=== PATIENT | female | born 1975 | race Caucasian/White ===

== ENCOUNTER 2021-06-30 19:40 | Emergency (ER) | payer SELFPAY ==
--- NOTE | 2021-06-30 20:20 | XRR_ITS ---
PROCEDURE INFORMATION: Exam: XR Chest Exam date and time: 06/30/2021 8:20 PM Age: 45 years old Clinical indication: Pain; Other: Lung TECHNIQUE: Imaging protocol: XR of the chest. Views: 2 views. COMPARISON: No relevant prior studies available. FINDINGS: Lungs: Emphysematous changes in the lungs. No focal airspace consolidation. No focal pulmonary mass. Pleural spaces: Unremarkable. No pleural effusion. No pneumothorax. Heart/Mediastinum: Unremarkable. No cardiomegaly. Bones/joints: Unremarkable. XR/XR chest 2V* [id number] IMPRESSION: No acute chest abnormality identified.
[2021-06-30 20:35] VITALS: BP 147/92; PULSE 95; RESP 20; TEMP 36.8; O2SAT 97; BMI 26.5
--- NOTE | 2021-06-30 20:53 | ECG_ITS ---
[facility] Test Date: 2021-06-30 Pat Name: Krupa Sparks Department: Room: Gender: Female [employer] Head: : 1975 Requested By: Meggan Palm Order Number: [id number] Katty MD: Lexis Denton M.D. Measurements Intervals [place] Rate: 72 P: 55 MN: 137 QRS: 54 QRSD: 90 T: 37 QT: 401 QTc: 440 Interpretive Statements SINUS RHYTHM No previous ECG available for comparison Electronically Signed On 07-01-2021 18:32:21 CDT by Lexis Denton M.D. [id number]
--- NOTE | 2021-06-30 21:11 | W.ED.NAVMDI ---
HPI - Nausea/Vomiting/Diarrhea General: Chief complaint: Nausea/Vomiting/Diarrhea Stated complaint: Diarrhea\Lungs hurt Time Seen by Provider: 06/30/21 20:50 Source: patient Mode of arrival: ambulatory Limitations: no limitations History of Present Illness: HPI Narrative: 45-year-old female states over the last week she has had cough congestion along with diarrhea. She states she had some body aches as well. She states she has hemorrhoids.her diarrhea is causing her increased pain. She denies any vomiting. Denies any recent fevers. She denies any worsening improving factors. Associated symtoms: Denies chest pain, dysuria or headache(s) Review of Systems Const: Reports: body aches Eyes: Denies: blurry vision or eye discomfort ENMT: Denies: throat pain or dental pain Card: Denies: chest pain Resp: Reports: non-productive cough GI: Reports: diarrhea and rectal pain : Denies: dysuria Musc: Denies: neck pain or back pain Skin/Breast: Denies: rash Neuro: Denies: headache(s) Psych: Denies: depression Kend[place]/Lymph: Denies: easy bruising All/Imm: Denies: urticaria [facility] ED Female Reproductive History: Date of last menstrual period: 06/25/21 Physical Exam Const: COMMON NORMALS: no acute distress, patient oriented x3 and healthy appearing HENMT: COMMON NORMALS: normocephalic and atraumatic HEAD & SCALP: normocephalic and atraumatic Eye: COMMON NORMALS: Equal, round and reactive pupils present and EOMs intact bilaterally PUPIL: Yes Equal, round and reactive pupils present Neck/C-Spine: COMMON NORMALS: full ROM and supple Chest: COMMONS NORMALS: normal inspection of the chest and normal palpation of entire chest wall Resp: COMMON NORMALS: normal respiratory effort, No retractions, No use of accessory muscles and clear to auscultation bilaterally AUSCULTATION: clear to auscultation bilaterally Cardio: COMMON NORMALS: regular rate, regular rhythm and No murmurs present (Cardio) RATE: regular rate RHYTHM: regular rhythm GI: COMMON NORMALS: Normal to inspection, nondistended, normoactive bowel sounds present, Soft to palpation, non-tender and no masses PALPATION: Yes Soft to palpation Extremity: COMMON NORMALS: normal to inspection and full ROM Neuro: COMMON NORMALS: patient oriented x3, moves all extremities and no focal motor deficits Psych: COMMON NORMALS: mental status grossly normal, Normal thought process present and cooperative THOUGHT PROCESS: Normal thought process present Skin: COMMON NORMALS: no rashes or lesions noted and no wounds GENERAL SKIN EXAM: no rashes or lesions noted Course Vital Signs: Vital signs: Vital Signs Temperature 98.2 F 06/30/21 20:35 Pulse Rate 78 06/30/21 22:07 Respiratory Rate 16 06/30/21 22:07 Blood Pressure 138/91 06/30/21 22:07 Pulse Oximetry 97 06/30/21 22:07 MDM - Nausea/Vomiting/Diarrhea MDM Narrative: Medical decision making narrative: Patient presents with diarrhea along with hemorrhoid pain. She is well-appearing here lab work and Covid are normal. X-ray here is normal as well. She stable for discharge she is to take Imodium will prescribe her Proctofoam as well. She is to follow-up with PCP and return if worsening. Lab Data: Labs: Lab Results 06/30/21 06/30/21 06/30/21 Range/Units 21:00 21:00 21:00 WBC 7.4 (4.0-10.0) 10^3/ uL RBC 3.85 L (4.1-5.3) 10^6/u L Hgb 11.1 L (11.5-15.3) g/dL Hct 34.7 L (37.0-47.0) % MCV 90.1 (81-99) fl MCH 28.8 (28.0-34.0) pg MCHC 32.0 (30.0-36.0) g/dL RDW 17.5 H (12.1-15.1) % Plt Count 341 (130-400) 10^3/c mm MPV 11.2 H (7.4-10.4) fL Neut % (Auto) 49.7 % Lymph % (Auto) 36.3 % [place] % (Auto) 8.4 % Eos % (Auto) 4.0 % Baso % (Auto) 1.5 % Neut # (Auto) 3.68 (1.8-7.7) 10^3/u L Lymph # (Auto) 2.7 (0.8-4.8) 10^3/u L [place] # (Auto) 0.6 (0.2-0.9) 10^3/u L Eos # (Auto) 0.3 (0.0-0.8) 10^3/u L Baso # (Auto) 0.1 (0.0-0.1) 10^3/u L Nucleated RBC % (a uto) 0 % Nucleated RBCs # 0.0 /100WBC Sodium 138 (136-145) mmol/L Potassium 3.6 (3.5-5.1) mmol/L Chloride 106 (98-107) mmol/L Carbon Dioxide 21 L (22-29) mmol/L Anion Gap 14.6 (5-19) BUN 10 (6-20) mg/dL Creatinine 0.6 (0.5-0.9) mg/dL GFR Calculation 108.6 (90-130) mL/min Glucose 89 (65-115) mg/dL Calculated Osmolal ity 285 (285-295) mOsm/k g Calcium 8.2 L (8.5-10.5) mg/dL Total Bilirubin 0.2 (0.15-1.2) mg/dL AST 22 (0-32) U/L ALT 12 (0-33) U/L Alkaline Phosphata se 113 H (35-105) IU/L Troponin T Baselin e 6 (0-10) ng/L Total Protein 6.9 (6.6-8.7) g/dL Albumin 4.1 (3.5-5.2) g/dL Globulin 2.8 (1.3-4.6) g/dL SARS-CoV-2 Ag (Rap id) (Negative) 06/30/21 Range/Units 21:06 WBC (4.0-10.0) 10^3/ uL RBC (4.1-5.3) 10^6/u L Hgb (11.5-15.3) g/dL Hct (37.0-47.0) % MCV (81-99) fl MCH (28.0-34.0) pg MCHC (30.0-36.0) g/dL RDW (12.1-15.1) % Plt Count (130-400) 10^3/c mm MPV (7.4-10.4) fL Neut % (Auto) % Lymph % (Auto) % [place] % (Auto) % Eos % (Auto) % Baso % (Auto) % Neut # (Auto) (1.8-7.7) 10^3/u L Lymph # (Auto) (0.8-4.8) 10^3/u L [place] # (Auto) (0.2-0.9) 10^3/u L Eos # (Auto) (0.0-0.8) 10^3/u L Baso # (Auto) (0.0-0.1) 10^3/u L Nucleated RBC % (a uto) % Nucleated RBCs # /100WBC Sodium (136-145) mmol/L Potassium (3.5-5.1) mmol/L Chloride (98-107) mmol/L Carbon Dioxide (22-29) mmol/L Anion Gap (5-19) BUN (6-20) mg/dL Creatinine (0.5-0.9) mg/dL GFR Calculation (90-130) mL/min Glucose (65-115) mg/dL Calculated Osmolal ity (285-295) mOsm/k g Calcium (8.5-10.5) mg/dL Total Bilirubin (0.15-1.2) mg/dL AST (0-32) U/L ALT (0-33) U/L Alkaline Phosphata se (35-105) IU/L Troponin T Baselin e (0-10) ng/L Total Protein (6.6-8.7) g/dL Albumin (3.5-5.2) g/dL Globulin (1.3-4.6) g/dL SARS-CoV-2 Ag (Rap id) Negative (Negative) Imaging Data^: CXR: Attestation: I personally reviewed and interpreted this imaging study as follows: Radiologist's impression: [address] [address] XRay Report Signed Patient: Krupa Sparks Unit #: [id number] : 1975 Age/Sex: 45 / F ADM Date: 06/30/21 Loc: ER Room/Bed: Attending Dr: Ordering Provider/Ordering MD: Meggan Palm MD Date of Service: 06/30/21 Procedure(s): XR chest 2V* [id number] Accession Number(s): [id number] Report Number: [id number] PROCEDURE INFORMATION: Exam: XR Chest Exam date and time: 06/30/2021 8:20 PM Age: 45 years old Clinical indication: Pain; Other: Lung TECHNIQUE: Imaging protocol: XR of the chest. Views: 2 views. COMPARISON: No relevant prior studies available. FINDINGS: Lungs: Emphysematous changes in the lungs. No focal airspace consolidation. No focal pulmonary mass. Pleural spaces: Unremarkable. No pleural effusion. No pneumothorax. Heart/Mediastinum: Unremarkable. No cardiomegaly. Bones/joints: Unremarkable. XR/XR chest 2V* [id number] IMPRESSION: No acute chest abnormality identified. Dictated By: Vitor Stiles Signed By: Vitor Stiles Signed Date/Time: 06/30/212147 DD/ 46 EKG Data^: EKG 1: Attestation: I personally reviewed and interpreted this EKG as follows: EKG interpretation date: 06/30/21 EKG interpretation time: 22:00 Interpretation: nsr hr [address] or t wave abnormalities qrs 90 qtc 425 Discharge Plan Discharge Patient Disposition: Home Clinical Impression: Diarrhea, Hemorrhoid Condition: Stable Prescriptions: New Proctofoam HC 1-1 % foam 1 applic NE TID PRN (Reason: hemorrhoids) Qty: 10 RF: 0 Discharge Orders: Discharge ED (Routine); Ordered 06/30/21 Ordered By: Meggan Palm Discharge Diet: Advance as tolerated Discharge Activity: Resume usual activity Patient Instructions: Diarrhea - Adult, Hemorrhoids (ED) Coding Level of Care Code ED Clinical Program Consultant for Chg Fwd Exam Comprehensive
[2021-06-30 21:14] LABS: Basophils # 0.1 10^3/uL (0.0-0.1); Basophils % 1.5 %; Eosinophils # 0.3 10^3/uL (0.0-0.8); Hematocrit 34.7 % (37.0-47.0); Hemoglobin 11.1 g/dL (11.5-15.3); Lymphocytes # 2.7 10^3/uL (0.8-4.8); Lymphocytes % 36.3 %; Mean Corpuscular Hemoglobin 28.8 pg (28.0-34.0); Mean Corpuscular Volume 90.1 fl (81-99); Mean Platelet Volume 11.2 fL (7.4-10.4); Monocytes # 0.6 10^3/uL (0.2-0.9); Monocytes % 8.4 %; Neutrophils # 3.68 10^3/uL (1.8-7.7); Neutrophils % 49.7 %; Nucleated Red Blood Cells % 0 %; Platelet Count 341 10^3/cmm (130-400); Red Blood Count 3.85 10^6/uL (4.1-5.3); Red Cell Distribution Width 17.5 % (12.1-15.1); White Blood Count 7.4 10^3/uL (4.0-10.0)
[2021-06-30] MEDS: hydrocortisone 1% cream 28 gm 1 APPLIC TOPICAL (21:23)
[2021-06-30 21:41] LABS: Troponin(5th) Baseline 6 ng/L (0-10)
[2021-06-30 21:42] LABS: Alanine Aminotransferase 12 U/L (0-33); Albumin Level 4.1 g/dL (3.5-5.2); Alkaline Phosphatase 113 IU/L (35-105); Anion Gap 14.6 (5-19); Aspartate Amino Transferase 22 U/L (0-32); Blood Urea Nitrogen 10 mg/dL (6-20); Calcium 8.2 mg/dL (8.5-10.5); Carbon Dioxide 21 mmol/L (22-29); Chloride 106 mmol/L (98-107); Globulin 2.8 g/dL (1.3-4.6); Glomerular Filtration Rate 108.6 mL/min (90-130); Glucose 89 mg/dL (65-115); Osmolality Calculated 285 mOsm/kg (285-295); Potassium 3.6 mmol/L (3.5-5.1); Sodium 138 mmol/L (136-145); Total Bilirubin 0.2 mg/dL (0.15-1.2); Total Protein 6.9 g/dL (6.6-8.7)
[2021-06-30 21:49] LABS: SARS Covid-2 Antigen Negative (Negative)
[2021-06-30 22:07] VITALS: BP 138/91; PULSE 78; RESP 16; O2SAT 97
== END 2021-06-30 22:09 | disposition home or self-care (01) ==
PROVIDERS: Emergency Provider Emergency Medicine
DX: R19.7 Diarrhea, unspecified (principal); K64.9 Unspecified hemorrhoids; Z20.822 Contact with and (suspected) exposure to COVID-19
CPT/HCPCS: 71046; 80053; 84484; 85025; 87426; 93005; 99283

== ENCOUNTER 2023-12-13 04:06 | Inpatient (IN) | payer SELFPAY ==
[2023-12-13] VITALS (18 sets, daily range): BP systolic 91–147; BP diastolic 60–89; PULSE 73–127; RESP 15–20; TEMP 36.6–36.9; O2SAT 94–100; BMI 28.3; BMI 30.9
--- NOTE | 2023-12-13 04:24 | ED_ITS ---
Documented by User: Rhett Mc DO 12/13/23 05:39 HPI - Abdominal Pain 2 General: Chief Complaint: Abdominal Pain Stated Complaint: N/V, Abd pain Time Seen by Provider: 12/13/23 04:07 History of Present Illness: Patient presents to the ER with complaints of epigastric abdominal pain nausea vomiting. Patient says she has been having vomiting for 2 weeks anytime she puts anything in her mouth. She says she cannot keep water down. And has not had a bite eat in 2 weeks. She says she feels like something is twisting and burning in the upper part of her stomach. Patient has never had these feelings before nor has she had peptic ulcer disease, acid reflux or GERD. The only abdominal surgery she has had was a . Related Data: Date of Last Menstrual Period: 12/13/23 Review of Systems 2 General: Reports: 10 or more systems reviewed and unremarkable except in HPI and below [facility] ED 2 Female Reproductive History: Date of last menstrual period: 12/13/23 Physical Exam 2 Const: COMMON NORMALS: no acute distress, average body habitus, patient oriented x3, no limitations, healthy appearing, alert and well nourished HENMT: COMMON NORMALS: normocephalic, atraumatic, hearing grossly normal bilaterally, external ears normal, EAC's normal, Normal external nose present, moist oral mucous membranes and oropharynx normal HEAD & SCALP: normocephalic and atraumatic NOSE: Normal external nose present EXTERNAL EAR: Yes external ears normal EXTERNAL AUDITORY CANAL: EAC's normal Neck/C-Spine: COMMON NORMALS: no JVD Chest: COMMONS NORMALS: normal inspection of the chest and normal palpation of entire chest wall Resp: COMMON NORMALS: normal respiratory effort, No retractions, No use of accessory muscles and clear to auscultation bilaterally AUSCULTATION: clear to auscultation bilaterally Cardio: COMMON NORMALS: no JVD, regular rate, regular rhythm, S1 normal heart sound present, S2 normal heart sound present, No gallops present (Cardio), No clicks present (Cardio) and No murmurs present (Cardio) RATE: regular rate RHYTHM: regular rhythm HEART SOUNDS: S1 normal heart sound present and S2 normal heart sound present GI: COMMON NORMALS: Normal to inspection, nondistended, normoactive bowel sounds present, Soft to palpation, No hepatosplenomegaly present and no masses; negative for non-tender (Tender to palpate over epigastric area) PALPATION: Y es Soft to palpation and Yes No hepatosplenomegaly present Neuro: COMMON NORMALS: patient oriented x3 SENSORIUM/ORIENTATION: Yes alert Course 2 Vital Signs: Vital signs: Vital Signs Temperature 98.3 F 12/13/23 04:09 Pulse Rate 75 12/13/23 06:30 Respiratory Rate 20 H 12/13/23 06:30 Blood Pressure 115/75 12/13/23 06:30 Pulse Oximetry 100 12/13/23 06:30 Oxygen Delivery Me thod Room Air 12/13/23 04:44 MDM - Abdominal Pain Differential Diagnosis Likely abdominal pain and gastroenteritis; Unlikely acute appendicitis, calculus of kidney, constipation, diverticulitis, endometriosis, pancreatitis or small bowel obstruction Medical Records I reviewed the patient's medical records. Lab Data I reviewed the patient's lab results. 12/13/23 04:21 12/13/23 04:21 Labs/Radiology: Radiology Impressions Abdomen/Pelvis CT 12/13/23 04:46 IMPRESSION: 1. Probably sludge filled, mildly distended gallbladder with hyperenhancing patricia as described above; this appearance may represent chronic gallbladder dysfunction . Consider RUQ ultrasound for further evaluation. 2. Small fluid density endometrial defect at the anterior lower uterine segment most likely represents a scar diverticulum/isthmocele , with associated post cyst 3. Mild to moderate-sized hiatal hernia partially intrathoracic stomach. 4. Patricia of the right colon demonstrate prominent submucosal fat, which can be a normal finding in the setting of obesity, and also can be seen in the setting of inflammatory bowel disease or celiac disease. 5. Chronic/incidental findings as above Laboratory Results WBC 8.86 10^3/uL (3.29-11.43) 12/13/23 04:21 RBC 3.77 10^6/uL (3.85-5.65) L 12/13/23 04:21 Hgb 14.10 g/dL (11.27-16.99) 12/13/23 04:21 Hct 38.8 % (36-47) 12/13/23 04:21 MCV 102.9 fl (85-98) H 12/13/23 04:21 MCH 37.4 pg (27-33) H 12/13/23 04:21 MCHC 36.3 g/dL (30-55) 12/13/23 04:21 RDW 16.5 % (12.1-15.1) H 12/13/23 04:21 Plt Count 363 10^3/cmm (157-399) 12/13/23 04:21 MPV 11.5 fL (7.4-10.4) H 12/13/23 04:21 Neut % (Auto) 73.0 % 12/13/23 04:21 Lymph % (Auto) 15.5 % 12/13/23 04:21 [place] % (Auto) 9.9 % 12/13/23 04:21 Eos % (Auto) 0.8 % 12/13/23 04:21 Baso % (Auto) 0.6 % 12/13/23 04:21 Neut # (Auto) 6.47 10^3/uL (1.8-7.7) 12/13/23 04:21 Lymph # (Auto) 1.4 10^3/uL (0.8-4.8) 12/13/23 04:21 [place] # (Auto) 0.9 10^3/uL (0.2-0.9) 12/13/23 04:21 Eos # (Auto) 0.1 10^3/uL (0.0-0.8) 12/13/23 04:21 Baso # (Auto) 0.1 10^3/uL (0.0-0.1) 12/13/23 04:21 Nucleated RBC % (auto) 0 % 12/13/23 04:21 Nucleated RBCs # 0.0 /100WBC 12/13/23 04:21 Sodium 132 mmol/L (136-145) L 12/13/23 04:21 Potassium 2.2 mmol/L (3.5-5.1) L* 12/13/23 04:21 Chloride 83 mmol/L (98-107) L 12/13/23 04:21 Carbon Dioxide 30 mmol/L (22-29) H 12/13/23 04:21 Anion Gap 21.2 (5-19) H 12/13/23 04:21 BUN 4 mg/dL (6-20) L 12/13/23 04:21 Creatinine 0.7 mg/dL (0.5-0.9) 12/13/23 04:21 GFR Calculation 89.7 mL/min (90-130) L 12/13/23 04:21 Glucose 159 mg/dL (65-115) H 12/13/23 04:21 Calculated Osmolality 274 mOsm/kg (285-295) L 12/13/23 04:21 Lactic Acid 2.6 mmol/L (0.5-2.2) H 12/13/23 04:21 Calcium 8.9 mg/dL (8.5-10.5) 12/13/23 04:21 Magnesium 1.9 mg/dL (1.7-2.3) 12/13/23 04:21 Total Bilirubin 1.3 mg/dL (0.15-1.2) H 12/13/23 04:21 AST 91 U/L (0-32) H 12/13/23 04:21 ALT 26 U/L (0-33) 12/13/23 04:21 Alkaline Phosphatase 151 U/L (35-105) H 12/13/23 04:21 Total Protein 7.3 g/dL (6.6-8.7) 12/13/23 04:21 Albumin 3.7 g/dL (3.5-5.2) 12/13/23 04:21 Globulin 3.6 g/dL (1.3-4.6) 12/13/23 04:21 Lipase 156 U/L (13-60) H 12/13/23 04:21 HCG, Qual Negative (Negative) 12/13/23 04:21 Urine Color Yellow (Yellow) 12/13/23 05:21 Urine Appearance Hazy (CLEAR) A 12/13/23 05:21 Urine pH 7 (5-7) 12/13/23 05:21 Ur Specific [place] 1.010 (1.005-1.030) 12/13/23 05:21 Urine Protein 2+ (Negative) H 12/13/23 05:21 Urine Glucose (UA) Trace (Normal) H 12/13/23 05:21 Urine Ketones 1+ (Negative) H 12/13/23 05:21 Urine Blood 3+ (Negative) H 12/13/23 05:21 Urine Nitrate Negative (Negative) 12/13/23 05:21 Urine Bilirubin 1+ (Negative) H 12/13/23 05:21 Urine Urobilinogen Neg mg/dL (Negative) 12/13/23 05:21 Ur Leukocyte Esterase 2+ (Negative) H 12/13/23 05:21 Urine RBC 15-25 /hpf (0-2) H 12/13/23 05:21 Urine WBC 55-80 /hpf (0-5) H 12/13/23 05:21 Ur Squamous Epith Cells 5-10 /hpf (0-5) H 12/13/23 05:21 Amorphous Sediment Not Reportable 12/13/23 05:21 Urine Bacteria 3+ /hpf (NONE) H 12/13/23 05:21 Urine Mucus 2+ /hpf 12/13/23 05:21 Urine Opiates Screen Negative ng/mL (Negative) 12/13/23 05:21 Ur Barbiturates Screen Negative ng/mL (Negative) 12/13/23 05:21 Ur Phencyclidine Scrn Negative ng/mL (Negative) 12/13/23 05:21 Ur Amphetamines Screen Negative ng/mL (Negative) 12/13/23 05:21 U Benzodiazepines Scrn Negative ng/mL (Negative) 12/13/23 05:21 Urine Cocaine Screen Negative ng/mL (Negative) 12/13/23 05:21 U Marijuana (THC) Screen Negative ng/mL (Negative) 12/13/23 05:21 Serum Ketones Positive (Negative) H 12/13/23 04:21 All radiology interpretation(s) finalized by discharge Discharge Plan Discharge Patient Disposition: Placed in Observation Clinical Impression: Pancreatitis, Abdominal pain, Hiatal hernia, Cystitis Condition: Stable Prescriptions: No Action Proctofoam HC 1-1 % foam 1 applic [place] TID PRN (Reason: hemorrhoids) Qty: 10 0RF Patient Instructions: Opioid Safety, Pain Management Sign Out Sign Out Data: Patient Sign Out occurred on 12/13/23 at 05:56. Patient's care was discussed, and care was transferred from Rhett Mc DO to Rohan Davidson DO. Coding Level of Care Code ED Examining Officer for Chg Fwd Documented by User: Rohan Man SandramitchDO 12/13/23 07:34 HPI - Abdominal Pain 2 General: Chief Complaint: Abdominal Pain Stated Complaint: N/V, Abd pain Time Seen by Provider: 12/13/23 04:07 Course 2 Vital Signs: Vital signs: Vital Signs Temperature 98.3 F 12/13/23 04:09 Pulse Rate 75 12/13/23 06:30 Respiratory Rate 20 H 12/13/23 06:30 Blood Pressure 115/75 12/13/23 06:30 Pulse Oximetry 100 12/13/23 06:30 Oxygen Delivery Me thod Room Air 12/13/23 04:44 MDM - Abdominal Pain Medical Decision Making Care assumed at change of shift. Patient has hypokalemia persistent nausea and vomiting. Her pain has been going on she states for about 2-2 and half weeks got worse overnight he does not drink alcohol regularly. Lipase elevated is a question on the CT of possible sludge in the gallbladder not confirmed on ultrasound and on ultrasound her common bile duct is normal. No significant inflammation of the pancreas noted on the CT patient has severe epigastric discomfort that is causing her to double over with persistent nausea and vomiting. She denies any recent alcohol use no hematemesis coffee-ground emesis no hematochezia or melena. She was given Zosyn presumptively for possible gallbladder disease while we are awaiting the gallbladder ultrasound. She does have a cystitis she is already been given potassium supplement as well. Will place her on observation pain control she has been given Protonix as well continue fluids and potassium supplement discussed with hospitalist orders written Lab Data 12/13/23 04:21 12/13/23 04:21 Labs/Radiology: Radiology Impressions Abdomen/Pelvis CT 12/13/23 04:46 IMPRESSION: 1. Probably sludge filled, mildly distended gallbladder with hyperenhancing patricia as described above; this appearance may represent chronic gallbladder dysfunction . Consider RUQ ultrasound for further evaluation. 2. Small fluid density endometrial defect at the anterior lower uterine segment most likely represents a scar diverticulum/isthmocele , with associated post cyst 3. Mild to moderate-sized hiatal hernia partially intrathoracic stomach. 4. Patricia of the right colon demonstrate prominent submucosal fat, which can be a normal finding in the setting of obesity, and also can be seen in the setting of inflammatory bowel disease or celiac disease. 5. Chronic/incidental findings as above Laboratory Results WBC 8.86 10^3/uL (3.29-11.43) 12/13/23 04:21 RBC 3.77 10^6/uL (3.85-5.65) L 12/13/23 04:21 Hgb 14.10 g/dL (11.27-16.99) 12/13/23 04:21 Hct 38.8 % (36-47) 12/13/23 04:21 MCV 102.9 fl (85-98) H 12/13/23 04:21 MCH 37.4 pg (27-33) H 12/13/23 04:21 MCHC 36.3 g/dL (30-55) 12/13/23 04:21 RDW 16.5 % (12.1-15.1) H 12/13/23 04:21 Plt Count 363 10^3/cmm (157-399) 12/13/23 04:21 MPV 11.5 fL (7.4-10.4) H 12/13/23 04:21 Neut % (Auto) 73.0 % 12/13/23 04:21 Lymph % (Auto) 15.5 % 12/13/23 04:21 [place] % (Auto) 9.9 % 12/13/23 04:21 Eos % (Auto) 0.8 % 12/13/23 04:21 Baso % (Auto) 0.6 % 12/13/23 04:21 Neut # (Auto) 6.47 10^3/uL (1.8-7.7) 12/13/23 04:21 Lymph # (Auto) 1.4 10^3/uL (0.8-4.8) 12/13/23 04:21 [place] # (Auto) 0.9 10^3/uL (0.2-0.9) 12/13/23 04:21 Eos # (Auto) 0.1 10^3/uL (0.0-0.8) 12/13/23 04:21 Baso # (Auto) 0.1 10^3/uL (0.0-0.1) 12/13/23 04:21 Nucleated RBC % (auto) 0 % 12/13/23 04:21 Nucleated RBCs # 0.0 /100WBC 12/13/23 04:21 Sodium 132 mmol/L (136-145) L 12/13/23 04:21 Potassium 2.2 mmol/L (3.5-5.1) L* 12/13/23 04:21 Chloride 83 mmol/L (98-107) L 12/13/23 04:21 Carbon Dioxide 30 mmol/L (22-29) H 12/13/23 04:21 Anion Gap 21.2 (5-19) H 12/13/23 04:21 BUN 4 mg/dL (6-20) L 12/13/23 04:21 Creatinine 0.7 mg/dL (0.5-0.9) 12/13/23 04:21 GFR Calculation 89.7 mL/min (90-130) L 12/13/23 04:21 Glucose 159 mg/dL (65-115) H 12/13/23 04:21 Calculated Osmolality 274 mOsm/kg (285-295) L 12/13/23 04:21 Lactic Acid 2.6 mmol/L (0.5-2.2) H 12/13/23 04:21 Calcium 8.9 mg/dL (8.5-10.5) 12/13/23 04:21 Magnesium 1.9 mg/dL (1.7-2.3) 12/13/23 04:21 Total Bilirubin 1.3 mg/dL (0.15-1.2) H 12/13/23 04:21 AST 91 U/L (0-32) H 12/13/23 04:21 ALT 26 U/L (0-33) 12/13/23 04:21 Alkaline Phosphatase 151 U/L (35-105) H 12/13/23 04:21 Total Protein 7.3 g/dL (6.6-8.7) 12/13/23 04:21 Albumin 3.7 g/dL (3.5-5.2) 12/13/23 04:21 Globulin 3.6 g/dL (1.3-4.6) 12/13/23 04:21 Lipase 156 U/L (13-60) H 12/13/23 04:21 HCG, Qual Negative (Negative) 12/13/23 04:21 Urine Color Yellow (Yellow) 12/13/23 05:21 Urine Appearance Hazy (CLEAR) A 12/13/23 05:21 Urine pH 7 (5-7) 12/13/23 05:21 Ur Specific [place] 1.010 (1.005-1.030) 12/13/23 05:21 Urine Protein 2+ (Negative) H 12/13/23 05:21 Urine Glucose (UA) Trace (Normal) H 12/13/23 05:21 Urine Ketones 1+ (Negative) H 12/13/23 05:21 Urine Blood 3+ (Negative) H 12/13/23 05:21 Urine Nitrate Negative (Negative) 12/13/23 05:21 Urine Bilirubin 1+ (Negative) H 12/13/23 05:21 Urine Urobilinogen Neg mg/dL (Negative) 12/13/23 05:21 Ur Leukocyte Esterase 2+ (Negative) H 12/13/23 05:21 Urine RBC 15-25 /hpf (0-2) H 12/13/23 05:21 Urine WBC 55-80 /hpf (0-5) H 12/13/23 05:21 Ur Squamous Epith Cells 5-10 /hpf (0-5) H 12/13/23 05:21 Amorphous Sediment Not Reportable 12/13/23 05:21 Urine Bacteria 3+ /hpf (NONE) H 12/13/23 05:21 Urine Mucus 2+ /hpf 12/13/23 05:21 Urine Opiates Screen Negative ng/mL (Negative) 12/13/23 05:21 Ur Barbiturates Screen Negative ng/mL (Negative) 12/13/23 05:21 Ur Phencyclidine Scrn Negative ng/mL (Negative) 12/13/23 05:21 Ur Amphetamines Screen Negative ng/mL (Negative) 12/13/23 05:21 U Benzodiazepines Scrn Negative ng/mL (Negative) 12/13/23 05:21 Urine Cocaine Screen Negative ng/mL (Negative) 12/13/23 05:21 U Marijuana (THC) Screen Negative ng/mL (Negative) 12/13/23 05:21 Serum Ketones Positive (Negative) H 12/13/23 04:21 Discharge Plan Discharge Patient Disposition: Placed in Observation Clinical Impression: Pancreatitis, Abdominal pain, Hiatal hernia, Cystitis Condition: Stable Prescriptions: No Action Proctofoam HC 1-1 % foam 1 applic MN TID PRN (Reason: hemorrhoids) Qty: 10 0RF Patient Instructions: Opioid Safety, Pain Management Sign Out Sign Out Data: Patient Sign Out occurred on 12/13/23 at 05:56. Patient's care was discussed, and care was transferred from Rhett Mc DO to Rohan Davidson DO. Coding Level of Care Code ED Examining Officer for Andrey Haas
[2023-12-13 04:27] LABS: Basophils # 0.1 10^3/uL (0.0-0.1); Basophils % 0.6 %; Eosinophils # 0.1 10^3/uL (0.0-0.8); Eosinophils % 0.8 %; Hematocrit 38.8 % (36-47); Lymphocytes # 1.4 10^3/uL (0.8-4.8); Lymphocytes % 15.5 %; Mean Corpuscular HGB Conc 36.3 g/dL (30-55); Mean Corpuscular Hemoglobin 37.4 pg (27-33); Mean Corpuscular Volume 102.9 fl (85-98); Mean Platelet Volume 11.5 fL (7.4-10.4); Monocytes # 0.9 10^3/uL (0.2-0.9); Monocytes % 9.9 %; Neutrophils # 6.47 10^3/uL (1.8-7.7); Nucleated Red Blood Cells % 0 %; Platelet Count 363 10^3/cmm (157-399); Red Blood Count 3.77 10^6/uL (3.85-5.65); Red Cell Distribution Width 16.5 % (12.1-15.1); White Blood Count 8.86 10^3/uL (3.29-11.43)
[2023-12-13] MEDS: ketorolac 30 mg/mL INJ IVP ×2 (04:29→07:32)
[2023-12-13] MEDS: ondansetron 2 mg/ML SDV 2 mL 4 MG IVP ×3 (04:29→23:43)
[2023-12-13] MEDS: sodium chloride 0.9% 1,000 ML 999 ML IV (04:29)
[2023-12-13 04:43] LABS: Alanine Aminotransferase 26 U/L (0-33); Albumin Level 3.7 g/dL (3.5-5.2); Alkaline Phosphatase 151 U/L (35-105); Anion Gap 21.2 (5-19); Aspartate Amino Transferase 91 U/L (0-32); Blood Urea Nitrogen 4 mg/dL (6-20); Calcium 8.9 mg/dL (8.5-10.5); Carbon Dioxide 30 mmol/L (22-29); Chloride 83 mmol/L (98-107); Creatinine Clr Calc Pharmacy 94.8443; Globulin 3.6 g/dL (1.3-4.6); Glomerular Filtration Rate 89.7 mL/min (90-130); Glucose 159 mg/dL (65-115); Lipase 156 U/L (13-60); Magnesium 1.9 mg/dL (1.7-2.3); Osmolality Calculated 274 mOsm/kg (285-295); Sodium 132 mmol/L (136-145); Total Bilirubin 1.3 mg/dL (0.15-1.2); Total Protein 7.3 g/dL (6.6-8.7)
[2023-12-13 04:46] LABS: Potassium 2.2 mmol/L (3.5-5.1)
--- NOTE | 2023-12-13 04:46 | CTR_ITS ---
PROCEDURE INFORMATION: Exam: CT Abdomen And Pelvis With Contrast Exam date and time: 12/13/2023 5:05 AM Age: 48 years old Clinical indication: Abdominal pain; Localized; Prior surgery; Surgery date: 6+ months; Surgery type: Csection; Patient HX: Upper middle abd pain for two weeks; Additional info: Abd pain, n/v, elevated lfts TECHNIQUE: Imaging protocol: Computed tomography of the abdomen and pelvis with contrast. Radiation optimization: All CT scans at this facility use at least one of these dose optimization techniques: automated exposure control; mA and/or kV adjustment per patient size (includes targeted exams where dose is matched to clinical indication); or iterative reconstruction. Contrast material: OMNI 350; Contrast volume: 100 ml; Contrast route: INTRAVENOUS (IV); COMPARISON: CR XR chest 2V* [id number] 06/30/2021 8:43 PM RADIATION DOSE METRICS: Total DLP (mGy-cm): 703 FINDINGS: Lungs: Visualized lung bases are clear. Heart: Heart size normal Liver: Prominent diffuse hepatic steatosis. No lesion. Gallbladder and bile ducts: Gallbladder is mildly distended by the presence of mildly dense fluid suggestive of sludge. No macroscopic gallstones identified. Gallbladder wall appears hyperenhancing, but does show wall thickening. No surrounding inflammatory changes or fluid. No biliary ductal dilation Pancreas: Normal. No ductal dilation. Spleen: Normal. No splenomegaly. Adrenal glands: Normal. No mass. Kidneys and ureters: Normal. No hydronephrosis. Stomach and bowel: Mild to moderate-sized hiatal hernia partially intrathoracic stomach. Patricia of the right colon demonstrate prominent submucosal fat, which can be a normal finding in the setting of obesity, and also can be seen in the setting of inflammatory bowel disease or celiac disease. Appendix: Appendix is not definitely visualized. No secondary findings to suggest appendicitis. Intraperitoneal space: Unremarkable. No free air. No significant fluid collection. Vasculature: Unremarkable. No abdominal aortic aneurysm. Lymph nodes: Unremarkable. No enlarged lymph nodes. Urinary bladder: Unremarkable as visualized. Reproductive: Small fluid density endometrial defect at the anterior lower uterine segment most likely represents a scar diverticulum/isthmocele , with associated post cyst as evidenced by an adjacent 18 mm water density cystic structure. Bones/joints: Punctate right acetabular sclerotic density may represent a bone island. Soft tissues: Unremarkable. CT/CT abdomen pelvis w con* [id number] IMPRESSION: 1. Probably sludge filled, mildly distended gallbladder with hyperenhancing patricia as described above; this appearance may represent chronic gallbladder dysfunction . Consider RUQ ultrasound for further evaluation. 2. Small fluid density endometrial defect at the anterior lower uterine segment most likely represents a scar diverticulum/isthmocele , with associated post cyst 3. Mild to moderate-sized hiatal hernia partially intrathoracic stomach. 4. Patricia of the right colon demonstrate prominent submucosal fat, which can be a normal finding in the setting of obesity, and also can be seen in the setting of inflammatory bowel disease or celiac disease. 5. Chronic/incidental findings as above
[2023-12-13] MEDS: potassium chloride ER 20 mEq Tablet 40 MEQ PO ×2 (04:51→17:24)
[2023-12-13 04:59] LABS: HCG, Serum Qual Negative (Negative)
[2023-12-13 05:04] LABS: Lactic Sepsis W/Reflex 2.6 mmol/L (0.5-2.2)
[2023-12-13] MEDS: iohexol 350 mg/mL 500 mL Btl (per mL) IV (05:09)
[2023-12-13 05:35] LABS: Amphetamines Screen Urine Negative (Negative); Barbiturates Screen Urine Negative (Negative); Benzodiazepines Screen Urine Negative (Negative); Cocaine Screen Urine Negative (Negative); Opiate Screen Urine Negative (Negative); PCP Screen Urine Negative (Negative); THC Screen Urine Negative (Negative)
[2023-12-13 05:37] LABS: Add Urine Microscopic? YES; Bilirubin Urine 1+ (Negative); Blood Urine 3+ (Negative); Glucose Urine UA Trace (Normal); Ketones Urine 1+ (Negative); Leukocyte Esterase Urine 2+ (Negative); Nitrate Urine Negative (Negative); Protein Urine 2+ (Negative); Urine Appearance Hazy (CLEAR); Urine Color Yellow (Yellow); Urobilinogen Urine Neg (Negative); pH Urine 7 (5-7)
[2023-12-13 05:38] LABS: Add Urine Culture? Yes; Bacteria Urine 3+ /hpf; Mucus Urine 2+ /hpf; RBC Urine 15-25 /hpf (0-2); WBC Urine 55-80 /hpf (0-5)
[2023-12-13 05:55] LABS: Ketone (Acetest) Serum Positive (Negative)
[2023-12-13] MEDS: piperacillin-tazobactam 3.375 GM in sodium chloride 0.9% (plus) 50 ML IV ×3 (06:02→19:39)
[2023-12-13] MEDS: sodium chloride 0.9% 2,177.25 ML 2177.25 ML IV (06:03)
--- NOTE | 2023-12-13 06:30 | US_ITS ---
WS: [id number] RIGHT UPPER QUADRANT ULTRASOUND HISTORY: abd pain, elevated lipase, LFTs and t bili COMPARISON: CT abdomen 10/12/2024 Liver: 20.1 cm in length. Moderately enlarged liver with increased attenuation in hepatic steatosis. No mass identified. The entire liver is not well visualized. Portal Vein: Normal hepatopetal flow with monophasic waveform. Gallbladder: Normally distended gallbladder with no stones or wall thickening. CBD: 0.4 cm Pancreas: Normal size and echogenicity. Right kidney: 10.9 cm in length. Normal size and echogenicity. No hydronephrosis or mass. Aorta and IVC: Unremarkable abdominal aorta and IVC. No ascites. IMPRESSION: 1. Negative gallbladder. No stones or sludge or wall thickening identified. 2. Normal common bile duct. 3. Moderate hepatic enlargement and hepatic steatosis.
[2023-12-13 06:39] LABS: Reflex Lactate Order REFLEX LACTIC ORDERD
[2023-12-13] MEDS: pantoprazole 40 mg SDV IVP ×2 (07:32→19:23)
[2023-12-13] MEDS: morphine 4 mg/mL SDV 1 mL IVP ×4 (07:35→23:48)
[2023-12-13 08:03] LABS: Lactic Acid level (Lactate) 1.5 mmol/L (0.5-2.2)
--- NOTE | 2023-12-13 09:42 | P.HP_ITS ---
Providers/Chief Complaint 2 Admitting Physician: Man Michael MD Chief Complaint: N/V, Abd pain History of Present Illness Krupa Sparks is a 48 year old female presenting to the emergency department with complaints of approximately 2 weeks of abdominal pain. She reports it is mainly centered in her right upper quadrant area. She has been having some loose stool, multiple stools a day as well as nausea and vomiting. She states she gets a brief relief of her abdominal discomfort after vomiting. She denies any blood in her emesis, or her stool. No black or tarry stool. No fever. She has had some dysuria lately. She reports no prior history. She states she uses ibuprofen but very rarely. In the emergency department she received subcu TauroLock, morphine, Zosyn, and IV fluids. Review of Systems 2 General: Reports: 10 or more systems reviewed and unremarkable except in HPI and below Card: Denies: chest pain Resp: Denies: dyspnea GI: Reports: abdominal pain, nausea and vomiting; Denies: hematemesis, coffee ground emesis, hematochezia or melena Medications/Allergies Home Medications Medication Instructions Recorded Confirmed Last Taken Type No Known Home Medications 12/13/23 12/13/23 Unknown History Allergies Allergy/AdvReac Type Severity Reaction Status Date / Time cephalexin [From Keflex] Allergy ADR-Itching Verified 12/13/23 04:15 PFSH Acute 2 PFSH: Family History (Updated 12/13/23 @ 09:44 by Man Michael MD) Other CAD (coronary artery disease) Diabetes Social History (Updated 12/13/23 @ 09:45 by Man Michael MD) Smoking and tobacco/nicotine status: never used tobacco/nicotine Alcohol intake: current Alcohol intake frequency: holidays/special occasions only Female Reproductive History: Date of last menstrual period: 12/13/23 Vitals/I&O/Wt Last Vital Signs Temp 98.3 F 12/13/23 04:09 Pulse 87 12/13/23 07:36 Resp 16 12/13/23 07:36 BP 110/70 12/13/23 07:36 Pulse Ox 98 12/13/23 07:36 O2 Del Method Room Air 12/13/23 07:36 12/12/23 12/13/23 12/13/23 22:59 06:59 14:59 Intake Total 1050 / 1050 Balance 1050 / 1050 Weight last 48 hrs Weight 72.575 kg Physical Exam 2 Narrative: General exam reporting abdominal pain. Conversive. HEENT: Atraumatic normocephalic. Oropharynx clear Neck is supple no lymphadenopathy thyromegaly Cardiovascular regular rate and rhythm without murmur Lungs clear no wheezing or crackles Abdomen is soft. Tenderness is present in the epigastric and right upper quadrant area. exams deferred Extremities no cyanosis, edema, cap refill brisk Skin no rash Neuro no focal deficits Data 12/13/23 04:21 12/13/23 04:21 Other Labs: Lactic elevated at 2.6, repeat normal Calcium and albumin are normal Bilirubin 1.3, AST 91, alk phos 151 Lipase 156 hCG negative Urinalysis 55-80 white blood cells, 15-25 reds and 5-10 squamous Serum ketones positive Gallbladder ultrasound negative with the exception of moderate hepatic enlargement and hepatic steatosis CT abdomen pelvis demonstrating some sludge in the gallbladder, mildly distended with hyperenhancing clarke. Question chronic gallbladder dysfunction. Small fluid density endometrial defect most likely representing diverticulum Mild to moderate hiatal hernia with partially intrathoracic stomach Clarke right colon with prominent submucosal fat, cannot rule out inflammatory bowel disease. I reviewed this as well. Blood and urine cultures were obtained. Micro: Microbiology 12/13/23 07:33 Blood Culture - Preliminary Blood SPECIMEN COLLECTED 12/13/23 07:29 Blood Culture - Preliminary Blood SPECIMEN COLLECTED A&P Assessment and plan (1) Abdominal pain: Patient presents with abdominal pain. This is mainly in the epigastric and right upper quadrant area. There could be multiple reasons for her discomfort. She could have significant gastritis with hiatal hernia, acalculus gallbladder disease/nonfunctioning gallbladder, or even potentially inflammatory bowel disease on CT. I think pancreatitis is less likely as lipase is only minimally elevated with significant vomiting all week and no significant pancreas inflammation on CT. UTI could also play a role in nausea and vomiting, but would be less likely to cause her epigastric/right upper quadrant discomfort Protonix 40 mg IV every 12 hours Clear liquids Nausea control Monitor for significant diarrhea in house. Consider testing if this occurs Observation currently (2) Hiatal hernia: Protonix as above (3) Cystitis: Zosyn IV Blood and urine cultures (4) Hypokalemia: Patient with significant hypokalemia, supplement Plan Multiple other medical problems as outlined in past medical history Full code Lovenox for DVT prophylaxis Attestations 2 Medical Necessity Statement*: Will require less than 2 midnight stay for evaluation and treatment of abdominal discomfort Diagnoses Abdominal pain R10.9 Hiatal hernia K44.9 Cystitis N30.90 Hypokalemia E87.6 Time Spent (min) 54
--- NOTE | 2023-12-13 09:47 | PC.NURSE ---
Medication Delay: D5-NS + KCL 20 mEq delayed d/t normal saline bolus currently infusing
[2023-12-13 10:41] LABS: Estmated Average Glucose 97
[2023-12-13 10:46] LABS: Thyroid Stimulating Hormone 2.96 uIU/mL (0.27-4.20); Triglycerides 140 mg/dL (0-150)
[2023-12-13] MEDS: enoxaparin 40 mg/0.4 mL Syringe SUBCUT (11:08)
[2023-12-13] MEDS: sodium chlor 0.9% + KCl 20 mEq 20 MEQ/1,000 ML BAG 100 MEQ IV ×2 (11:09→21:24)
[2023-12-14] VITALS (7 sets, daily range): BP systolic 105–136; BP diastolic 70–87; PULSE 77–94; RESP 14–20; TEMP 36.7–37; O2SAT 92–100
[2023-12-14] MEDS: morphine 4 mg/mL SDV 1 mL IVP (04:12)
[2023-12-14] MEDS: ondansetron 2 mg/ML SDV 2 mL 4 MG IVP ×3 (04:12→17:05)
[2023-12-14] MEDS: piperacillin-tazobactam 3.375 GM in sodium chloride 0.9% (plus) 50 ML IV ×3 (04:17→21:05)
[2023-12-14 04:21] LABS: Basophils # 0.1 10^3/uL (0.0-0.1); Basophils % 1.3 %; Eosinophils # 0.1 10^3/uL (0.0-0.8); Eosinophils % 2.4 %; Hematocrit 31.1 % (36-47); Lymphocytes # 1.4 10^3/uL (0.8-4.8); Lymphocytes % 30.2 %; Mean Corpuscular HGB Conc 33.4 g/dL (30-55); Mean Corpuscular Hemoglobin 36.9 pg (27-33); Mean Corpuscular Volume 110.3 fl (85-98); Mean Platelet Volume 11.6 fL (7.4-10.4); Monocytes # 0.5 10^3/uL (0.2-0.9); Monocytes % 10.8 %; Neutrophils # 2.56 10^3/uL (1.8-7.7); Neutrophils % 55.1 %; Nucleated Red Blood Cells % 0 %; Platelet Count 239 10^3/cmm (157-399); Red Blood Count 2.82 10^6/uL (3.85-5.65); Red Cell Distribution Width 17.6 % (12.1-15.1); White Blood Count 4.64 10^3/uL (3.29-11.43)
[2023-12-14 04:44] LABS: Alanine Aminotransferase 14 U/L (0-33); Albumin Level 2.7 g/dL (3.5-5.2); Alkaline Phosphatase 97 U/L (35-105); Anion Gap 13.4 (5-19); Aspartate Amino Transferase 56 U/L (0-32); Blood Urea Nitrogen 4 mg/dL (6-20); Calcium 7.2 mg/dL (8.5-10.5); Carbon Dioxide 28 mmol/L (22-29); Chloride 104 mmol/L (98-107); Creatinine Clr Calc Pharmacy 115.5652; Globulin 2.4 g/dL (1.3-4.6); Glomerular Filtration Rate 107.2 mL/min (90-130); Glucose 96 mg/dL (65-115); Lipase 74 U/L (13-60); Magnesium 1.8 mg/dL (1.7-2.3); Osmolality Calculated 291 mOsm/kg (285-295); Potassium 3.4 mmol/L (3.5-5.1); Sodium 142 mmol/L (136-145); Total Bilirubin 0.7 mg/dL (0.15-1.2); Total Protein 5.1 g/dL (6.6-8.7)
[2023-12-14] MEDS: pantoprazole 40 mg SDV IVP ×2 (06:02→18:50)
[2023-12-14] MEDS: sodium chlor 0.9% + KCl 20 mEq 20 MEQ/1,000 ML BAG 100 MEQ IV ×2 (08:03→17:07)
[2023-12-14] MEDS: potassium chloride ER 20 mEq Tablet 40 MEQ PO (09:00)
--- NOTE | 2023-12-14 09:33 | P.CONIM_ITS ---
Providers/Reason For Consult 2 Consulting Physician/Specialty*: General surgery Reason for Consult*: Epigastric pain, nausea and vomiting. Attending Physician: Man Michael MD History of Present Illness History of Present Illness Krupa Sparks is a 48 year old female is a 48-year-old female who presented to the hospital complaining of 1 to 2 weeks of epigastric abdominal pain nausea and vomiting. Workup in the emergency department revealed a elevated lipase, which was slightly above the upper limit of normal. In addition CT scan of the abdomen and pelvis was done with no significant intra-abdominal pathology and the gallbladder showing possibility of his sludge, right upper quadrant ultrasound was also done and show evidence of no gallbladder pathology, no stones, no wall thickening. Per patient report she has pain in the epigastrium sometimes it radiates livid to the right side, denies significant alcohol intake, does not complain of significant pain this morning and has minimal nausea. Review of Systems 2 General: Reports: 10 or more systems reviewed and unremarkable except in HPI and below Medications/Allergies Home Medications Medication Instructions Recorded Confirmed Last Taken Type No Known Home Medications 12/13/23 12/13/23 Unknown History Allergies Allergy/AdvReac Type Severity Reaction Status Date / Time cephalexin [From Keflex] Allergy ADR-Itching Verified 12/13/23 04:15 Current Medications Generic Name Dose Route Start Last Admin Trade Name Freq PRN Reason Stop Dose Admin Enoxaparin Sodium 40 mg 12/13/23 10:15 12/13/23 11:08 Enoxaparin 40 Mg/0.4 Ml Syringe SUBCUT 40 mg Q24H MACARIO Administration Potassium Chloride/Sodium Chloride 20 meq in 1,000 mls @ 100 mls/hr 12/13/23 10:15 12/14/23 08:03 Sodium Chlor 0.9% + Kcl 20 Meq IV 100 mls/hr .Q10H MACARIO Administration Piperacillin Sod/Tazobactam 50 mls @ 12.5 mls/hr 12/13/23 12:00 12/14/23 08:17 Sod 3.375 gm/ Sodium Chloride IV Infused Q8H MACARIO Infusion Protocol Morphine Sulfate 4 mg 12/13/23 09:13 12/14/23 04:12 Morphine 4 Mg/Ml Sdv 1 Ml IVP 4 mg Q4H PRN Administration SEVERE PAIN Ondansetron HCl 4 mg 12/13/23 09:13 12/14/23 04:12 Ondansetron 2 Mg/Ml Sdv 2 Ml IVP 4 mg Q6H PRN Administration NAUSEA AND VOMITING Pantoprazole Sodium 40 mg 12/13/23 19:00 12/14/23 06:02 Pantoprazole 40 Mg Sdv IVP 40 mg Q12H MACARIO Administration PFSH Acute 2 PFSH: Family History (Updated 12/13/23 @ 09:44 by Man Michael MD) Other CAD (coronary artery disease) Diabetes Social History (Updated 12/13/23 @ 09:45 by Man Michael MD) Smoking and tobacco/nicotine status: never used tobacco/nicotine Alcohol intake: current Alcohol intake frequency: holidays/special occasions only Female Reproductive History: Date of last menstrual period: 12/13/23 Vitals/I&O/Wt Last Vital Signs Temp 98.0 F 12/14/23 08:00 Pulse 94 12/14/23 08:00 Resp 16 12/14/23 08:00 BP 125/76 12/14/23 08:00 Pulse Ox 100 12/14/23 08:00 O2 Del Method Room Air 12/14/23 08:00 12/13/23 12/14/23 12/14/23 22:59 06:59 14:59 Intake Total 1290 / 1290 50 / 1340 1050 / 1050 Balance 1290 / 1290 50 / 1340 1050 / 1050 Weight last 48 hrs Weight 174 lb 12.8 oz Weight 160 lb Physical Exam 2 Narrative: General : Patient is well developed , no acute distress, oriented x3 Head : Normal cephalic, a-traumatic. Nose : Mucous membranes are without erythema. Lungs : Equal chest rise bilaterally, no use of accessory muscles, trachea is midline. CV : Rate and rhythm are normal. Abdomen : Soft, ND, NT, no g/r/m, no right upper quadrant tenderness Extremities : No edema. Upper extremities are normal bilaterally. Back : non-tender to palpation, no CVA tenderness. Data 12/14/23 03:52 12/14/23 03:52 Micro: Microbiology 12/13/23 07:33 Blood Culture - Preliminary Blood NEGATIVE TO DATE 12/13/23 07:29 Blood Culture - Preliminary Blood NEGATIVE TO DATE A&P Assessment and plan (1) Pancreatitis: (2) Abdominal pain: Plan After complete history, physical examination and review of all available clinical data the following is my assessment. Patient's symptoms can be seen with a wider range of intra-abdominal pathology. My principal differential diagnosis is between gastritis and biliary dyskinesia, this due to the symptoms that the patient is currently experiencing. In addition I think patient has a complaining of gastroesophageal reflux disease that can be supported by the fact that she does have a hiatal hernia on the CAT scan. After extensive interview and discussion regarding the possible workup with the patient, patient has decided that she will prefer to go home with symptomatic management and continue with the workup as outpatient. I plan to offer the patient a diagnostic upper endoscopy, screening colonoscopy and HIDA scan once we meet in clinic. Once we have the results of this test we can decide on the next steps that may include a laparoscopic cholecystectomy versus proton pump inhibitor therapy. In the interim I think it would be appropriate to discharge the patient on PPI twice a day, sucralfate twice a day and Zofran as needed. Patient has been given instructions of following a low-fat diet high in fruits vegetables and low in processed food and fried food. Patient shows understanding and is going to try to make these diet changes. Coding Level of Care Code 96482 Diagnoses Pancreatitis K85.90 Abdominal pain R10.9
[2023-12-14 09:36] LABS: Vitamin B12 1581 pg/mL (232-1245)
--- NOTE | 2023-12-14 09:40 | PC.CHAP ---
Pastoral Care Encounter/Spiritual Assessment Type of Contact [] Declined gunstock repairer visit [] Patient/Family/Request visit [] Outpatient visit [] Follow-up visit [] Physician referral [] Code/Alert [] Routine visit [] Staff referral [] Actively dying [x] Patient sleeping [] Family support [] [] Out of room [] Palliative care [] [] Receiving care in room [] Pre-surgical visit [] Trauma [] Long length of stay [] ICU visit [] Other: Relational/Emotional Strength [] Patient feels connected with others/family/visitors/staff [] Distress [] Loneliness/isolation [] Abandonment Spirituality of Patient [] Person of Deisi [] Attends Quaker of their Deisi [] Believes in Prayer [] Reads Bible or Mosque materials [] There are Spiritual issues to be addressed Calender Wind Up Tender Interventions [] Prayer [] Active listening [] Non-anxious presence [] Spiritual/emotional support [] Crisis/trauma care [] Spiritual counseling [] Bereavement support [] Provided bereavement packet [] Provided Bible/devotional materials [] Provided toy/stuffed animal, coloring book to patient or family member [] Provided Communion [] Anointing/Union [] Salvation [] Completed spiritual assessment [] Other: Impact on Illness or Injury [] Angry [] Fearful [] Anxious [] Often cries [] Exhaustion [] Unable to work [] Unable to attend evangelical [] Unable to walk/stand [] Unable to read [] Unable to drive [] Unable to eat/drink [] Unable to sleep [] Unable to be with family [] Patient intubated [] Other: Summary Time spent with patient
[2023-12-14] MEDS: enoxaparin 40 mg/0.4 mL Syringe SUBCUT (10:43)
[2023-12-14] MEDS: folic acid 1 mg Tablet PO (10:43)
--- NOTE | 2023-12-14 11:35 | P.PN_ITS ---
Subjective 2 Subjective: Krupa Reports she still has significant nausea. She has vomited this morning. She is still having upper quadrant pain. She wanted to go home, but on further review this afternoon she is still vomiting and is at a significant risk for recurrent dehydration. She denies significant alcohol intake. Medications: Reviewed: Yes Vitals/I&O/Wt Last Vital Signs Temp 98.0 F 12/14/23 08:00 Pulse 94 12/14/23 08:00 Resp 16 12/14/23 08:00 BP 125/76 12/14/23 08:00 Pulse Ox 100 12/14/23 08:00 O2 Del Method Room Air 12/14/23 08:00 12/13/23 12/14/23 12/14/23 22:59 06:59 14:59 Intake Total 1290 / 1290 50 / 1340 1290 / 1290 Balance 1290 / 1290 50 / 1340 1290 / 1290 Weight last 48 hrs Weight 79.288 kg Weight 72.575 kg Physical Exam 2 Narrative: General exam reporting abdominal pain. Appears uncomfortable HEENT: Atraumatic normocephalic. Oropharynx clear Neck is supple no lymphadenopathy thyromegaly Cardiovascular regular rate and rhythm without murmur Lungs clear no wheezing or crackles Abdomen is soft. Tenderness is present in the epigastric and right upper quadrant area. Extremities no cyanosis, edema, cap refill brisk Data 12/14/23 03:52 12/14/23 03:52 Micro: Microbiology 12/13/23 05:21 Urine Culture - Preliminary Urine,Clean Catch Gram Negative Rods Gram Negative Rods#2 12/13/23 07:33 Blood Culture - Preliminary Blood NEGATIVE TO DATE 12/13/23 07:29 Blood Culture - Preliminary Blood NEGATIVE TO DATE A&P Assessment and plan (1) Abdominal pain: Patient presents with abdominal pain. This is mainly in the epigastric and right upper quadrant area. There could be multiple reasons for her discomfort. She could have significant gastritis with hiatal hernia, acalculus gallbladder disease/nonfunctioning gallbladder, or even potentially inflammatory bowel disease on CT. I think pancreatitis is less likely as lipase is only minimally elevated with significant vomiting all week and no significant pancreas inflammation on CT. UTI could also play a role in nausea and vomiting, but would be less likely to cause her epigastric/right upper quadrant discomfort Continue Protonix 40 mg IV every 12 hours Clear liquids When stops vomiting consider carafate in house. Surgery consult Nausea control Pain control Trg not significantly elevated. Monitor for significant diarrhea in house. Consider testing if this occurs Change to regular admission. Ativan times one for nausea. (2) Hiatal hernia: Protonix as above (3) Cystitis: Zosyn IV Blood and urine cultures Urine growing gram neg rods. (4) Hypokalemia: Supplement. Recheck tomorrow. Plan Elevated MCV. Folate low. Initiate folate. LFTs better with bilirubin normal, AST 56. Lipase is dropped. Question if patient has more significant alcohol intake than described. Multiple other medical problems as outlined in past medical history Full code Lovenox for DVT prophylaxis Attestations 2 Medical Necessity Statement*: Needs continued hospital stay secondary to persistent nausea and vomiting Diagnoses Abdominal pain R10.9 Hiatal hernia K44.9 Cystitis N30.90 Hypokalemia E87.6
[2023-12-14] MEDS: LORazepam 2 mg/mL INJ 10 mL MDV 0.5 MG IVP (11:39)
[2023-12-14] MEDS: oxyCODONE 5 mg IR Tab/Cap PO ×2 (11:50→17:05)
[2023-12-15] VITALS (12 sets, daily range): BP systolic 127–136; BP diastolic 62–88; PULSE 75–86; RESP 16–18; TEMP 36.4–36.8; O2SAT 96–100
[2023-12-15] MEDS: ondansetron 2 mg/ML SDV 2 mL 4 MG IVP ×4 (00:48→22:15)
[2023-12-15] MEDS: morphine 4 mg/mL SDV 1 mL IVP ×2 (00:50→08:20)
[2023-12-15] MEDS: sodium chlor 0.9% + KCl 20 mEq 20 MEQ/1,000 ML BAG 100 MEQ IV ×3 (02:45→22:14)
[2023-12-15] MEDS: oxyCODONE 5 mg IR Tab/Cap PO ×4 (03:54→23:55)
[2023-12-15] MEDS: piperacillin-tazobactam 3.375 GM in sodium chloride 0.9% (plus) 50 ML IV ×3 (04:12→20:39)
[2023-12-15 05:05] LABS: Basophils # 0.1 10^3/uL (0.0-0.1); Basophils % 1.6 %; Eosinophils # 0.2 10^3/uL (0.0-0.8); Eosinophils % 4.6 %; Hematocrit 31.5 % (36-47); Lymphocytes # 1.3 10^3/uL (0.8-4.8); Lymphocytes % 29.7 %; Mean Corpuscular HGB Conc 33.7 g/dL (30-55); Mean Corpuscular Hemoglobin 37.5 pg (27-33); Mean Corpuscular Volume 111.3 fl (85-98); Mean Platelet Volume 11.7 fL (7.4-10.4); Monocytes # 0.5 10^3/uL (0.2-0.9); Monocytes % 11.8 %; Neutrophils # 2.23 10^3/uL (1.8-7.7); Neutrophils % 51.8 %; Nucleated Red Blood Cells % 0 %; Platelet Count 224 10^3/cmm (157-399); Red Blood Count 2.83 10^6/uL (3.85-5.65); Red Cell Distribution Width 18.1 % (12.1-15.1); White Blood Count 4.31 10^3/uL (3.29-11.43)
[2023-12-15 05:36] LABS: Alanine Aminotransferase 19 U/L (0-33); Albumin Level 2.6 g/dL (3.5-5.2); Alkaline Phosphatase 92 U/L (35-105); Anion Gap 11.8 (5-19); Aspartate Amino Transferase 59 U/L (0-32); Blood Urea Nitrogen 2 mg/dL (6-20); Calcium 7.1 mg/dL (8.5-10.5); Carbon Dioxide 28 mmol/L (22-29); Chloride 106 mmol/L (98-107); Creatinine Clr Calc Pharmacy 138.6783; Globulin 2.4 g/dL (1.3-4.6); Glomerular Filtration Rate 132.2 mL/min (90-130); Glucose 90 mg/dL (65-115); Magnesium 1.4 mg/dL (1.7-2.3); Osmolality Calculated 290 mOsm/kg (285-295); Potassium 3.8 mmol/L (3.5-5.1); Sodium 142 mmol/L (136-145); Total Bilirubin 0.7 mg/dL (0.15-1.2)
[2023-12-15] MEDS: pantoprazole 40 mg SDV IVP ×2 (06:40→18:19)
[2023-12-15] MEDS: magnesium sulfate premix 1 GM/100 ML PIGGYBACK IV (10:12)
[2023-12-15] MEDS: folic acid 1 mg Tablet PO (10:13)
[2023-12-15] MEDS: enoxaparin 40 mg/0.4 mL Syringe SUBCUT (10:13)
--- NOTE | 2023-12-15 15:11 | P.PN_ITS ---
Subjective 2 Subjective: Patient was seen this morning, she sitting up to the side of the bed, feeling fairly nauseous, she had 1 episode of vomiting early this morning, she tells me that she has had good pain control but she continues to have right upper quadrant pain, epigastric discomfort, did have episode of diarrhea, denies a family history of personal history of ulcerative colitis or Crohn's disease, she tells me that she had a colonoscopy maybe 20 years ago due to constipation, but it was within normal limits, denies any fevers, chills, no lightheadedness, dizziness, patient's hCG was negative, she denies being , she is spotting she does not that she is now on her period. Periods are very irregular, she thinks she is possibly premenopausal Vitals/I&O/Wt Last Vital Signs Temp 98.2 F 12/15/23 12:00 Pulse 82 12/15/23 12:00 Resp 17 12/15/23 13:06 BP 128/66 12/15/23 12:00 Pulse Ox 99 12/15/23 13:06 O2 Del Method Room Air 12/15/23 04:00 12/15/23 12/15/23 12/15/23 06:59 14:59 22:59 Intake Total 1013.333 / 3260.000 1390 / 1390 Output Total 200 / 200 Balance 1013.333 / 3260.000 1190 / 1190 Weight last 48 hrs Weight 83.659 kg Physical Exam 2 Const: COMMON NORMALS: no acute distress and patient oriented x3 Resp: COMMON NORMALS: normal respiratory effort, No retractions, No use of accessory muscles and clear to auscultation bilaterally AUSCULTATION: clear to auscultation bilaterally Cardio: COMMON NORMALS: regular rate, regular rhythm, S1 normal heart sound present and S2 normal heart sound present RATE: regular rate RHYTHM: r egular rhythm HEART SOUNDS: S1 normal heart sound present and S2 normal heart sound present GI: OTHER: Abdomen soft, slightly distended, does have right upper quadrant epigastric discomfort Extremity: COMMON NORMALS: no pedal edema Neuro: COMMON NORMALS: patient oriented x3 Psych: COMMON NORMALS: mental status grossly normal Data 12/15/23 04:02 12/15/23 04:02 Micro: Microbiology 12/13/23 05:21 Urine Culture - Final Urine,Clean Catch Klebsiella pneumoniae Escherichia coli A&P Assessment and plan (1) Abdominal pain: ct abdomen and pelvis 1. Probably sludge filled, mildly distended gallbladder with hyperenhancing patricia as described above; this appearance may represent chronic gallbladder dysfunction . Consider RUQ ultrasound for further evaluation. 2. Small fluid density endometrial defect at the anterior lower uterine segment most likely represents a scar diverticulum/isthmocele , with associated post cyst 3. Mild to moderate-sized hiatal hernia partially intrathoracic stomach. 4. Patricia of the right colon demonstrate prominent submucosal fat, which can be a normal finding in the setting of obesity, and also can be seen in the setting of inflammatory bowel disease or celiac disease. 5. Chronic/incidental findings as above GB us 1. Negative gallbladder. No stones or sludge or wall thickening identified. 2. Normal common bile duct. 3. Moderate hepatic enlargement and hepatic steatosis. Continue Protonix 40 mg IV every 12 hours Clear liquids countinue zosyn Surgery consult Nausea control Pain control Trg not significantly elevated. Monitor for significant diarrhea in house. Consider testing if this occurs Change to regular admission. Ativan times one for nausea. (2) Hiatal hernia: Protonix as above (3) Cystitis: Zosyn IV Blood and urine cultures Urine growing gram neg rods. (4) Hypokalemia: Supplement. Recheck tomorrow. Plan Elevated MCV. Folate low. Initiate folate. LFTs better with bilirubin normal, AST 56. Lipase is dropped. Question if patient has more significant alcohol intake than described. Multiple other medical problems as outlined in past medical history Full code Lovenox for DVT prophylaxis plan for today, iv fluids, zosyn inflammatory work up, HIDA scan. n.v control, ferritin, iron, sed, celiac panel Attestations 2 Medical Necessity Statement*: patient requires hospitalization for ruq pain, epigastric pain Diagnoses Abdominal pain R10.9 Hiatal hernia K44.9 Cystitis N30.90 Hypokalemia E87.6
[2023-12-15 15:51] LABS: Erythrocyte Sedimentation Rate 11 mm/hr (0-15)
[2023-12-15 16:06] LABS: Procalcitonin 0.09 ng/mL (0-0.5)
[2023-12-15 16:17] LABS: C Reactive Protein 9.5 mg/L (0.0-4.9)
[2023-12-15 16:24] LABS: Lactic Sepsis W/Reflex 1.1 mmol/L (0.5-2.2)
[2023-12-15] MEDS: metoclopramide 5 mg/mL SDV 2 mL IVP (18:18)
[2023-12-16] VITALS (10 sets, daily range): BP systolic 110–147; BP diastolic 74–90; PULSE 64–88; RESP 16–20; TEMP 36.6–36.9; O2SAT 96–99
[2023-12-16] MEDS: piperacillin-tazobactam 3.375 GM in sodium chloride 0.9% (plus) 50 ML IV ×3 (03:38→19:52)
[2023-12-16] MEDS: metoclopramide 5 mg/mL SDV 2 mL IVP ×2 (03:50→12:28)
[2023-12-16 05:03] LABS: Basophils # 0.1 10^3/uL (0.0-0.1); Basophils % 1.8 %; Eosinophils # 0.3 10^3/uL (0.0-0.8); Eosinophils % 6.8 %; Hematocrit 31.6 % (36-47); Lymphocytes # 1.2 10^3/uL (0.8-4.8); Mean Corpuscular HGB Conc 34.5 g/dL (30-55); Mean Corpuscular Hemoglobin 37.8 pg (27-33); Mean Corpuscular Volume 109.7 fl (85-98); Mean Platelet Volume 11.7 fL (7.4-10.4); Monocytes # 0.4 10^3/uL (0.2-0.9); Monocytes % 9.3 %; Neutrophils # 2.41 10^3/uL (1.8-7.7); Neutrophils % 54.9 %; Nucleated Red Blood Cells % 0 %; Platelet Count 247 10^3/cmm (157-399); Red Blood Count 2.88 10^6/uL (3.85-5.65); Red Cell Distribution Width 17.7 % (12.1-15.1)
[2023-12-16 05:28] LABS: Alanine Aminotransferase 19 U/L (0-33); Albumin Level 2.7 g/dL (3.5-5.2); Alkaline Phosphatase 92 U/L (35-105); Anion Gap 12.6 (5-19); Aspartate Amino Transferase 55 U/L (0-32); Blood Urea Nitrogen 2 mg/dL (6-20); C Reactive Protein 7.9 mg/L (0.0-4.9); Carbon Dioxide 24 mmol/L (22-29); Chloride 101 mmol/L (98-107); Creatinine Clr Calc Pharmacy 178.1161; Globulin 2.7 g/dL (1.3-4.6); Glomerular Filtration Rate 171.1 mL/min (90-130); Glucose 83 mg/dL (65-115); Magnesium 1.4 mg/dL (1.7-2.3); Osmolality Calculated 273 mOsm/kg (285-295); Phosphorus 1.7 mg/dL (2.5-4.5); Potassium 3.6 mmol/L (3.5-5.1); Sodium 134 mmol/L (136-145); Total Bilirubin 0.8 mg/dL (0.15-1.2); Total Protein 5.4 g/dL (6.6-8.7)
[2023-12-16 05:31] LABS: Procalcitonin 0.09 ng/mL (0-0.5)
[2023-12-16 05:43] LABS: Creatine Phosphokinase 50 U/L (26-192)
[2023-12-16] MEDS: pantoprazole 40 mg SDV IVP ×2 (06:38→19:20)
[2023-12-16] MEDS: oxyCODONE 5 mg IR Tab/Cap PO ×3 (06:41→19:54)
[2023-12-16] MEDS: folic acid 1 mg Tablet PO (08:09)
[2023-12-16] MEDS: ondansetron 2 mg/ML SDV 2 mL 4 MG IVP ×2 (08:09→19:20)
[2023-12-16] MEDS: magnesium lactate 84 mg Tablet PO ×2 (09:32→17:43)
[2023-12-16] MEDS: enoxaparin 40 mg/0.4 mL Syringe SUBCUT (09:32)
[2023-12-16] MEDS: sucralfate 1 gm/10 mL Oral Liq UDC PO ×3 (09:32→19:55)
[2023-12-16] MEDS: phosphorus 250 mg Tablet PO ×2 (09:32→17:43)
[2023-12-16] MEDS: sodium chlor 0.9% + KCl 20 mEq 20 MEQ/1,000 ML BAG 100 MEQ IV ×2 (09:33→17:41)
--- NOTE | 2023-12-16 12:52 | P.PN_ITS ---
Subjective 2 Subjective: She was seen this morning, continues to complain of nauseous right upper quadrant pain, her diarrhea seems to have improved, denies any fevers, no chills, she tells me that she can barely keep down clear liquids, she does not have an appetite, continues to have epigastric and abdominal discomfort, Vitals/I&O/Wt Last Vital Signs Temp 97.8 F 12/16/23 09:15 Pulse 76 12/16/23 09:15 Resp 20 H 12/16/23 12:27 BP 142/90 12/16/23 09:15 Pulse Ox 97 12/16/23 12:27 O2 Del Method Room Air 12/16/23 09:15 12/15/23 12/16/23 12/16/23 22:59 06:59 14:59 Intake Total 1101.667 / 2731.667 50 / 2781.667 1530 / 1530 Balance 1101.667 / 2531.667 50 / 2581.667 1530 / 1530 Weight last 48 hrs Weight 83.631 kg Weight 83.659 kg Physical Exam 2 Const: COMMON NORMALS: no acute distress and patient oriented x3 Resp: COMMON NORMALS: normal respiratory effort, No retractions, No use of accessory muscles and clear to auscultation bilaterally AUSCULTATION: clear to auscultation bilaterally Cardio: COMMON NORMALS: regular rate, regular rhythm, S1 normal heart sound present and S2 normal heart sound present RATE: regular rate RHYTHM: r egular rhythm HEART SOUNDS: S1 normal heart sound present and S2 normal heart sound present GI: OTHER: Abdomen soft, distended, good bowel sounds in all 4 quadrants has right upper quadrant and epigastric discomfort to palpation, Extremity: COMMON NORMALS: no pedal edema Neuro: COMMON NORMALS: patient oriented x3 Psych: COMMON NORMALS: mental status grossly normal Data 12/16/23 04:20 12/16/23 04:20 Micro: Microbiology 12/13/23 05:21 Urine Culture - Final Urine,Clean Catch Klebsiella pneumoniae Escherichia coli A&P Assessment and plan (1) Abdominal pain: ct abdomen and pelvis 1. Probably sludge filled, mildly distended gallbladder with hyperenhancing patricia as described above; this appearance may represent chronic gallbladder dysfunction . Consider RUQ ultrasound for further evaluation. 2. Small fluid density endometrial defect at the anterior lower uterine segment most likely represents a scar diverticulum/isthmocele , with associated post cyst 3. Mild to moderate-sized hiatal hernia partially intrathoracic stomach. 4. Patricia of the right colon demonstrate prominent submucosal fat, which can be a normal finding in the setting of obesity, and also can be seen in the setting of inflammatory bowel disease or celiac disease. 5. Chronic/incidental findings as above GB us 1. Negative gallbladder. No stones or sludge or wall thickening identified. 2. Normal common bile duct. 3. Moderate hepatic enlargement and hepatic steatosis. Continue Protonix 40 mg IV every 12 hours Clear liquids countinue zosyn Surgery consult Nausea control Pain control Trg not significantly elevated. Monitor for significant diarrhea in house. Consider testing if this occurs Change to regular admission. Ativan times one for nausea. (2) Hiatal hernia: Protonix as above (3) Cystitis: Zosyn IV Blood and urine cultures Urine growing gram neg rods. (4) Hypokalemia: Supplement. Recheck tomorrow. Plan Elevated MCV. Folate low. Initiate folate. LFTs better with bilirubin normal, AST 56. Lipase is dropped. Question if patient has more significant alcohol intake than described. Celiac panel ordered, urine drug screen ordered, C. difficile ordered, stool studies ordered Multiple other medical problems as outlined in past medical history Full code Lovenox for DVT prophylaxis plan for today, HIDA scan has been ordered, continue IV antibiotics continue fluids, nausea control, pain control Attestations 2 Medical Necessity Statement*: Patient requires hospitalization for UTI, persistent abdominal pain, with poor oral intake, intractable nausea vomiting requiring IV antibiotics, requiring IV fluids, IV nausea control Diagnoses Abdominal pain R10.9 Hiatal hernia K44.9 Cystitis N30.90 Hypokalemia E87.6
[2023-12-16] MEDS: ALPRAZolam 0.5 mg Tablet 0.25 MG PO (15:22)
[2023-12-16 17:33] LABS: Amphetamines Screen Urine Negative (Negative); Barbiturates Screen Urine Negative (Negative); Benzodiazepines Screen Urine Negative (Negative); Cocaine Screen Urine Negative (Negative); Opiate Screen Urine Negative (Negative); PCP Screen Urine Negative (Negative); THC Screen Urine Negative (Negative)
[2023-12-17] VITALS (10 sets, daily range): BP systolic 113–129; BP diastolic 74–81; PULSE 73–93; RESP 14–20; TEMP 36.4–36.7; O2SAT 95–100
--- NOTE | 2023-12-17 00:31 | PC.NURSE ---
Gave patient Ensure in preparation for HIDA scan tomorrow; pt could not tolerate drink and vomited. Pt educated on remaining NPO after midnight with no narcotics; pt verbalized understanding.
[2023-12-17] MEDS: sucralfate 1 gm/10 mL Oral Liq UDC PO ×2 (02:11→08:58)
[2023-12-17] MEDS: sodium chlor 0.9% + KCl 20 mEq 20 MEQ/1,000 ML BAG 100 MEQ IV ×2 (02:50→17:47)
[2023-12-17] MEDS: piperacillin-tazobactam 3.375 GM in sodium chloride 0.9% (plus) 50 ML IV ×2 (04:06→17:47)
[2023-12-17 05:44] LABS: Basophils # 0.1 10^3/uL (0.0-0.1); Basophils % 1.5 %; Eosinophils # 0.2 10^3/uL (0.0-0.8); Hematocrit 32.1 % (36-47); Lymphocytes # 0.9 10^3/uL (0.8-4.8); Lymphocytes % 20.3 %; Mean Corpuscular Hemoglobin 36.8 pg (27-33); Mean Corpuscular Volume 108.4 fl (85-98); Mean Platelet Volume 11.9 fL (7.4-10.4); Monocytes # 0.4 10^3/uL (0.2-0.9); Monocytes % 9.5 %; Neutrophils # 2.94 10^3/uL (1.8-7.7); Neutrophils % 63.3 %; Nucleated Red Blood Cells % 0 %; Platelet Count 242 10^3/cmm (157-399); Red Blood Count 2.96 10^6/uL (3.85-5.65); Red Cell Distribution Width 17.4 % (12.1-15.1); White Blood Count 4.64 10^3/uL (3.29-11.43)
[2023-12-17 06:02] LABS: Creatine Phosphokinase 50 U/L (26-192)
[2023-12-17 06:04] LABS: Alanine Aminotransferase 17 U/L (0-33); Albumin Level 2.8 g/dL (3.5-5.2); Alkaline Phosphatase 86 U/L (35-105); Anion Gap 14.6 (5-19); Aspartate Amino Transferase 49 U/L (0-32); C Reactive Protein 6.9 mg/L (0.0-4.9); Calcium 6.9 mg/dL (8.5-10.5); Carbon Dioxide 21 mmol/L (22-29); Chloride 102 mmol/L (98-107); Creatinine Clr Calc Pharmacy 176.0619; Globulin 2.5 g/dL (1.3-4.6); Glomerular Filtration Rate 171.1 mL/min (90-130); Glucose 83 mg/dL (65-115); Magnesium 1.3 mg/dL (1.7-2.3); Phosphorus 1.7 mg/dL (2.5-4.5); Potassium 3.6 mmol/L (3.5-5.1); Sodium 134 mmol/L (136-145); Total Bilirubin 0.7 mg/dL (0.15-1.2); Total Protein 5.3 g/dL (6.6-8.7)
[2023-12-17 06:05] LABS: Blood Urea Nitrogen 1 mg/dL (6-20); Osmolality Calculated 273 mOsm/kg (285-295)
[2023-12-17 06:08] LABS: Procalcitonin 0.09 ng/mL (0-0.5)
[2023-12-17] MEDS: pantoprazole 40 mg SDV IVP ×2 (06:17→19:54)
[2023-12-17] MEDS: ondansetron 2 mg/ML SDV 2 mL 4 MG IVP ×3 (08:49→23:37)
[2023-12-17] MEDS: phosphorus 250 mg Tablet PO (08:58)
[2023-12-17] MEDS: magnesium lactate 84 mg Tablet PO (08:58)
[2023-12-17] MEDS: folic acid 1 mg Tablet PO (08:58)
[2023-12-17] MEDS: oxyCODONE 5 mg IR Tab/Cap PO (08:58)
[2023-12-17] MEDS: magnesium sulfate premix 2 GM/50 ML PIGGYBACK IV (09:00)
[2023-12-17] MEDS: potassium phosphate (mEq K) 40 MEQ in sodium chloride 0.9% (100 ml) 100 ML 27.2699999999999996 MEQ IV (09:00)
[2023-12-17] MEDS: scopolamine 1.5 Patch 1 PATCH TRANSDERMA (09:09)
[2023-12-17] MEDS: ALPRAZolam 0.5 mg Tablet 0.25 MG PO (09:22)
--- NOTE | 2023-12-17 09:55 | XRR_ITS ---
PROCEDURE INFORMATION: Exam: XR Abdomen Exam date and time: 12/17/2023 10:28 AM Age: 48 years old Clinical indication: Abdominal pain; Generalized; Additional info: Abdominal distention TECHNIQUE: Imaging protocol: Radiologic exam of the abdomen. Views: Frontal supine view of the abdomen. 1 View. COMPARISON: CT abdomen pelvis w con* [id number] 12/13/2023 5:05 AM FINDINGS: Gastrointestinal tract: Normal. No bowel dilation. Nonspecific bowel gas pattern. Gas is visible in nondilated loops of both colon and small bowel. No abnormal intra-abdominal masses or calcifications. Bones/joints: Unremarkable. XR/XR KUB portable [id number] IMPRESSION: No acute findings.
--- NOTE | 2023-12-17 11:19 | PC.CHAP ---
Pastoral Care Encounter/Spiritual Assessment Type of Contact [] Declined cardiology teacher visit [] Patient/Family/Request visit [] Outpatient visit [] Follow-up visit [] Physician referral [] Code/Alert [x] Routine visit [] Staff referral [] Actively dying [] Patient sleeping [x] Family support [] [] Out of room [] Palliative care [] [] Receiving care in room [] Pre-surgical visit [] Trauma [] Long length of stay [] ICU visit [] Other: Relational/Emotional Strength [] Patient feels connected with others/family/visitors/staff [] Distress [] Loneliness/isolation [] Abandonment Spirituality of Patient [x] Person of Deisi [] Attends Islam of their Deisi [x] Believes in Prayer [] Reads Bible or Zoroastrianism materials [] There are Spiritual issues to be addressed Convex Grinder Interventions [x] Prayer [x] Active listening [] Non-anxious presence [] Spiritual/emotional support [] Crisis/trauma care [] Spiritual counseling [] Bereavement support [] Provided bereavement packet [x] Provided Bible/devotional materials [] Provided toy/stuffed animal, coloring book to patient or family member [] Provided Communion [] Anointing/[place] [] Salvation [] Completed spiritual assessment [] Other: Impact on Illness or Injury [] Angry [] Fearful [] Anxious [] Often cries [] Exhaustion [] Unable to work [] Unable to attend latter day [] Unable to walk/stand [] Unable to read [] Unable to drive [] Unable to eat/drink [] Unable to sleep [] Unable to be with family [] Patient intubated [] Other: Summary 5 min Time spent with patient
--- NOTE | 2023-12-17 11:26 | P.PN_ITS ---
Subjective 2 Subjective: Overnight patient continued to have intractable nausea and vomiting, she cannot tolerate liquids, she needed multiple doses of nausea medication but is persistently nauseous is passing gas from below no diarrhea she tells me that her pain is primarily in the right upper quadrant in the epigastrium, denies any alcoholism, denies any drug use, no fevers, no chills, there was attempts at doing a HIDA scan this morning however patient was very nauseous and vomited her insurer, and could not perform HIDA scan, she does not feel well, feels lightheaded Vitals/I&O/Wt Last Vital Signs Temp 97.7 F 12/17/23 08:00 Pulse 83 12/17/23 09:09 Resp 14 12/17/23 08:58 BP 122/74 12/17/23 09:09 Pulse Ox 98 12/17/23 08:58 O2 Del Method Room Air 12/17/23 08:00 12/16/23 12/17/23 12/17/23 22:59 06:59 14:59 Intake Total 1443.333 / 2973.333 1445 / 4418.333 50 / 50 Balance 1443.333 / 2973.333 1445 / 4418.333 50 / 50 Weight last 48 hrs Weight 81.76 kg Weight 83.631 kg Physical Exam 2 Const: COMMON NORMALS: no acute distress and patient oriented x3 Resp: COMMON NORMALS: normal respiratory effort, No retractions, No use of accessory muscles and clear to auscultation bilaterally AUSCULTATION: clear to auscultation bilaterally Cardio: COMMON NORMALS: regular rate, regular rhythm, S1 normal heart sound present and S2 normal heart sound present RATE: regular rate RHYTHM: r egular rhythm HEART SOUNDS: S1 normal heart sound present and S2 normal heart sound present GI: COMMON NORMALS: Normal to inspection, nondistended, normoactive bowel sounds present OTHER: RUQ tenderness and epigastric tenderness to palpation, no guarding, no rebound, rigidity Extremity: COMMON NORMALS: no pedal edema Neuro: COMMON NORMALS: patient oriented x3 Psych: COMMON NORMALS: mental status grossly normal Data 12/17/23 05:15 12/17/23 05:15 A&P Assessment and plan (1) Abdominal pain: ct abdomen and pelvis 1. Probably sludge filled, mildly distended gallbladder with hyperenhancing patricia as described above; this appearance may represent chronic gallbladder dysfunction . Consider RUQ ultrasound for further evaluation. 2. Small fluid density endometrial defect at the anterior lower uterine segment most likely represents a scar diverticulum/isthmocele , with associated post cyst 3. Mild to moderate-sized hiatal hernia partially intrathoracic stomach. 4. Patricia of the right colon demonstrate prominent submucosal fat, which can be a normal finding in the setting of obesity, and also can be seen in the setting of inflammatory bowel disease or celiac disease. 5. Chronic/incidental findings as above GB us 1. Negative gallbladder. No stones or sludge or wall thickening identified. 2. Normal common bile duct. 3. Moderate hepatic enlargement and hepatic steatosis. -With intractable nausea vomiting -With hypokalemia, hypomagnesemia hypophosphatemia, hypocalcemia corrected calcium 7.9, with hypoalbuminemia -With folic acid deficiency -Continues to have pain in the epigastrium, right upper quadrant -Lipase was elevated, has improved to 74, will repeat lipase, amylase, GGT today, with concerns for possible pancreatitis as an etiology -Reordered HIDA scan hopefully can be done tomorrow Plan Replace magnesium, potassium, phosphorus, calcium Continue Protonix 40 mg IV every 12 hours Clear liquids countinue zosyn Surgery consult Nausea control, multiple nausea medications add on scopolamine patch Pain control brought into Dilaudid Trg not significantly elevated. Stool studies pending (2) Hiatal hernia: Protonix as above (3) Cystitis: Zosyn IV (4) Hypokalemia: Supplement. Recheck tomorrow. (5) Hypocalcemia: (6) Pancreatitis: (7) Hypomagnesemia: (8) Hypophosphatemia: (9) Folic acid deficiency: (10) Intractable nausea and vomiting: (11) Hypoalbuminemia: Plan Elevated MCV. Folate low. Initiate folate. LFTs better with bilirubin normal, AST 56. Lipase is dropped. Question if patient has more significant alcohol intake than described. Celiac panel ordered, urine drug screen ordered, C. difficile ordered, stool studies ordered Multiple other medical problems as outlined in past medical history Full code Lovenox for DVT prophylaxis plan for today, replace electrolytes potassium, magnesium, phosphorus, IV fluids, pain control, nausea control requiring IV medications consider HIDA scan repeat KUB, GGT, liver function, lipase Attestations 2 Medical Necessity Statement*: Patient requires hospitalization, for intractable nausea vomiting requiring IV hydration, required IV nausea control, IV pain control, concerns for pancreatitis as an etiology, bowel rest, clear liquids, replace electrolytes potassium magnesium phosphorus calcium, ordered HIDA scan KUB Diagnoses Abdominal pain R10.9 Hiatal hernia K44.9 Cystitis N30.90 Hypokalemia E87.6 Hypocalcemia E83.51 Pancreatitis K85.90 Hypomagnesemia E83.42 Hypophosphatemia E83.39 Folic acid deficiency E53.8 Intractable nausea and vomiting R11.2 Hypoalbuminemia E88.09
[2023-12-17 12:30] LABS: Amylase 49 U/L (28-100); Lipase 95 U/L (13-60)
[2023-12-17 12:31] LABS: Calcium 7.1 mg/dL (8.5-10.5); Parathyroid Hormone 218.5 pg/mL (15-65)
[2023-12-17 12:33] LABS: HIV 1 & 2 Antibody Non-Reactive (Non-Reactiv); HIV 1 & 2 Antigen Non-Reactive (Non-Reactiv)
[2023-12-17 12:35] LABS: Hepatitis A Antibody IgM Non-Reactive (Nonreactive); Hepatitis B Core IgM Non-Reactive (Nonreactive); Hepatitis B Surface Antigen Non-Reactive (Nonreactive); Hepatitis C Virus Antibody Non-Reactive (Nonreactive)
[2023-12-17 12:41] LABS: Gamma Glutamyl Transferase 119 U/L (5-36)
--- NOTE | 2023-12-17 13:11 | P.PN_ITS ---
Subjective 2 Subjective: Is a 48-year-old female who is admitted to the hospital with intractable nausea vomiting and epigastric abdominal pain. I met her at the beginning of her hospital stay, at the time we decided to complete the full workup as outpatient but since then patient has continued to have abdominal pain and vomit and therefore I am providing follow-up. Per patient report she still does not tolerate the p.o. intake very well. She was scheduled for HIDA scan today but was not able to be completed as she was not able to tolerate Ensure. Pain is localized in the epigastrium and radiates to the left upper quadrant. Vitals/I&O/Wt Last Vital Signs Temp 97.7 F 12/17/23 08:00 Pulse 86 12/17/23 12:00 Resp 18 12/17/23 12:00 BP 123/81 12/17/23 12:00 Pulse Ox 96 12/17/23 12:00 O2 Del Method Room Air 12/17/23 12:00 12/16/23 12/17/23 12/17/23 22:59 06:59 14:59 Intake Total 1443.333 / 2973.333 1445 / 4418.333 100.455 / 100.455 Balance 1443.333 / 2973.333 1445 / 4418.333 100.455 / 100.455 Weight last 48 hrs Weight 180 lb 4 oz Weight 184 lb 6 oz Physical Exam 2 Narrative: General : Patient is well developed , no acute distress, oriented x3 Head : Normal cephalic, a-traumatic. Nose : Mucous membranes are without erythema. Lungs : Equal chest rise bilaterally, no use of accessory muscles, trachea is midline. CV : Rate and rhythm are normal. Abdomen : Sof benign, there is minimal tenderness in the epigastrium and left upper quadrant, there is no right upper quadrant tenderness on my examination there is no Mcgowan sign or rebound tenderness. Extremities : No edema. Upper extremities are normal bilaterally. Back : non-tender to palpation, no CVA tenderness. Data 12/17/23 05:15 12/17/23 05:15 A&P Assessment and plan (1) Pancreatitis: (2) Abdominal pain: (3) Intractable nausea and vomiting: Plan After complete history physical examination and review of all available clinical data the following is my assessment. Patient has showed little to no progression during this hospital stay. HIDA scan could not be completed due to patient poor tolerance to ensure. Clinical examination the is not consistent with biliary pathology and a negative gallbladder ultrasound also supports this. Patient location of pain and symptoms are suggestive of possible gastric pathology. I will proceed with a upper endoscopy for further evaluation. I have discussed all the risk and benefits of the upper endoscopy with the patient including the risk of perforation of the esophagus, stomach or duodenum requiring surgical intervention and transfer to higher level of care. I have asked close with the patient that there is a chance of bleeding, need for additional interventions, there is a possibility that we are unable to find any pathology during endoscopy. In the case of a negative endoscopy probably next step will be to repeat the CT scan of the abdomen with p.o. and IV contrast to evaluate for any other source of intra-abdominal pathology. If all the workup is negative patient may be initiated on prokinetics and once tolerating diet that she can have a HIDA scan as outpatient. ? N.p.o. at midnight for upper endoscopy ? All other management per primary team. Attestations 2 Medical Necessity Statement*: per medical team Coding Level of Care Code 35686 Diagnoses Pancreatitis K85.90 Abdominal pain R10.9 Intractable nausea and vomiting R11.2
[2023-12-17] MEDS: calcium carbonate 500 mg Chew Tablet 1000 MG PO (13:44)
[2023-12-17] MEDS: HYDROmorphone 1 mg/mL INJ 1 mL 0.5 MG IVP ×2 (13:44→19:59)
[2023-12-17] MEDS: enoxaparin 40 mg/0.4 mL Syringe SUBCUT (13:44)
[2023-12-17] MEDS: metoclopramide 5 mg/mL SDV 2 mL IVP ×2 (13:44→19:49)
[2023-12-17 15:00] LABS: CENTROMERE B ANTIBODY <1.0 NEG AI (<1.0 NEG); JO-1 ANTIBODY <1.0 NEG AI (<1.0 NEG); RNP ANTIBODY <1.0 NEG AI (<1.0 NEG); SCL-70 ANTIBODY <1.0 NEG AI (<1.0 NEG); SJOGREN'S ANTIBODY (SS-A) <1.0 NEG AI (<1.0 NEG); SM ANTIBODY <1.0 NEG AI (<1.0 NEG); SS-B <1.0 NEG AI (<1.0 NEG)
[2023-12-18] VITALS (20 sets, daily range): BP systolic 109–132; BP diastolic 60–92; PULSE 67–112; RESP 15–18; TEMP 36.1–36.8; O2SAT 94–100; BMI 32.4
[2023-12-18] MEDS: piperacillin-tazobactam 3.375 GM in sodium chloride 0.9% (plus) 50 ML IV ×3 (01:56→17:01)
[2023-12-18] MEDS: HYDROmorphone 1 mg/mL INJ 1 mL 0.5 MG IVP ×4 (03:32→22:35)
[2023-12-18] MEDS: metoclopramide 5 mg/mL SDV 2 mL IVP ×4 (03:34→23:49)
[2023-12-18] MEDS: sodium chlor 0.9% + KCl 20 mEq 20 MEQ/1,000 ML BAG 100 MEQ IV ×2 (03:37→15:19)
[2023-12-18 06:03] LABS: Basophils # 0.1 10^3/uL (0.0-0.1); Basophils % 1.2 %; Eosinophils # 0.4 10^3/uL (0.0-0.8); Eosinophils % 7.8 %; Hematocrit 31.8 % (36-47); Lymphocytes # 0.9 10^3/uL (0.8-4.8); Lymphocytes % 18.8 %; Mean Corpuscular HGB Conc 33.6 g/dL (30-55); Mean Corpuscular Hemoglobin 36.6 pg (27-33); Mean Corpuscular Volume 108.9 fl (85-98); Mean Platelet Volume 11.6 fL (7.4-10.4); Monocytes # 0.6 10^3/uL (0.2-0.9); Monocytes % 12.1 %; Neutrophils # 2.92 10^3/uL (1.8-7.7); Neutrophils % 59.7 %; Nucleated Red Blood Cells % 0 %; Platelet Count 248 10^3/cmm (157-399); Red Blood Count 2.92 10^6/uL (3.85-5.65); Red Cell Distribution Width 17.9 % (12.1-15.1); White Blood Count 4.89 10^3/uL (3.29-11.43)
[2023-12-18 06:30] LABS: Alanine Aminotransferase 17 U/L (0-33); Albumin Level 2.6 g/dL (3.5-5.2); Alkaline Phosphatase 87 U/L (35-105); Anion Gap 15.7 (5-19); Aspartate Amino Transferase 45 U/L (0-32); C Reactive Protein 7.4 mg/L (0.0-4.9); Calcium 7.4 mg/dL (8.5-10.5); Carbon Dioxide 22 mmol/L (22-29); Chloride 105 mmol/L (98-107); Creatinine Clr Calc Pharmacy 141.9852; Globulin 2.5 g/dL (1.3-4.6); Glomerular Filtration Rate 132.2 mL/min (90-130); Glucose 104 mg/dL (65-115); Magnesium 1.8 mg/dL (1.7-2.3); Phosphorus 2.5 mg/dL (2.5-4.5); Potassium 4.7 mmol/L (3.5-5.1); Sodium 138 mmol/L (136-145); Total Bilirubin 0.6 mg/dL (0.15-1.2); Total Protein 5.1 g/dL (6.6-8.7)
[2023-12-18 06:31] LABS: Procalcitonin 0.11 ng/mL (0-0.5)
[2023-12-18 06:32] LABS: Creatine Phosphokinase 35 U/L (26-192)
[2023-12-18 06:36] LABS: Blood Urea Nitrogen 1 mg/dL (6-20); Osmolality Calculated 282 mOsm/kg (285-295)
--- NOTE | 2023-12-18 06:38 | P.HPUD_ITS ---
Surgery/Procedure H&P Update DATE OF PROCEDURE: December 18, 2023 DATE H&P PERFORMED: 12/17/23 H&P UPDATE INFORMATION: I have reviewed H&P completed within last 30 days, I have examined patient prior to procedure, No changes to prior documentation and H&P is in [facility] EMR on date indicated PLANNED PROCEDURE: Operation Date: 12/18/23 07:00 Proposed Procedures p EGD(Not Applicable) - Reggie Vang MD
[2023-12-18] MEDS: sodium chloride 0.9% 1,000 ML 30 ML IV (06:39)
--- NOTE | 2023-12-18 06:43 | P.ANESASSM_ITS ---
Pre-Anesthetic Assessment Height/Weight: Height 1.6 m Weight 83.053 kg Temp Pulse Resp BP Pulse Ox O2 Del Method 97.8 F 72 18 109/75 97 Room Air 12/18/23 03:55 12/18/23 03:55 12/18/23 03:55 12/18/23 03:55 12/18/23 03:55 12/17/23 17:35 Preop Diagnosis: N/V Operation Date: 12/18/23 07:00 Proposed Procedures p EGD(Not Applicable) - Reggie Vang MD Familial anesthetic complications: None Was Beta Bryant taken within 24 hours: N/A Was Clonidine taken within 24 hours: N/A Last intake: Intake Last Liquid Date 12/17/23 Last Liquid Time 22:00 Last Solid Date 12/06/23 Social Alcohol (Social) and No tobacco Exam alert, oriented x 3, clear to auscultation bilaterally and regular rate & rhythm Airway Submandibular: within normal limits Cervical ROM: within normal limits Mallampati: Class II Dentition: chipped (Fell and broke front teeth) and full History/ROS No significant history except as noted and No significant complaints Pulmonary None reported CV/HEM Anemia and Palpitations Hx of kidney stones Hepatic None reported GI Gastroesophageal Reflux Disease and Hiatal Hernia N/V Metabolic Morbid Obesity Musc/skel None reported Neuropsych None reported Anesthetic Plan ASA status: 2 Anesthesia: Anesthesia Evaluation and General Risk of > 500 ml blood loss (7ml/kg in children): No Medications/Allergies Home Medications Medication Instructions Recorded Confirmed Last Taken Type No Known Home Medications 12/13/23 12/13/23 Unknown History Allergies Allergy/AdvReac Type Severity Reaction Status Date / Time cephalexin [From Keflex] Allergy ADR-Itching Verified 12/13/23 04:15 Current Medications Generic Name Dose Route Start Last Admin Trade Name Freq PRN Reason Stop Dose Admin Alprazolam 0.25 mg 12/16/23 14:36 12/17/23 09:22 Alprazolam 0.5 Mg Tablet PO 0.25 mg DAILY PRN Administration AGITATION Calcium Carbonate 1,000 mg 12/17/23 11:30 12/17/23 22:53 Calcium Carbonate 500 Mg Chew Tablet PO Not Given Q12H MACARIO Enoxaparin Sodium 40 mg 12/13/23 10:15 12/17/23 13:44 Enoxaparin 40 Mg/0.4 Ml Syringe SUBCUT 40 mg Q24H MACARIO Administration Folic Acid 1 mg 12/14/23 09:45 12/17/23 08:58 Folic Acid 1 Mg Tablet PO 1 mg DAILY MACARIO Administration Hydromorphone HCl 0.5 mg 12/17/23 09:55 12/18/23 03:32 Hydromorphone 1 Mg/Ml Inj 1 Ml IVP 0.5 mg Q6H PRN Administration SEVERE PAIN Potassium Chloride/Sodium Chloride 20 meq in 1,000 mls @ 100 mls/hr 12/13/23 10:15 12/18/23 03:37 Sodium Chlor 0.9% + Kcl 20 Meq IV 100 mls/hr .Q10H MACARIO Administration Piperacillin Sod/Tazobactam 50 mls @ 12.5 mls/hr 12/13/23 12:00 12/18/23 05:31 Sod 3.375 gm/ Sodium Chloride IV Infused Q8H MACARIO Infusion Protocol Sodium Chloride 1,000 mls @ 30 mls/hr 12/17/23 13:08 12/17/23 22:12 Sodium Chloride 0.9% IV 12/18/23 13:07 Not Given .Q24H ONE Sodium Chloride 1,000 mls @ 30 mls/hr 12/18/23 06:15 12/18/23 06:39 Sodium Chloride 0.9% IV 12/19/23 06:14 30 mls/hr .Q24H MACARIO Administration Magnesium Lactate 84 mg 12/16/23 09:00 12/17/23 17:44 Magnesium Lactate 84 Mg Tablet PO Not Given BID MACARIO Metoclopramide HCl 5 mg 12/17/23 09:55 12/18/23 03:34 Metoclopramide 5 Mg/Ml Sdv 2 Ml IVP 5 mg Q6H PRN Administration NAUSEA AND VOMITING Ondansetron HCl 4 mg 12/14/23 11:24 12/17/23 23:37 Ondansetron 2 Mg/Ml Sdv 2 Ml IVP 4 mg Q4H PRN Administration NAUSEA AND VOMITING Pantoprazole Sodium 40 mg 12/13/23 19:00 12/17/23 19:54 Pantoprazole 40 Mg Sdv IVP 40 mg Q12H MACARIO Administration Potassium Phosphate 250 mg 12/16/23 09:00 12/17/23 17:44 Phosphorus 250 Mg Tablet PO Not Given BID AMCARIO Scopolamine 1 patch 12/17/23 08:30 12/17/23 09:09 Scopolamine 1.5 Patch TRANSDERMA 1 patch Q3D MACARIO Administration Sucralfate 1 gm 12/16/23 08:30 12/18/23 01:35 Sucralfate 1 Gm/10 Ml Oral Liq Udc PO Not Given Q6H MACARIO PFSH Anesthesia Family History (Updated 12/13/23 @ 09:44 by Man Michael MD) Other CAD (coronary artery disease) Diabetes Social History (Updated 12/13/23 @ 09:45 by Man Michael MD) Smoking and tobacco/nicotine status: never used tobacco/nicotine Alcohol intake: current Alcohol intake frequency: holidays/special occasions only Female Reproductive History Date of last menstrual period: 12/13/23 Data Anesthesia 12/18/23 05:28 12/18/23 05:28 Short CBC 12/17/23 12/18/23 Range/Units 05:15 05:28 WBC 4.64 4.89 (3.29-11.43) 10^3/uL Hgb 10.90 L 10.70 L (11.27-16.99) g/dL Hct 32.1 L 31.8 L (36-47) % MCV 108.4 H 108.9 H (85-98) fl Plt Count 242 248 (157-399) 10^3/cmm Neut % (Auto) 63.3 59.7 % Neut # (Auto) 2.94 2.92 (1.8-7.7) 10^3/uL BMP 12/17/23 12/18/23 05:15 05:28 Sodium 134 L 138 Potassium 3.6 4.7 Chloride 102 105 Carbon Dioxide 21 L 22 BUN 1 L 1 L Creatinine 0.4 L 0.5 Glucose 83 104 Calcium 6.9 L 7.4 L Cardiac Enzymes 12/17/23 12/18/23 Range/Units 05:15 05:28 Creatine Kinase 50 35 (26-192) U/L Liver Function 12/17/23 12/18/23 Range/Units 05:15 05:28 Total Bilirubin 0.7 0.6 (0.15-1.2) mg/dL GGT 119 H (5-36) U/L AST 49 H 45 H (0-32) U/L ALT 17 17 (0-33) U/L Alkaline Phosphatase 86 87 (35-105) U/L Albumin 2.8 L 2.6 L (3.5-5.2) g/dL Coags 12/17/23 12/18/23 05:15 05:28 C-Reactive Protein 6.9 H 7.4 H Cardiac Studies: 2 No Data to Display
[2023-12-18 06:47] LABS: OR HCG Qualitative Urine Negative (Negative)
[2023-12-18] MEDS: ondansetron 2 mg/ML SDV 2 mL 4 MG IVP ×3 (08:46→22:31)
[2023-12-18] MEDS: enoxaparin 40 mg/0.4 mL Syringe SUBCUT (08:46)
--- NOTE | 2023-12-18 08:58 | PM.MISC ---
Miscellaneous Note Purpose of Documentation: Update on patient care Note: Upper endoscopy was done today. There was evidence of gastritis and duodenitis, no anatomical obstruction justifying severe nausea and vomiting, no significant changes at the level of the duodenum, intestinal mucosa appeared otherwise normal. I have reviewed all the available clinical data perform a new history and physical examination on the patient, at this point is unclear what the cause of her symptoms is. Workup has been negative so far from the GI standpoint. While initial CT scan of the abdomen showed possible sludge in the gallbladder this was ruled out with an ultrasound of the gallbladder which showed normal biliary anatomy. A HIDA scan was scheduled but unable to be completed due to patient poor tolerance. Patient location and radiation of pain was most consistent with gastric pathology and EGD shows evidence of gastritis Path no other significant findings. Laboratory work Shows anemia with elevated MCV and there is an elevation in the GGT which raises a concern for the possibility of alcohol induced changes, is important to note that patient denies excessive alcohol consumption. Otherwise there is only mild elevation of AST and ALT lower there are liver function test are normal including bilirubin. Patient has also been noted to have possible secondary hyperparathyroidism which will require additional workup by the medical team. CRP is minimally elevated. At this point there is no additional workup I can offer from the general surgery/GI standpoint, I will not recommend to proceed with laparoscopic cholecystectomy as patient's symptoms do not appear to match biliary pathology and there is no objective findings suggesting of this. My recommendation will be to continue workup for metabolic causes of hyperemesis and consideration for possible referral for gastroenterology evaluation and additional workup. General surgery will remain available to assist in the care of this patient
[2023-12-18 11:47] LABS: Lipase 95 U/L (13-60)
[2023-12-18 13:10] LABS: COMPLEMENT COMPONENT C3C 128 mg/dL (83-193); COMPLEMENT COMPONENT C4C 33 mg/dL (15-57)
--- NOTE | 2023-12-18 15:38 | ANE.PACU2 ---
Inpatient post-anesthesia follow up: Vital signs: Temperature 98.3 F Pulse Rate 96 Respiratory Rate 15 Blood Pressure 126/84 Pulse Oximetry 95 Oxygen Delivery Me thod [ Room Air Current Rate & Del teressa] Oxygen Delivery Me thod Room Air Oxygen Flow Rate Fraction of Inspir ed Oxygen Additional Comments: no apparent anesthetic complications noted
--- NOTE | 2023-12-18 17:47 | P.PN_ITS ---
Subjective 2 Subjective: Patient was seen this morning, after her EGD, finding of gastritis and duodenitis, she denies any bloody or black stools, her nausea is a bit more under control, however she is hesitant about trying foods, will try her on a clear liquid diet, she continues to have right upper quadrant tenderness epigastric tenderness, we discussed her elevated lipase as a pancreatitis as a possible etiology, however the cause is unknown, denies alcoholism, no recent steroid use, no recent trauma, I have ordered a serologic workup, will have to have her follow-up with rheumatology or primary care as outpatient, she is agreeable we discussed the need for HIDA scan as she continues to have nausea and abdominal discomfort, certainly duodenitis and gastritis could be a however she has been on antibiotics since she came in, she has required fluids she has been quite dehydrated multiple electrolyte abnormalities Vitals/I&O/Wt Last Vital Signs Temp 98.3 F 12/18/23 15:34 Pulse 96 12/18/23 15:34 Resp 15 12/18/23 15:34 BP 126/84 12/18/23 15:34 Pulse Ox 95 12/18/23 15:34 O2 Del Method Room Air 12/18/23 15:34 12/18/23 12/18/23 12/18/23 06:59 14:59 22:59 Intake Total 1050 / 2553.0276 2049 120 / 2170 Output Total 0 / 0 Balance 1050 / 2353.0276 2049 120 / 2170 Weight last 48 hrs Weight 83.007 kg Weight 83.053 kg Weight 81.76 kg Physical Exam 2 Const: COMMON NORMALS: no acute distress and patient oriented x3 Resp: COMMON NORMALS: normal respiratory effort, No retractions, No use of accessory muscles and clear to auscultation bilaterally AUSCULTATION: clear to auscultation bilaterally Cardio: COMMON NORMALS: regular rate, regular rhythm, S1 normal heart sound present and S2 normal heart sound present RATE: regular rate RHYTHM: r egular rhythm HEART SOUNDS: S1 normal heart sound present and S2 normal heart sound present GI: COMMON NORMALS: Soft to palpation INSPECTION: Yes normal to inspection AUSCULTATION: Yes normoactive bowel sounds PALPATION: Yes Soft to palpation, Yes Tenderness to palpation present (GI) Details: RUQ, No Guarding due to palpation present (GI) and No Rigid due to palpation Extremity: COMMON NORMALS: no pedal edema Neuro: COMMON NORMALS: patient oriented x3 Psych: COMMON NORMALS: mental status grossly normal Data 12/18/23 05:28 12/18/23 05:28 Micro: Microbiology 12/13/23 07:33 Blood Culture - Final Blood NO GROWTH AFTER 5 DAYS 12/13/23 07:29 Blood Culture - Final Blood NO GROWTH AFTER 5 DAYS A&P Assessment and plan (1) Abdominal pain: ct abdomen and pelvis 1. Probably sludge filled, mildly distended gallbladder with hyperenhancing patricia as described above; this appearance may represent chronic gallbladder dysfunction . Consider RUQ ultrasound for further evaluation. 2. Small fluid density endometrial defect at the anterior lower uterine segment most likely represents a scar diverticulum/isthmocele , with associated post cyst 3. Mild to moderate-sized hiatal hernia partially intrathoracic stomach. 4. Patricia of the right colon demonstrate prominent submucosal fat, which can be a normal finding in the setting of obesity, and also can be seen in the setting of inflammatory bowel disease or celiac disease. 5. Chronic/incidental findings as above GB us 1. Negative gallbladder. No stones or sludge or wall thickening identified. 2. Normal common bile duct. 3. Moderate hepatic enlargement and hepatic steatosis. -With intractable nausea vomiting -With hypokalemia, hypomagnesemia hypophosphatemia, hypocalcemia corrected calcium 7.9, with hypoalbuminemia -With folic acid deficiency -Continues to have pain in the epigastrium, right upper quadrant -Lipase was elevated, has improved to 74, will repeat lipase, amylase, GGT today, with concerns for possible pancreatitis as an etiology -Reordered HIDA scan hopefully can be done tomorrow Plan Replace magnesium, potassium, phosphorus, calcium Continue Protonix 40 mg IV every 12 hours Clear liquids countinue zosyn Surgery consult, egd gastritis and doudenitis Nausea control, multiple nausea medications add on scopolamine patch Pain control brought into Dilaudid Trg not significantly elevated. Stool studies pending (2) Hiatal hernia: Protonix as above (3) Cystitis: Zosyn IV (4) Hypokalemia: Supplement. Recheck tomorrow. (5) Hypocalcemia: (6) Pancreatitis: (7) Hypomagnesemia: (8) Hypophosphatemia: (9) Folic acid deficiency: (10) Intractable nausea and vomiting: (11) Hypoalbuminemia: Plan Elevated MCV. Folate low. Initiate folate. LFTs better with bilirubin normal, AST 56. Lipase is dropped. Question if patient has more significant alcohol intake than described. Celiac panel ordered, urine drug screen ordered, C. difficile ordered, stool studies ordered Multiple other medical problems as outlined in past medical history Full code Lovenox for DVT prophylaxis plan for today, replace electrolytes potassium, magnesium, phosphorus, IV fluids, pain control, nausea control requiring IV medications consider HIDA scan repeat KUB, GGT, liver function, lipase Attestations 2 Medical Necessity Statement*: Patient requires hospitalization for persistent nausea vomiting concerns for pancreatitis as an etiology possible gall stones biliary dysfunction as an etiology, intractable nausea vomiting and pain Diagnoses Abdominal pain R10.9 Hiatal hernia K44.9 Cystitis N30.90 Hypokalemia E87.6 Hypocalcemia E83.51 Pancreatitis K85.90 Hypomagnesemia E83.42 Hypophosphatemia E83.39 Folic acid deficiency E53.8 Intractable nausea and vomiting R11.2 Hypoalbuminemia E88.09
[2023-12-18] MEDS: sucralfate 1 gm/10 mL Oral Liq UDC PO (20:12)
[2023-12-18] MEDS: pantoprazole 40 mg SDV IVP (20:12)
[2023-12-18] MEDS: ALPRAZolam 0.5 mg Tablet 0.25 MG PO (20:16)
--- NOTE | 2023-12-18 22:13 | PC.NURSE ---
Preparation for Hepatobiliary (HIDA) scan 12/19/23: Patient needs to eat fatty meal or drink ensure before midnight to empty gallbladder. NPO after midnight. No pain medication after midnight.
[2023-12-18] MEDS: calcium carbonate 500 mg Chew Tablet 1000 MG PO (23:49)
[2023-12-19] VITALS (9 sets, daily range): BP systolic 119–152; BP diastolic 77–87; PULSE 63–82; RESP 14–18; TEMP 36.4–36.8; O2SAT 97–100
[2023-12-19] MEDS: piperacillin-tazobactam 3.375 GM in sodium chloride 0.9% (plus) 50 ML IV ×3 (01:09→20:12)
[2023-12-19] MEDS: sodium chlor 0.9% + KCl 20 mEq 20 MEQ/1,000 ML BAG 100 MEQ IV (01:09)
[2023-12-19 05:30] LABS: Basophils % 0.6 %; Eosinophils % 0.2 %; Hematocrit 33.2 % (36-47); Lymphocytes # 1.2 10^3/uL (0.8-4.8); Lymphocytes % 21.8 %; Mean Corpuscular HGB Conc 34.3 g/dL (30-55); Mean Corpuscular Hemoglobin 37.6 pg (27-33); Mean Corpuscular Volume 109.6 fl (85-98); Mean Platelet Volume 11.6 fL (7.4-10.4); Monocytes # 0.5 10^3/uL (0.2-0.9); Monocytes % 9.4 %; Neutrophils # 3.65 10^3/uL (1.8-7.7); Neutrophils % 67.4 %; Nucleated Red Blood Cells % 0 %; Platelet Count 253 10^3/cmm (157-399); Red Blood Count 3.03 10^6/uL (3.85-5.65); Red Cell Distribution Width 17.7 % (12.1-15.1); White Blood Count 5.41 10^3/uL (3.29-11.43)
[2023-12-19 06:02] LABS: Lipase 79 U/L (13-60)
[2023-12-19 06:03] LABS: Alanine Aminotransferase 19 U/L (0-33); Albumin Level 2.8 g/dL (3.5-5.2); Alkaline Phosphatase 90 U/L (35-105); Anion Gap 13.6 (5-19); Aspartate Amino Transferase 44 U/L (0-32); Blood Urea Nitrogen 2 mg/dL (6-20); C Reactive Protein 6.2 mg/L (0.0-4.9); Calcium 8.1 mg/dL (8.5-10.5); Carbon Dioxide 21 mmol/L (22-29); Chloride 107 mmol/L (98-107); Creatinine Clr Calc Pharmacy 170.0607; Globulin 2.8 g/dL (1.3-4.6); Glomerular Filtration Rate 171.1 mL/min (90-130); Glucose 111 mg/dL (65-115); Magnesium 1.5 mg/dL (1.7-2.3); Osmolality Calculated 281 mOsm/kg (285-295); Phosphorus 2.3 mg/dL (2.5-4.5); Potassium 4.6 mmol/L (3.5-5.1); Sodium 137 mmol/L (136-145); Total Bilirubin 0.9 mg/dL (0.15-1.2); Total Protein 5.6 g/dL (6.6-8.7)
--- NOTE | 2023-12-19 08:00 | NM_ITS ---
WS: [id number] NUCLEAR MEDICINE HIDA SCAN CLINICAL INFORMATION: abdominal pain, N/V TECHNIQUE: Following intravenous administration of 8.1 mCi of technetium 99m mebrofenin, images of th e abdomen were obtained over the course of 60 minutes. Next, gallbladder ejection fraction was determ ined by obtaining preprandial and one-hour postprandial images of the gallbladder following oral laury stion of Ensure. COMPARISON: Ultrasound 12/13/2023 FINDINGS: Normal hepatic uptake at 5 minutes. Hepatomegaly. Somewhat delayed hepatic excretion is visualized. N ormal common bile duct and small bowel activity. Gallbladder is not visualized by 60 minutes. Additio nal imaging obtained 120 minutes. Gallbladder is not visualized. Findings compatible with cystic duct obstruction and suspicious for acalculus cholecystitis considering no calculi visualized on the prio r recent ultrasound. IMPRESSION: 1. Nonvisualization of the gallbladder by 2 hours. No gallbladder calculi visualized on the ultrasou nd. Findings suspicious for acalculus cholecystitis. 2. Hepatomegaly with diffuse fatty filtration of the liver. Somewhat delayed hepatic excretion is vi sualized. Hepatic dysfunction can result in false-positive findings of cholecystitis. Recommend corre lation with biliary function studies. Notified Lai Wang MD at 12/19/2023 9:32 AM.
[2023-12-19 08:04] LABS: THYROID PEROXIDASE ANTIBODIES 81 IU/mL (<9)
[2023-12-19] MEDS: HYDROmorphone 1 mg/mL INJ 1 mL 0.5 MG IVP ×3 (08:45→23:41)
[2023-12-19] MEDS: ondansetron 2 mg/ML SDV 2 mL 4 MG IVP ×2 (08:46→15:53)
[2023-12-19] MEDS: sucralfate 1 gm/10 mL Oral Liq UDC PO ×3 (08:46→19:40)
[2023-12-19] MEDS: pantoprazole 40 mg SDV IVP ×2 (08:46→19:40)
[2023-12-19] MEDS: phosphorus 250 mg Tablet PO ×2 (08:46→17:17)
[2023-12-19] MEDS: folic acid 1 mg Tablet PO (08:46)
[2023-12-19] MEDS: magnesium lactate 84 mg Tablet PO ×2 (08:46→17:17)
[2023-12-19 08:49] LABS: ANA PATTERN Nuclear, Speckled; ANA SCREEN, IFA POSITIVE (NEGATIVE)
[2023-12-19] MEDS: magnesium sulfate premix 1 GM/100 ML PIGGYBACK IV (09:11)
[2023-12-19] MEDS: enoxaparin 40 mg/0.4 mL Syringe SUBCUT (11:21)
[2023-12-19] MEDS: calcium carbonate 500 mg Chew Tablet 1000 MG PO ×2 (11:21→22:49)
--- NOTE | 2023-12-19 12:11 | P.PN_ITS ---
Subjective 2 Subjective: 48-year-old female admitted to the [facility] with p.o. intolerance. Now hospital day 5. Patient has improved in the last 24 hours, is able to tolerate diet now no significant nausea or vomit. Abdominal pain has also improved. Vitals/I&O/Wt Last Vital Signs Temp 97.5 F L 12/19/23 11:11 Pulse 78 12/19/23 11:11 Resp 14 12/19/23 11:11 BP 119/79 12/19/23 11:11 Pulse Ox 97 12/19/23 11:11 O2 Del Method Room Air 12/19/23 11:11 12/18/23 12/19/23 12/19/23 22:59 06:59 14:59 Intake Total 600 / 2650 1290 / 3940 100 / 100 Balance 600 / 2650 1290 / 3940 100 / 100 Weight last 48 hrs Weight 168 lb 3.2 oz Weight 183 lb Weight 183 lb 1.6 oz Physical Exam 2 GI: OTHER: Abdomen is soft, minimally tender to palpation in the epigastrium, no significant tenderness in the right upper quadrant. Data 12/19/23 05:18 12/19/23 05:18 Micro: Microbiology 12/13/23 07:33 Blood Culture - Final Blood NO GROWTH AFTER 5 DAYS 12/13/23 07:29 Blood Culture - Final Blood NO GROWTH AFTER 5 DAYS A&P Assessment and plan (1) Abdominal pain: Plan 48-year-old female admitted with intractable vomiting and epigastric abdominal pain. Workup done in the hospital including EGD show evidence of gastritis and duodenitis but no other significant findings ultrasound of the gallbladder showed no evidence of gallbladder pathology. HIDA was attempted but was unable to be completed due to patient poor p.o. tolerance. Since patient is tolerated diet today we will proceed with a HIDA scan, the HIDA scan is suspicious for the possibility of a calculus cholecystitis or chronic cholecystitis. There is no evidence of filling of the gallbladder in over 2 hours, in addition there appears to be delayed uptake of the liver which may be explained by primary liver pathology. Since patient's symptoms appear to be improving and she is currently on hospital day 5 I think the best approach at this moment we will continue to do management with IV antibiotics and to transition to p.o. antibiotics as outpatient to complete the course of 10 days. I will evaluate the patient as outpatient in 1 to 2 weeks and at that time we will determine the need and timing for cholecystectomy. In the interim I have discussed with the patient the need for a lean diet low in fat to help improve her liver steatosis and I have given her warning signs to return to the emergency room in case of abdominal pain. I have explained to the patient that in that case we will have to proceed with laparoscopic cholecystectomy as inpatient which may increase the risk for biliary ductal injury. Patient shows understanding agrees with this plan. Plan has been communicated with medical team. Attestations 2 Medical Necessity Statement*: Per medical team Coding Level of Care Code Acute Code for Chg Fwd Diagnoses Abdominal pain R10.9
--- NOTE | 2023-12-19 12:23 | P.PN_ITS ---
Subjective 2 Subjective: Patient was seen this morning, she continues to have nausea but improving, continues to have right upper quadrant epigastric discomfort, but improving she wants to try clear liquids, she really wants to go home but she is unsure if she can tolerate low diet, she is unsure if her nausea will be under control if she goes home, we discussed waiting her HIDA scan results, she underwent her hepatobiliary scan, i discussed results with general surgery shows evidence of acute cholecystitis, a calculus, general surgery recommended continue IV antibiotics, pain control, nausea control IV fluids and inpatient monitoring,, I went back and spoke to patient about her HIDA scan results, she is very relieved to hear that we have a answer for her persistent abdominal pain, we discussed plans for pain control, nausea control, continue IV antibiotics discussed that general surgery will come by and see patient, but there is no plans on surgical intervention for now, as she is in the subacute phase of her cholecystitis, likely will have outpatient surgery plans within the next 2 to 3 weeks, she is agreeable Vitals/I&O/Wt Last Vital Signs Temp 97.5 F L 12/19/23 11:11 Pulse 78 12/19/23 11:11 Resp 14 12/19/23 11:11 BP 119/79 12/19/23 11:11 Pulse Ox 97 12/19/23 11:11 O2 Del Method Room Air 12/19/23 11:11 12/18/23 12/19/23 12/19/23 22:59 06:59 14:59 Intake Total 600 / 2650 1290 / 3940 100 / 100 Balance 600 / 2650 1290 / 3940 100 / 100 Weight last 48 hrs Weight 76.294 kg Weight 83.007 kg Weight 83.053 kg Physical Exam 2 Const: COMMON NORMALS: no acute distress and patient oriented x3 Resp: COMMON NORMALS: normal respiratory effort, No retractions, No use of accessory muscles and clear to auscultation bilaterally AUSCULTATION: clear to auscultation bilaterally Cardio: COMMON NORMALS: regular rate, regular rhythm, S1 normal heart sound present and S2 normal heart sound present RATE: regular rate RHYTHM: r egular rhythm HEART SOUNDS: S1 normal heart sound present and S2 normal heart sound present GI: OTHER: Abdomen soft, slightly distended, has right upper quadrant and epigastric discomfort, no guarding, no rebound, rigidity Extremity: COMMON NORMALS: no pedal edema Neuro: COMMON NORMALS: patient oriented x3 Psych: COMMON NORMALS: mental status grossly normal Data 12/19/23 05:18 12/19/23 05:18 Micro: Microbiology 12/13/23 07:33 Blood Culture - Final Blood NO GROWTH AFTER 5 DAYS 12/13/23 07:29 Blood Culture - Final Blood NO GROWTH AFTER 5 DAYS A&P Assessment and plan (1) Abdominal pain: ct abdomen and pelvis 1. Probably sludge filled, mildly distended gallbladder with hyperenhancing patricia as described above; this appearance may represent chronic gallbladder dysfunction . Consider RUQ ultrasound for further evaluation. 2. Small fluid density endometrial defect at the anterior lower uterine segment most likely represents a scar diverticulum/isthmocele , with associated post cyst 3. Mild to moderate-sized hiatal hernia partially intrathoracic stomach. 4. Patricia of the right colon demonstrate prominent submucosal fat, which can be a normal finding in the setting of obesity, and also can be seen in the setting of inflammatory bowel disease or celiac disease. 5. Chronic/incidental findings as above GB us 1. Negative gallbladder. No stones or sludge or wall thickening identified. 2. Normal common bile duct. 3. Moderate hepatic enlargement and hepatic steatosis. -With intractable nausea vomiting -With hypokalemia, hypomagnesemia hypophosphatemia, hypocalcemia corrected calcium 7.9, with hypoalbuminemia -With folic acid deficiency -Continues to have pain in the epigastrium, right upper quadrant -Lipase was elevated, has improved to 74, will repeat lipase, amylase, GGT today, with concerns for possible pancreatitis as an etiology -Reordered HIDA scan hopefully can be done tomorrow -MPRESSION: 1. Nonvisualization of the gallbladder by 2 hours. No gallbladder calculi visualized on the ultrasound. Findings suspicious for acalculus cholecystitis. 2. Hepatomegaly with diffuse fatty filtration of the liver. Somewhat delayed hepatic excretion is visualized. Hepatic dysfunction can result in false- positive findings of cholecystitis. Recommend correlation with biliary function studies. Plan Replace magnesium, potassium, phosphorus, calcium Continue Protonix 40 mg IV every 12 hours Clear liquids countinue zosyn Surgery consult, egd gastritis and doudenitis Nausea control, multiple nausea medications add on scopolamine patch Pain control brought into Dilaudid Trg not significantly elevated. (2) Hiatal hernia: Protonix as above (3) Cystitis: Zosyn IV (4) Hypokalemia: Supplement. Recheck tomorrow. (5) Hypocalcemia: (6) Pancreatitis: (7) Hypomagnesemia: (8) Hypophosphatemia: (9) Folic acid deficiency: (10) Intractable nausea and vomiting: (11) Hypoalbuminemia: (12) Acalculous cholecystitis: Plan Elevated MCV. Folate low. Initiate folate. LFTs better with bilirubin normal, AST 56. Lipase is dropped. Question if patient has more significant alcohol intake than described. Celiac panel ordered, urine drug screen ordered, C. difficile ordered, stool studies ordered Multiple other medical problems as outlined in past medical history Full code Lovenox for DVT prophylaxis plan for today, for a calculus cholecystitis continue IV antibiotics, continue pain control nausea control will await general surgery's discussion with patient Attestations 2 Medical Necessity Statement*: Patient requires hospitalization for a calculus cholecystitis, intractable nausea vomiting, intractable pain, recurrent IV antibiotics, nausea control, pain control, general surgery evaluation Diagnoses Abdominal pain R10.9 Hiatal hernia K44.9 Cystitis N30.90 Hypokalemia E87.6 Hypocalcemia E83.51 Pancreatitis K85.90 Hypomagnesemia E83.42 Hypophosphatemia E83.39 Folic acid deficiency E53.8 Intractable nausea and vomiting R11.2 Hypoalbuminemia E88.09 Acalculous cholecystitis K81.9
[2023-12-19] MEDS: metoclopramide 5 mg/mL SDV 2 mL IVP ×2 (12:25→20:12)
[2023-12-19 13:19] LABS: COMPLEMENT, TOTAL (CH50) >60 U/mL (31-60)
[2023-12-19 17:09] LABS: Immunoglobulin A 343 mg/dL (47-310)
[2023-12-19] MEDS: ALPRAZolam 0.5 mg Tablet 0.25 MG PO (20:12)
[2023-12-20] MEDS: sucralfate 1 gm/10 mL Oral Liq UDC PO ×2 (02:17→09:37)
[2023-12-20 02:54] LABS: Gliadin Ab.IgA 1.1 U/mL; Gliadin Ab.IgG <1.0 U/mL
[2023-12-20 03:05] LABS: Tissue Transglutaminase IgA Ab <1.0 U/mL; Tissue transglutaminase Ab.IgG 1.1 U/mL
[2023-12-20 03:55] VITALS: BP 131/84; PULSE 74; RESP 18; TEMP 36.6; O2SAT 98
[2023-12-20] MEDS: piperacillin-tazobactam 3.375 GM in sodium chloride 0.9% (plus) 50 ML IV (04:07)
[2023-12-20 05:36] LABS: Basophils # 0.1 10^3/uL (0.0-0.1); Basophils % 1.2 %; Eosinophils # 0.1 10^3/uL (0.0-0.8); Eosinophils % 1.4 %; Hematocrit 34.8 % (36-47); Lymphocytes # 1.5 10^3/uL (0.8-4.8); Lymphocytes % 27.4 %; Mean Corpuscular HGB Conc 34.5 g/dL (30-55); Mean Corpuscular Hemoglobin 37.7 pg (27-33); Mean Corpuscular Volume 109.4 fl (85-98); Monocytes # 0.6 10^3/uL (0.2-0.9); Neutrophils # 3.35 10^3/uL (1.8-7.7); Neutrophils % 59.6 %; Nucleated Red Blood Cells % 0 %; Platelet Count 314 10^3/cmm (157-399); Red Blood Count 3.18 10^6/uL (3.85-5.65); Red Cell Distribution Width 17.6 % (12.1-15.1); White Blood Count 5.62 10^3/uL (3.29-11.43)
[2023-12-20 06:15] LABS: Alanine Aminotransferase 23 U/L (0-33); Alkaline Phosphatase 92 U/L (35-105); Anion Gap 14.8 (5-19); Aspartate Amino Transferase 52 U/L (0-32); Blood Urea Nitrogen 2 mg/dL (6-20); C Reactive Protein 5.5 mg/L (0.0-4.9); Calcium 8.3 mg/dL (8.5-10.5); Carbon Dioxide 23 mmol/L (22-29); Chloride 103 mmol/L (98-107); Creatinine Clr Calc Pharmacy 177.5803; Glomerular Filtration Rate 171.1 mL/min (90-130); Glucose 87 mg/dL (65-115); Magnesium 1.9 mg/dL (1.7-2.3); Osmolality Calculated 280 mOsm/kg (285-295); Phosphorus 2.6 mg/dL (2.5-4.5); Potassium 3.8 mmol/L (3.5-5.1); Sodium 137 mmol/L (136-145); Total Bilirubin 0.9 mg/dL (0.15-1.2)
[2023-12-20 06:17] LABS: Lipase 147 U/L (13-60)
[2023-12-20] MEDS: ondansetron 2 mg/ML SDV 2 mL 4 MG IVP (06:27)
[2023-12-20 06:41] VITALS: RESP 18
[2023-12-20] MEDS: HYDROmorphone 1 mg/mL INJ 1 mL 0.5 MG IVP (06:41)
[2023-12-20 07:13] VITALS: BP 137/86; PULSE 69; RESP 17; TEMP 36.8; O2SAT 99
[2023-12-20] MEDS: phosphorus 250 mg Tablet PO (09:37)
[2023-12-20] MEDS: folic acid 1 mg Tablet PO (09:37)
[2023-12-20] MEDS: magnesium lactate 84 mg Tablet PO (09:37)
[2023-12-20] MEDS: pantoprazole 40 mg SDV IVP (09:37)
[2023-12-20 09:45] VITALS: BP 137/86; PULSE 69
[2023-12-20] MEDS: scopolamine 1.5 Patch 1 PATCH TRANSDERMA (09:45)
--- NOTE | 2023-12-20 10:39 | PM.DCS ---
Discharge Providers Date of Admission: 12/14/23 11:26 Date of Discharge: December 20, 2023 Attending Provider at Admission: Man Michael MD Attending Provider at Discharge: Lai Wang MD Diagnoses at Discharge Discharge Diagnosis (1) Abdominal pain: Status: Acute (2) Hiatal hernia: Status: Acute (3) Cystitis: Status: Acute (4) Hypokalemia: Status: Acute (5) Hypocalcemia: Status: Acute (6) Pancreatitis: Status: Acute (7) Hypomagnesemia: Status: Acute (8) Hypophosphatemia: Status: Acute (9) Folic acid deficiency: Status: Acute (10) Intractable nausea and vomiting: Status: Acute (11) Hypoalbuminemia: Status: Acute (12) Acalculous cholecystitis: Status: Acute Reason for Visit Reason for Visit: N/V, Abd pain Hospital Course Hospital Course Krupa Sparks is a 48 year old female presenting to the emergency department with complaints of approximately 2 weeks of abdominal pain. She reports it is mainly centered in her right upper quadrant area. She has been having some loose stool, multiple stools a day as well as nausea and vomiting. She states she gets a brief relief of her abdominal discomfort after vomiting. She denies any blood in her emesis, or her stool. No black or tarry stool. No fever. She has had some dysuria lately. She reports no prior history. She states she uses ibuprofen but very rarely. In the emergency department she received subcu TauroLock, morphine, Zosyn, and IV fluids. Patient presents [facility] for abdominal pain, with intractable nausea vomiting, intractable pain, hypomagnesemia hypocalcemia hypophosphatemia with evidence of pancreatitis, right upper quadrant pain, CT abdomen pelvis showed probably sludge filled mildly distended gallbladder, right upper quadrant sound was within normal limits, patient underwent a HIDA scan which showed evidence of a calculus cholecystitis, she was managed with IV antibiotics, electrolyte replacement IV fluids pain control nausea control her prolonged hospitalization due to persistent intractable nausea vomiting intractable pain. Overall patient clinically improved, will be discharged on 10 remaining days of antibiotics with close follow-up with general surgery as outpatient for consideration of cholecystectomy. Patient also had a EGD, during her hospitalization with findings of gastritis duodenitis. I have also ordered a celiac panel, lupus antibodies were positive, will have her follow-up with rheumatology, Physical Exam Const: COMMON NORMALS: no acute distress and patient oriented x3 Resp: COMMON NORMALS: normal respiratory effort, No retractions, No use of accessory muscles and clear to auscultation bilaterally AUSCULTATION: clear to auscultation bilaterally Cardio: COMMON NORMALS: regular rate, regular rhythm, S1 normal heart sound present and S2 normal heart sound present RATE: regular rate RHYTHM: regular rhythm HEART SOUNDS: S1 normal heart sound present and S2 normal heart sound present GI: COMMON NORMALS: Normal to inspection, nondistended, normoactive bowel sounds present and non-tender Extremity: COMMON NORMALS: no pedal edema Neuro: COMMON NORMALS: patient oriented x3 Psych: COMMON NORMALS: mental status grossly normal Discharge Data Studies Completed and Pending Completed Studies During Hospitalization Category Date Time Status CT abdomen pelvis w con* 15040 Stat Cat Scan 12/13/23 04:46 Completed XR KUB portable [id number] Routine Exams 12/17/23 09:55 Completed NM hepatobiliary wo phar [id number] Routine Nuc Med 12/19/23 08:00 Completed US gall bladder [id number] Stat Ultrasound 12/13/23 06:30 Completed Pending at discharge Category Date Time Status SRINI Profile Rheumatology Stat Lab 12/15/23 15:42 Results C Reactive Protein AM LABS Lab 12/21/23 04:00 Ordered C.Diff PCR (Lab) Routine Lab 12/15/23 15:17 Ordered Complete Blood Count w/Auto AM LABS Lab 12/21/23 04:00 Ordered Comprehensive Metabolic Panel AM LABS Lab 12/21/23 04:00 Ordered Immunochemical Fecal OCB Routine Lab 12/15/23 15:17 Ordered Lactoferrin Routine Lab 12/15/23 15:17 Ordered Lipase AM LABS Lab 12/21/23 04:00 Ordered Magnesium AM LABS Lab 12/21/23 04:00 Ordered OVA and Parasites, Conc and PE Routine Lab 12/15/23 15:17 Ordered Phosphorus AM LABS Lab 12/21/23 04:00 Ordered Salmonella / Shigella / Campy Routine Lab 12/15/23 15:17 Ordered Pathology: Surgical [PTH] Routine Pth 12/18/23 07:23 Received Radiology Impressions Abdomen/Pelvis CT 12/13/23 04:46 IMPRESSION: 1. Probably sludge filled, mildly distended gallbladder with hyperenhancing patricia as described above; this appearance may represent chronic gallbladder dysfunction . Consider RUQ ultrasound for further evaluation. 2. Small fluid density endometrial defect at the anterior lower uterine segment most likely represents a scar diverticulum/isthmocele , with associated post cyst 3. Mild to moderate-sized hiatal hernia partially intrathoracic stomach. 4. Patricia of the right colon demonstrate prominent submucosal fat, which can be a normal finding in the setting of obesity, and also can be seen in the setting of inflammatory bowel disease or celiac disease. 5. Chronic/incidental findings as above KUB X-Ray 12/17/23 09:55 IMPRESSION: No acute findings. Laboratory Results WBC 5.62 10^3/uL (3.29-11.43) 12/20/23 04:31 RBC 3.18 10^6/uL (3.85-5.65) L 12/20/23 04:31 Hgb 12.00 g/dL (11.27-16.99) 12/20/23 04:31 Hct 34.8 % (36-47) L 12/20/23 04:31 MCV 109.4 fl (85-98) H 12/20/23 04:31 MCH 37.7 pg (27-33) H 12/20/23 04:31 MCHC 34.5 g/dL (30-55) 12/20/23 04:31 RDW 17.6 % (12.1-15.1) H 12/20/23 04:31 Plt Count 314 10^3/cmm (157-399) 12/20/23 04:31 MPV 12.0 fL (7.4-10.4) H 12/20/23 04:31 Neut % (Auto) 59.6 % 12/20/23 04:31 Lymph % (Auto) 27.4 % 12/20/23 04:31 [place] % (Auto) 10.0 % 12/20/23 04:31 Eos % (Auto) 1.4 % 12/20/23 04:31 Baso % (Auto) 1.2 % 12/20/23 04:31 Neut # (Auto) 3.35 10^3/uL (1.8-7.7) 12/20/23 04:31 Lymph # (Auto) 1.5 10^3/uL (0.8-4.8) 12/20/23 04:31 [place] # (Auto) 0.6 10^3/uL (0.2-0.9) 12/20/23 04:31 Eos # (Auto) 0.1 10^3/uL (0.0-0.8) 12/20/23 04:31 Baso # (Auto) 0.1 10^3/uL (0.0-0.1) 12/20/23 04:31 Nucleated RBC % (auto) 0 % 12/20/23 04:31 Nucleated RBCs # 0.0 /100WBC 12/20/23 04:31 ESR 11 mm/hr (0-15) 12/15/23 04:02 Sodium 137 mmol/L (136-145) 12/20/23 04:31 Potassium 3.8 mmol/L (3.5-5.1) 12/20/23 04:31 Chloride 103 mmol/L (98-107) 12/20/23 04:31 Carbon Dioxide 23 mmol/L (22-29) 12/20/23 04:31 Anion Gap 14.8 (5-19) 12/20/23 04:31 BUN 2 mg/dL (6-20) L 12/20/23 04:31 Creatinine 0.4 mg/dL (0.5-0.9) L 12/20/23 04:31 GFR Calculation 171.1 mL/min (90-130) H 12/20/23 04:31 Glucose 87 mg/dL (65-115) 12/20/23 04:31 Estimat Average Glucose 97 12/13/23 04:21 Hemoglobin A1c 5.0 % (4.0-6.0) 12/13/23 04:21 Calculated Osmolality 280 mOsm/kg (285-295) L 12/20/23 04:31 Lactic Acid 1.1 mmol/L (0.5-2.2) 12/15/23 15:42 Lactic Acid (Sepsis) 1.5 mmol/L (0.5-2.2) 12/13/23 07:29 Calcium 8.3 mg/dL (8.5-10.5) L 12/20/23 04:31 Phosphorus 2.6 mg/dL (2.5-4.5) 12/20/23 04:31 Magnesium 1.9 mg/dL (1.7-2.3) 12/20/23 04:31 Total Bilirubin 0.9 mg/dL (0.15-1.2) 12/20/23 04:31 GGT 119 U/L (5-36) H 12/17/23 05:15 AST 52 U/L (0-32) H 12/20/23 04:31 ALT 23 U/L (0-33) 12/20/23 04:31 Alkaline Phosphatase 92 U/L (35-105) 12/20/23 04:31 Creatine Kinase 35 U/L (26-192) 12/18/23 05:28 C-Reactive Protein 5.5 mg/L (0.0-4.9) H 12/20/23 04:31 Total Protein 6.0 g/dL (6.6-8.7) L 12/20/23 04:31 Albumin 3.0 g/dL (3.5-5.2) L 12/20/23 04:31 Globulin 3.0 g/dL (1.3-4.6) 12/20/23 04:31 Triglycerides 140 mg/dL (0-150) 12/13/23 04:21 Amylase 49 U/L (28-100) 12/17/23 05:15 Lipase 147 U/L (13-60) H 12/20/23 04:31 Vitamin B12 1581 pg/mL (232-1245) H 12/14/23 03:52 Folate 2.0 ng/mL (4.8-37.3) L 12/14/23 03:52 Procalcitonin 0.11 ng/mL (0-0.5) 12/18/23 05:28 TSH 2.96 uIU/mL (0.27-4.20) 12/13/23 04:21 HCG, Qual Negative (Negative) 12/13/23 04:21 Ser , Semi-Qnt 1.00 mIU/mL 12/15/23 04:02 PTH Intact 218.5 pg/mL (15-65) H 12/17/23 05:15 Calcium (PTH Intact) 7.1 mg/dL (8.5-10.5) L 12/17/23 05:15 Urine Color Yellow (Yellow) 12/13/23 05:21 Urine Appearance Hazy (CLEAR) A 12/13/23 05:21 Urine pH 7 (5-7) 12/13/23 05:21 Ur Specific [place] 1.010 (1.005-1.030) 12/13/23 05:21 Urine Protein 2+ (Negative) H 12/13/23 05:21 Urine Glucose (UA) Trace (Normal) H 12/13/23 05:21 Urine Ketones 1+ (Negative) H 12/13/23 05:21 Urine Blood 3+ (Negative) H 12/13/23 05:21 Urine Nitrate Negative (Negative) 12/13/23 05:21 Urine Bilirubin 1+ (Negative) H 12/13/23 05:21 Urine Urobilinogen Neg mg/dL (Negative) 12/13/23 05:21 Ur Leukocyte Esterase 2+ (Negative) H 12/13/23 05:21 Urine RBC 15-25 /hpf (0-2) H 12/13/23 05:21 Urine WBC 55-80 /hpf (0-5) H 12/13/23 05:21 Ur Squamous Epith Cells 5-10 /hpf (0-5) H 12/13/23 05:21 Amorphous Sediment Not Reportable 12/13/23 05:21 Urine Bacteria 3+ /hpf (NONE) H 12/13/23 05:21 Urine Mucus 2+ /hpf 12/13/23 05:21 Urine HCG, Qual Negative (Negative) 12/18/23 06:45 Urine Opiates Screen Negative ng/mL (Negative) 12/16/23 17:09 Ur Barbiturates Screen Negative ng/mL (Negative) 12/16/23 17:09 Ur Phencyclidine Scrn Negative ng/mL (Negative) 12/16/23 17:09 Ur Amphetamines Screen Negative ng/mL (Negative) 12/16/23 17:09 U Benzodiazepines Scrn Negative ng/mL (Negative) 12/16/23 17:09 Urine Cocaine Screen Negative ng/mL (Negative) 12/16/23 17:09 U Marijuana (THC) Screen Negative ng/mL (Negative) 12/16/23 17:09 Serum Ketones Positive (Negative) H 12/13/23 04:21 IgA 343 mg/dL (47-310) H 12/15/23 15:42 SRINI Nuclear Membr Pat Nuclear, speckled A 12/15/23 15:42 SRINI IFA Animal Tis Ttr 1:80 titer H 12/15/23 15:42 SRINI IFA Animal Tis Res Positive (NEGATIVE) A 12/15/23 15:42 AVERY-1 Antibody <1.0 neg AI (<1.0 NEG) 12/15/23 15:42 SS-A Antibody <1.0 neg AI (<1.0 NEG) 12/15/23 15:42 SS-B Antibody <1.0 neg AI (<1.0 NEG) 12/15/23 15:42 Sm (Haq) Antibody <1.0 neg AI (<1.0 NEG) 12/15/23 15:42 COMBINATION MAN Antibody <1.0 neg AI (<1.0 NEG) 12/15/23 15:42 Scl-70 Antibody <1.0 neg AI (<1.0 NEG) 12/15/23 15:42 Centromere B Antibody <1.0 neg AI (<1.0 NEG) 12/15/23 15:42 Tiss Transglutamin IgG 1.1 U/mL 12/15/23 15:42 Tiss Transglutamin IgA <1.0 U/mL 12/15/23 15:42 Thyroid Peroxidase Ab 81 IU/mL (<9) H 12/15/23 15:42 Anti-Gliadin IgG ENRICO Res <1.0 U/mL 12/15/23 15:42 Anti-Gliad IgA ENRICO Res 1.1 U/mL 12/15/23 15:42 Complement C3c 128 mg/dL (83-193) 12/15/23 15:42 Complement C4c 33 mg/dL (15-57) 12/15/23 15:42 CH50 Classical Pathway >60 U/mL (31-60) H 12/15/23 15:42 Hepatitis A IgM Ab Non-reactive (Nonreactive) 12/17/23 05:15 Hep Bs Antigen Non-reactive (Nonreactive) 12/17/23 05:15 Hep B Core IgM Ab Non-reactive (Nonreactive) 12/17/23 05:15 Hepatitis C Antibody Non-reactive (Nonreactive) 12/17/23 05:15 HIV 1&2 Ab & HIV 1 Ag Non-reactive (Non-Reactiv) 12/17/23 05:15 HIV 1&2 Antibody Non-reactive (Non-Reactiv) 12/17/23 05:15 Vitals Last Vital Signs Temp 98.2 F 12/20/23 07:13 Pulse 69 12/20/23 09:45 Resp 17 12/20/23 07:13 BP 137/86 12/20/23 09:45 Pulse Ox 99 12/20/23 07:13 O2 Del Method Room Air 12/20/23 07:13 Discharge Plan Discharge Patient Disposition: Home Condition: Stable Prescriptions: New ondansetron HCl 4 mg tablet 4 mg PO Q8H PRN (Reason: nausea and vomiting) 5 Days Qty: 10 0RF pantoprazole [Protonix] 40 mg tablet,delayed release (DR/EC) 40 mg PO DAILY Qty: 60 0RF folic acid 1 mg Tablet 1 mg PO DAILY 30 Days Qty: 30 0RF amoxicillin-pot clavulanate 875-125 mg tablet 1 tab PO BID 10 Days Qty: 20 0RF Discharge Orders: Discharge Order (Routine); Ordered 12/20/23 Ordered By: Lai Wang Referrals: Reggie Vang MD [Physician] - 1 week Haseeb Caisano MD [Referring] - 12/21/23 9:00 am (Will need to bring taxes from 2021 or 2022 if you have filed. Will need a minimum of $30 to pay for the visit. ) Altaf Michel MD [Physician] - 1 month (positive srini) Discharge Diet: Full LIquid Discharge Activity: Increase activity as tolerated Patient Instructions: [place] Diet - Adult, Opioid Safety, Pain Management Activity Restrictions/Additional Instructions: Full liquid, low-fat diet on discharge. Advance slowly. Follow-up with surgery in approximately 1 to 2 weeks, primary care provider 3 to 5 days. Take all medicine as prescribed. Discharge Attestations Time Spent in Discharge Care*: greater than 30 min Quality Metrics Clinical Quality Measures [ No reported AMI, CVA or VTE this stay] Coding Level of Care Code 02191 Total time (in minutes) for Discharge: 45 Diagnoses Abdominal pain R10.9 Hiatal hernia K44.9 Cystitis N30.90 Hypokalemia E87.6 Hypocalcemia E83.51 Pancreatitis K85.90 Hypomagnesemia E83.42 Hypophosphatemia E83.39 Folic acid deficiency E53.8 Intractable nausea and vomiting R11.2 Hypoalbuminemia E88.09 Acalculous cholecystitis K81.9
[2023-12-20 10:56] VITALS: BP 131/91; PULSE 77; RESP 17; TEMP 36.7; O2SAT 99
[2023-12-20] MEDS: calcium carbonate 500 mg Chew Tablet 1000 MG PO (11:43)
[2023-12-20 12:44] VITALS: BP 131/91; PULSE 77; RESP 17; TEMP 36.7; O2SAT 99
--- NOTE | 2023-12-20 12:45 | PC.NURSE ---
Discharge Note Patient discharged to home via private vehicle accompanied by self. Discharge instructions reviewed with patient and/or fuels sales representative. Mobile pharmacy medications and/or prescriptions provided. Belongings/home medications returned.
[2023-12-26 17:45] LABS: DNA AB (DS) CRITHIDIA TITER 1:10 titer (<1:10); DNA AB (DS) CRITHIDIA,IFA POSITIVE (NEGATIVE)
== END 2023-12-20 12:45 | disposition home or self-care (01) | DRG 444 ==
LOC: ER 07:33 → MEDSURG 09:43
PROVIDERS: Emergency Medicine; Student in an Organized Health Care Education/Training Program; Surgery; Admitting Provider Internal Medicine; Emergency Provider Family Medicine; Visit Provider Family Medicine
PROC: 0DJ08ZZ Inspection of Upper Intestinal Tract, Via Natural or Artificial Opening Endoscopic (ICD-10-PCS; CPT 43235; principal; 2023-12-18 07:00)
DX: K81.0 Acute cholecystitis (principal); K85.90 Acute pancreatitis without necrosis or infection, unspecified; K29.00 Acute gastritis without bleeding; K29.80 Duodenitis without bleeding; K44.9 Diaphragmatic hernia without obstruction or gangrene; E88.09 Other disorders of plasma-protein metabolism, not elsewhere classified; E53.8 Deficiency of other specified B group vitamins; E83.39 Other disorders of phosphorus metabolism; E83.42 Hypomagnesemia; E83.51 Hypocalcemia; N30.90 Cystitis, unspecified without hematuria; E87.6 Hypokalemia
CPT/HCPCS: 36415; 43239; 74018; 74177; 76705; 78226; 78227; 80053; 80074; 80306; 81001; 81025; 82009; 82150; 82310; 82550; 82607; 82746; 82784; 82977; 83036; 83516; 83605; 83690; 83735; 83970; 84100; 84145; 84443; 84478; 84702; 84703; 85025; 85651; 86140; 86160; 86162; 86235; 86255; 86376; 87040; 87077; 87086; 87186; 87806; 88305; 96365; 96372; 96375; 96376; 99285; A9537; C9113; G0378; J0330; J1100; J1170; J1200; J1650; J1885; J2060; J2270; J2405; J2543; J2704; J2765; J3475; J3480; J7030; Q9967

== ENCOUNTER 2023-12-25 20:12 | Inpatient (IN) | payer SELFPAY ==
[2023-12-25 20:13] VITALS: BP 124/90; PULSE 122; RESP 14; TEMP 36.9; O2SAT 97
--- NOTE | 2023-12-25 21:11 | USR_ITS ---
PROCEDURE INFORMATION: Exam: US Abdomen, Limited; Right Upper Quadrant Exam date and time: 12/25/2023 9:49 PM Age: 48 years old Clinical indication: Abdominal pain; Other: Chronic abd pain, seen here 5 days ago with the same symptoms, had CT, gbus, hide-a-scan. ; Additional info: Ruq pain TECHNIQUE: Imaging protocol: Real time ultrasound of the abdomen with image documentation. Limited exam focused on the right upper quadrant. COMPARISON: US gall bladder [id number] 12/13/2023 5:51 AM FINDINGS: Liver: There is diffuse increased echogenicity of the hepatic parenchyma consistent with fatty infiltration. No hepatic masses are identified by ultrasound. Gallbladder: The gallbladder is normal. The executive officer special warfare team reports a negative sonographic Mcgowan's sign. Biliary ducts: There is no evidence of intra or extrahepatic ductal dilatation. The common bile duct measures 4 mm. Pancreas: The visualized portions of the pancreas are within normal limits. The tail is obscured by bowel gas. Right kidney: The right kidney is normal. There is no evidence of renal calcification or hydronephrosis. The right kidney measures 10.9. Inferior vena cava: Visualized aorta and inferior vena cava are unremarkable. US/US gall bladder [id number] IMPRESSION: 1. Fatty liver. 2. Otherwise unremarkable right upper quadrant ultrasound.
[2023-12-25 21:24] LABS: Basophils # 0.1 10^3/uL (0.0-0.1); Basophils % 0.8 %; Eosinophils # 0.1 10^3/uL (0.0-0.8); Eosinophils % 1.4 %; Hematocrit 35.6 % (36-47); Lymphocytes # 1.1 10^3/uL (0.8-4.8); Lymphocytes % 11.4 %; Mean Corpuscular HGB Conc 35.7 g/dL (30-55); Mean Corpuscular Hemoglobin 37.8 pg (27-33); Mean Platelet Volume 11.6 fL (7.4-10.4); Monocytes # 0.7 10^3/uL (0.2-0.9); Monocytes % 6.8 %; Neutrophils # 7.65 10^3/uL (1.8-7.7); Neutrophils % 79.2 %; Nucleated Red Blood Cells % 0 %; Platelet Count 349 10^3/cmm (157-399); Red Blood Count 3.36 10^6/uL (3.85-5.65); Red Cell Distribution Width 15.2 % (12.1-15.1); White Blood Count 9.67 10^3/uL (3.29-11.43)
[2023-12-25] MEDS: ondansetron 2 mg/ML SDV 2 mL 4 MG IVP (21:28)
[2023-12-25 21:40] LABS: INR 1.09 (0.8-1.2); Partial Thromboplastin Time 26.7 SECONDS (23.9-36.7)
[2023-12-25 21:45] LABS: Alanine Aminotransferase 29 U/L (0-33); Albumin Level 3.4 g/dL (3.5-5.2); Alkaline Phosphatase 126 U/L (35-105); Anion Gap 18.3 (5-19); Aspartate Amino Transferase 42 U/L (0-32); Blood Urea Nitrogen 9 mg/dL (6-20); Calcium 8.7 mg/dL (8.5-10.5); Carbon Dioxide 23 mmol/L (22-29); Chloride 99 mmol/L (98-107); Creatinine Clr Calc Pharmacy 98.8282; Globulin 3.3 g/dL (1.3-4.6); Glomerular Filtration Rate 89.7 mL/min (90-130); Glucose 122 mg/dL (65-115); Lipase 190 U/L (13-60); Osmolality Calculated 282 mOsm/kg (285-295); Potassium 4.3 mmol/L (3.5-5.1); Sodium 136 mmol/L (136-145); Total Bilirubin 0.7 mg/dL (0.15-1.2); Total Protein 6.7 g/dL (6.6-8.7)
[2023-12-25 22:00] VITALS: BP 119/65; PULSE 87; O2SAT 99
[2023-12-25 22:24] LABS: Glucose Point of Care 114 mg/dL (70-110)
[2023-12-25 22:28] VITALS: RESP 18; O2SAT 99
[2023-12-25] MEDS: morphine 4 mg/mL SDV 1 mL IVP (22:28)
[2023-12-25 22:39] LABS: Alcohol Level < 10 mg/dL (0-10)
[2023-12-25 23:30] VITALS: BP 109/70; PULSE 91; O2SAT 97
--- NOTE | 2023-12-25 23:42 | ED_ITS ---
HPI - Abdominal Pain 2 General: Chief Complaint: Abdominal Pain Stated Complaint: abd pain sent by Dr Casiano Time Seen by Provider: 12/25/23 20:29 History of Present Illness: 48[facility] complaints of right upper quadrant abdominal pain and epigastric pain. She states she was seen here in the emergency department and admitted to the hospital ultimately discharged on 12/20/2023 with concerns of pancreatitis at that time. She states that she did speak with her primary care provider Dr. Bell and was advised to come to the emergency department for additional evaluation treatment and care. Patient states that she has 9 out of 10 epigastric and right upper quadrant abdominal pain. She does endorse nausea with a single episode of vomiting. She states her pain has not subsided and nothing seems to make it better. She denies fevers chills or night sweats. She denies hematic emesis or hematochezia. Associated Symptoms: Reports nausea and vomiting Review of Systems 2 General: Reports: 10 or more systems reviewed and unremarkable except in HPI and below GI: Reports: abdominal pain, nausea and vomiting [facility] ED 2 PFSH: Family History (Updated 12/13/23 @ 09:44 by Man Michael MD) Other CAD (coronary artery disease) Diabetes Social History (Updated 12/13/23 @ 09:45 by Man Michael MD) Smoking and tobacco/nicotine status: never used tobacco/nicotine Alcohol intake: current Alcohol intake frequency: holidays/special occasions only Physical Exam 2 Narrative: EXAM NARRATIVE: Constitutional: the patient appears well nourished and of normal development. Vital signs as documented. No acute distress at present. Alert and oriented-to person, place, time and situation. Head, eyes, ears, nose, mouth, throat: Normocephalic, atraumatic. Pupils-equal, round, reactive to light. No scleral icterus. Normal-appearing external ears. Normal appearing nasal turbinates, no drainage. No obvious oral lesions, posterior oropharynx without erythema or exudates. Neck: Supple, trachea is midline, no lymphadenopathy, no jugular venous distension, thyromegaly, or carotid bruits. Carotid upstrokes are brisk bilaterally. Lungs: clear to auscultation to all lung hay. Symmetrical rise and fall of chest, no obvious signs of increased work of breathing at present. Cardiac: Regular rate and rhythm, positive S1, S2. No murmurs, rubs or gallops that I can appreciate Abdomen: Soft, tender to palpation to the right upper quadrant and epigastric region, normal active bowel sounds to all quadrants. No palpable masses, no organomegaly and abdominal bruits. Extremities: 2+ pulses in the upper extremities that are equal bilaterally, 2+ pulses in the lower extremities that are equal bilaterally. Non-edematous. Moves all extremities well, sensation to all extremities are noted. Skin: Warm, dry, intact. Course 2 Vital Signs: Vital signs: Vital Signs Temperature 98.4 F 12/25/23 20:13 Pulse Rate 122 H 12/25/23 20:13 Respiratory Rate 18 12/25/23 22:28 Blood Pressure 124/90 12/25/23 20:13 Pulse Oximetry 99 12/25/23 22:28 Oxygen Delivery Me thod Room Air 12/25/23 20:13 MDM - Abdominal Pain Medical Decision Making Physical exam completed document I will obtain CBC and CMP as well as lipase. I did contact Dr. Carrasco to discuss the patient's presentation and recent imaging. He did advise to repeat the ultrasound. Given the patient's elevated lipase and continued epigastric pain I did provide her for morphine as well as nausea medicine and repeated fentanyl 50 mcg for pain control. I did contact the hospitalist physician to request admission for additional evaluation treatment and care. Medical Records I reviewed the patient's medical records. Lab Data I reviewed the patient's lab results. 12/25/23 21:14 12/25/23 21:14 Labs/Radiology: Radiology Impressions Gallbladder Ultrasound 12/25/23 21:11 IMPRESSION: 1. Fatty liver. 2. Otherwise unremarkable right upper quadrant ultrasound. Laboratory Results WBC 9.67 10^3/uL (3.29-11.43) 12/25/23 21:14 RBC 3.36 10^6/uL (3.85-5.65) L 12/25/23 21:14 Hgb 12.70 g/dL (11.27-16.99) 12/25/23 21:14 Hct 35.6 % (36-47) L 12/25/23 21:14 MCV 106.0 fl (85-98) H 12/25/23 21:14 MCH 37.8 pg (27-33) H 12/25/23 21:14 MCHC 35.7 g/dL (30-55) 12/25/23 21:14 RDW 15.2 % (12.1-15.1) H 12/25/23 21:14 Plt Count 349 10^3/cmm (157-399) 12/25/23 21:14 MPV 11.6 fL (7.4-10.4) H 12/25/23 21:14 Neut % (Auto) 79.2 % 12/25/23 21:14 Lymph % (Auto) 11.4 % 12/25/23 21:14 [place] % (Auto) 6.8 % 12/25/23 21:14 Eos % (Auto) 1.4 % 12/25/23 21:14 Baso % (Auto) 0.8 % 12/25/23 21:14 Neut # (Auto) 7.65 10^3/uL (1.8-7.7) 12/25/23 21:14 Lymph # (Auto) 1.1 10^3/uL (0.8-4.8) 12/25/23 21:14 [place] # (Auto) 0.7 10^3/uL (0.2-0.9) 12/25/23 21:14 Eos # (Auto) 0.1 10^3/uL (0.0-0.8) 12/25/23 21:14 Baso # (Auto) 0.1 10^3/uL (0.0-0.1) 12/25/23 21:14 Nucleated RBC % (auto) 0 % 12/25/23 21:14 Nucleated RBCs # 0.0 /100WBC 12/25/23 21:14 PT 14.40 SECONDS (12.1-14.9) 12/25/23 21:14 INR 1.09 (0.8-1.2) 12/25/23 21:14 APTT 26.7 SECONDS (23.9-36.7) 12/25/23 21:14 Sodium 136 mmol/L (136-145) 12/25/23 21:14 Potassium 4.3 mmol/L (3.5-5.1) 12/25/23 21:14 Chloride 99 mmol/L (98-107) 12/25/23 21:14 Carbon Dioxide 23 mmol/L (22-29) 12/25/23 21:14 Anion Gap 18.3 (5-19) 12/25/23 21:14 BUN 9 mg/dL (6-20) 12/25/23 21:14 Creatinine 0.7 mg/dL (0.5-0.9) 12/25/23 21:14 GFR Calculation 89.7 mL/min (90-130) L 12/25/23 21:14 Glucose 122 mg/dL (65-115) H 12/25/23 21:14 POC Glucose 114 mg/dL (70-110) H 12/25/23 22:20 Calculated Osmolality 282 mOsm/kg (285-295) L 12/25/23 21:14 Calcium 8.7 mg/dL (8.5-10.5) 12/25/23 21:14 Total Bilirubin 0.7 mg/dL (0.15-1.2) 12/25/23 21:14 AST 42 U/L (0-32) H 12/25/23 21:14 ALT 29 U/L (0-33) 12/25/23 21:14 Alkaline Phosphatase 126 U/L (35-105) H 12/25/23 21:14 Total Protein 6.7 g/dL (6.6-8.7) 12/25/23 21:14 Albumin 3.4 g/dL (3.5-5.2) L 12/25/23 21:14 Globulin 3.3 g/dL (1.3-4.6) 12/25/23 21:14 Lipase 190 U/L (13-60) H 12/25/23 21:14 Ethyl Alcohol < 10 mg/dL (0-10) 12/25/23 21:14 All radiology interpretation(s) finalized by discharge Discharge Plan Discharge Patient Disposition: Admitted As Inpatient Clinical Impression: Acute pancreatitis, Abdominal pain Condition: Stable Prescriptions: No Action Protonix 40 mg tablet,delayed release (DR/EC) 40 mg PO DAILY Qty: 60 0RF folic acid 1 mg Tablet 1 mg PO DAILY 30 Days Qty: 30 0RF amoxicillin-pot clavulanate 875-125 mg tablet 1 tab PO BID 10 Days Qty: 20 0RF Referrals: Haseeb Casiano MD [Primary Care Provider] - Coding Level of Care Code ED Assembler Product for g Samina
--- NOTE | 2023-12-25 23:48 | P.HP_ITS ---
Providers/Chief Complaint 2 Primary Care Provider: Haseeb Casiano MD Chief Complaint: abd pain sent by Dr Casiano History of Present Illness Krupa Sparks is a 48 year old female who was recently discharged in the hospital for management evaluation of right upper quadrant pain there was consideration for acalculus cholecystitis, for intractable nausea vomiting EGD was done, EGD showed gastritis duodenitis, she was asked to follow-up outpatient for cholecystectomy, presented today with right upper quadrant pain worsening. She seems to have alcohol related fatty liver disease. Patient is stating that since her last discharge from the hospital she has been having recurrent nausea vomiting, she has been only able to eat a few liquid meals in last few days, she is still experiencing diarrhea, low-grade fever 99.9, she still experiencing right upper quadrant pain, her PCP called her to go to the hospital for further evaluation because of abnormal alkaline phosphatase level. Patient stated that in total she has had 9-10 episodes of vomiting at home. Her last alcoholic drink was a month ago. She does not smoke. No previous history of cancer or immune disease recently she was tested positive for lupus antibodies. Ultrasound in the ER did not show any acute cholecystitis Dr. Carrasco has been consulted Patient is afebrile Tachycardic Complaining of 6/10 right upper quadrant pain Clinical looks dehydrated Review of Systems 2 Const: Denies: fever(s) Eyes: Denies: change in vision ENMT: Denies: throat pain Card: Denies: chest pain Medications/Allergies Home Medications Medication Instructions Recorded Confirmed Last Taken Type folic acid 1 mg tablet 1 mg PO DAILY 30 days #30 tabs 12/14/23 Unknown Rx pantoprazole 40 mg tablet,delayed 40 mg PO DAILY #60 tabs 12/14/23 Unknown Rx release (Protonix) amoxicillin 875 mg-potassium 1 tab PO BID 10 days #20 tabs 12/20/23 Unknown Rx clavulanate 125 mg tablet Allergies Allergy/AdvReac Type Severity Reaction Status Date / Time cephalexin [From Keflex] Allergy ADR-Itching Verified 12/25/23 20:17 PFSH Acute 2 PFSH: Medical History (Updated 12/26/23 @ 00:09 by Yuliya Casey MD) section wound seroma, Surgical History (Updated 12/26/23 @ 00:09 by Yuliya Casey MD) S/P right knee arthroscopy Family History Other CAD (coronary artery disease) Diabetes Social History Smoking and tobacco/nicotine status: never used tobacco/nicotine Alcohol intake: current Alcohol intake frequency: holidays/special occasions only Vitals/I&O/Wt Last Vital Signs Temp 98.4 F 12/25/23 20:13 Pulse 122 H 12/25/23 20:13 Resp 18 12/25/23 22:28 BP 124/90 12/25/23 20:13 Pulse Ox 99 12/25/23 22:28 O2 Del Method Room Air 12/25/23 20:13 Weight last 48 hrs Weight 78.925 kg Physical Exam 2 Narrative: Patient sitting in the bed Currently on room air Tachycardic Dehydrated GCS 15 Mcgowan sign negative on my exam GCS 15 Pleasant cooperative S1, S2 Pleasant cooperative Currently room air Tachycardic sinus tachycardia Data 12/25/23 21:14 12/25/23 21:14 A&P Assessment and plan (1) Folic acid deficiency: (2) Intractable nausea and vomiting: (3) Pancreatitis: (4) Hypoalbuminemia: Plan Pancreatitis Acalculous cholecystitis? Gallbladder ultrasound unremarkable Lipase is hide Requested triglyceride levels Patient is not diabetic Still experiencing diarrhea recurrent nausea and vomiting, I will start her on D5 LR General surgery consulted Start Zosyn Patient clinically is dehydrated HIDA scan was done on last visit If her symptoms do not resolve and she starts spiking fever she will need MRCP Full code N.p.o. DVT prophylaxis added Opioids added as well Monitor for signs of refeeding syndrome patient has not been able to eat much in the last 2 to 3 weeks Check magnesium, phosphorus and CPK Sinus tachycardia is related to dehydration and pain Microcytic anemia: Stable Patient lives with a boyfriend, does not have medical DPOA Attestations 2 Medical Necessity Statement*: More than 2 midnights anticipated Diagnoses Folic acid deficiency E53.8 Intractable nausea and vomiting R11.2 Pancreatitis K85.90 Hypoalbuminemia E88.09
[2023-12-25 23:59] LABS: Triglycerides 143 mg/dL (0-150)
[2023-12-26] VITALS (17 sets, daily range): BP systolic 103–145; BP diastolic 69–82; PULSE 76–92; RESP 16–19; TEMP 36.4–36.9; O2SAT 18–99
--- NOTE | 2023-12-26 00:16 | CTR_ITS ---
PROCEDURE INFORMATION: Exam: CT Abdomen And Pelvis With Contrast Exam date and time: 12/26/2023 12:57 AM Age: 48 years old Clinical indication: Abdominal pain; Epigastric; Additional info: Pancreatitis TECHNIQUE: Imaging protocol: Computed tomography of the abdomen and pelvis with contrast. Radiation optimization: All CT scans at this facility use at least one of these dose optimization techniques: automated exposure control; mA and/or kV adjustment per patient size (includes targeted exams where dose is matched to clinical indication); or iterative reconstruction. Contrast material: OMNI 350; Contrast volume: 100 ml; Contrast route: INTRAVENOUS (IV); COMPARISON: CT abdomen pelvis w con* [id number] 12/13/2023 5:05 AM RADIATION DOSE METRICS: Total DLP (mGy-cm): 685.59 FINDINGS: Lungs: The lung bases are clear. Heart: Heart size is within normal limits. There is no pericardial effusion or pericardial thickening. Diaphragm: Small stable hiatal hernia. Liver: There is diffuse decreased attenuation of the hepatic parenchyma consistent with fatty infiltration. The liver is otherwise normal. There are no hepatic masses identified. Gallbladder and bile ducts: The gallbladder is normal. There is no ductal dilatation. Pancreas: The pancreas is normal. 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 The spleen is otherwise normal. Adrenal glands: The adrenal glands are normal. Kidneys and ureters: There are subcentimeter renal low-density lesions which are too small for accurate characterization, likely reflecting simple cysts. There is normal enhancement of the kidneys. No renal calcifications are identified. There is no hydronephrosis. Stomach and bowel: There is no large or small bowel obstruction. There is no evidence of bowel wall thickening. Appendix: A normal appendix is identified. Intraperitoneal space: No inflammatory changes are identified. There is no free fluid or fluid collection seen. There is no pneumoperitoneum. Vasculature: The aorta is normal in course and caliber. No significant atherosclerotic calcifications are present. Lymph nodes: There are no enlarged retroperitoneal or mesenteric lymph nodes. Urinary bladder: The bladder is decompressed and collapsed. No abnormality identified. Reproductive: The uterus is present. Stable cystic structure in the lower uterine segment. Note is made of a tampon in the vagina. Bones/joints: No acute osseous abnormalities are seen. Soft tissues: Small periumbilical hernia containing only fat. Small bilateral inguinal hernias containing only fat are present. CT/CT abdomen pelvis w con* [id number] IMPRESSION: 1. No acute intra-abdominal or pelvic process. 2. 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 Consider follow-up with nonemergent multiphase CT of the abdomen. 3. Fatty liver. 4. Other nonemergent findings above. COMMENTS: Consistent with the [employer]'s Incidental Findings Committee white paper (J Am Lit Radiol 2018): Any incidental renal lesion less than 1 cm or classified as too small to characterize, or any incidental cystic renal lesion characterized as simple-appearing, is likely benign. No follow-up imaging is recommended for these lesions per consensus recommendations based on imaging criteria.
[2023-12-26] MEDS: fentaNYL 50 mcg/mL INJ 2mL IVP (00:18)
[2023-12-26] MEDS: iohexol 350 mg/mL 500 mL Btl (per mL) IV (01:01)
[2023-12-26] MEDS: enoxaparin 40 mg/0.4 mL Syringe SUBCUT (01:28)
[2023-12-26] MEDS: ondansetron 2 mg/ML SDV 2 mL 4 MG IVP ×3 (01:28→19:31)
[2023-12-26] MEDS: piperacillin-tazobactam 3.375 GM in sodium chloride 0.9% (plus) 50 ML IV ×4 (01:29→23:56)
[2023-12-26] MEDS: dextrose 5%-lactated ringers 1,000 ML 75 ML IV ×2 (01:29→15:11)
[2023-12-26] MEDS: HYDROmorphone 1 mg/mL INJ 1 mL 0.400000000000000022 MG IVP ×4 (03:40→19:37)
--- NOTE | 2023-12-26 05:19 | PC.NURSE ---
Addendum entered by Eula Robin RN 12/26/23 05:23: PRN Reglan ordered. Original Note: Patient is vomiting and rates her abdominal pain 6/10. It is not time for her to have her PRN Zofran or her PRN Dilaudid. Unable to give PRN PO Morphine d/t vomiting. Dr. Casey notified.
[2023-12-26 05:22] LABS: Basophils # 0.1 10^3/uL (0.0-0.1); Basophils % 0.8 %; Eosinophils # 0.1 10^3/uL (0.0-0.8); Eosinophils % 1.7 %; Hematocrit 31.8 % (36-47); Lymphocytes # 1.5 10^3/uL (0.8-4.8); Lymphocytes % 18.2 %; Mean Corpuscular HGB Conc 35.5 g/dL (30-55); Mean Corpuscular Hemoglobin 37.8 pg (27-33); Mean Corpuscular Volume 106.4 fl (85-98); Mean Platelet Volume 11.6 fL (7.4-10.4); Monocytes # 0.6 10^3/uL (0.2-0.9); Monocytes % 7.4 %; Neutrophils # 5.96 10^3/uL (1.8-7.7); Neutrophils % 71.7 %; Nucleated Red Blood Cells % 0 %; Platelet Count 307 10^3/cmm (157-399); Red Blood Count 2.99 10^6/uL (3.85-5.65); Red Cell Distribution Width 15.3 % (12.1-15.1); White Blood Count 8.33 10^3/uL (3.29-11.43)
[2023-12-26] MEDS: morphine IR 15 mg Tablet PO ×3 (05:32→23:17)
[2023-12-26] MEDS: metoclopramide 5 mg/mL SDV 2 mL IVP ×2 (05:33→23:17)
[2023-12-26 05:50] LABS: Creatine Phosphokinase 22 U/L (26-192); Phosphorus 3.4 mg/dL (2.5-4.5)
[2023-12-26 05:54] LABS: Alanine Aminotransferase 24 U/L (0-33); Albumin Level 2.9 g/dL (3.5-5.2); Alkaline Phosphatase 111 U/L (35-105); Anion Gap 17.2 (5-19); Aspartate Amino Transferase 31 U/L (0-32); Blood Urea Nitrogen 9 mg/dL (6-20); C Reactive Protein 11.3 mg/L (0.0-4.9); Calcium 8.3 mg/dL (8.5-10.5); Carbon Dioxide 22 mmol/L (22-29); Chloride 98 mmol/L (98-107); Creatinine Clr Calc Pharmacy 138.3199; Globulin 2.8 g/dL (1.3-4.6); Glomerular Filtration Rate 132.2 mL/min (90-130); Glucose 105 mg/dL (65-115); Magnesium 1.5 mg/dL (1.7-2.3); Osmolality Calculated 277 mOsm/kg (285-295); Potassium 3.2 mmol/L (3.5-5.1); Sodium 134 mmol/L (136-145); Total Bilirubin 0.7 mg/dL (0.15-1.2); Total Protein 5.7 g/dL (6.6-8.7)
[2023-12-26] MEDS: magnesium sulfate premix 2 GM/50 ML PIGGYBACK IV (06:28)
[2023-12-26] MEDS: lidocaine 1% 5 ML in potassium chloride premix 100 ML 50 ML IV (06:39)
[2023-12-26] MEDS: pantoprazole 40 mg SDV IVP ×2 (08:48→16:34)
--- NOTE | 2023-12-26 10:48 | MR_ITS ---
WS: [id number] MRI/MRCP OF THE ABDOMEN WITHOUT GADOLINIUM ENHANCEMENT TECHNIQUE: Coronal T2 Fase BH, Axial T2 Fase BH, Axial T2 FS BH, Zxial 3D Carrillo BH, Axial DWI BH, 2D MRCP Radial BH, 3D MRCP (Resp), and Axial 3D Dyn BH Post sequences. CLINICAL INFORMATION: Recurrent pancreatitis COMPARISON: CT 12/26/2023 FINDINGS: Hepatomegaly. Diffuse fatty infiltration of the liver. T2 hyperintense lesion within the RIGHT hepati c lobe near the dome the liver measuring 12 mm likely cavernous hemangioma also seen on the recent CT . No other suspicious hepatic lesions. Fluid distended gallbladder. No visualized calculi. Pancreas i s normal in appearance. Normal common bile duct. No evidence of choledocholithiasis. Normal tapering of the common bile duct distally. Common bile duct measures 6 mm at the pancreatic head. No pancreati c ductal dilatation. No intrahepatic ductal dilatation. Normal appearing traversing duodenum. Small e sophageal hernia. Adrenal glands are normal. Normal portal vein and splenic vein. Pancreas is normal in appearance. Nor mal caliber upper abdominal aorta. No hydronephrosis in either kidney. 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 Impression: 1. Pancreas is normal in appearance. No significant edema or peripancreatic collections. 2. Normal common bile duct. 3. Fluid distended gallbladder otherwise normal in appearance. No gallbladder wall thickening. No ca lculi. 4. Marked hepatomegaly with diffuse fatty infiltration. 5. Small esophageal hiatal hernia. 6. Suspected small cavernous hemangioma in the RIGHT hepatic lobe measuring 12 mm. 7. No hydronephrosis in either kidney. 8. No other acute findings.
--- NOTE | 2023-12-26 16:11 | P.CONIM_ITS ---
Providers/Reason For Consult 2 Consulting Physician/Specialty*: Dr. Luke Carrasco, DO/General surgery Reason for Consult*: Abdominal pain nausea and vomiting Attending Physician: Cam Holm Primary Care Provider: Haseeb Casiano MD History of Present Illness History of Present Illness Krupa Sparks is a 48 year old female who presented to the hospital with 3- week history of epigastric and right upper quadrant abdominal pain that radiates to her back along with nausea and vomiting. Palpation makes pain worse. Nothing makes pain better. She denies any hematemesis. She was recently hospital for the same symptoms and was found to have nonvisualization of her gallbladder on HIDA scan. No new findings were identified on CT and gallbladder ultrasound in the ER this morning. Her lipase is very slightly elevated with no signs of pancreatitis on CT. She denies any diarrhea, constipation, hematochezia and/or melena. However she does say that she has been bleeding on her period for the past 3 weeks straight. Review of Systems 2 General: Reports: 10 or more systems reviewed and unremarkable except in HPI and below Medications/Allergies Home Medications Medication Instructions Recorded Confirmed Last Taken Type folic acid 1 mg tablet 1 mg PO DAILY 30 days #30 tabs 12/14/23 12/26/23 1 Day Ago Rx ~12/25/23 pantoprazole 40 mg tablet,delayed 40 mg PO DAILY #60 tabs 12/14/23 12/26/23 1 Day Ago Rx release (Protonix) ~12/25/23 amoxicillin 875 mg-potassium 1 tab PO BID 10 days #20 tabs 12/20/23 12/26/23 1 Day Ago Rx clavulanate 125 mg tablet ~12/25/23 hydrocodone 5 mg-acetaminophen 325 1 tab PO Q6H PRN pain 12/26/23 12/26/23 Unknown History mg tablet ondansetron HCl 4 mg tablet 4 mg PO Q8H PRN Nausea 12/26/23 12/26/23 Unknown History sucralfate 100 mg/mL oral 10 ml PO QID PRN gastritis 12/26/23 12/26/23 Unknown History suspension Allergies Allergy/AdvReac Type Severity Reaction Status Date / Time cephalexin [From Keflex] Allergy ADR-Itching Verified 12/25/23 20:17 Current Medications Generic Name Dose Route Start Last Admin Trade Name Freq PRN Reason Stop Dose Admin Enoxaparin Sodium 40 mg 12/26/23 00:09 12/26/23 01:28 Enoxaparin 40 Mg/0.4 Ml Syringe SUBCUT 40 mg Q24H MACARIO Administration Hydromorphone HCl 0.4 mg 12/26/23 00:09 12/26/23 15:02 Hydromorphone 1 Mg/Ml Inj 1 Ml IVP 0.4 mg Q4H PRN Administration abd pain Dextrose/Lactated Ringer's 1,000 mls @ 75 mls/hr 12/26/23 00:09 12/26/23 15:11 Dextrose 5%-Lactated Ringers IV 75 mls/hr .[id number] MACARIO Administration Piperacillin Sod/Tazobactam 50 mls @ 12.5 mls/hr 12/26/23 08:30 12/26/23 13:05 Sod 3.375 gm/ Sodium Chloride IV Infused Q8H MACARIO Infusion Metoclopramide HCl 5 mg 12/26/23 05:24 12/26/23 05:33 Metoclopramide 5 Mg/Ml Sdv 2 Ml IVP 5 mg Q6H PRN Administration NAUSEA AND VOMITING Morphine Sulfate 15 mg 12/26/23 00:09 12/26/23 05:32 Morphine Ir 15 Mg Tablet PO 15 mg Q6H PRN Administration MODERATE PAIN Ondansetron HCl 4 mg 12/26/23 00:09 12/26/23 09:59 Ondansetron 2 Mg/Ml Sdv 2 Ml IVP 4 mg Q6H PRN Administration NAUSEA AND VOMITING Pantoprazole Sodium 40 mg 12/26/23 09:00 12/26/23 08:48 Pantoprazole 40 Mg Sdv IVP 40 mg BID MACARIO Administration PFSH Acute 2 PFSH: Medical History section wound seroma, Surgical History S/P right knee arthroscopy Family History Other CAD (coronary artery disease) Diabetes Social History Smoking and tobacco/nicotine status: never used tobacco/nicotine Alcohol intake: current Alcohol intake frequency: holidays/special occasions only Vitals/I&O/Wt Last Vital Signs Temp 98.4 F 12/26/23 12:00 Pulse 91 12/26/23 12:00 Resp 18 12/26/23 15:02 BP 111/69 12/26/23 12:00 Pulse Ox 18 L 12/26/23 15:02 O2 Del Method Room Air 12/26/23 09:23 12/26/23 12/26/23 12/26/23 06:59 14:59 22:59 Intake Total 437.5 / 437.5 205.000 / 205.000 590 / 795.000 Balance 437.5 / 437.5 205.000 / 205.000 590 / 795.000 Weight last 48 hrs Weight 173 lb 14.4 oz Weight 173 lb 14.4 oz Weight 173 lb 14.4 oz Weight 174 lb Physical Exam 2 Narrative: General : Patient is well developed , no acute distress, oriented x3 Head : Normal cephalic, a-traumatic. Ears : Pinnae and external canal are normal. Hearing is normal. Eyes : PERRLA, Sclera and injection are normal. No conjunctival discharge. Nose : Mucous membranes are without erythema. Throat : buccal mucosa is normal, gums are without significant recession or hypertrophy. Lungs : Equal chest rise bilaterally, no use of accessory muscles, trachea is midline. Cor : Rate and rhythm are normal. Abdomen : Soft, ND, tender to palpation over epigastrium and right upper quadrant, negative Mcgowan's,, no g/r/m Extremities : No edema, no cyanosis or clubbing, dorsalis pedis pulses are present bilaterally, non-tender to palpation of calves. Upper extremities are normal bilaterally. Back : non-tender to palpation, no CVA tenderness. Neuro : CN II - XII intact, Upper and lower extremities have equal and full strength Data 12/26/23 05:05 12/26/23 05:05 A&P Assessment and plan (1) Nonvisualization of gallbladder: Plan Laparoscopic cholecystectomy at 7 AM in the morning The risks and benefits of the procedure, including but not limited to, bleeding, infection, scar, numbness, pain, damage to surrounding structures, damage to common bile duct requiring additional surgery, conversion to an open procedure, were explained to the patient. He is understanding of the risks and wishes to proceed. N.p.o. after midnight Coding Level of Care Code 01428 Diagnoses Nonvisualization of gallbladder R93.2
[2023-12-26] MEDS: ALPRAZolam 0.5 mg Tablet PO (16:33)
--- NOTE | 2023-12-26 20:07 | PC.NURSE ---
Dr. Casey ordered to hold midnight Lovenox for 7 am dorene smith.
--- NOTE | 2023-12-26 20:49 | P.PN_ITS ---
Subjective 2 Subjective: She is having epigastric pain radiating to the right upper quadrant and to her back. Recurrent nausea and vomiting. Vitals/I&O/Wt Last Vital Signs Temp 98.0 F 12/26/23 19:40 Pulse 76 12/26/23 20:20 Resp 16 12/26/23 20:20 BP 118/81 12/26/23 19:40 Pulse Ox 99 12/26/23 20:20 O2 Del Method Room Air 12/26/23 20:20 12/26/23 12/26/23 12/26/23 06:59 14:59 22:59 Intake Total 437.5 / 437.5 205.000 / 205.000 590 / 795.000 Balance 437.5 / 437.5 205.000 / 205.000 590 / 795.000 Weight last 48 hrs Weight 78.88 kg Weight 78.88 kg Weight 78.88 kg Weight 78.925 kg Physical Exam 2 Narrative: Sitting up in bed, leaning forward, antalgic positioning. Nauseated. In pain. Const: COMMON NORMALS: patient oriented x3 and alert GENERAL APPEARANCE: c ooperative ORIENTATION/CONSCIOUSNESS: Yes awake HENMT: COMMON NORMALS: oropharynx normal Neck/C-Spine: COMMON NORMALS: no JVD Resp: COMMON NORMALS: normal respiratory effort and clear to auscultation bilaterally AUSCULTATION: clear to auscultation bilaterally Cardio: COMMON NORMALS: no JVD, regular rhythm, S1 normal heart sound present, S2 normal heart sound present and No murmurs present (Cardio) RHYTHM: regular rhythm HEART SOUNDS: S1 normal heart sound present and S2 normal heart sound present GI: COMMON NORMALS: Normal to inspection, nondistended, normoactive bowel sounds present and Soft to palpation PALPATION: Yes Soft to palpation and Yes Tenderness to palpation present (GI) Details: other (Epigastric) Extremity: COMMON NORMALS: no joint enlargement and no pedal edema Neuro: COMMON NORMALS: patient oriented x3 and moves all extremities S ENSORIUM/ORIENTATION: Yes alert Skin: COMMON NORMALS: no rashes or lesions noted GENERAL SKIN EXAM: no rashes or lesions noted Data 12/26/23 05:05 12/26/23 05:05 A&P Assessment and plan (1) Folic acid deficiency: (2) Intractable nausea and vomiting: (3) Pancreatitis: (4) Hypoalbuminemia: Plan Pancreatitis : Possible pancreatitis with lipase elevation, and possibly recurrent pancreatitis, no obvious cause, no gallstones, possible sludge on HIDA scan last admission, hydropic gallbladder. See below. Last admission was found to have positive HAM, low titer. Requested IgG4. CA 19-9. Should follow-up with gastroenterology. Discussed with her obtaining MRCP which was performed. Pancreas normal in appearance on MRCP. No significant edema or peripancreatic collections. Normal CBD. Fluid distended gallbladder otherwise normal in appearance. No calculi. Marked hepatomegaly with diffuse fatty infiltration. Small esophageal hernia. Suspected small cavernous hemangioma right hepatic lobe measuring 12 mm. No hydronephrosis. Noted hypomagnesemia, given replacement and hypokalemia replace as well. Recheck chemistry, magnesium. Follow-up CBC. Antiemetic as needed. Acetaminophen, oral morphine as needed, IV Dilaudid for severe/breakthrough pain which she has been requiring. Severe gallbladder dyskinesia: Severe gallbladder dyskinesia on prior HIDA scan. Hydropic gallbladder on MRCP. She was assessed by surgery as well and concern is more with severe gallbladder dyskinesia with lack of any contraction with HIDA scan per discussion with surgery. Surgery note reviewed, noted plans for laparoscopic cholecystectomy in the morning. Has been made NPO. Monitor for signs of refeeding syndrome patient has not been able to eat much in the last 2 to 3 weeks Reviewed magnesium, phosphorus and CPK Sinus tachycardia is related to dehydration and pain Microcytic anemia: Stable Menorrhagia: Follow-up with gynecology. Patient lives with a boyfriend, does not have medical DPOA Attestations 2 Medical Necessity Statement*: Continue admission for assessment management of severe gallbladder dyskinesia, possible pancreatitis recurrence. Diagnoses Folic acid deficiency E53.8 Intractable nausea and vomiting R11.2 Pancreatitis K85.90 Hypoalbuminemia E88.09
--- NOTE | 2023-12-26 23:58 | PC.NURSE ---
Patient's surgery will now be around 4 pm, instead of [address] Casey to still hold Lovenox that is due at this time. Ordered to hold Lovenox.
[2023-12-27] VITALS (24 sets, daily range): BP systolic 109–141; BP diastolic 70–86; PULSE 13–104; RESP 16–101; TEMP 36.2–36.9; O2SAT 94–100
[2023-12-27] MEDS: HYDROmorphone 1 mg/mL INJ 1 mL 0.400000000000000022 MG IVP ×3 (03:31→12:11)
[2023-12-27] MEDS: dextrose 5%-lactated ringers 1,000 ML 75 ML IV (03:56)
[2023-12-27 05:06] LABS: Basophils # 0.1 10^3/uL (0.0-0.1); Basophils % 1.6 %; Eosinophils # 0.2 10^3/uL (0.0-0.8); Eosinophils % 4.5 %; Hematocrit 30.9 % (36-47); Lymphocytes # 1.1 10^3/uL (0.8-4.8); Lymphocytes % 22.4 %; Mean Corpuscular Hemoglobin 36.6 pg (27-33); Mean Corpuscular Volume 107.7 fl (85-98); Mean Platelet Volume 11.8 fL (7.4-10.4); Monocytes # 0.5 10^3/uL (0.2-0.9); Neutrophils # 3.02 10^3/uL (1.8-7.7); Neutrophils % 61.3 %; Nucleated Red Blood Cells % 0 %; Platelet Count 257 10^3/cmm (157-399); Red Blood Count 2.87 10^6/uL (3.85-5.65); Red Cell Distribution Width 15.5 % (12.1-15.1); White Blood Count 4.92 10^3/uL (3.29-11.43)
[2023-12-27 05:39] LABS: Alanine Aminotransferase 21 U/L (0-33); Albumin Level 2.7 g/dL (3.5-5.2); Alkaline Phosphatase 103 U/L (35-105); Anion Gap 14.4 (5-19); Aspartate Amino Transferase 35 U/L (0-32); Blood Urea Nitrogen 5 mg/dL (6-20); Calcium 7.9 mg/dL (8.5-10.5); Carbon Dioxide 24 mmol/L (22-29); Chloride 106 mmol/L (98-107); Creatinine Clr Calc Pharmacy 140.3515; Globulin 2.7 g/dL (1.3-4.6); Glomerular Filtration Rate 132.2 mL/min (90-130); Glucose 106 mg/dL (65-115); Osmolality Calculated 290 mOsm/kg (285-295); Potassium 3.4 mmol/L (3.5-5.1); Sodium 141 mmol/L (136-145); Total Bilirubin 0.5 mg/dL (0.15-1.2); Total Protein 5.4 g/dL (6.6-8.7)
[2023-12-27] MEDS: piperacillin-tazobactam 3.375 GM in sodium chloride 0.9% (plus) 50 ML IV ×2 (08:05→23:37)
[2023-12-27] MEDS: pantoprazole 40 mg SDV IVP (08:16)
[2023-12-27] MEDS: metoclopramide 5 mg/mL SDV 2 mL IVP ×2 (08:16→19:08)
[2023-12-27] MEDS: fentaNYL 50 mcg/mL INJ 2mL IVP (15:19)
[2023-12-27] MEDS: sodium chloride 0.9% 1,000 ML 30 ML IV (15:21)
--- NOTE | 2023-12-27 15:39 | P.ANESASSM_ITS ---
Pre-Anesthetic Assessment Height/Weight: Height 1.6 m Weight 81.193 kg Temp Pulse Resp BP Pulse Ox O2 Del Method 97.1 F L 100 20 H 141/84 98 Room Air 12/27/23 14:56 12/27/23 14:56 12/27/23 15:19 12/27/23 14:56 12/27/23 15:19 12/27/23 14:56 Operation Date: 12/27/23 15:35 Proposed Procedures p Laparoscopic Cholecystectomy(Bilateral) - Luke Carrasco DO Familial anesthetic complications: None Was Beta Bryant taken within 24 hours: N/A Was Clonidine taken within 24 hours: N/A Last intake: Intake Last Liquid Date 12/26/23 Last Liquid Time 23:45 Last Solid Date 11/22/23 Last Solid Time 12:00 Social No alcohol and No tobacco Exam alert, oriented x 3, clear to auscultation bilaterally and regular rate & rhythm Airway Mallampati: Class III Dentition: other (extremely poor dentition) GI Hiatal Hernia pancreatitis Anesthetic Plan ASA status: 2 Anesthesia: General Risk of > 500 ml blood loss (7ml/kg in children): No Medications/Allergies Home Medications Medication Instructions Recorded Confirmed Last Taken Type folic acid 1 mg tablet 1 mg PO DAILY 30 days #30 tabs 12/14/23 12/26/23 1 Day Ago Rx ~12/25/23 pantoprazole 40 mg tablet,delayed 40 mg PO DAILY #60 tabs 12/14/23 12/26/23 1 Day Ago Rx release (Protonix) ~12/25/23 amoxicillin 875 mg-potassium 1 tab PO BID 10 days #20 tabs 12/20/23 12/26/23 1 Day Ago Rx clavulanate 125 mg tablet ~12/25/23 hydrocodone 5 mg-acetaminophen 325 1 tab PO Q6H PRN pain 12/26/23 12/26/23 Unknown History mg tablet ondansetron HCl 4 mg tablet 4 mg PO Q8H PRN Nausea 12/26/23 12/26/23 Unknown History sucralfate 100 mg/mL oral 10 ml PO QID PRN gastritis 12/26/23 12/26/23 Unknown History suspension Allergies Allergy/AdvReac Type Severity Reaction Status Date / Time cephalexin [From Keflex] Allergy ADR-Itching Verified 12/25/23 20:17 Current Medications Generic Name Dose Route Start Last Admin Trade Name Freq PRN Reason Stop Dose Admin Alprazolam 0.5 mg 12/26/23 10:48 12/26/23 16:33 Alprazolam 0.5 Mg Tablet PO 0.5 mg TID PRN Administration ANXIETY Enoxaparin Sodium 40 mg 12/26/23 00:09 12/27/23 00:01 Enoxaparin 40 Mg/0.4 Ml Syringe SUBCUT Not Given Q24H MACARIO Fentanyl 50 mcg 12/27/23 14:55 12/27/23 15:19 Fentanyl 50 Mcg/Ml Inj 2ml IVP 50 mcg Q10M PRN Administration Preop Pain Hydromorphone HCl 0.4 mg 12/26/23 00:09 12/27/23 12:11 Hydromorphone 1 Mg/Ml Inj 1 Ml IVP 0.4 mg Q4H PRN Administration abd pain Dextrose/Lactated Ringer's 1,000 mls @ 75 mls/hr 12/26/23 00:09 12/27/23 03:56 Dextrose 5%-Lactated Ringers IV 75 mls/hr .[id number] MACARIO Administration Piperacillin Sod/Tazobactam 50 mls @ 12.5 mls/hr 12/26/23 08:30 12/27/23 12:20 Sod 3.375 gm/ Sodium Chloride IV Infused Q8H MACARIO Infusion Sodium Chloride 1,000 mls @ 30 mls/hr 12/27/23 15:00 12/27/23 15:21 Sodium Chloride 0.9% IV 12/28/23 14:59 30 mls/hr .Q24H MACARIO Administration Metoclopramide HCl 5 mg 12/26/23 05:24 12/27/23 08:16 Metoclopramide 5 Mg/Ml Sdv 2 Ml IVP 5 mg Q6H PRN Administration NAUSEA AND VOMITING Morphine Sulfate 15 mg 12/26/23 00:09 12/26/23 23:17 Morphine Ir 15 Mg Tablet PO 15 mg Q6H PRN Administration MODERATE PAIN Ondansetron HCl 4 mg 12/26/23 00:09 12/26/23 19:31 Ondansetron 2 Mg/Ml Sdv 2 Ml IVP 4 mg Q6H PRN Administration NAUSEA AND VOMITING Pantoprazole Sodium 40 mg 12/26/23 09:00 12/27/23 08:16 Pantoprazole 40 Mg Sdv IVP 40 mg BID MACARIO Administration PFSH Anesthesia Medical History section wound seroma, Surgical History S/P right knee arthroscopy Family History Other CAD (coronary artery disease) Diabetes Social History Smoking and tobacco/nicotine status: never used tobacco/nicotine Alcohol intake: current Alcohol intake frequency: holidays/special occasions only Data Anesthesia 12/27/23 04:42 12/27/23 04:42 Short CBC 12/25/23 12/26/23 12/27/23 Range/Units 21:14 05:05 04:42 WBC 9.67 8.33 4.92 (3.29-11.43) 10^3/uL Hgb 12.70 11.30 10.50 L (11.27-16.99) g/dL Hct 35.6 L 31.8 L 30.9 L (36-47) % MCV 106.0 H 106.4 H 107.7 H (85-98) fl Plt Count 349 307 257 (157-399) 10^3/cmm Neut % (Auto) 79.2 71.7 61.3 % Neut # (Auto) 7.65 5.96 3.02 (1.8-7.7) 10^3/uL BMP 12/25/23 12/26/23 12/27/23 21:14 05:05 04:42 Sodium 136 134 L 141 Potassium 4.3 3.2 L 3.4 L Chloride 99 98 106 Carbon Dioxide 23 22 24 BUN 9 9 5 L Creatinine 0.7 0.5 0.5 Glucose 122 H 105 106 Calcium 8.7 8.3 L 7.9 L Cardiac Enzymes 12/26/23 Range/Units 05:05 Creatine Kinase 22 L (26-192) U/L Liver Function 12/25/23 12/26/23 12/27/23 Range/Units 21:14 05:05 04:42 Total Bilirubin 0.7 0.7 0.5 (0.15-1.2) mg/dL Direct Bilirubin 0.30 (0.00-0.30) mg/dL AST 42 H 31 35 H (0-32) U/L ALT 29 24 21 (0-33) U/L Alkaline Phosphatase 126 H 111 H 103 (35-105) U/L Albumin 3.4 L 2.9 L 2.7 L (3.5-5.2) g/dL Coags 12/25/23 12/26/23 21:14 05:05 PT 14.40 INR 1.09 APTT 26.7 C-Reactive Protein 11.3 H Cardiac Studies: 2 No Data to Display
--- NOTE | 2023-12-27 16:25 | P.PN_ITS ---
Vitals/I&O/Wt Last Vital Signs Temp 97.1 F L 12/27/23 14:56 Pulse 100 12/27/23 14:56 Resp 20 H 12/27/23 15:19 BP 141/84 12/27/23 14:56 Pulse Ox 98 12/27/23 15:19 O2 Del Method Room Air 12/27/23 14:56 12/27/23 12/27/23 12/27/23 06:59 14:59 22:59 Intake Total 1506.25 / 2351.250 50 / 50 Balance 1506.25 / 2351.250 50 / 50 Weight last 48 hrs Weight 179 lb Weight 173 lb 14.4 oz Weight 173 lb 14.4 oz Weight 173 lb 14.4 oz Weight 174 lb Data 12/27/23 04:42 12/27/23 04:42 A&P Assessment and plan (1) Nonvisualization of gallbladder: Plan Laparoscopic cholecystectomy The risks and benefits of the procedure, including but not limited to, bleeding, infection, scar, numbness, pain, damage to surrounding structures, damage to common bile duct requiring additional surgery, conversion to an open procedure, were explained to the patient. He is understanding of the risks and wishes to proceed. Attestations 2 Medical Necessity Statement*: Per primary Coding Level of Care Code Acute Code for Chg Fwd Diagnoses Nonvisualization of gallbladder R93.2
[2023-12-27] MEDS: lidocaine-epi 1% 20 mL INJ 10 ML INJECTION (17:42)
--- NOTE | 2023-12-27 17:54 | P.OP_ITS ---
Operative Report Date of procedure: December 27, 2023 Surgeon: Luke Carrasco DO Brief History: This is a very pleasant 48-year-old female who presented to the hospital after 3 weeks of abdominal pain nausea and vomiting. HIDA scan showed nonvisualization of the gallbladder. Laparoscopic cholecystectomy was indicated. The risks and benefits were explained and documented. Procedure: Preoperative diagnosis: Nonvisualization of the gallbladder on HIDA scan Postoperative diagnosis: Same Procedure performed: Laparoscopic cholecystectomy Surgeon: Dr. Luke Carrasco DO Estimated blood loss: 5 mL Specimens: Gallbladder to pathology Complications: None apparent Description of procedure: Patient was wheeled into the operative room and placed on the OR table in a supine position. Abdomen was inspected prepped and draped in usual sterile fashion. Time-out was performed and all present were in agreement. A 15 blade scalp was used to make a stab incision in the left upper quadrant and intra- abdominal insufflation was achieved using a Veress needle. After localizing the tissue incisions were made and a 5 millimeter trocar was placed into the umbilicus as well as 2 in the right upper quadrant. A 12 millimeter trocar was placed in the epigastrium. Gallbladder was grasped and elevated. The triangle of Calot was carefully dissected using blunt dissection and electrocautery until the triangle of Calot clearly identified. The cystic duct was clipped proximally and double clipped distally. The duct was then ligated proximally. The cystic artery was doubly clipped and ligated. The gallbladder was then removed from the liver bed using electrocautery. The gallbladder was removed from the abdomen using an Endo-Catch bag through the epigastric incision. The liver bed was inspected and no bleeding was seen. The abdomen was irrigated and suctioned. All ports removed. Skin was washed and dried. Incisions were closed with 4-0 Monocryl in a subcuticular interrupted fashion. Skin glue was applied. Patient tolerated the procedure well.
--- NOTE | 2023-12-27 18:15 | PC.NURSE ---
Report from MAREN York with Dr. Danilo Strange to sites 20 g left ac 20 g right wrist Zofran @ 174 Toradol @ 1740 Benadryl and Decadron @ 173 Last set of vitals in OR: Temp: 97.5 BP: 112/80 HR: 82 O2: 97% on room air Resp: 17 to 18
[2023-12-27] MEDS: HYDROmorphone 1 mg/mL INJ 1 mL IVP (19:28)
[2023-12-27 19:31] LABS: Glucose Point of Care 141 mg/dL (70-110)
[2023-12-27] MEDS: cetylpyridinium Lozenge 1 EACH MUCOUS MEM (20:30)
--- NOTE | 2023-12-27 20:30 | ANE.PACU2 ---
Inpatient post-anesthesia follow up: Airway intact: Yes Vital signs: Temperature 98.0 F Pulse Rate 86 Respiratory Rate 16 Blood Pressure 104/74 Pulse Oximetry 93 Oxygen Delivery Me thod Room Air Oxygen Flow Rate Fraction of Inspir ed Oxygen Hydration adequate: Yes Nausea and vomiting: No Pain level: 1 Mental status: Baseline
--- NOTE | 2023-12-27 21:15 | P.PN_ITS ---
Subjective 2 Subjective: Ambulating in the room. Denies any changes. Similar pain like yesterday. Reports has not been in the best shape recently, does get tired with prolonged ambulation, but denies any chest pain or pressure with walking or at rest. Vitals/I&O/Wt Last Vital Signs Temp 97.9 F 12/27/23 20:50 Pulse 91 12/27/23 20:50 Resp 17 12/27/23 20:50 BP 117/76 12/27/23 20:50 Pulse Ox 97 12/27/23 20:50 O2 Del Method Room Air 12/27/23 20:50 12/27/23 12/27/23 12/27/23 06:59 14:59 22:59 Intake Total 1506.25 / 2351.250 50 / 50 1050 / 1100 Output Total 5 / 5 Balance 1506.25 / 2351.250 50 1045 / 1095 Weight last 48 hrs Weight 81.193 kg Weight 78.88 kg Weight 78.88 kg Weight 78.88 kg Physical Exam 2 Narrative: Sitting up in bed, leaning forward, antalgic positioning. Nauseated. In pain. Const: COMMON NORMALS: patient oriented x3 and alert GENERAL APPEARANCE: c ooperative ORIENTATION/CONSCIOUSNESS: Yes awake HENMT: COMMON NORMALS: oropharynx normal Neck/C-Spine: COMMON NORMALS: no JVD Resp: COMMON NORMALS: normal respiratory effort and clear to auscultation bilaterally AUSCULTATION: clear to auscultation bilaterally Cardio: COMMON NORMALS: no JVD, regular rhythm, S1 normal heart sound present, S2 normal heart sound present and No murmurs present (Cardio) RHYTHM: regular rhythm HEART SOUNDS: S1 normal heart sound present and S2 normal heart sound present GI: COMMON NORMALS: Normal to inspection, nondistended, normoactive bowel sounds present and Soft to palpation PALPATION: Yes Soft to palpation and Yes Tenderness to palpation present (GI) Extremity: COMMON NORMALS: no joint enlargement and no pedal edema Neuro: COMMON NORMALS: patient oriented x3 and moves all extremities S ENSORIUM/ORIENTATION: Yes alert Skin: COMMON NORMALS: no rashes or lesions noted GENERAL SKIN EXAM: no rashes or lesions noted Data 12/27/23 04:42 12/27/23 04:42 A&P Assessment and plan (1) Folic acid deficiency: (2) Intractable nausea and vomiting: (3) Pancreatitis: (4) Hypoalbuminemia: Plan Pancreatitis: Similar symptoms today. Will recheck lipase. Severe dyskinesia of gallbladder, possible responsible for nausea vomiting, possibly elevated lipase as pancreas did appear normal on MRCP. Follow-up with GI. Acetaminophen, oral morphine for pain. IV Dilaudid as needed for severe breakthrough pain. Antiemetics. Possible pancreatitis with lipase elevation, and possibly recurrent pancreatitis, no obvious cause, no gallstones, possible sludge on HIDA scan last admission, hydropic gallbladder. See below. Last admission was found to have positive HAM, low titer. Requested IgG4. CA 19-9. Should follow-up with gastroenterology. Discussed with her obtaining MRCP which was performed. Pancreas normal in appearance on MRCP. No significant edema or peripancreatic collections. Normal CBD. Fluid distended gallbladder otherwise normal in appearance. No calculi. Marked hepatomegaly with diffuse fatty infiltration. Small esophageal hernia. Suspected small cavernous hemangioma right hepatic lobe measuring 12 mm. No hydronephrosis. Noted hypomagnesemia, given replacement and hypokalemia replace as well. Recheck chemistry, magnesium. Follow-up CBC. Antiemetic as needed. Acetaminophen, oral morphine as needed, IV Dilaudid for severe/breakthrough pain which she has been requiring. Reviewed surgery note. Severe gallbladder dyskinesia: Laparoscopic cholecystectomy today as per discussion with surgery. Severe gallbladder dyskinesia on prior HIDA scan. Hydropic gallbladder on MRCP. She was assessed by surgery as well and concern is more with severe gallbladder dyskinesia with lack of any contraction with HIDA scan per discussion with surgery. Surgery note reviewed, noted plans for laparoscopic cholecystectomy in the morning. Has been made NPO. Discussed with piano case maker. Monitor for signs of refeeding syndrome patient has not been able to eat much in the last 2 to 3 weeks Reviewed magnesium, phosphorus and CPK Sinus tachycardia is related to dehydration and pain Microcytic anemia: Stable Menorrhagia: Follow-up with gynecology. Patient lives with a boyfriend, does not have medical DPOA Attestations 2 Medical Necessity Statement*: Continue admission for assessment of management of severe gallbladder dyskinesia, pancreatitis. and High MDM includes amount and/or complexity of data reviewed/ordered [ previous or external records, resulted lab(s)/test(s), ordered lab(s)/test(s) and other healthcare professional discussion] and described risk of complication, morbidity or mortality of management as documented Diagnoses Folic acid deficiency E53.8 Intractable nausea and vomiting R11.2 Pancreatitis K85.90 Hypoalbuminemia E88.09
[2023-12-27] MEDS: ondansetron 2 mg/ML SDV 2 mL 4 MG IVP (23:36)
[2023-12-27] MEDS: morphine IR 15 mg Tablet PO (23:36)
[2023-12-27] MEDS: enoxaparin 40 mg/0.4 mL Syringe SUBCUT (23:37)
[2023-12-28 01:50] VITALS: BP 104/66; PULSE 83; RESP 17; TEMP 36.6; O2SAT 96
[2023-12-28 03:34] VITALS: RESP 16
[2023-12-28] MEDS: HYDROmorphone 1 mg/mL INJ 1 mL IVP ×3 (03:34→11:08)
[2023-12-28] MEDS: ALPRAZolam 0.5 mg Tablet PO (03:35)
[2023-12-28] MEDS: metoclopramide 5 mg/mL SDV 2 mL IVP ×2 (03:47→10:58)
[2023-12-28 05:54] VITALS: BMI 31.6
[2023-12-28 06:08] LABS: Basophils % 0.1 %; Lymphocytes # 0.8 10^3/uL (0.8-4.8); Lymphocytes % 10.9 %; Mean Corpuscular HGB Conc 34.5 g/dL (30-55); Mean Corpuscular Hemoglobin 36.8 pg (27-33); Mean Corpuscular Volume 106.5 fl (85-98); Monocytes # 0.5 10^3/uL (0.2-0.9); Monocytes % 6.3 %; Neutrophils # 5.84 10^3/uL (1.8-7.7); Neutrophils % 82.4 %; Nucleated Red Blood Cells % 0 %; Platelet Count 281 10^3/cmm (157-399); Red Blood Count 2.91 10^6/uL (3.85-5.65); Red Cell Distribution Width 15.5 % (12.1-15.1); White Blood Count 7.09 10^3/uL (3.29-11.43)
[2023-12-28] MEDS: dextrose 5%-lactated ringers 1,000 ML 75 ML IV (06:27)
[2023-12-28 06:37] LABS: Alanine Aminotransferase 43 U/L (0-33); Alkaline Phosphatase 186 U/L (35-105); Aspartate Amino Transferase 162 U/L (0-32); Blood Urea Nitrogen 4 mg/dL (6-20); Calcium 8.4 mg/dL (8.5-10.5); Carbon Dioxide 24 mmol/L (22-29); Chloride 105 mmol/L (98-107); Creatinine Clr Calc Pharmacy 175.1408; Globulin 2.9 g/dL (1.3-4.6); Glomerular Filtration Rate 171.1 mL/min (90-130); Glucose 109 mg/dL (65-115); Osmolality Calculated 285 mOsm/kg (285-295); Sodium 139 mmol/L (136-145); Total Bilirubin 0.8 mg/dL (0.15-1.2); Total Protein 5.9 g/dL (6.6-8.7)
[2023-12-28 06:41] LABS: Anion Gap 14.1 (5-19); Potassium 4.1 mmol/L (3.5-5.1)
[2023-12-28 06:57] LABS: Lipase 65 U/L (13-60)
[2023-12-28 07:26] VITALS: BP 104/74; PULSE 86; RESP 16; TEMP 36.7; O2SAT 93
[2023-12-28 07:42] VITALS: RESP 16
[2023-12-28] MEDS: ondansetron 2 mg/ML SDV 2 mL 4 MG IVP (07:45)
--- NOTE | 2023-12-28 07:47 | P.PN_ITS ---
Subjective 2 Subjective: Patient seen and examined. Tolerating diet. Pain controlled Vitals/I&O/Wt Last Vital Signs Temp 98.0 F 12/28/23 07:26 Pulse 86 12/28/23 07:26 Resp 16 12/28/23 07:42 BP 104/74 12/28/23 07:26 Pulse Ox 93 12/28/23 07:26 O2 Del Method Room Air 12/28/23 07:26 12/27/23 12/28/23 12/28/23 22:59 06:59 14:59 Intake Total 1050 / 1100 270 / 1370 Output Total / Balance 1045 / 1095 270 / 1365 Weight last 48 hrs Weight 178 lb 6.4 oz Weight 179 lb Physical Exam 2 Narrative: General: No acute distress, awake alert and oriented x 3 Abdomen: Soft, nondistended, appropriately tender to palpation Data 12/28/23 05:52 12/28/23 05:52 A&P Assessment and plan (1) Nonvisualization of gallbladder: Plan Postoperative day #1 status post laparoscopic cholecystectomy Surgically stable for discharge Follow-up my office in 2 weeks Only restrictions do not soak incisions underwater for 2 weeks but shower daily. Attestations 2 Medical Necessity Statement*: Per primary Coding Level of Care Code Acute Code for Chg Fwd Diagnoses Nonvisualization of gallbladder R93.2
[2023-12-28 08:00] VITALS: BP 109/56; PULSE 86; PULSE 92; RESP 15; RESP 16; TEMP 36.6; O2SAT 95; O2SAT 99
[2023-12-28] MEDS: piperacillin-tazobactam 3.375 GM in sodium chloride 0.9% (plus) 50 ML IV (08:47)
--- NOTE | 2023-12-28 09:57 | PC.CHAP ---
Pastoral Care Encounter/Spiritual Assessment Type of Contact [] Declined dial polisher visit [] Patient/Family/Request visit [] Outpatient visit [] Follow-up visit [] Physician referral [] Code/Alert [x] Routine visit [] Staff referral [] Actively dying [] Patient sleeping [x] Family support [] [] Out of room [] Palliative care [] [] Receiving care in room [] Pre-surgical visit [] Trauma [] Long length of stay [] ICU visit [] Other: Relational/Emotional Strength [x] Patient feels connected with others/family/visitors/staff [] Distress [] Loneliness/isolation [] Abandonment Spirituality of Patient [x] Person of Deisi [] Attends Druze of their Deisi [x] Believes in Prayer [] Reads Bible or Spiritism materials [] There are Spiritual issues to be addressed Concrete Pouring Supervisor Interventions [x] Prayer [x] Active listening [] Non-anxious presence [x] Spiritual/emotional support [] Crisis/trauma care [] Spiritual counseling [] Bereavement support [] Provided bereavement packet [] Provided Bible/devotional materials [] Provided toy/stuffed animal, coloring book to patient or family member [] Provided Communion [] Anointing/[place] [] Salvation [x] Completed spiritual assessment [] Other: Impact on Illness or Injury [] Angry [] Fearful [] Anxious [] Often cries [] Exhaustion [] Unable to work [] Unable to attend oriental orthodox [] Unable to walk/stand [] Unable to read [] Unable to drive [] Unable to eat/drink [] Unable to sleep [] Unable to be with family [] Patient intubated [] Other: Summary Time spent with patient 5 min
[2023-12-28] MEDS: pantoprazole 40 mg SDV IVP (10:58)
[2023-12-28 11:08] VITALS: RESP 16
--- NOTE | 2023-12-28 21:25 | P.DS_ITS ---
Discharge Providers Date of Admission: 12/25/23 23:41 Date of Discharge: December 28, 2023 Attending Provider at Admission: Yuliya Casey MD Attending Provider at Discharge: Cam Holm Primary Care Provider: Haseeb Casiano MD Diagnoses at Discharge Discharge Diagnosis (1) Nonvisualization of gallbladder: Status: Acute Reason for Visit Reason for Visit: abd pain sent by Dr Casiano Hospital Course Hospital Course 48-year-old lady recently discharged from the hospital after hospitalization due to right upper quadrant pain, nausea and vomiting, consideration of a calculus cholecystitis, pancreatitis, finding of gastritis, duodenitis on EGD, fatty liver disease CAMILO versus alcohol related, incidentally found low titer HAM elevation, positive anti-DS antibody, low titer of unclear significance, return to the hospital due to nausea and vomiting, unable to keep down food or drink, low-grade fever 99.9, right upper quadrant pain. Alkaline phosphatase elevation noted on presentation. Lipase found elevated 190, thought to have pancreatitis, other cause unclear, right upper quadrant ultrasound obtained with hydropic gallbladder, no sign of gallstone or obstructive appearance. She denies significant alcohol intake. Triglycerides and calcium unremarkable. With previous HAM positive, IgG4 antibody level is requested with consideration of possibility of fatty immune pancreatitis. At the same time with recurrent pancreatitis suspected she was additionally assessed by MRCP which showed a normal-appearing pancreas. Dilated gallbladder again visualized. She was assessed by surgery, with severe gallbladder dyskinesia noted evaluated also also on HIDA scan during last admission they discussed cholecystectomy due to the severe dyskinesia. As discussed with her it is possible that nausea vomiting may have been the cause of lipase elevation, possibly without pancreatitis versus mild pancreatitis without imaging changes, certainly difficult to tell. Her lipase did improve. Symptoms with improvement, although did have an episode of nausea and vomiting this morning but responded well to Zofran. She will follow-up with surgery in office for reassessment after cholecystectomy. She is asked to further discuss referral to gastroenterology for consideration of possible pancreatitis. Please consider this with her. Please reassess liver parameters. She additionally has had menorrhagia of about 3 weeks duration due to which she is referred for additional assessment by gynecology. Physical Exam Narrative: Nausea earlier this morning. Const: COMMON NORMALS: patient oriented x3 and alert GENERAL APPEARANCE: co operative ORIENTATION/CONSCIOUSNESS: Yes awake HENMT: COMMON NORMALS: oropharynx normal Neck/C-Spine: COMMON NORMALS: no JVD Resp: COMMON NORMALS: normal respiratory effort and clear to auscultation bilaterally AUSCULTATION: clear to auscultation bilaterally Cardio: COMMON NORMALS: no JVD, regular rhythm, S1 normal heart sound present, S2 normal heart sound present and No murmurs present (Cardio) RHYTHM: regular rhythm HEART SOUNDS: S1 normal heart sound present and S2 normal heart sound present GI: COMMON NORMALS: Soft to palpation PALPATION: Yes Soft to palpation OTHER: Abdominal tenderness with improvement. Extremity: COMMON NORMALS: no joint enlargement and no pedal edema Neuro: COMMON NORMALS: patient oriented x3 and moves all extremities SENSORIUM/ORIENTATION: Yes alert Skin: COMMON NORMALS: no rashes or lesions noted GENERAL SKIN EXAM: no rashes or lesions noted Discharge Data Studies Completed and Pending Completed Studies During Hospitalization Category Date Time Status CT abdomen pelvis w con* [id number] Routine Cat Scan 12/26/23 00:16 Completed MR MRCP [id number] Routine MRI 12/26/23 10:48 Completed US gall bladder [id number] Stat Ultrasound 12/25/23 21:11 Completed Pending at discharge Category Date Time Status Miscellaneous Test Routine Lab 12/26/23 05:05 Received Radiology Impressions Gallbladder Ultrasound 12/25/23 21:11 IMPRESSION: 1. Fatty liver. 2. Otherwise unremarkable right upper quadrant ultrasound. Abdomen/Pelvis CT 12/26/23 00:16 IMPRESSION: 1. No acute intra-abdominal or pelvic process. 2. 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 Consider follow-up with nonemergent multiphase CT of the abdomen. 3. Fatty liver. 4. Other nonemergent findings above. COMMENTS: Consistent with the [employer]'s Incidental Findings Committee white paper (J Am Lit Radiol 2018): Any incidental renal lesion less than 1 cm or classified as too small to characterize, or any incidental cystic renal lesion characterized as simple-appearing, is likely benign. No follow-up imaging is recommended for these lesions per consensus recommendations based on imaging criteria. Laboratory Results WBC 7.09 10^3/uL (3.29-11.43) 12/28/23 05:52 RBC 2.91 10^6/uL (3.85-5.65) L 12/28/23 05:52 Hgb 10.70 g/dL (11.27-16.99) L 12/28/23 05:52 Hct 31.0 % (36-47) L 12/28/23 05:52 MCV 106.5 fl (85-98) H 12/28/23 05:52 MCH 36.8 pg (27-33) H 12/28/23 05:52 MCHC 34.5 g/dL (30-55) 12/28/23 05:52 RDW 15.5 % (12.1-15.1) H 12/28/23 05:52 Plt Count 281 10^3/cmm (157-399) 12/28/23 05:52 MPV 12.0 fL (7.4-10.4) H 12/28/23 05:52 Neut % (Auto) 82.4 % 12/28/23 05:52 Lymph % (Auto) 10.9 % 12/28/23 05:52 [place] % (Auto) 6.3 % 12/28/23 05:52 Eos % (Auto) 0.0 % 12/28/23 05:52 Baso % (Auto) 0.1 % 12/28/23 05:52 Neut # (Auto) 5.84 10^3/uL (1.8-7.7) 12/28/23 05:52 Lymph # (Auto) 0.8 10^3/uL (0.8-4.8) 12/28/23 05:52 [place] # (Auto) 0.5 10^3/uL (0.2-0.9) 12/28/23 05:52 Eos # (Auto) 0.0 10^3/uL (0.0-0.8) 12/28/23 05:52 Baso # (Auto) 0.0 10^3/uL (0.0-0.1) 12/28/23 05:52 Nucleated RBC % (auto) 0 % 12/28/23 05:52 Nucleated RBCs # 0.0 /100WBC 12/28/23 05:52 PT 14.40 SECONDS (12.1-14.9) 12/25/23 21:14 INR 1.09 (0.8-1.2) 12/25/23 21:14 APTT 26.7 SECONDS (23.9-36.7) 12/25/23 21:14 Sodium 139 mmol/L (136-145) 12/28/23 05:52 Potassium 4.1 mmol/L (3.5-5.1) 12/28/23 05:52 Chloride 105 mmol/L (98-107) 12/28/23 05:52 Carbon Dioxide 24 mmol/L (22-29) 12/28/23 05:52 Anion Gap 14.1 (5-19) 12/28/23 05:52 BUN 4 mg/dL (6-20) L 12/28/23 05:52 Creatinine 0.4 mg/dL (0.5-0.9) L 12/28/23 05:52 GFR Calculation 171.1 mL/min (90-130) H 12/28/23 05:52 Glucose 109 mg/dL (65-115) 12/28/23 05:52 POC Glucose 141 mg/dL (70-110) H 12/27/23 19:25 Calculated Osmolality 285 mOsm/kg (285-295) 12/28/23 05:52 Calcium 8.4 mg/dL (8.5-10.5) L 12/28/23 05:52 Phosphorus 3.4 mg/dL (2.5-4.5) 12/26/23 05:05 Magnesium 2.0 mg/dL (1.7-2.3) 12/27/23 04:42 Total Bilirubin 0.8 mg/dL (0.15-1.2) 12/28/23 05:52 Direct Bilirubin 0.30 mg/dL (0.00-0.30) 12/25/23 21:14 AST 162 U/L (0-32) H 12/28/23 05:52 ALT 43 U/L (0-33) H 12/28/23 05:52 Alkaline Phosphatase 186 U/L (35-105) H 12/28/23 05:52 Creatine Kinase 22 U/L (26-192) L 12/26/23 05:05 C-Reactive Protein 11.3 mg/L (0.0-4.9) H 12/26/23 05:05 Total Protein 5.9 g/dL (6.6-8.7) L 12/28/23 05:52 Albumin 3.0 g/dL (3.5-5.2) L 12/28/23 05:52 Globulin 2.9 g/dL (1.3-4.6) 12/28/23 05:52 Triglycerides 143 mg/dL (0-150) 12/25/23 21:14 Lipase 65 U/L (13-60) H 12/28/23 05:52 CA 19-9 Antigen 16.30 U/mL (0-35) 12/26/23 05:05 Ethyl Alcohol < 10 mg/dL (0-10) 12/25/23 21:14 Vitals Last Vital Signs Temp 98 F 12/28/23 08:00 Pulse 86 12/28/23 08:00 Resp 16 12/28/23 11:08 BP 109/56 12/28/23 08:00 Pulse Ox 95 12/28/23 08:00 O2 Del Method Room Air 12/28/23 08:00 Discharge Plan Discharge Patient Disposition: Home Condition: Stable Prescriptions: Continued pantoprazole [Protonix] 40 mg tablet,delayed release (DR/EC) 40 mg PO DAILY Qty: 60 0RF folic acid 1 mg Tablet 1 mg PO DAILY 30 Days Qty: 30 0RF amoxicillin-pot clavulanate 875-125 mg tablet 1 tab PO BID 10 Days Qty: 20 0RF hydrocodone-acetaminophen 5-325 mg tablet 1 tab PO Q6H PRN (Reason: pain) sucralfate 100 mg/mL suspension 10 ml PO QID PRN (Reason: gastritis) ondansetron HCl 4 mg tablet 4 mg PO Q8H PRN (Reason: Nausea) Qty: 30 0RF Discharge Orders: Discharge Order (Routine); Ordered 12/28/23 Ordered By: Cam Holm Referrals: [facility] [Provider Group] - 01/24/24 1:15 pm (Menorrhagia) Reggie Vang MD [Physician] - 01/01/24 8:55 am (FOLLOW UP FROM [facility]) Luke Carrasco DO [Physician] - 01/10/24 3:15 pm Haseeb Casiano MD [Primary Care Provider] - 01/02/24 10:30 am Discharge Diet: Low Fat Patient Instructions: Pancreatitis (GEN), Laparoscopic Cholecystectomy (GEN), Opioid Safety, Post Anesthesia Care Activity Restrictions/Additional Instructions: Follow-up with surgery for reassessment after cholecystectomy in 2 weeks. Is okay to shower per surgery instructions, do not soak the wound. Follow-up with your burn doctor for reassessment after possible mild pancreatitis, although as discussed lipase could have been elevated due to vomiting, possibly secondary to the gallbladder issue. Discussed with your primary doctor referral for additional assessment by gastroenterology. Please have your primary doctor follow-up pending results of IgG4 antibody. Follow-up with your primary doctor regarding microcytic anemia, menorrhagia, you are also referred for follow-up with gynecology. Discharge Attestations Time Spent in Discharge Care*: greater than 30 min Quality Metrics Clinical Quality Measures [ No reported AMI, CVA or VTE this stay] Coding Level of Care Code 63871 Total time (in minutes) for Discharge: 45 Diagnoses Nonvisualization of gallbladder R93.2
== END 2023-12-28 13:51 | disposition home or self-care (01) | DRG 417 ==
LOC: ER 23:50 → MEDSURG 12-26 00:01
PROVIDERS: Surgery; Admitting Provider Internal Medicine; Emergency Provider Internal Medicine; PCP Family Medicine; Visit Provider Internal Medicine
PROC: 0FT44ZZ Resection of Gallbladder, Percutaneous Endoscopic Approach (ICD-10-PCS; CPT 47562; principal; 2023-12-27 15:35)
DX: K82.8 Other specified diseases of gallbladder (principal); K85.90 Acute pancreatitis without necrosis or infection, unspecified; N92.0 Excessive and frequent menstruation with regular cycle; E83.42 Hypomagnesemia; D50.9 Iron deficiency anemia, unspecified; R00.0 Tachycardia, unspecified; E86.0 Dehydration; E53.8 Deficiency of other specified B group vitamins; K76.0 Fatty (change of) liver, not elsewhere classified
CPT/HCPCS: 36415; 36416; 74177; 74181; 76705; 80053; 80307; 82248; 82550; 82787; 82962; 83690; 83735; 84100; 84478; 85025; 85610; 85730; 86140; 86301; 88304; 96372; 96374; 96375; 99285; C9113; J1100; J1170; J1200; J1650; J1885; J2270; J2405; J2543; J2704; J2765; J3010; J3475; J3480; J3490; J7030; J7121; Q9967

== ENCOUNTER 2024-01-01 15:48 | Inpatient (IN) | payer SELFPAY ==
[2024-01-01 16:15] VITALS: PULSE 118; RESP 18; TEMP 36.7; O2SAT 99; BMI 30.6
[2024-01-01 16:57] LABS: Basophils # 0.1 10^3/uL (0.0-0.1); Basophils % 0.5 %; Eosinophils % 0.4 %; Hematocrit 32.9 % (36-47); Lymphocytes # 1.4 10^3/uL (0.8-4.8); Lymphocytes % 13.2 %; Mean Corpuscular HGB Conc 36.2 g/dL (30-55); Mean Corpuscular Volume 102.2 fl (85-98); Mean Platelet Volume 11.6 fL (7.4-10.4); Monocytes # 0.8 10^3/uL (0.2-0.9); Monocytes % 7.3 %; Neutrophils # 8.55 10^3/uL (1.8-7.7); Neutrophils % 78.2 %; Nucleated Red Blood Cells % 0 %; Platelet Count 349 10^3/cmm (157-399); Red Blood Count 3.22 10^6/uL (3.85-5.65); Red Cell Distribution Width 14.5 % (12.1-15.1); White Blood Count 10.93 10^3/uL (3.29-11.43)
[2024-01-01 17:35] LABS: Alanine Aminotransferase 22 U/L (0-33); Albumin Level 3.4 g/dL (3.5-5.2); Alkaline Phosphatase 139 U/L (35-105); Anion Gap 19.6 (5-19); Aspartate Amino Transferase 35 U/L (0-32); Blood Urea Nitrogen 5 mg/dL (6-20); Calcium 8.8 mg/dL (8.5-10.5); Carbon Dioxide 19 mmol/L (22-29); Chloride 98 mmol/L (98-107); Creatinine Clr Calc Pharmacy 114.9672; Globulin 3.1 g/dL (1.3-4.6); Glomerular Filtration Rate 107.2 mL/min (90-130); Glucose 144 mg/dL (65-115); Magnesium 1.5 mg/dL (1.7-2.3); Osmolality Calculated 278 mOsm/kg (285-295); Sodium 134 mmol/L (136-145); Total Bilirubin 0.6 mg/dL (0.15-1.2); Total Protein 6.5 g/dL (6.6-8.7)
[2024-01-01 17:37] LABS: Potassium 2.6 mmol/L (3.5-5.1)
[2024-01-01 17:49] LABS: Lipase 397 U/L (13-60)
[2024-01-01 17:50] VITALS: BP 141/69; PULSE 81; RESP 14; O2SAT 99
[2024-01-01 18:28] LABS: Add Urine Microscopic? YES; Bilirubin Urine 2+ (Negative); Blood Urine 3+ (Negative); Glucose Urine UA 1+ (Normal); Ketones Urine 1+ (Negative); Leukocyte Esterase Urine 2+ (Negative); Nitrate Urine Positive (Negative); Protein Urine 2+ (Negative); Specific Gravity, Urine 1.025 (1.005-1.030); Urine Appearance Cloudy (CLEAR); Urine Color Amber (Yellow); Urobilinogen Urine 1 mg/dL (Negative); pH Urine 5 (5-7)
[2024-01-01 18:30] LABS: RBC Urine TOO NUMEROUS TO CNT /hpf (0-2); WBC Urine 55-80 /hpf (0-5)
[2024-01-01 18:31] LABS: Add Urine Culture? Yes; Bacteria Urine 2+ /hpf; Mucus Urine 1+ /hpf; Transitional Epi Cells Urine 0-4 /hpf
--- NOTE | 2024-01-01 18:31 | CTR_ITS ---
PROCEDURE INFORMATION: Exam: CT Abdomen And Pelvis With Contrast Exam date and time: 01/01/2024 6:52 PM Age: 48 years old Clinical indication: Abdominal pain; Generalized; Prior surgery; Surgery date: 3-7 days post-operative; Surgery type: Abd pain, n/v since luis last week; Additional info: Post-op pain of abd TECHNIQUE: Imaging protocol: Computed tomography of the abdomen and pelvis with contrast. Axial, coronal and sagittal reformatted images were created and reviewed. Radiation optimization: All CT scans at this facility use at least one of these dose optimization techniques: automated exposure control; mA and/or kV adjustment per patient size (includes targeted exams where dose is matched to clinical indication); or iterative reconstruction. Contrast material: OMNI 350; Contrast volume: 100 ml; Contrast route: INTRAVENOUS (IV); COMPARISON: MR MRCP [id number] 12/26/2023 1:59 PM RADIATION DOSE METRICS: Total DLP (mGy-cm): 614.71 FINDINGS: Diaphragm: Small hiatal hernia. Liver: Mild hepatomegaly. Diffuse hepatic steatosis. Gallbladder and bile ducts: Status post cholecystectomy. No biliary ductal dilatation. Pancreas: Unremarkable. Spleen: Unremarkable. Adrenal glands: Normal. No mass. Kidneys and ureters: No mass. No radiodense calculi. No hydronephrosis. Stomach and bowel: No bowel wall thickening. No obstruction. No pneumatosis. Appendix: Normal. Intraperitoneal space: No free fluid. No organized fluid collection. No free air. Vasculature: Unremarkable. No aneurysm. Lymph nodes: No pathologically enlarged lymph nodes. Urinary bladder: Unremarkable as visualized. Reproductive: Cervical nabothian cyst. Bones/joints: No acute osseous abnormality. Osteopenia. Mild degenerative changes. Soft tissues: Small, fat containing umbilical hernia. CT/CT abdomen pelvis w con* [id number]: 1[address] No CT evidence of acute intra-abdominal or pelvic pathology. 2. Additional findings, as above.
[2024-01-01] MEDS: sodium chloride 0.9% 1,000 ML 999 ML IV ×2 (18:41→21:02)
[2024-01-01] MEDS: fentaNYL 50 mcg/mL INJ 2mL IVP (18:42)
[2024-01-01] MEDS: ondansetron 2 mg/ML SDV 2 mL 4 MG IVP (18:43)
[2024-01-01] MEDS: potassium chloride ER 20 mEq Tablet PO (18:45)
[2024-01-01] MEDS: iohexol 350 mg/mL 500 mL Btl (per mL) IV (18:52)
[2024-01-01] MEDS: lidocaine 1% 5 ML in potassium chloride premix 100 ML 52.5 ML IV (19:04)
[2024-01-01 19:10] VITALS: BP 157/90; PULSE 100; RESP 16; O2SAT 100
--- NOTE | 2024-01-01 19:10 | PC.NURSE ---
prior to administration of potassium IV pt placed on cardiac monitoring
[2024-01-01 19:34] LABS: Lactic Sepsis W/Reflex 2.8 mmol/L (0.5-2.2)
[2024-01-01 19:46] LABS: Procalcitonin 0.17 ng/mL (0-0.5)
--- NOTE | 2024-01-01 20:36 | ED_ITS ---
HPI - Abdominal Pain 2 General: Chief Complaint: Abdominal Pain Stated Complaint: vomiting, sob, blurred vision Time Seen by Provider: 01/01/24 18:00 History of Present Illness: 48-year-old female presents to the emerg ency department with complaints of right and left flank pain. She states she has more right flank pain worsening over the previous 3 days. She states she also has epigastric pain and has been unable to keep any food down. She states that she also has had chills and rigors and increased urinary frequency with intermittent dysuria. She states her flank pain and epigastric pain are a 7 out of 10 and intermittently sharp. She states that she had a cholecystectomy by Dr. Carrasco on 12/27/2023. Associated Symptoms: Reports chills, dysuria, nausea and vomiting Review of Systems 2 General: Reports: 10 or more systems reviewed and unremarkable except in HPI and below Const: Reports: chills, body aches, fatigue and malaise GI: Reports: abdominal pain, nausea and vomiting : Reports: flank pain, dysuria and urinary frequency PFSH ED 2 PFSH: Medical History section wound seroma, Surgical History S/P right knee arthroscopy Family History Other CAD (coronary artery disease) Diabetes Social History Smoking and tobacco/nicotine status: never used tobacco/nicotine Alcohol intake: current Alcohol intake frequency: holidays/special occasions only Physical Exam 2 Narrative: EXAM NARRATIVE: Constitutional: the patient appears acutely ill, in obvious discomfort. Vital signs as documented. Alert and oriented-to person, place, time and situation. Actively vomiting upon presentation Head, eyes, ears, nose, mouth, throat: Normocephalic, atraumatic. Pupils-equal, round, reactive to light. No scleral icterus. Normal-appearing external ears. Normal appearing nasal turbinates, no drainage. No obvious oral lesions, posterior oropharynx without erythema or exudates. Neck: Supple, trachea is midline, no lymphadenopathy, no jugular venous distension, thyromegaly, or carotid bruits. Carotid upstrokes are brisk bilaterally. Lungs: clear to auscultation to all lung hay. Symmetrical rise and fall of chest, no obvious signs of increased work of breathing at present. Cardiac: Regular rate and rhythm, positive S1, S2. No murmurs, rubs or gallops that I can appreciate Abdomen: Soft, epigastric region tender to palpation, normal active bowel sounds to all quadrants. No palpable masses, no organomegaly and abdominal bruits. Extremities: 2+ pulses in the upper extremities that are equal bilaterally, 2+ pulses in the lower extremities that are equal bilaterally. Non-edematous. Moves all extremities well, sensation to all extremities are noted. Skin: Warm, dry, intact. Back: Right CVA tenderness to light percussion, normal appearance, Course 2 Vital Signs: Vital signs: Vital Signs Temperature 98.0 F 01/01/24 16:15 Pulse Rate 100 01/01/24 19:10 Respiratory Rate 16 01/01/24 19:10 Blood Pressure 157/90 01/01/24 19:10 Pulse Oximetry 100 01/01/24 19:10 MDM - Abdominal Pain Medical Decision Making Physical exam completed and documented I did obtain a CBC and CMP as well as urinalysis and a CT scan of her abdomen pelvis does show significant white blood cells, leukocytes and nitrates as well as bacteria in her urine consistent with pyelonephritis given the patient's physical exam findings and also her elevated lipase level I did provide the patient pain medication for pain control as well as antinausea medication. I did provide her potassium replacement for her hypokalemia. I have contacted the hospitalist physician to request admission for additional evaluation treatment and care. She does have a WBC that is in the normal range although she does have an lactic acid and elevated lipase as well as a MCV over 100. Medical Records I reviewed the patient's medical records. Lab Data I reviewed the patient's lab results. 01/01/24 16:37 01/01/24 16:37 Labs/Radiology: Radiology Impressions Abdomen/Pelvis CT 01/01/24 18:[address]: [address] evidence of acute intra-abdominal or pelvic pathology. 2. Additional findings, as above. Laboratory Results WBC 10.93 10^3/uL (3.29-11.43) 01/01/24 16:37 RBC 3.22 10^6/uL (3.85-5.65) L 03/19/24 16:37 Hgb 11.90 g/dL (11.27-16.99) 01/01/24 16:37 Hct 32.9 % (36-47) L 01/01/24 16:37 MCV 102.2 fl (85-98) H 01/01/24 16:37 MCH 37.0 pg (27-33) H 01/01/24 16:37 MCHC 36.2 g/dL (30-55) 01/01/24 16:37 RDW 14.5 % (12.1-15.1) 01/01/24 16:37 Plt Count 349 10^3/cmm (157-399) 01/01/24 16:37 MPV 11.6 fL (7.4-10.4) H 01/01/24 16:37 Neut % (Auto) 78.2 % 01/01/24 16:37 Lymph % (Auto) 13.2 % 01/01/24 16:37 Lucas % (Auto) 7.3 % 01/01/24 16:37 Eos % (Auto) 0.4 % 01/01/24 16:37 Baso % (Auto) 0.5 % 01/01/24 16:37 Neut # (Auto) 8.55 10^3/uL (1.8-7.7) H 01/01/24 16:37 Lymph # (Auto) 1.4 10^3/uL (0.8-4.8) 01/01/24 16:37 Lucas # (Auto) 0.8 10^3/uL (0.2-0.9) 01/01/24 16:37 Eos # (Auto) 0.0 10^3/uL (0.0-0.8) 01/01/24 16:37 Baso # (Auto) 0.1 10^3/uL (0.0-0.1) 01/01/24 16:37 Nucleated RBC % (auto) 0 % 01/01/24 16:37 Nucleated RBCs # 0.0 /100WBC 01/01/24 16:37 Sodium 134 mmol/L (136-145) L 01/01/24 16:37 Potassium 2.6 mmol/L (3.5-5.1) L* 01/01/24 16:37 Chloride 98 mmol/L (98-107) 01/01/24 16:37 Carbon Dioxide 19 mmol/L (22-29) L 01/01/24 16:37 Anion Gap 19.6 (5-19) H 01/01/24 16:37 BUN 5 mg/dL (6-20) L 01/01/24 16:37 Creatinine 0.6 mg/dL (0.5-0.9) 01/01/24 16:37 GFR Calculation 107.2 mL/min (90-130) 01/01/24 16:37 Glucose 144 mg/dL (65-115) H 01/01/24 16:37 Calculated Osmolality 278 mOsm/kg (285-295) L 01/01/24 16:37 Lactic Acid 2.8 mmol/L (0.5-2.2) H 01/01/24 16:37 Calcium 8.8 mg/dL (8.5-10.5) 01/01/24 16:37 Phosphorus 2.0 mg/dL (2.5-4.5) L 01/01/24 16:37 Magnesium 1.5 mg/dL (1.7-2.3) L 01/01/24 16:37 Total Bilirubin 0.6 mg/dL (0.15-1.2) 01/01/24 16:37 AST 35 U/L (0-32) H 01/01/24 16:37 ALT 22 U/L (0-33) 01/01/24 16:37 Alkaline Phosphatase 139 U/L (35-105) H 01/01/24 16:37 Total Protein 6.5 g/dL (6.6-8.7) L 01/01/24 16:37 Albumin 3.4 g/dL (3.5-5.2) L 01/01/24 16:37 Globulin 3.1 g/dL (1.3-4.6) 01/01/24 16:37 Lipase 397 U/L (13-60) H 01/01/24 16:37 Procalcitonin 0.17 ng/mL (0-0.5) 01/01/24 16:37 Urine Color Marti (Yellow) 01/01/24 18:12 Urine Appearance Cloudy (CLEAR) A 01/01/24 18:12 Urine pH 5 (5-7) 01/01/24 18:12 Ur Specific [place] 1.025 (1.005-1.030) 01/01/24 18:12 Urine Protein 2+ (Negative) H 01/01/24 18:12 Urine Glucose (UA) 1+ (Normal) H 01/01/24 18:12 Urine Ketones 1+ (Negative) H 01/01/24 18:12 Urine Blood 3+ (Negative) H 01/01/24 18:12 Urine Nitrate Positive (Negative) H 01/01/24 18:12 Urine Bilirubin 2+ (Negative) H 01/01/24 18:12 Urine Urobilinogen 1 mg/dL (Negative) H 01/01/24 18:12 Ur Leukocyte Esterase 2+ (Negative) H 01/01/24 18:12 Urine RBC Too numerous to cnt /hpf (0-2) H 01/01/24 18:12 Urine WBC 55-80 /hpf (0-5) H 01/01/24 18:12 Ur Squamous Epith Cells 5-10 /hpf (0-5) H 01/01/24 18:12 Ur Transition Epith Cell 0-4 /hpf 01/01/24 18:12 Amorphous Sediment Not Reportable 01/01/24 18:12 Urine Bacteria 2+ /hpf (NONE) H 01/01/24 18:12 Urine Mucus 1+ /hpf 01/01/24 18:12 All radiology interpretation(s) finalized by discharge Discharge Plan Discharge Patient Disposition: Admitted As Inpatient Clinical Impression: Pyelonephritis, Acute pancreatitis, Nausea & vomiting, Acute hypokalemia Condition: Stable Prescriptions: No Action pantoprazole [Protonix] 40 mg tablet,delayed release (DR/EC) 40 mg PO DAILY Qty: 60 0RF folic acid 1 mg Tablet 1 mg PO DAILY 30 Days Qty: 30 0RF hydrocodone-acetaminophen 5-325 mg tablet 1 tab PO Q6H PRN (Reason: pain) sucralfate 100 mg/mL suspension 10 ml PO QID PRN (Reason: gastritis) ondansetron HCl 4 mg tablet 4 mg PO Q8H PRN (Reason: Nausea) Qty: 30 0RF Referrals: Haseeb Casiano MD [Primary Care Provider] - Coding Level of Care Code ED Sanitary [employer] for [facility] Samina
--- NOTE | 2024-01-01 20:45 | P.HP_ITS ---
Providers/Chief Complaint 2 Primary Care Provider: Haseeb Casiano MD Chief Complaint: vomiting, sob, blurred vision History of Present Illness Krupa Sparks is a 48 year old female who had gallbladder removed on Sunday by Dr. Carrasco, presented today with recurrent nausea vomiting. Patient stating that she is hurting extremely around her laparoscopic scars she has not been able to eat anything since her gallbladder removal, extremely dehydrated, experiencing recurrent episode of nausea and vomiting, she has not noticed fever, chest pain, shortness of breath. No diarrhea. In the ER she has been diagnosed with hypotension hyponatremia, hypokalemia lactic acidemia related to dehydration hypophosphatemia and hypomagnesemia. She has been experiencing epigastric region pain from excessive vomiting. Lipase is high no active signs of pancreatitis abnormal UA consistent with cystitis/pyelonephritis CT abdomen pelvis unremarkable she will be given IV fluids and antibiotics Lactic acid improved with IV fluid hydration Review of Systems 2 Const: Denies: fever(s) Eyes: Denies: change in vision ENMT: Denies: throat pain Card: Denies: chest pain Resp: Denies: dyspnea GI: Reports: abdominal pain, nausea and vomiting : Reports: flank pain Medications/Allergies Home Medications Medication Instructions Recorded Confirmed Last Taken Type folic acid 1 mg tablet 1 mg PO DAILY 30 days #30 tabs 12/14/23 12/26/23 1 Day Ago Rx ~12/25/23 pantoprazole 40 mg tablet,delayed 40 mg PO DAILY #60 tabs 12/14/23 12/26/23 1 Day Ago Rx release (Protonix) ~12/25/23 hydrocodone 5 mg-acetaminophen 325 1 tab PO Q6H PRN pain 12/26/23 12/26/23 Unknown History mg tablet sucralfate 100 mg/mL oral 10 ml PO QID PRN gastritis 12/26/23 12/26/23 Unknown History suspension ondansetron HCl 4 mg tablet 4 mg PO Q8H PRN Nausea #30 tabs 12/28/23 12/26/23 Unknown Rx Allergies Allergy/AdvReac Type Severity Reaction Status Date / Time cephalexin [From Keflex] Allergy ADR-Itching Verified 12/25/23 20:17 PFSH Acute 2 PFSH: Medical History section wound seroma, Surgical History S/P right knee arthroscopy Family History Other CAD (coronary artery disease) Diabetes Social History Smoking and tobacco/nicotine status: never used tobacco/nicotine Alcohol intake: current Alcohol intake frequency: holidays/special occasions only Vitals/I&O/Wt Last Vital Signs Temp 98.0 F 01/01/24 16:15 Pulse 100 01/01/24 19:10 Resp 16 01/01/24 19:10 BP 157/90 01/01/24 19:10 Pulse Ox 100 01/01/24 19:10 Weight last 48 hrs Weight 78.471 kg Physical Exam 2 Narrative: Pleasant cough GCS 16 female Currently on room air Hemodynamically stable Clinically dehydrated Laparoscopic scar showing good signs of healing with granulation tissue Epigastric region tenderness noted on deep palpation S1, S2 Pleasant cooperative Data 01/01/24 16:37 01/01/24 16:37 Micro: Microbiology 01/01/24 20:32 Blood Culture - Preliminary Blood SPECIMEN COLLECTED 01/01/24 20:27 Blood Culture - Preliminary Blood SPECIMEN COLLECTED A&P Assessment and plan (1) Intractable nausea and vomiting: (2) Pancreatitis: (3) Hiatal hernia: (4) Abdominal pain: (5) Hypomagnesemia: (6) Hypophosphatemia: (7) Acute hypokalemia: (8) Hypoalbuminemia: (9) Pyelonephritis: Plan Significant dehydration Start IV fluids Concern for refeeding syndrome Patient has not eaten in at least a week Monitor for signs arrhythmia replenish electrolytes such as phosphorus, magnesium, sodium and potassium I will start a bland diet Concern for pyelonephritis however CT abdomen pelvis unremarkable may be early sign significant findings noted on UA Start Zosyn, patient allergic to cephalosporin No signs of anaphylaxis in the past with cephalosporins alcohol and use penicillin derivative patient is not septic or febrile Acute hyponatremia related dehydration Anticipate improvement with IV fluid Hypovolemic hyponatremia Full code Sarver diet DVT prophylaxis on board Recent cholecystectomy on Sunday by Dr. Carrasco: Pathology report to be followed by general surgery and PCP Attestations 2 Medical Necessity Statement*: Anticipating more than 2 midnights for severe electrolyte imbalance dehydration and hyponatremia Diagnoses Intractable nausea and vomiting R11.2 Pancreatitis K85.90 Hiatal hernia K44.9 Abdominal pain R10.9 Hypomagnesemia E83.42 Hypophosphatemia E83.39 Acute hypokalemia E87.6 Hypoalbuminemia E88.09 Pyelonephritis N12
[2024-01-01 20:57] LABS: Reflex Lactate Order REFLEX LACTIC ORDERD
[2024-01-01] MEDS: morphine 4 mg/mL SDV 1 mL IVP (21:02)
[2024-01-01] MEDS: cefTRIAXone 1,000 MG in sodium chloride 0.9% (plus) 50 ML 100 MG IV (21:03)
[2024-01-01 21:51] LABS: Lactic Acid level (Lactate) 1.8 mmol/L (0.5-2.2)
[2024-01-01 23:12] VITALS: BP 157/90; PULSE 100; RESP 16; TEMP 36.7; O2SAT 100
[2024-01-01] MEDS: magnesium sulfate premix 2 GM/50 ML PIGGYBACK IV (23:18)
[2024-01-01] MEDS: metoclopramide 5 mg/mL SDV 2 mL IVP (23:23)
[2024-01-01 23:43] VITALS: BP 117/75; PULSE 85; RESP 18; TEMP 36.8; O2SAT 96
[2024-01-02] VITALS (10 sets, daily range): BP systolic 117–138; BP diastolic 76–79; PULSE 70–91; RESP 15–20; TEMP 36.5–36.9; O2SAT 91–99; BMI 30.6
[2024-01-02] MEDS: potassium phosphate (mEq K) 40 MEQ in sodium chloride 0.9% (100 ml) 100 ML 27.2699999999999996 MEQ IV (00:14)
[2024-01-02] MEDS: pantoprazole 40 mg SDV IVP ×3 (00:15→17:35)
[2024-01-02] MEDS: sodium chloride 0.9% 1,000 ML 75 ML IV (00:15)
[2024-01-02] MEDS: morphine IR 15 mg Tablet PO ×2 (00:29→06:34)
[2024-01-02 02:11] LABS: Thyroid Stimulating Hormone 4.07 uIU/mL (0.27-4.20); Vitamin B12 1018 pg/mL (232-1245)
[2024-01-02] MEDS: piperacillin-tazobactam 3.375 GM in sodium chloride 0.9% (plus) 50 ML IV ×3 (03:57→20:33)
[2024-01-02] MEDS: ondansetron 2 mg/ML SDV 2 mL 4 MG IVP ×2 (03:57→10:58)
[2024-01-02] MEDS: lanolin oint 7 gm 1 APPLIC TOPICAL (04:02)
[2024-01-02 05:14] LABS: Basophils # 0.1 10^3/uL (0.0-0.1); Basophils % 0.5 %; Eosinophils # 0.1 10^3/uL (0.0-0.8); Eosinophils % 0.8 %; Hematocrit 30.5 % (36-47); Lymphocytes # 1.9 10^3/uL (0.8-4.8); Lymphocytes % 20.5 %; Mean Corpuscular HGB Conc 34.8 g/dL (30-55); Mean Corpuscular Hemoglobin 36.2 pg (27-33); Mean Corpuscular Volume 104.1 fl (85-98); Mean Platelet Volume 12.1 fL (7.4-10.4); Monocytes # 0.8 10^3/uL (0.2-0.9); Monocytes % 8.3 %; Neutrophils # 6.56 10^3/uL (1.8-7.7); Neutrophils % 69.7 %; Nucleated Red Blood Cells % 0 %; Platelet Count 295 10^3/cmm (157-399); Red Blood Count 2.93 10^6/uL (3.85-5.65); Red Cell Distribution Width 14.5 % (12.1-15.1); White Blood Count 9.42 10^3/uL (3.29-11.43)
[2024-01-02 05:55] LABS: Blood Urea Nitrogen 4 mg/dL (6-20); C Reactive Protein 13.9 mg/L (0.0-4.9); Calcium 8.2 mg/dL (8.5-10.5); Carbon Dioxide 20 mmol/L (22-29); Chloride 105 mmol/L (98-107); Creatinine Clr Calc Pharmacy 137.9607; Glomerular Filtration Rate 132.2 mL/min (90-130); Glucose 103 mg/dL (65-115); Magnesium 2.2 mg/dL (1.7-2.3); Osmolality Calculated 285 mOsm/kg (285-295); Phosphorus 5.4 mg/dL (2.5-4.5); Sodium 139 mmol/L (136-145)
[2024-01-02] MEDS: metoclopramide 5 mg/mL SDV 2 mL IVP (06:34)
--- NOTE | 2024-01-02 11:01 | USR_ITS ---
PROCEDURE INFORMATION: Exam: US Pelvis, Transvaginal Exam date and time: 01/02/2024 1:34 PM Age: 48 years old Clinical indication: Menstruation abnormalities; Excessive menstruation; Additional info: Excessive vaginal for 5 weeks, endometrial thickness measurements LABS AND CLINICAL REPORTS: Last menstrual period start date: 12/04/2023 TECHNIQUE: Imaging protocol: Real-time transvaginal pelvic ultrasound with image documentation. Transvaginal imaging was used for better evaluation of the endometrium, adnexa, and/or cervix. COMPARISON: CT abdomen pelvis w con* [id number] 01/01/2024 6:52 PM FINDINGS: Uterus: Uterus is normal. The uterus measures 8.7 x 4.0 x 4.7 cm. Endometrial stripe measures up to 0.5 cm in thickness. Endometrial stripe is normal. Prominent nabothian cyst measuring up to 2.3 cm. Right ovary/adnexa: Normal. No mass. Normal ovarian blood flow. Right ovary measures 2.2 x 1.4 x 2.5 cm. Simple appearing right ovarian cyst measuring up to 1.6 cm. Left ovary/adnexa: The left ovary is not identified on this study. Intraperitoneal space: No free fluid. US/US transvaginal [id number] IMPRESSION: Unremarkable uterus and right ovary. The left ovary is not identified. Recommend clinical correlation and follow up imaging as clinically warranted.
[2024-01-02 11:05] LABS: Amphetamines Screen Urine Negative (Negative); Barbiturates Screen Urine Negative (Negative); Benzodiazepines Screen Urine Positive (Negative); Cocaine Screen Urine Negative (Negative); Opiate Screen Urine Negative (Negative); PCP Screen Urine Negative (Negative); THC Screen Urine Negative (Negative)
[2024-01-02 11:12] LABS: Alcohol Level < 10 mg/dL (0-10)
--- NOTE | 2024-01-02 11:49 | CTR_ITS ---
PROCEDURE INFORMATION: Exam: CT Head Without Contrast Exam date and time: 01/02/2024 12:02 PM Age: 48 years old Clinical indication: Other: Intractable n/v, julia hand numbness TECHNIQUE: Imaging protocol: Computed tomography of the head without contrast. Radiation optimization: All CT scans at this facility use at least one of these dose optimization techniques: automated exposure control; mA and/or kV adjustment per patient size (includes targeted exams where dose is matched to clinical indication); or iterative reconstruction. COMPARISON: No relevant prior studies available. RADIATION DOSE METRICS: Total DLP (mGy-cm): 992.4 FINDINGS: Brain: No acute intracranial hemorrhage. No confluent lobar infarct. No mass effect. Cerebral ventricles: The ventricles and sulci are normal in size and shape for the patient's stated age. Paranasal sinuses: Visualized sinuses are unremarkable. No fluid levels. Mastoid air cells: Visualized mastoid air cells are well aerated. Bones/joints: Unremarkable. No acute fracture. Soft tissues: Visualized soft tissues are unremarkable. CT/CT head wo con* [id number] IMPRESSION: No acute intracranial abnormality. If symptoms persist, consider further evaluation with MRI, if MRI is clinically safe to obtain.
[2024-01-02 11:54] LABS: Platelet Count 253 10^3/cmm (157-399)
--- NOTE | 2024-01-02 12:03 | P.PN_ITS ---
Subjective 2 Subjective: Admitted overnight. H&P and labs appreciated. On examination patient in significant distress from nausea, back pain and paresthesias in her arms and legs. Not able to tolerate anything orally as per the nurse. Patient denies any chest pain. States she has not had anything to eat for over 5 weeks. Vitals/I&O/Wt Last Vital Signs Temp 98.3 F 01/02/24 11:46 Pulse 82 01/02/24 11:46 Resp 15 01/02/24 11:46 BP 126/78 01/02/24 11:46 Pulse Ox 97 01/02/24 11:46 O2 Del Method Room Air 01/02/24 11:46 01/01/24 01/02/24 01/02/24 22:59 06:59 14:59 Intake Total 798.5106 / 798.5106 3047 / 3047 Output Total 100 / 100 Balance 698.5106 / 698.5106 3047 / 3047 Weight last 48 hrs Weight 78.471 kg Weight 78.471 kg Weight 78.471 kg Physical Exam 2 Narrative: General: Distress because of back pain, nausea and paresthesia, AO x 3, mildly anxious, dehydrated, chapped lips HEENT: PERRLA, pupils bilaterally equal and reactive Chest: Normal vesicular breath sounds, no added sounds, equal good air entry bilaterally CVS: S1-S2 regular, no murmurs, no tachycardia, no gallops, no rubs Abdomen: Soft, nontender, no organomegaly, bowel sounds present, no right renal angle tenderness Neuro: No focal deficits, no facial deformity, AO x3, power 5/5 in all limbs Data 01/02/24 11:31 01/02/24 04:12 Micro: Microbiology 01/01/24 20:32 Blood Culture - Preliminary Blood SPECIMEN COLLECTED 01/01/24 20:27 Blood Culture - Preliminary Blood SPECIMEN COLLECTED A&P Assessment and plan (1) Intractable nausea and vomiting: For admission in the last 5 weeks. Patient has had multiple investigations within the last 5 weeks including endoscopy which showed gastritis and duodenitis, cholecystectomy for acalculous cholecystitis within the last 2 weeks. Patient unable to tolerate orally for last 5 weeks. States she was not able to eat anything solid. Patient does have UTI currently. But given ongoing symptoms for last 5 weeks etiology unsure for now. No concerns for uremia, thyroid levels recently, no concerns for DKA. Check parathyroid levels, urine drug screen, alcohol level, CT head to rule out hydrocephalus or pseudotumor cerebri. Check urine Legionella and bacterial antigens. Continue with Protonix IV twice daily. Hold off on Carafate as patient is not able to tolerate orally. Continue with Zofran as needed. Add Ativan IV 0.5 every 8 as needed, scopolamine patch. N.p.o. for now. IV hydration with normal saline with 20 mEq of potassium at 75 cc/h. Did discuss with the patient that if she does not improve within next 48 hours we should most likely transfer her to a higher center for gastroenterology workup and unfortunately we do not have parks recreation coordinator in our hospital. (2) Acute pancreatitis: Most likely in setting of aggressive nausea and vomiting. Patient is postoperative for cholecystitis. Appreciate CT abdomen pelvis done in the ER. Treatment conservative as above. Qualifiers: Acute pancreatitis complication: unspecified Pancreatitis type: u nspecified pancreatitis type Qualified Code(s): K85.90 - Acute pancreatitis without necrosis or infection, unspecified (3) Acute cystitis: Appreciate urinalysis. Follow-up blood culture and urine culture. Continue with IV Zosyn. Morphine 1 mg every 4 hours as needed (4) Vaginal bleeding: Ongoing for last 5 weeks. Heavy as per patient. Uncommon for her. Usually she has. Sounds every couple of months. Will consult [facility]. Plan for transvaginal ultrasound for measurement of endometrial thickness. Check coagulation profile, PT/INR. (5) Acute hypokalemia: In setting of intractable nausea and vomiting. Replete with 80 mg IV along with 20 mg and fluid. Repeat potassium level later in the day. (6) Paresthesia and pain of both upper extremities: Most likely in setting of malnutrition from poor oral intake, multiple nausea and vomiting. Check thiamine level. Vitamin B12 are normal. Thiamine 100 mg IV daily. (7) Malnutrition: Most likely in setting of poor intake in last 5 weeks. Hypokalemia, hyponatremia, hypomagnesemia and hypophosphatemia on admission. Vitamin B12 is normal. Check thiamine levels. Electrolyte replacement. Banana bag followed by TPN. Dietitian consult. Plan Full code N.p.o. Protonix will be sufficient for PUD prophylaxis Hold off on medical prophylaxis for DVT given ongoing vaginal bleeding. SCDs. Attestations 2 Medical Necessity Statement*: Requires further hospitalization for management of intractable nausea and vomiting for last 5 weeks associated with malnutrition, dehydration, multiple electrolyte abnormalities, vaginal bleeding Diagnoses Intractable nausea and vomiting R11.2 Acute pancreatitis K85.90 Acute pancreatitis complication: unspecified Pancreatitis type: unspecified pancreatitis type Acute cystitis N30.00 Vaginal bleeding N93.9 Acute hypokalemia E87.6 Paresthesia and pain of both upper extremities R20.2; M79.601; M79.602 Malnutrition E46
[2024-01-02 12:08] LABS: Partial Thromboplastin Time 30.6 SECONDS (23.9-36.7)
[2024-01-02 12:09] LABS: Fibrinogen 386 mg/dL (174-498)
--- NOTE | 2024-01-02 12:10 | XR_ITS ---
WS: [id number] Portable AP semiupright chest, 01/02/2024 Clinical Data: Post PICC insertion Comparison: Two-view chest, 06/30/2021 Findings: The right PICC line enters the superior vena cava and ends at the caval atrial junction. No pneumothorax is seen. Impression: Satisfactory insertion of right PICC line.
[2024-01-02 12:27] LABS: Potassium 2.9 mmol/L (3.5-5.1)
[2024-01-02] MEDS: scopolamine 1.5 Patch 1 PATCH TRANSDERMA (12:43)
[2024-01-02] MEDS: lidocaine 1% 5 ML in potassium chloride premix 100 ML 26.25 ML IV ×2 (12:46→17:35)
[2024-01-02] MEDS: folic acid 1 MG, multivitamin inj 10 ML, thiamine 100 MG in sodium chloride 0.9% 1,000 ML 252.800000000000011 MG IV (12:46)
[2024-01-02 13:00] LABS: Parathyroid Hormone 121.1 pg/mL (15-65)
--- NOTE | 2024-01-02 13:00 | PC.NURSE ---
Triple lumen PICC placed to right basilc vein. Referred to vascular access nurse for PICC placment for TPN. Risks and benefits, including phlebitis, DVT, and infection, discussed and informed consent obtained from patient. Right arm assessed with right basilic vein measuring 6.1 mm, straight, and apparent best choice for placement. Using sterile technique and MST, right basilic vein accessed x 1 stick. Mid-arm circumference measured 10 cm from right AC 28 cm. Trimmed cath 44 cm with 1 cm external length noted. CXR shows tip in SVC, cavoatrial junction, in good position for use per radiologist. Line secured with stat-lock. Insertion site covered with Biopatch and TSM. Report given to bedside nurseKatherine.
[2024-01-02] MEDS: sodium chlor 0.9% + KCl 20 mEq 20 MEQ/1,000 ML BAG 75 MEQ IV (13:07)
[2024-01-02] MEDS: LORazepam 2 mg/mL INJ 10 mL MDV 0.5 MG IVP (14:36)
[2024-01-02] MEDS: morphine 4 mg/mL SDV 1 mL 1 MG IVP ×2 (14:37→21:00)
[2024-01-02] MEDS: AA-Dex 4.25%-5% w/Lytes 1,000 ML with multivitamin inj 5 ML 83 ML IV (15:31)
[2024-01-02 18:07] LABS: Ionized Calcium 1.1 mmol/L (1.1-1.4)
[2024-01-02 18:11] LABS: 25 Hydroxy Vitamin D 6 ng/mL (30-100)
--- NOTE | 2024-01-02 19:09 | PM.OBGYCN ---
Providers/Reason for Consult Consulting Physican/Specialty*: Hospitalist: Dr. 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 She is status post cholecystectomy. She referred to ligation years ago, denies being sexually active. Review of Systems General: Reports: 10 or more systems reviewed and unremarkable except in HPI and below Const: Denies: fever(s) or chills ENMT: Denies: throat pain Card: Denies: chest pain Resp: Denies: dyspnea, productive cough or non-productive cough GI: Denies: abdominal pain : Reports: vaginal bleeding and irregular period; Denies: flank pain, difficulty voiding, dysuria, urinary frequency, urinary urgency, urinary incontinence, genital lesions, genital pruritis, vaginal dryness, vaginal odor, vaginal discharge, dysmenorrhea, metrorrhagia, amenorrhea, pelvic pain, prolapse symptoms or dyspareunia Medications/Allergies Home Medications Medication Instructions Recorded Confirmed Last Taken Type folic acid 1 mg tablet 1 mg PO DAILY 30 days #30 tabs 12/14/23 01/02/24 12/31/23 Rx pantoprazole 40 mg tablet,delayed 40 mg PO DAILY #60 tabs 12/14/23 01/02/24 12/31/23 Rx release (Protonix) sucralfate 100 mg/mL oral 10 ml PO QID PRN gastritis 12/26/23 01/02/24 12/31/23 History suspension ondansetron HCl 4 mg tablet 4 mg PO Q8H PRN Nausea #30 tabs 12/28/23 01/02/24 Unknown Rx Allergies Allergy/AdvReac Type Severity Reaction Status Date / Time cephalexin [From Keflex] Allergy ADR-Itching Verified 12/25/23 20:17 Current Medications Generic Name Dose Route Start Last Admin Trade Name Freq PRN Reason Stop Dose Admin Piperacillin Sod/Tazobactam 50 mls @ 12.5 mls/hr 01/01/24 23:00 01/02/24 17:25 Sod 3.375 gm/ Sodium Chloride IV Infused Q8H [facility] Infusion Potassium Chloride/Sodium Chloride 20 meq in 1,000 mls @ 32 mls/hr 01/02/24 11:00 01/02/24 17:25 Sodium Chlor 0.9% + Kcl 20 Meq IV 32 mls/hr .Q24H [facility] Infusion Lidocaine HCl 5 ml/ Potassium 105 mls @ 26.25 mls/hr 01/02/24 11:00 01/02/24 17:35 Chloride IV 01/02/24 20:59 26.25 mls/hr Q4H [facility]IO Administration Multivitamins 5 ml/ AA-Dex 4. 1,005 mls @ 43 mls/hr 01/02/24 15:00 01/02/24 17:25 25%-5% w/Lytes IV 43 mls/hr .[id number] [facility] Infusion Protocol fat emulsions 20% 100 mls @ 8.333 mls/hr 01/02/24 15:00 01/02/24 15:26 Intralipid 20% IV 8.33 mls/hr Q24H MACARIO Administration Lanolin 1 applic 01/02/24 03:51 01/02/24 04:02 Lanolin Oint 7 Gm TOPICAL 1 applic PRN PRN Administration DRYNESS Lorazepam 0.5 mg 01/02/24 10:52 01/02/24 14:36 Lorazepam 2 Mg/Ml Inj 10 Ml Mdv IVP 0.5 mg Q8H PRN Administration ANXIETY Morphine Sulfate 1 mg 01/02/24 10:47 01/02/24 14:37 Morphine 4 Mg/Ml Sdv 1 Ml IVP 1 mg Q4H PRN Administration SEVERE PAIN Ondansetron HCl 4 mg 01/01/24 22:03 01/02/24 10:58 Ondansetron 2 Mg/Ml Sdv 2 Ml IVP 4 mg Q6H PRN Administration NAUSEA AND VOMITING Pantoprazole Sodium 40 mg 01/01/24 23:00 01/02/24 17:35 Pantoprazole 40 Mg Sdv IVP 40 mg BID [facility] Administration Scopolamine 1 patch 01/02/24 12:00 01/02/24 12:43 Scopolamine 1.5 Patch TRANSDERMA 1 patch Q3D [facility] Administration Thiamine HCl 100 mg 01/02/24 10:45 01/02/24 11:57 Thiamine 100 Mg/Ml Sdv IVP Not Given DAILY [facility] 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: Medical History (Updated 01/02/24 @ 19:10 by Huber Sen MD) Acalculous cholecystitis section wound seroma, Surgical History S/P right knee arthroscopy Family History Other CAD (coronary artery disease) Diabetes Social History Smoking and tobacco/nicotine status: never used tobacco/nicotine Alcohol intake: current Alcohol intake frequency: holidays/special occasions only Vitals/I&O/Wt Last Vital Signs Temp 98.4 F 01/02/24 16:00 Pulse 82 01/02/24 16:00 Resp 15 01/02/24 16:00 BP 129/78 01/02/24 16:00 Pulse Ox 99 01/02/24 16:00 O2 Del Method Room Air 01/02/24 16:00 01/02/24 01/02/24 01/02/24 06:59 14:59 22:59 Intake Total 798.5106 / 798.5106 3047 / 3047 1507.65 / 4554.65 Output Total 100 / 100 Balance 698.5106 / 698.5106 3047 / 3047 1507.65 / 4554.65 Weight last 48 hrs Weight 78.471 kg Weight 78.471 kg Weight 78.471 kg Physical Exam Const: COMMON NORMALS: no acute distress, average body habitus and patient oriented x3 GENERAL APPEARANCE: cooperative and well kempt HENMT: COMMON NORMALS: normocephalic and atraumatic HEAD & SCALP: normocephalic and atraumatic Neck/C-Spine: COMMON NORMALS: full ROM Chest: COMMONS NORMALS: normal inspection of the chest Resp: COMMON NORMALS: normal respiratory effort Cardio: COMMON NORMALS: regular rate and regular rhythm RATE: regular rate RHYTHM: regular rhythm GI: INSPECTION: Yes normal to inspection Neuro: COMMON NORMALS: patient oriented x3 Psych: APPEARANCE: Yes well kempt Data 01/02/24 11:31 01/02/24 11:31 Micro: Microbiology 01/01/24 20:32 Blood Culture - Preliminary Blood SPECIMEN COLLECTED 03/19/24 20:27 Blood Culture - Preliminary Blood SPECIMEN COLLECTED A&P Assessment and plan (1) Abnormal uterine bleeding (AUB): Mrs. Sparks 48-year-old female G2, P2 referring she has been bleeding for 5 weeks. She also refers a history of abnormal uterine bleeding with menses lasting 2 weeks. She was counseled regarding most common causes of excessive menstrual bleeding are: anovulation, abnormal growths in the uterus, such as polyps or fibroids, and bleeding disorders. Evaluation entails blood tests to look for a bleeding disorder, anemia, or thyroid disease, a pelvic ultrasound, which can detect endometrial polyps and fibroids, an endometrial biopsy or a hysteroscopy. Treatment options are medical treatment and surgical treatment. But the best treatment of heavy menstrual bleeding will depend on the cause of the bleeding and the patient?s preferences with need to prevent or desire to have children in the future. Medical treatment can be Hormonal control, (the pill, skin patch, vaginal ring, shot, hormonal IUD, and implant), Antifibrinolytic medicines, Non-steroidal anti-inflammatory drugs, Progestin pills, GnRH agonists. Surgical treatment also depends on the cause of AUB and may be myomectomy, endometrial ablation and a hysterectomy. Plan Transvaginal ultrasound IV estrogen until bleeding stops. Coding Level [facility] Care Code [facility] Diagn[facility] Abnormal uterine bleeding (AUB) N93.9
[2024-01-02] MEDS: estrogens Conjugated 25 mg/5 mL SDV IVP (20:27)
[2024-01-02 22:53] LABS: Glucose Point of Care 100 mg/dL (70-110)
[2024-01-02 22:56] LABS: Calcium Urine Random 19.7 mg/dL
[2024-01-03] VITALS (9 sets, daily range): BP systolic 120–146; BP diastolic 79–91; PULSE 77–102; RESP 15–18; TEMP 36.3–36.9; O2SAT 92–99
[2024-01-03] MEDS: LORazepam 2 mg/mL INJ 10 mL MDV 0.5 MG IVP ×2 (01:06→12:00)
[2024-01-03] MEDS: morphine 4 mg/mL SDV 1 mL 1 MG IVP ×4 (01:39→21:36)
[2024-01-03] MEDS: estrogens Conjugated 25 mg/5 mL SDV IVP ×3 (02:29→22:15)
[2024-01-03] MEDS: piperacillin-tazobactam 3.375 GM in sodium chloride 0.9% (plus) 50 ML IV ×3 (04:02→20:07)
[2024-01-03 05:18] LABS: Basophils # 0.1 10^3/uL (0.0-0.1); Basophils % 1.4 %; Eosinophils # 0.3 10^3/uL (0.0-0.8); Eosinophils % 4.3 %; Hematocrit 28.6 % (36-47); Lymphocytes # 1.3 10^3/uL (0.8-4.8); Lymphocytes % 20.1 %; Mean Corpuscular HGB Conc 33.6 g/dL (30-55); Mean Corpuscular Hemoglobin 36.2 pg (27-33); Mean Corpuscular Volume 107.9 fl (85-98); Mean Platelet Volume 12.2 fL (7.4-10.4); Monocytes # 0.5 10^3/uL (0.2-0.9); Monocytes % 8.2 %; Neutrophils # 4.27 10^3/uL (1.8-7.7); Neutrophils % 65.8 %; Nucleated Red Blood Cells % 0 %; Platelet Count 232 10^3/cmm (157-399); Red Blood Count 2.65 10^6/uL (3.85-5.65); Red Cell Distribution Width 14.7 % (12.1-15.1); White Blood Count 6.48 10^3/uL (3.29-11.43)
[2024-01-03 05:40] LABS: Cholesterol 115 mg/dL (0-200); HDL Cholesterol 41 mg/dL (60-100); LDL Cholesterol Calculated 58 mg/dL (50-129); Magnesium 1.8 mg/dL (1.7-2.3); Phosphorus 3.1 mg/dL (2.5-4.5); Triglycerides 82 mg/dL (0-150); VLDL Cholestrol Calculation 16 mg/dL (0-30)
[2024-01-03 05:43] LABS: Alanine Aminotransferase 24 U/L (0-33); Albumin Level 2.8 g/dL (3.5-5.2); Alkaline Phosphatase 119 U/L (35-105); Anion Gap 12.9 (5-19); Aspartate Amino Transferase 47 U/L (0-32); Blood Urea Nitrogen 5 mg/dL (6-20); Calcium 7.7 mg/dL (8.5-10.5); Carbon Dioxide 23 mmol/L (22-29); Chloride 108 mmol/L (98-107); Globulin 2.5 g/dL (1.3-4.6); Glomerular Filtration Rate 171.1 mL/min (90-130); Glucose 92 mg/dL (65-115); Osmolality Calculated 287 mOsm/kg (285-295); Potassium 3.9 mmol/L (3.5-5.1); Sodium 140 mmol/L (136-145); Total Bilirubin 0.8 mg/dL (0.15-1.2); Total Protein 5.3 g/dL (6.6-8.7)
[2024-01-03 05:45] LABS: Creatinine Clr Calc Pharmacy 172.4509
[2024-01-03 06:02] LABS: Glucose Point of Care 103 mg/dL (70-110)
[2024-01-03 06:05] LABS: Folate Level 5.8 ng/mL (4.8-37.3)
[2024-01-03] MEDS: pantoprazole 40 mg SDV IVP ×2 (09:01→16:32)
[2024-01-03] MEDS: ondansetron 2 mg/ML SDV 2 mL 4 MG IVP (09:02)
[2024-01-03] MEDS: tranexamic acid 1,000 MG/100 ML PREMIX 600 MG IV (10:03)
[2024-01-03] MEDS: ergocalciferol (vitamin D2) 50,000 Unit Capsule 50000 UNIT PO (10:04)
[2024-01-03] MEDS: AA-Dex 4.25%-5% w/Lytes 1,000 ML with multivitamin inj 5 ML 83 ML IV ×2 (11:21→23:20)
[2024-01-03] MEDS: gabapentin 100 mg Capsule PO ×3 (11:31→20:52)
--- NOTE | 2024-01-03 17:13 | PM.PN ---
Subjective Subjective: Noted events overnight. Patient states she is nauseous but less than before no episodes of vomiting. Continues to have numbness, tingling and [id number] in her bilateral hands and legs. Agreeable to trial of liquid diet. Was able to hold her oral medications today Vitals/I&O/Wt Last Vital Signs Temp 98.5 F 01/03/24 16:00 Pulse 89 01/03/24 16:00 Resp 15 01/03/24 16:00 BP 138/88 01/03/24 16:00 Pulse Ox 97 01/03/24 16:00 O2 Del Method Room Air 01/03/24 16:00 01/03/24 01/03/24 01/03/24 06:59 14:59 22:59 Intake Total 698.967 / 5358.617 348.333 / 348.333 Output Total 1100 / 1400 575 / 575 Balance -401.033 / 3958.617 -226.667 / -226.667 Weight last 48 hrs Weight 78.471 kg Weight 78.471 kg Weight 78.471 kg Physical Exam Narrative: General: Distress because of back pain, nausea and paresthesia, AO x 3, mildly anxious, dehydrated, chapped lips HEENT: PERRLA, pupils bilaterally equal and reactive Chest: Normal vesicular breath sounds, no added sounds, equal good air entry bilaterally CVS: S1-S2 regular, no murmurs, no tachycardia, no gallops, no rubs Abdomen: Soft, nontender, no organomegaly, bowel sounds present, no right renal angle tenderness Neuro: No focal deficits, no facial deformity, AO x3, power 5/5 in all limbs Data 01/03/24 04:18 01/03/24 04:18 Micro: Microbiology 01/01/24 18:12 Urine Culture - Preliminary Urine,Clean Catch 01/02/24 20:11 Bacterial Antigens - Final Urine Kidney 01/02/24 20:11 Legionella Urinary Antigen - Final Unknown Source 01/01/24 20:32 Blood Culture - Preliminary Blood NEGATIVE TO DATE 01/01/24 20:27 Blood Culture - Preliminary Blood NEGATIVE TO DATE A&P Assessment and plan (1) Intractable nausea and vomiting: For admission in the last 5 weeks. Patient has had multiple investigations within the last 5 weeks including endoscopy which showed gastritis and duodenitis, cholecystectomy for acalculous cholecystitis within the last 2 weeks. Patient unable to tolerate orally for last 5 weeks. States she was not able to eat anything solid. Patient does have UTI currently. But given ongoing symptoms for last 5 weeks etiology unsure for now. No concerns for uremia, thyroid levels recently, no concerns for DKA. Urine drug screen negative, alcohol level negative, CT head negative for hydrocephalus pseudotumor cerebri, urine Legionella and bacterial antigen negative. Parathyroid levels elevated. Could be a cause of her persistent nausea and vomiting. Continue with IV Protonix twice daily, holding off on Carafate. Continue with Zofran as needed, Ativan 0.5 every 12 as needed, scopolamine patch. Advance to clear liquid diet for now. Advised to take multiple small meals. As patient has persistent mild liver dysfunction, persistent nausea and vomiting leading to dehydration and malnutrition will look for less common etiologies. Certainly hypothyroidism can cause persistent nausea and vomiting. Will rule out sphincter of 4 diet dysfunction with MRCP, check for autoimmune disorder and alpha gal disorder. Did discuss with the patient that if she does not improve within next 48 hours we should most likely transfer her to a higher center for gastroenterology workup and unfortunately we do not have manager integrated in our hospital. (2) Acute pancreatitis: Most likely in setting of aggressive nausea and vomiting. Patient is postoperative for cholecystitis. Appreciate CT abdomen pelvis done in the ER. Treatment conservative as above. MRCP will also help with further evaluation. Qualifiers: Acute pancreatitis complication: unspecified Pancreatitis type: unspecified pancreatitis type Qualified Code(s): K85.90 - Acute pancreatitis without necrosis or infection, unspecified (3) Acute cystitis: Appreciate urinalysis. Urine cultures for now negative, blood culture pending. Continue with IV Zosyn. Morphine 1 mg every 4 hours as needed (4) Hyperparathyroidism , secondary, non-renal: Appreciate PTH levels. Most likely in setting of severe vitamin D deficiency. (5) Vitamin D deficiency: Replace vitamin D 50,000 units q. weekly for next 8 weeks. (6) Vaginal bleeding: Ongoing for last 5 weeks. Heavy as per patient. Uncommon for her. Usually she has. Sounds every couple of months. Appreciate TINNING EQUIPMENT TENDER recommendations. Appreciate transvaginal ultrasound results. Plan for transonic acid. Estrogen when available every 6 hour till bleeding persist. Coagulation profile appreciated. (7) Paresthesia and pain of both upper extremities: Most likely in setting of malnutrition from poor oral intake, multiple nausea and vomiting. Check thiamine level. Vitamin B12 are normal. Thiamine 100 mg IV daily. If symptoms persist given presence of severe vitamin D deficiency will plan for CT cervical and thoracolumbar spine to rule out pathological fractures. (8) Malnutrition: Most likely in setting of poor intake in last 5 weeks. Hypokalemia, hyponatremia, hypomagnesemia and hypophosphatemia on admission. Currently resolved. Vitamin B12 is normal. Timing levels pending. Electrolyte replacement. Continue with TPN. Dietitian consult. (9) Acute hypokalemia: Resolved. Continue to monitor daily. Continue with TPN. Plan Full code Clear liquid diet Protonix will be sufficient for PUD prophylaxis Hold off on medical prophylaxis for DVT given ongoing vaginal bleeding. SCDs. Attestations Medical Necessity Statement*: Requires further hospitalization for management of intractable nausea and vomiting leading to malnutrition, dehydration, cystitis, hyperparathyroidism with severe vitamin D deficiency leading to paresthesias of upper and lower limb. Diagnoses Intractable nausea and vomiting R11.2 Acute pancreatitis K85.90 Acute pancreatitis complication: unspecified Pancreatitis type: unspecified pancreatitis type Acute cystitis N30.00 Hyperparathyroidism , secondary, non-renal E21.1 Vitamin D deficiency E55.9 Vaginal bleeding N93.9 Paresthesia and pain of both upper extremities R20.2; M79.601; M79.602 Malnutrition E46 Acute hypokalemia E87.6
--- NOTE | 2024-01-03 19:05 | PC.NURSE ---
This nurse noticed that the fat emulsions were documented at a rate of 100 mls/hr today when started. Upon inspection of the pump and fluids, they were noted to be running at 8.3 mls/hr. Fat emulsions are due to be infused tomorrow at approximately 0439 01/04/24.
[2024-01-03] MEDS: ropinirole 0.25 mg Tablet 0.5 MG PO (20:52)
[2024-01-03 21:39] LABS: Total Volume Urine 3100 ml; Urine Calcium Result 10.4 mg/dL
[2024-01-03 21:40] LABS: Calcium 24 Hour Urine 322 mg/24hr (100-300)
[2024-01-04] VITALS (9 sets, daily range): BP systolic 109–138; BP diastolic 69–91; PULSE 84–115; RESP 15–18; TEMP 36.3–36.8; O2SAT 96–100; BMI 30.8
[2024-01-04] MEDS: LORazepam 2 mg/mL INJ 10 mL MDV 0.5 MG IVP ×3 (01:50→22:06)
[2024-01-04] MEDS: estrogens Conjugated 25 mg/5 mL SDV IVP (04:25)
[2024-01-04] MEDS: morphine 4 mg/mL SDV 1 mL 1 MG IVP ×3 (04:27→19:58)
[2024-01-04] MEDS: piperacillin-tazobactam 3.375 GM in sodium chloride 0.9% (plus) 50 ML IV ×2 (04:27→12:57)
[2024-01-04 05:35] LABS: Basophils # 0.1 10^3/uL (0.0-0.1); Basophils % 0.8 %; Eosinophils # 0.4 10^3/uL (0.0-0.8); Eosinophils % 2.6 %; Hematocrit 29.8 % (36-47); Lymphocytes # 1.4 10^3/uL (0.8-4.8); Lymphocytes % 10.1 %; Mean Corpuscular HGB Conc 34.2 g/dL (30-55); Mean Platelet Volume 12.4 fL (7.4-10.4); Monocytes # 0.8 10^3/uL (0.2-0.9); Monocytes % 5.7 %; Neutrophils # 10.92 10^3/uL (1.8-7.7); Neutrophils % 80.4 %; Nucleated Red Blood Cells % 0 %; Platelet Count 255 10^3/cmm (157-399); Red Blood Count 2.76 10^6/uL (3.85-5.65); Red Cell Distribution Width 14.6 % (12.1-15.1); White Blood Count 13.58 10^3/uL (3.29-11.43)
[2024-01-04 05:52] LABS: Alanine Aminotransferase 23 U/L (0-33); Albumin Level 3.1 g/dL (3.5-5.2); Alkaline Phosphatase 135 U/L (35-105); Anion Gap 15.5 (5-19); Aspartate Amino Transferase 66 U/L (0-32); Blood Urea Nitrogen 6 mg/dL (6-20); Calcium 8.2 mg/dL (8.5-10.5); Carbon Dioxide 23 mmol/L (22-29); Chloride 103 mmol/L (98-107); Creatinine Clr Calc Pharmacy 230.5991; Globulin 2.9 g/dL (1.3-4.6); Glomerular Filtration Rate 238.5 mL/min (90-130); Glucose 116 mg/dL (65-115); Osmolality Calculated 283 mOsm/kg (285-295); Potassium 4.5 mmol/L (3.5-5.1); Sodium 137 mmol/L (136-145); Total Bilirubin 0.9 mg/dL (0.15-1.2)
[2024-01-04 05:56] LABS: Magnesium 1.9 mg/dL (1.7-2.3); Phosphorus 2.9 mg/dL (2.5-4.5)
--- NOTE | 2024-01-04 08:19 | CTR_ITS ---
PROCEDURE INFORMATION: Exam: CT Lumbar Spine Without Contrast Exam date and time: 01/04/2024 9:55 AM Age: 48 years old Clinical indication: Low back pain; Additional info: Radiculopathy b/l TECHNIQUE: Imaging protocol: Computed tomography of the lumbar spine without contrast. Radiation optimization: All CT scans at this facility use at least one of these dose optimization techniques: automated exposure control; mA and/or kV adjustment per patient size (includes targeted exams where dose is matched to clinical indication); or iterative reconstruction. COMPARISON: CT abdomen pelvis w con* [id number] 01/01/2024 6:52 PM RADIATION DOSE METRICS: Total DLP (mGy-cm): 717.39 FINDINGS: Bones/joints: No fracture. No malalignment. No destructive bony process identified. Mild bilateral L4-L5 and L5-S1 primary facet osteoarthritis. Asymmetric left posterior L5-S1 spondylosis with moderate lateral recess stenosis, possible descending S1 root mild impingement at the origin of the root sheath (series 7, image 95; series 10, image 30). Superior L5 vertebral body chronic endplate herniations. Small L3 through L5 anterior vertebral body marginal osteophytes. Liver: Moderate diffuse hypoattenuation of the liver is present consistent with hepatic steatosis. Soft tissues: Unremarkable. CT/CT lumbar spine wo con* [id number] IMPRESSION: 1. Left L5-S1 lateral recess stenosis secondary to spondylosis. Clinical correlation to assess for any left S1 root specific symptomatology is recommended as above. 2. Fatty infiltration of the liver.
--- NOTE | 2024-01-04 08:19 | CTR_ITS ---
PROCEDURE INFORMATION: Exam: CT Cervical Spine Without Contrast Exam date and time: 01/04/2024 9:52 AM Age: 48 years old Clinical indication: Neck pain; Additional info: Parasthesia of b/l upper limb TECHNIQUE: Imaging protocol: Computed tomography of the cervical spine without contrast. Radiation optimization: All CT scans at this facility use at least one of these dose optimization techniques: automated exposure control; mA and/or kV adjustment per patient size (includes targeted exams where dose is matched to clinical indication); or iterative reconstruction. COMPARISON: CT head wo con* [id number] 01/02/2024 12:02 PM RADIATION DOSE METRICS: Total DLP (mGy-cm): 175.47 FINDINGS: Bones/joints: No fracture. No malalignment. No destructive bony process identified. Mild C3-C4 spondylosis with moderate right and moderately severe left neural foraminal stenosis. Small left anterior C4-C5 disc protrusion suspected without suspicion of cord impingement. C5-6 degenerative disc disease with moderate spondylosis, severe right neural foraminal stenosis, no spinal canal stenosis. C6-7 degenerative disc disease with mild spondylosis, severe left neural foraminal stenosis, no spinal canal stenosis. Lungs: Lung apices demonstrate mild bilateral apical pulmonary parenchymal scarring. Soft tissues: Unremarkable. CT/CT cervical spin wo con* [id number] IMPRESSION: 1. Degenerative changes as above, possibly including small left central C4-C5 disc protrusion.. 2. No acute cervical spinal bony abnormality identified.
--- NOTE | 2024-01-04 08:23 | ECG_ITS ---
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 Measurements Intervals [place] Rate: 96 P: 56 MD: 145 QRS: 39 QRSD: 84 T: 23 QT: 389 QTc: 493 Interpretive Statements SINUS RHYTHM MODERATE ST DEPRESSION [0.05+ mV ST DEPRESSION] Compared to ECG 06/30/2021 22:00:02 ST (T wave) deviation now present Electronically Signed On 01-05-2024 16:00:10 CDT by Michael Oneill M.D. [id number]
[2024-01-04] MEDS: pantoprazole 40 mg SDV IVP ×2 (09:00→20:00)
[2024-01-04] MEDS: gabapentin 100 mg Capsule PO ×3 (09:00→20:00)
--- NOTE | 2024-01-04 09:03 | PC.CHAP ---
Pastoral Care Encounter/Spiritual Assessment Type of Contact [] Declined gum dipper visit [] Patient/Family/Request visit [] Outpatient visit [] Follow-up visit [] Physician referral [] Code/Alert [] Routine visit [] Staff referral [] Actively dying [] Patient sleeping [] Family support [] [] Out of room [] Palliative care [] [x] Receiving care in room [] Pre-surgical visit [] Trauma [] Long length of stay [] ICU visit [] Other: Relational/Emotional Strength [] Patient feels connected with others/family/visitors/staff [] Distress [] Loneliness/isolation [] Abandonment Spirituality of Patient [] Person of Deisi [] Attends Yazidism of their Deisi [] Believes in Prayer [] Reads Bible or Jew materials [] There are Spiritual issues to be addressed Manager Gallery Interventions [] Prayer [] Active listening [] Non-anxious presence [] Spiritual/emotional support [] Crisis/trauma care [] Spiritual counseling [] Bereavement support [] Provided bereavement packet [] Provided Bible/devotional materials [] Provided toy/stuffed animal, coloring book to patient or family member [] Provided Communion [] Anointing/[place] [] Salvation [] Completed spiritual assessment [] Other: Impact on Illness or Injury [] Angry [] Fearful [] Anxious [] Often cries [] Exhaustion [] Unable to work [] Unable to attend christianity [] Unable to walk/stand [] Unable to read [] Unable to drive [] Unable to eat/drink [] Unable to sleep [] Unable to be with family [] Patient intubated [] Other: Summary Time spent with patient
--- NOTE | 2024-01-04 10:15 | MRR_ITS ---
PROCEDURE INFORMATION: Exam: MR Abdomen Without Contrast Exam date and time: 01/04/2024 6:38 PM Age: 48 years old Clinical indication: Abdominal pain; Prior surgery; Surgery date: 1-6 months; Surgery type: Gallbladder; Additional info: Sphincter of oddi dysfunction TECHNIQUE: Imaging protocol: Magnetic resonance imaging of the abdomen without contrast. COMPARISON: CT abdomen pelvis w con* [id number] 01/01/2024 6:52 PM FINDINGS: Liver: Hepatomegaly with diffuse fatty infiltration. 1.5 cm lobulated lesion in the superior left liver lobe, diffusely increased in T2 signal. This has mild nodular enhancement on the CT. Gallbladder and bile ducts: Cholecystectomy. The bile ducts are normal. No filling defect. The common bile duct measures up to 5 mm. Pancreas: Unremarkable. No ductal dilation. Spleen: Unremarkable. No splenomegaly. Adrenal glands: Unremarkable. No mass. Kidneys and ureters: Unremarkable. No solid mass. No hydronephrosis. Stomach and bowel: Visualized stomach and intestines are unremarkable. Intraperitoneal space: No ascites. Vasculature: No abdominal aortic aneurysm. Bones/joints: Unremarkable. Soft tissues: Unremarkable. MR/MR MRCP [id number] IMPRESSION: 1. No acute findings. 2. Cholecystectomy with normal bile ducts. 3. 1.5 cm probable hemangioma in the superior left liver lobe
[2024-01-04 10:51] LABS: Lactate Dehydrogenase 140 U/L (135-214)
--- NOTE | 2024-01-04 11:50 | PC.NURSE ---
dr. canas gave verbal order to hold ivp premarin
[2024-01-04] MEDS: AA-Dex 4.25%-5% w/Lytes 1,000 ML with multivitamin inj 5 ML 83 ML IV (13:11)
--- NOTE | 2024-01-04 14:37 | P.PN_ITS ---
Subjective 2 Subjective: No acute vents overnight. Continues to have paresthesias and pain in on her extremities. Able to tolerate clear liquid diet and oral medications. Mild nausea. Less dehydrated. Hemodynamically stable and afebrile on room air. Vitals/I&O/Wt Last Vital Signs Temp 97.6 F 01/04/24 11:56 Pulse 107 H 01/04/24 11:56 Resp 17 01/04/24 11:56 BP 109/69 01/04/24 11:56 Pulse Ox 98 01/04/24 11:56 O2 Del Method Room Air 01/04/24 11:56 01/03/24 01/04/24 01/04/24 22:59 06:59 14:59 Intake Total 510 / 593.067 7751.617 / 2242.950 1871.25 / 1871.25 Output Total 1750 / 2325 1200 / 3525 Balance -1240 / -1466.667 184.617 / -2903.515 0965.25 / 1871.25 Weight last 48 hrs Weight 78.925 kg Weight 78.471 kg Physical Exam 2 Narrative: General: In left distress than before, nausea and paresthesia, AO x 3, mildly anxious, HEENT: PERRLA, pupils bilaterally equal and reactive Chest: Normal vesicular breath sounds, no added sounds, equal good air entry bilaterally CVS: S1-S2 regular, no murmurs, no tachycardia, no gallops, no rubs Abdomen: Soft, nontender, no organomegaly, bowel sounds present, no right renal angle tenderness Neuro: No focal deficits, no facial deformity, AO x3, power 5/5 in all limbs Data 01/04/24 04:38 01/04/24 04:38 Micro: Microbiology 01/01/24 18:12 Urine Culture - Final Urine,Clean Catch Escherichia coli 01/02/24 20:11 Bacterial Antigens - Final Urine Kidney A&P Assessment and plan (1) Intractable nausea and vomiting: Seems to be improving. Tolerating clear liquid diet. No vomiting less nausea. Multiple admission in the last 5 weeks. Patient has had multiple investigations within the last 5 weeks including endoscopy which showed gastritis and duodenitis, cholecystectomy for acalculous cholecystitis within the last 2 weeks. Patient unable to tolerate orally for last 5 weeks. States she was not able to eat anything solid. Patient does have UTI currently. But given ongoing symptoms for last 5 weeks etiology unsure for now. No concerns for uremia, thyroid levels recently, no concerns for DKA. Urine drug screen negative, alcohol level negative, CT head negative for hydrocephalus pseudotumor cerebri, urine Legionella and bacterial antigen negative. Parathyroid levels elevated. Could be a cause of her persistent nausea and vomiting. Continue with IV Protonix twice daily, add Carafate liquid before meals and at bedtime Continue with Zofran as needed, Ativan 0.5 every 12 as needed, scopolamine patch. Advance to clear liquid diet for now. Advised to take multiple small meals. As patient has persistent mild liver dysfunction, persistent nausea and vomiting leading to dehydration and malnutrition will look for less common etiologies. Certainly hyperparathyroidism can cause persistent nausea and vomiting. Will rule out sphincter of Oddi dysfunction with MRCP. Alpha gal immunology pending. HAM positive, double-stranded DNA positive, thyroid peroxidase elevated. Patient does have persistent macrocytosis with elevated MCV, anemia. Vitamin B12 and folate levels normal. Given positive HAM, macrocytosis, mild transaminitis will rule out hemolytic anemia with haptoglobin, LDH, Martita. Check ceruloplasmin level to rule out Sacha disease Did discuss with the patient that if she does not improve within next 48 hours we should most likely transfer her to a higher center for gastroenterology workup and unfortunately we do not have special education teaching assistant in our hospital. (2) Acute pancreatitis: Most likely in setting of aggressive nausea and vomiting. Patient is postoperative for cholecystitis. Appreciate CT abdomen pelvis done in the ER. Treatment conservative as above. MRCP will also help with further evaluation. MRCP is still pending. Qualifiers: Acute pancreatitis complication: unspecified Pancreatitis type: u nspecified pancreatitis type Qualified Code(s): K85.90 - Acute pancreatitis without necrosis or infection, unspecified (3) Acute cystitis: Appreciate urinalysis. Urine cultures for now negative, blood culture pending. Switch from Zosyn to IV ceftriaxone as urine cultures are so far negative. Morphine 1 mg every 4 hours as needed (4) Hyperparathyroidism , secondary, non-renal: Appreciate PTH levels. Most likely in setting of severe vitamin D deficiency. (5) Vitamin D deficiency: Replace vitamin D 50,000 units q. weekly for next 8 weeks. (6) Vaginal bleeding: Ongoing for last 5 weeks. Heavy as per patient. Uncommon for her. Usually she has. Sounds every couple of months. Appreciate HIGHWAY MAINTENANCE TECHNICIAN recommendations. Appreciate transvaginal ultrasound results. Plan for transonic acid. Estrogen when available every 6 hour till bleeding persist. Coagulation profile appreciated. (7) Paresthesia and pain of both upper extremities: Most likely in setting of malnutrition from poor oral intake, multiple nausea and vomiting. Check thiamine level. Vitamin B12 are normal. Thiamine 100 mg IV daily. Appreciate CT cervical and lumbar region which are negative for pathological fracture with possibility of left S1 root mild impingement at origin, C4-C5 small left central disc protrusion. PT/OT evaluation. (8) Malnutrition: Most likely in setting of poor intake in last 5 weeks. Hypokalemia, hyponatremia, hypomagnesemia and hypophosphatemia on admission. Currently resolved. Vitamin B12 is normal. Thiamine level pending. Electrolyte replacement. Continue with TPN. Dietitian consult. (9) Acute hypokalemia: Resolved. Continue to monitor daily. Continue with TPN. Plan Full code Clear liquid diet Protonix will be sufficient for PUD prophylaxis Hold off on medical prophylaxis for DVT given ongoing vaginal bleeding. SCDs. Attestations 2 Medical Necessity Statement*: Requires further hospitalization for management of persistent nausea and vomiting, malnutrition, paresthesia Coding Level of Care Code Acute Code for Chg Fwd Diagnoses Intractable nausea and vomiting R11.2 Acute pancreatitis K85.90 Acute pancreatitis complication: unspecified Pancreatitis type: unspecified pancreatitis type Acute cystitis N30.00 Hyperparathyroidism , secondary, non-renal E21.1 Vitamin D deficiency E55.9 Vaginal bleeding N93.9 Paresthesia and pain of both upper extremities R20.2; M79.601; M79.602 Malnutrition E46 Acute hypokalemia E87.6
[2024-01-04 15:04] LABS: Anti-Double Strand DNA AB <1 IU/mL; Jo-1 Antibody <1.0 NEG AI (<1.0 NEG); SS-B/LA IGG <1.0 NEG AI (<1.0 NEG); Scleroderma Ab(Scl-70) Ab <1.0 NEG AI (<1.0 NEG); Ss-A/Ro Igg <1.0 NEG AI (<1.0 NEG)
[2024-01-04] MEDS: cefTRIAXone 1,000 MG in sodium chloride 0.9% (plus) 50 ML 100 MG IV (15:51)
[2024-01-04 18:24] LABS: Beef (27) IgE 0.64 kU/L; Beef Class 1; Lamb (F88) IgE 0.31 kU/L; Lamb Class 0/1; Pork (F26) IgE 0.35 kU/L; Pork Class 1
[2024-01-04] MEDS: sucralfate 1 gm/10 mL Oral Liq UDC PO (20:00)
[2024-01-04] MEDS: ropinirole 0.25 mg Tablet 0.5 MG PO (20:00)
[2024-01-05] VITALS (9 sets, daily range): BP systolic 92–148; BP diastolic 59–96; PULSE 86–104; RESP 16–20; TEMP 36.4–36.8; O2SAT 96–99
[2024-01-05] MEDS: morphine 4 mg/mL SDV 1 mL 1 MG IVP ×2 (02:04→09:01)
[2024-01-05] MEDS: dextrose 5%-sod chloride 0.9% 1,000 ML 75 ML IV (04:28)
[2024-01-05] MEDS: sucralfate 1 gm/10 mL Oral Liq UDC PO ×2 (06:10→20:03)
[2024-01-05 06:13] LABS: Basophils # 0.1 10^3/uL (0.0-0.1); Basophils % 0.6 %; Eosinophils # 0.4 10^3/uL (0.0-0.8); Eosinophils % 2.8 %; Hematocrit 29.4 % (36-47); Lymphocytes # 1.4 10^3/uL (0.8-4.8); Lymphocytes % 10.4 %; Mean Corpuscular HGB Conc 33.3 g/dL (30-55); Mean Corpuscular Hemoglobin 36.7 pg (27-33); Mean Corpuscular Volume 110.1 fl (85-98); Mean Platelet Volume 12.6 fL (7.4-10.4); Monocytes % 7.1 %; Neutrophils # 10.86 10^3/uL (1.8-7.7); Neutrophils % 78.7 %; Nucleated Red Blood Cells % 0 %; Platelet Count 218 10^3/cmm (157-399); Red Blood Count 2.67 10^6/uL (3.85-5.65); Red Cell Distribution Width 14.6 % (12.1-15.1); White Blood Count 13.81 10^3/uL (3.29-11.43)
[2024-01-05] MEDS: AA-Dex 4.25%-5% w/Lytes 1,000 ML with multivitamin inj 5 ML 83 ML IV ×2 (06:25→18:27)
[2024-01-05 06:37] LABS: Alanine Aminotransferase 28 U/L (0-33); Albumin Level 2.9 g/dL (3.5-5.2); Alkaline Phosphatase 129 U/L (35-105); Aspartate Amino Transferase 74 U/L (0-32); Blood Urea Nitrogen 7 mg/dL (6-20); Calcium 8.2 mg/dL (8.5-10.5); Carbon Dioxide 23 mmol/L (22-29); Chloride 103 mmol/L (98-107); Creatinine Clr Calc Pharmacy 233.2546; Globulin 2.9 g/dL (1.3-4.6); Glomerular Filtration Rate 238.5 mL/min (90-130); Glucose 91 mg/dL (65-115); Osmolality Calculated 278 mOsm/kg (285-295); Sodium 135 mmol/L (136-145); Total Bilirubin 0.5 mg/dL (0.15-1.2); Total Protein 5.8 g/dL (6.6-8.7)
--- NOTE | 2024-01-05 06:43 | PC.NURSE ---
TPN at 2200 next bag of TPN that would be needed overnight came up in tube system with substantial leaking to the bag. Pharmacist was attempted to reach before clocking out from shift, but was already gone for the night. entry writer contacted [facility] hospitalist Dr Casey and got telephone order for D5NS at 75mL/hr once TPN ran out. IVF were hung and then d/c once pharmacist was back on site at 0600.
[2024-01-05] MEDS: gabapentin 100 mg Capsule PO (09:59)
[2024-01-05] MEDS: pantoprazole 40 mg SDV IVP ×2 (09:59→18:29)
[2024-01-05] MEDS: ondansetron 2 mg/ML SDV 2 mL 4 MG IVP (11:24)
[2024-01-05 12:40] LABS: Homocysteine 15.35
[2024-01-05] MEDS: LORazepam 2 mg/mL INJ 10 mL MDV 0.5 MG IVP (12:59)
[2024-01-05] MEDS: scopolamine 1.5 Patch 1 PATCH TRANSDERMA (12:59)
--- NOTE | 2024-01-05 15:59 | P.PN_ITS ---
Subjective 2 Subjective: No acute events overnight. Patient has tolerated clear liquid diet. Has been asking and taking Ativan and morphine. States tingling is better. Worked with physical therapy well. Vitals/I&O/Wt Last Vital Signs Temp 98.2 F 01/05/24 12:00 Pulse 103 H 01/05/24 12:00 Resp 18 01/05/24 12:00 BP 137/96 01/05/24 12:00 Pulse Ox 98 01/05/24 12:00 O2 Del Method Room Air 01/05/24 12:00 01/05/24 01/05/24 01/05/24 06:59 14:59 22:59 Intake Total 1105 / 3086.25 50 / 50 Balance 1105 / 3086.25 50 / 50 Weight last 48 hrs Weight 80.739 kg Weight 78.925 kg Physical Exam 2 Narrative: General: In left distress than before, nausea and paresthesia, AO x 3, mildly anxious, HEENT: PERRLA, pupils bilaterally equal and reactive Chest: Normal vesicular breath sounds, no added sounds, equal good air entry bilaterally CVS: S1-S2 regular, no murmurs, no tachycardia, no gallops, no rubs Abdomen: Soft, nontender, no organomegaly, bowel sounds present, no right renal angle tenderness Neuro: No focal deficits, no facial deformity, AO x3, power 5/5 in all limbs Data 01/05/24 04:29 01/05/24 04:29 A&P Assessment and plan (1) Intractable nausea and vomiting: Seems to be improving. Tolerating clear liquid diet. No vomiting less nausea. Multiple admission in the last 5 weeks. Patient has had multiple investigations within the last 5 weeks including endoscopy which showed gastritis and duodenitis, cholecystectomy for acalculous cholecystitis within the last 2 weeks. Patient unable to tolerate orally for last 5 weeks. States she was not able to eat anything solid. Patient does have UTI currently. But given ongoing symptoms for last 5 weeks etiology unsure for now. No concerns for uremia, thyroid levels recently, no concerns for DKA. Urine drug screen negative, alcohol level negative, CT head negative for hydrocephalus pseudotumor cerebri, urine Legionella and bacterial antigen negative. Parathyroid levels elevated. Could be a cause of her persistent nausea and vomiting. As patient has persistent mild liver dysfunction, persistent nausea and vomiting leading to dehydration and malnutrition will look for less common etiologies. Certainly hyperparathyroidism can cause persistent nausea and vomiting. Normal MRCP appreciated. Alpha gal immunology positive. HAM positive, double-stranded DNA positive, thyroid peroxidase elevated. Patient does have persistent macrocytosis with elevated MCV, anemia. Vitamin B12 and folate levels normal. Given positive HAM, macrocytosis, mild transaminitis will rule out hemolytic anemia. Haptoglobin level elevated, LDH normal. Martita pending. Check ceruloplasmin level to rule out Sacha disease Did discuss with the patient that if she does not improve within next 48 hours we should most likely transfer her to a higher center for gastroenterology workup and unfortunately we do not have bullet slugs inspector in our hospital. Continue with IV Protonix twice daily, add Carafate liquid before meals and at bedtime Continue with Zofran as needed, scopolamine patch. Continue with clear liquid diet for now. Advised to take multiple small meals. Diet changed as per Alpha-gal diet. Director Of Strategy & Mobile consulted. Patient need to follow-up with business specialist as an outpatient for further management of alpha gal. (2) Acute pancreatitis: Most likely in setting of aggressive nausea and vomiting. Patient is postoperative for cholecystitis. Appreciate CT abdomen pelvis done in the ER. Treatment conservative as above. MRCP ruled out any pancreatitis or dysfunction of sphincter of Oddi. Qualifiers: Acute pancreatitis complication: unspecified Pancreatitis type: u nspecified pancreatitis type Qualified Code(s): K85.90 - Acute pancreatitis without necrosis or infection, unspecified (3) Acute cystitis: Appreciate urinalysis. Urine cultures for now negative, blood culture negative. Continue with IV ceftriaxone to finish a 5-day course. Morphine 1 mg every 4 hours as needed (4) Hyperparathyroidism , secondary, non-renal: Appreciate PTH levels. Most likely in setting of severe vitamin D deficiency. (5) Vitamin D deficiency: Replace vitamin D 50,000 units q. weekly for next 8 weeks. (6) Vaginal bleeding: Ongoing for last 5 weeks. Heavy as per patient. Uncommon for her. Usually she has. Sounds every couple of months. Currently stopped. Estrogen stopped. Appreciate CORROSION CONTROL TECHNICIAN recommendations. Appreciate transvaginal ultrasound results. Coagulation profile appreciated. (7) Paresthesia and pain of both upper extremities: Most likely in setting of malnutrition from poor oral intake, multiple nausea and vomiting. Check thiamine level. Vitamin B12 are normal. Thiamine 100 mg IV daily. Appreciate CT cervical and lumbar region which are negative for pathological fracture with possibility of left S1 root mild impingement at origin, C4-C5 small left central disc protrusion. PT/OT evaluation. (8) Malnutrition: Most likely in setting of poor intake in last 5 weeks. Hypokalemia, hyponatremia, hypomagnesemia and hypophosphatemia on admission. Currently resolved. Vitamin B12 is normal. Thiamine level pending. Electrolyte replacement. Continue with TPN. Dietitian consult. (9) Acute hypokalemia: Resolved. Continue to monitor daily. Continue with TPN. Plan Full code Clear liquid diet Protonix will be sufficient for PUD prophylaxis Hold off on medical prophylaxis for DVT given ongoing vaginal bleeding. SCDs. Plan for the day: Continue with IV thiamine, replacement of vitamins. Wean down TPN. Clear liquid diet as per alpha-gal. Avoid meat. Dietitian consult. Continue with clear liquid diet with plan to discharge in next 24 hours. Stop IV Ativan. Will restart morphine. Start on [place] 5 mg every 8 hours as needed. Continue with scopolamine patch and Zofran as needed. Attestations 2 Medical Necessity Statement*: Requires further hospitalization for management of intractable nausea and vomiting most likely in setting of alpha gal syndrome leading to dehydration, malnutrition and paresthesias Diagnoses Intractable nausea and vomiting R11.2 Acute pancreatitis K85.90 Acute pancreatitis complication: unspecified Pancreatitis type: unspecified pancreatitis type Acute cystitis N30.00 Hyperparathyroidism , secondary, non-renal E21.1 Vitamin D deficiency E55.9 Vaginal bleeding N93.9 Paresthesia and pain of both upper extremities R20.2; M79.601; M79.602 Malnutrition E46 Acute hypokalemia E87.6
[2024-01-05] MEDS: cefTRIAXone 1,000 MG in sodium chloride 0.9% (plus) 50 ML 100 MG IV (16:18)
[2024-01-05] MEDS: gabapentin 100 mg Capsule 200 MG PO ×2 (16:19→20:03)
[2024-01-05] MEDS: HYDROcodone-acetaminophen 5-325 mg Tablet 1 TAB PO (16:53)
--- NOTE | 2024-01-05 18:50 | PC.NURSE ---
TPN weaning per day charge Roselia ENGEL, Dr Savage gave telephone order for TPN to be titrated down 20mL/hr q2hrs until done.
[2024-01-05] MEDS: ropinirole 0.25 mg Tablet 0.5 MG PO (20:03)
[2024-01-06] VITALS: BP 147/81; PULSE 102; RESP 17; TEMP 36.4; O2SAT 97
[2024-01-06] MEDS: HYDROcodone-acetaminophen 5-325 mg Tablet 1 TAB PO ×2 (01:48→09:54)
[2024-01-06 02:42] LABS: Basophils # 0.1 10^3/uL (0.0-0.1); Basophils % 0.6 %; Eosinophils # 0.4 10^3/uL (0.0-0.8); Eosinophils % 2.9 %; Hematocrit 29.7 % (36-47); Lymphocytes # 1.7 10^3/uL (0.8-4.8); Lymphocytes % 13.5 %; Mean Corpuscular HGB Conc 32.7 g/dL (30-55); Mean Corpuscular Hemoglobin 36.6 pg (27-33); Mean Corpuscular Volume 112.1 fl (85-98); Monocytes # 1.1 10^3/uL (0.2-0.9); Monocytes % 8.4 %; Neutrophils # 9.33 10^3/uL (1.8-7.7); Neutrophils % 74.3 %; Nucleated Red Blood Cells % 0 %; Platelet Count 197 10^3/cmm (157-399); Red Blood Count 2.65 10^6/uL (3.85-5.65); Red Cell Distribution Width 14.8 % (12.1-15.1); White Blood Count 12.57 10^3/uL (3.29-11.43)
[2024-01-06 02:59] LABS: Alanine Aminotransferase 25 U/L (0-33); Alkaline Phosphatase 126 U/L (35-105); Anion Gap 13.2 (5-19); Aspartate Amino Transferase 54 U/L (0-32); Blood Urea Nitrogen 7 mg/dL (6-20); Calcium 8.6 mg/dL (8.5-10.5); Carbon Dioxide 24 mmol/L (22-29); Chloride 102 mmol/L (98-107); Creatinine Clr Calc Pharmacy 174.9409; Glomerular Filtration Rate 171.1 mL/min (90-130); Glucose 122 mg/dL (65-115); Osmolality Calculated 279 mOsm/kg (285-295); Potassium 4.2 mmol/L (3.5-5.1); Sodium 135 mmol/L (136-145); Total Bilirubin 0.4 mg/dL (0.15-1.2)
[2024-01-06 04:00] VITALS: BP 112/76; PULSE 90; RESP 17; TEMP 36.4; O2SAT 97
[2024-01-06] MEDS: sucralfate 1 gm/10 mL Oral Liq UDC PO ×2 (06:19→10:08)
[2024-01-06 07:52] VITALS: BP 128/81; PULSE 86; RESP 18; TEMP 36.4; O2SAT 98
[2024-01-06] MEDS: gabapentin 100 mg Capsule 200 MG PO (09:54)
[2024-01-06] MEDS: pantoprazole 40 mg SDV IVP (09:54)
[2024-01-06] MEDS: ondansetron 2 mg/ML SDV 2 mL 4 MG IVP (09:57)
[2024-01-06 11:27] VITALS: BP 125/78; PULSE 102; RESP 19; TEMP 36.5; O2SAT 96
--- NOTE | 2024-01-06 12:21 | PM.DCS ---
Discharge Providers Date of Admission: 01/01/24 21:20 Date of Discharge: January 06, 2024 Attending Provider at Admission: Yuliya Casey MD Attending Provider at Discharge: Yury Savage MD Primary Care Provider: Haseeb Casiano MD Diagnoses at Discharge Discharge Diagnosis (1) Intractable nausea and vomiting: Status: Acute (2) Acute pancreatitis: Status: Acute Qualifiers: Acute pancreatitis complication: unspecified Pancreatitis type: unspecified pancreatitis type Qualified Code(s): K85.90 - Acute pancreatitis without necrosis or infection, unspecified (3) Acute cystitis: Status: Acute (4) Hyperparathyroidism , secondary, non-renal: Status: Acute (5) Vitamin D deficiency: Status: Acute (6) Vaginal bleeding: Status: Acute (7) Paresthesia and pain of both upper extremities: Status: Acute (8) Malnutrition: Status: Acute (9) Acute hypokalemia: Status: Acute (10) Allergy to alpha-gal: Status: Acute Reason for Visit Reason for Visit: vomiting, sob, blurred vision Brief History: History as per HPI: Krupa Sparks is a 48 year old female who had gallbladder removed on Sunday by Dr. Carrasco, presented today with recurrent nausea vomiting. Patient stating that she is hurting extremely around her laparoscopic scars she has not been able to eat anything since her gallbladder removal, extremely dehydrated, experiencing recurrent episode of nausea and vomiting, she has not noticed fever, chest pain, shortness of breath. No diarrhea. In the ER she has been diagnosed with hypotension hyponatremia, hypokalemia lactic acidemia related to dehydration hypophosphatemia and hypomagnesemia. She has been experiencing epigastric region pain from excessive vomiting. Hospital Course Hospital Course Patient was admitted to the hospital further evaluation and management of persistent intractable nausea and vomiting over the last 5 weeks along with multiple electrolyte abnormalities, malnutrition. Patient has already had extensive workup for nausea and vomiting along with endoscopy showing gastritis, MRCP, HIDA scan followed by cholecystectomy within last 1 month. Further workup for persistent nausea and vomiting was done and multiple modalities were ruled out including CT pseudo tumor cerebri, hydrocephalus, sphincter of Oddi dysfunction. She was found to have hyperparathyroidism which is thought to be in setting of severe vitamin D deficiency with vitamin D the levels at 6. She was also found to have positive HAM along with double-stranded DNA and thyroid peroxidase levels. She was tested positive for alpha gal immunology with allergies to meat including beef and pork. Her blood work was also consistent with persistent macrocytosis. Vitamin B12, folate and homocystine levels were within normal limits. Hemolytic anemia was ruled out with a normal haptoglobin and LDH levels. Ceruloplasmin for extensive malnutrition at first she was started on levels for Sacha disease are been sent out. TPN and was continued on clear liquid diet during hospitalization that she has tolerated fairly over last 2 to 3 days. She continues to complain of paresthesias both in her arms and legs which is thought to be in setting of vitamin deficiencies. Spinal pathology was ruled out with a negative CT cervical and lumbar imaging. She was seen by physical therapy and continued doing well. Currently she is ambulatory without support but does well with a walker. She has been discharged in hemodynamically stable condition on oral gabapentin, Requip, [place] every 8 hours as needed, clear liquid diet which should be monitored and changed as per alpha-gal. She was seen by dietary during hospitalization. For nausea and vomiting she can take Zofran as needed along with scopolamine patch. She is continued on Protonix twice daily and Carafate 3 times a day. Discharge plan were discussed in detail with the patient and her caregiver at bedside. All the questions were answered. She should follow-up with a e business project manager and floor specialist as an outpatient which unfortunately are not available at [facility]. Given all of the above with persistent nausea and vomiting which seems to be improving but is most likely in setting of alpha-gal there is a high risk of readmission. Physical Exam Narrative: General: In left distress than before, nausea and paresthesia, AO x 3, mildly anxious, HEENT: PERRLA, pupils bilaterally equal and reactive Chest: Normal vesicular breath sounds, no added sounds, equal good air entry bilaterally CVS: S1-S2 regular, no murmurs, no tachycardia, no gallops, no rubs Abdomen: Soft, nontender, no organomegaly, bowel sounds present, no right renal angle tenderness Neuro: No focal deficits, no facial deformity, AO x3, power 5/5 in all limbs Discharge Data Studies Completed and Pending Completed Studies During Hospitalization Category Date Time Status CT abdomen pelvis w con* 30690 Stat Cat Scan 01/01/24 18:[address] cervical spin wo con* 61400 Routine Cat Scan 01/04/24 08:[address] head wo con* 88003 Routine Cat Scan 01/02/24 11:[address] lumbar spine wo con* 26125 Routine Cat Scan 01/04/24 08:19 Completed CXRP [XR chest 1V portable 85543] Routine Exams 01/02/24 12:10 Completed MR MRCP [id number] Routine MRI 01/04/24 10:15 Completed US transvaginal 27459 Routine Ultrasound 01/02/24 11:01 Completed Pending at discharge Category Date Time Status Alpha-Gal Panel Routine Lab 01/03/24 13:25 Results Blood Culture Stat Lab 01/01/24 20:32 Results Ceruloplasmin Routine Lab 01/04/24 04:38 Received [facility] HAM Profile Routine Lab 01/03/24 13:25 Results Vitamin B1 (Thiamine),Blood Routine Lab 01/02/24 11:31 Received Radiology Impressions Abdomen/Pelvis CT 01/01/24 18:31 IMPRESSION: 1. No CT evidence of acute intra-abdominal or pelvic pathology. 2. Additional findings, as above. Transvaginal US 01/02/24 11:01 IMPRESSION: Unremarkable uterus and right ovary. The left ovary is not identified. Recommend clinical correlation and follow up imaging as clinically warranted. Head CT 01/02/24 11:49 IMPRESSION: No acute intracranial abnormality. If symptoms persist, consider further evaluation with MRI, if MRI is clinically safe to obtain. Cervical Spine CT 01/04/24 08:19 IMPRESSION: 1. Degenerative changes as above, possibly including small left central C4-C5 disc protrusion.. 2. No acute cervical spinal bony abnormality identified. Lumbar Spine CT 01/04/24 08:19 IMPRESSION: 1. Left L5-S1 lateral recess stenosis secondary to spondylosis. Clinical correlation to assess for any left S1 root specific symptomatology is recommended as above. 2. Fatty infiltration of the liver. Cholangiopancreatography MRI 01/04/24 10:15 IMPRESSION: 1. No acute findings. 2. Cholecystectomy with normal bile ducts. 3. 1.5 cm probable hemangioma in the superior left liver lobe Microbiology 01/01/24 18:12 Urine,Clean Catch Urine Culture - Final Escherichia coli 01/02/24 20:11 Urine Kidney Bacterial Antigens - Final 01/02/24 20:11 Unknown Source Legionella Urinary Antigen - Final 01/01/24 20:32 Blood Blood Culture - Preliminary NEGATIVE TO DATE 01/01/24 20:27 Blood Blood Culture - Preliminary NEGATIVE TO DATE Laboratory Results WBC 12.57 10^3/uL (3.29-11.43) H 01/06/24 02:26 RBC 2.65 10^6/uL (3.85-5.65) L 01/06/24 02:26 Hgb 9.70 g/dL (11.27-16.99) L 01/06/24 02:26 Hct 29.7 % (36-47) L 01/06/24 02:26 MCV 112.1 fl (85-98) H 01/06/24 02:26 MCH 36.6 pg (27-33) H 01/06/24 02: MCHC 32.7 g/dL (30-55) 01/06/24 02:26 RDW 14.8 % (12.1-15.1) 01/06/24 02:26 Plt Count 197 10^3/cmm (157-399) 01/06/24 02:26 MPV 12.0 fL (7.4-10.4) H 01/06/24 02:26 Neut % (Auto) 74.3 % 01/06/24 02:26 Lymph % (Auto) 13.5 % 01/06/24 02:26 [place] % (Auto) 8.4 % 01/06/24 02:26 Eos % (Auto) 2.9 % 01/06/24 02:26 Baso % (Auto) 0.6 % 01/06/24 02:26 Neut # (Auto) 9.33 10^3/uL (1.8-7.7) H 01/06/24 02:26 Lymph # (Auto) 1.7 10^3/uL (0.8-4.8) 01/06/24 02:26 [place] # (Auto) 1.1 10^3/uL (0.2-0.9) H 01/06/24 02:26 Eos # (Auto) 0.4 10^3/uL (0.0-0.8) 01/06/24 02:26 Baso # (Auto) 0.1 10^3/uL (0.0-0.1) 01/06/24 02:26 Nucleated RBC % (auto) 0 % 01/06/24 02:26 Nucleated RBCs # 0.0 /100WBC 01/06/24 02:26 Haptoglobin 203.0 mg/L (30-200) H 01/04/24 04:38 PT 16.70 SECONDS (12.1-14.9) H 01/02/24 11:31 INR 1.30 (0.8-1.2) H 01/02/24 11:31 APTT 28.0 SECONDS (23.9-36.7) 01/04/24 17:02 Fibrinogen 386 mg/dL (174-498) 01/02/24 11:31 Sodium 135 mmol/L (136-145) L 01/06/24 02:26 Potassium 4.2 mmol/L (3.5-5.1) 01/06/24 02:26 Chloride 102 mmol/L (98-107) 01/06/24 02:26 Carbon Dioxide 24 mmol/L (22-29) 01/06/24 02:26 Anion Gap 13.2 (5-19) 01/06/24 02:26 BUN 7 mg/dL (6-20) 01/06/24 02:26 Creatinine 0.4 mg/dL (0.5-0.9) L 01/06/24 02:26 GFR Calculation 171.1 mL/min (90-130) H 01/06/24 02:26 Glucose 122 mg/dL (65-115) H 01/06/24 02:26 POC Glucose 103 mg/dL (70-110) 01/03/24 05:53 Calculated Osmolality 279 mOsm/kg (285-295) L 01/06/24 02:26 Lactic Acid 2.8 mmol/L (0.5-2.2) H 01/01/24 16:37 Lactic Acid (Sepsis) 1.8 mmol/L (0.5-2.2) 01/01/24 20:27 Calcium 8.6 mg/dL (8.5-10.5) 01/06/24 02:26 Ionized Calcium Johanny 1.1 mmol/L (1.1-1.4) 01/02/24 11:31 Phosphorus 3.0 mg/dL (2.5-4.5) 01/05/24 04:29 Magnesium 2.0 mg/dL (1.7-2.3) 01/05/24 04:29 Total Bilirubin 0.4 mg/dL (0.15-1.2) 01/06/24 02:26 AST 54 U/L (0-32) H 01/06/24 02:26 ALT 25 U/L (0-33) 01/06/24 02:26 Alkaline Phosphatase 126 U/L (35-105) H 01/06/24 02:26 Lactate Dehydrogenase 140 U/L (135-214) 01/04/24 04:38 C-Reactive Protein 13.9 mg/L (0.0-4.9) H 01/02/24 04:12 Total Protein 6.0 g/dL (6.6-8.7) L 01/06/24 02:26 Albumin 3.0 g/dL (3.5-5.2) L 01/06/24 02:26 Globulin 3.0 g/dL (1.3-4.6) 01/06/24 02:26 Triglycerides 82 mg/dL (0-150) 01/03/24 04:18 Cholesterol 115 mg/dL (0-200) 01/03/24 04:18 LDL Cholesterol, Calc 58 mg/dL (50-129) 01/03/24 04:18 Total VLDL Cholesterol 16 mg/dL (0-30) 01/03/24 04:18 HDL Cholesterol 41 mg/dL (60-100) L 01/03/24 04:18 Cholesterol/HDL Ratio 2.80 mg/dL (0.0-4.40) 01/03/24 04:18 Lipase 397 U/L (13-60) H 01/01/24 16:37 Vitamin B12 1018 pg/mL (232-1245) 01/01/24 16:37 25-OH Vitamin D Total 6 ng/mL (30-100) L 01/02/24 11:31 Folate 5.8 ng/mL (4.8-37.3) 01/03/24 04:18 Homocysteine 15.35 01/05/24 04:29 Procalcitonin 0.17 ng/mL (0-0.5) 01/01/24 16:37 TSH 4.07 uIU/mL (0.27-4.20) 01/01/24 16:37 PTH Intact 121.1 pg/mL (15-65) H 01/02/24 11:31 Calcium (PTH Intact) 8.0 mg/dL (8.5-10.5) L 01/02/24 11:31 Childhood Allergy Intrp See below 01/03/24 13:25 Beef Allergen IgE Ab 0.64 kU/L H 01/03/24 13:25 Beef ASM Class 1 01/03/24 13:25 Franco Allergen IgE Ab 0.31 kU/L H 01/03/24 13:25 Franco ASM Class 0/1 01/03/24 13:25 Pork Allergen IgE Ab 0.35 kU/L H 01/03/24 13:25 Pork ASM Class 1 01/03/24 13:25 Urine Color Marti (Yellow) 01/01/24 18:12 Urine Appearance Cloudy (CLEAR) A 01/01/24 18:12 Urine pH 5 (5-7) 01/01/24 18:12 Ur Specific [place] 1.025 (1.005-1.030) 01/01/24 18:12 Urine Protein 2+ (Negative) H 01/01/24 18:12 Urine Glucose (UA) 1+ (Normal) H 01/01/24 18:12 Urine Ketones 1+ (Negative) H 01/01/24 18:12 Urine Blood 3+ (Negative) H 01/01/24 18:12 Urine Nitrate Positive (Negative) H 01/01/24 18:12 Urine Bilirubin 2+ (Negative) H 01/01/24 18:12 Urine Urobilinogen 1 mg/dL (Negative) H 01/01/24 18:12 Ur Leukocyte Esterase 2+ (Negative) H 01/01/24 18:12 Urine RBC Too numerous to cnt /hpf (0-2) H 01/01/24 18:12 Urine WBC 55-80 /hpf (0-5) H 01/01/24 18:12 Ur Squamous Epith Cells 5-10 /hpf (0-5) H 01/01/24 18:12 Ur Transition Epith Cell 0-4 /hpf 01/01/24 18:12 Amorphous Sediment Not Reportable 01/01/24 18:12 Urine Bacteria 2+ /hpf (NONE) H 01/01/24 18:12 Urine Mucus 1+ /hpf 01/01/24 18:12 Ur Random Calcium 19.7 mg/dL 01/02/24 20:11 Urine Total Volume 3100 ml 01/03/24 20:20 Ur Calcium 24 Hr 322 mg/24hr (100-300) H 01/03/24 20:20 Urine Opiates Screen Negative ng/mL (Negative) 01/01/24 18:12 Ur Barbiturates Screen Negative ng/mL (Negative) 01/01/24 18:12 Ur Phencyclidine Scrn Negative ng/mL (Negative) 01/01/24 18:12 Ur Amphetamines Screen Negative ng/mL (Negative) 01/01/24 18:12 U Benzodiazepines Scrn Positive ng/mL (Negative) H 01/01/24 18:12 Urine Cocaine Screen Negative ng/mL (Negative) 01/01/24 18:12 U Marijuana (THC) Screen Negative ng/mL (Negative) 01/01/24 18:12 Ethyl Alcohol < 10 mg/dL (0-10) 01/01/24 11:37 AVERY-1 Antibody <1.0 neg AI (<1.0 NEG) 01/03/24 13:25 SS-A/Ro IgG Antibody <1.0 neg AI (<1.0 NEG) 01/03/24 13:25 SS-B/La IgG Antibody <1.0 neg AI (<1.0 NEG) 01/03/24 13:25 Scl-70 Scleroderma Ab <1.0 neg AI (<1.0 NEG) 01/03/24 13:25 Anti-ds DNA IgG Ab <1 IU/mL 01/03/24 13:25 DORIS, Poly Interpret Negative 01/04/24 04:00 Vitals Last Vital Signs Temp 97.7 F 01/06/24 11:27 Pulse 102 H 01/06/24 11:27 Resp 19 H 01/06/24 11:27 BP 125/78 01/06/24 11:27 Pulse Ox 96 01/06/24 11:27 O2 Del Method Room Air 01/06/24 11:27 Discharge Plan Discharge Patient Disposition: Home Condition: Stable Prescriptions: New hydrocodone-acetaminophen 5-325 mg Tablet 1 tab PO Q8H PRN (Reason: Moderate Pain) Qty: 15 0RF scopolamine base [Transderm-Scop] 1 mg over 3 days Patch 3 Day 1 patch transdermal Q3D Qty: 4 0RF ergocalciferol (vitamin D2) [Vitamin D2] 1,250 mcg (50,000 unit) Capsule 50,000 unit PO Q7D Qty: 10 0RF ropinirole 0.25 mg Tablet 0.5 mg PO BEDTIME 30 Days Qty: 60 0RF gabapentin 100 mg Capsule 200 mg PO TID 30 Days Qty: 180 0RF multivitamin [Multiple Vitamins] Tablet 1 tab PO DAILY Qty: 30 0RF Continued folic acid 1 mg Tablet 1 mg PO DAILY 30 Days Qty: 30 0RF Changed pantoprazole [Protonix] 40 mg tablet,delayed release (DR/EC) 40 mg PO BIDWM Qty: 60 0RF sucralfate 100 mg/mL suspension 10 ml PO QID Qty: 1000 0RF ondansetron HCl 4 mg tablet 4 mg PO Q6H PRN (Reason: Nausea) Qty: 30 0RF Discharge Orders: Discharge Order (Routine); Ordered 01/06/24 Ordered By: Yury Savage Other Ambulatory Orders: DME: [facility] (Order) Location: None Selected Ordered By: Yury Savage Referrals: Haseeb Casiano MD [Primary Care Provider] - 01/14/24 1:30 pm Discharge Diet: As Directed Discharge Activity: Resume usual activity and Increase activity as tolerated Patient Instructions: Opioid Safety Activity Restrictions/Additional Instructions: Clear liquid diet. Please maintain restrictions as per alpha-gal. Try to avoid meat or meat broth. You should follow-up with floor specialist at the earliest. You should also follow-up with a e business project manager at the earliest. Unfortunately both floor specialist and e business project manager are not available at [facility] so you will have to follow-up at [facility]. Please continue take vitamin D capsules once a week. You can use Zofran as needed for nausea. Please take multiple small meals a day. You can use scopolamine patch which needs to be changed once every 3 days for nausea. Discharge Attestations Time Spent in Discharge Care*: greater than 30 min Specific Discharge Activities: educating patient, educating and/or supporting family/caregiver, discussing with pcp/other providers, discussing with special education case manager/social workers/dc planners, documenting/other paperwork and evaluating patient/reviewing data Status at Discharge: Cognitive status at discharge: cognitively intact, Behavioral status at discharge: cooperative, Functional status at discharge: independent ambulation, Overall status at discharge: patient is progressing back to baseline Quality Metrics Clinical Quality Measures [ No reported AMI, CVA or VTE this stay] Coding Level of Care Code 95547 Total time (in minutes) for Discharge: 60 Diagnoses Intractable nausea and vomiting R11.2 Acute pancreatitis K85.90 Acute pancreatitis complication: unspecified Pancreatitis type: unspecified pancreatitis type Acute cystitis N30.00 Hyperparathyroidism , secondary, non-renal E21.1 Vitamin D deficiency E55.9 Vaginal bleeding N93.9 Paresthesia and pain of both upper extremities R20.2; M79.601; M79.602 Malnutrition E46 Acute hypokalemia E87.6 Allergy to alpha-gal Z91.018
[2024-01-07 11:16] LABS: Ceruloplasmin 30 mg/dL (18-53)
[2024-01-07 16:24] LABS: Vitamin B1 (Thiamine),Blood 42 nmol/L (78-185)
[2024-01-08 17:34] LABS: Galactose-alpha-1,3 IgE 4.01 kU/L (<0.10)
== END 2024-01-06 15:15 | disposition home or self-care (01) | DRG 644 ==
LOC: ER 20:43 → MEDSURG 21:20
PROVIDERS: Emergency Medicine; Admitting Provider Internal Medicine; Emergency Provider Internal Medicine; PCP Family Medicine; Visit Provider Student in an Organized Health Care Education/Training Program
DX: E21.1 Secondary hyperparathyroidism, not elsewhere classified (principal); E46 Unspecified protein-calorie malnutrition; E87.1 Hypo-osmolality and hyponatremia; N30.00 Acute cystitis without hematuria; E55.9 Vitamin D deficiency, unspecified; E87.6 Hypokalemia; Z90.49 Acquired absence of other specified parts of digestive tract; E86.0 Dehydration; R20.2 Paresthesia of skin; N93.9 Abnormal uterine and vaginal bleeding, unspecified; Z91.014 Allergy to mammalian meats
CPT/HCPCS: 36415; 36416; 36573; 70450; 71045; 72125; 72131; 74177; 74181; 76830; 80048; 80053; 80061; 80306; 80307; 81001; 82306; 82310; 82330; 82340; 82390; 82607; 82746; 82962; 83010; 83090; 83605; 83615; 83690; 83735; 83970; 84100; 84132; 84145; 84425; 84443; 85025; 85049; 85384; 85610; 85730; 86003; 86008; 86140; 86225; 86235; 86403; 86880; 87040; 87086; 87186; 87449; 93005; 96365; 96366; 96367; 96375; 97116; 97161; 97166; 97530; 99285; C1751; C9113; J0696; J1410; J2060; J2270; J2405; J2543; J2765; J3010; J3411; J3475; J3480; J3490; J7030; J7042; Q9967

== ENCOUNTER 2024-04-02 23:01 | Emergency (ER) | payer SELFPAY ==
[2024-04-02 23:11] VITALS: BP 120/66; PULSE 112; RESP 14; TEMP 36.8; O2SAT 94
--- NOTE | 2024-04-02 23:28 | ECG_ITS ---
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 Measurements Intervals [place] Rate: 92 P: 51 IN: 148 QRS: 50 QRSD: 86 T: 42 QT: 382 QTc: 474 Interpretive Statements SINUS RHYTHM POSSIBLE LEFT ATRIAL ENLARGEMENT [-0.1mV P-WAVE IN V1/V2] NONSPECIFIC T-WAVE ABNORMALITY Compared to ECG 01/04/2024 09:17:02 T-wave abnormality now present ST (T wave) deviation no longer present Electronically Signed On 04-04-2024 13:36:27 CDT by Vitor Hurtado M.D. [email or web address]
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
[2024-04-02 23:56] LABS: Basophils # 0.1 10^3/uL (0.0-0.1); Basophils % 1.4 %; Eosinophils # 0.1 10^3/uL (0.0-0.8); Eosinophils % 1.3 %; Hematocrit 31.5 % (36-47); Lymphocytes % 24.7 %; Mean Corpuscular HGB Conc 32.1 g/dL (30-55); Mean Corpuscular Hemoglobin 27.7 pg (27-33); Mean Corpuscular Volume 86.5 fl (85-98); Mean Platelet Volume 9.8 fL (7.4-10.4); Monocytes # 0.5 10^3/uL (0.2-0.9); Monocytes % 6.2 %; Neutrophils # 5.27 10^3/uL (1.8-7.7); Neutrophils % 66.1 %; Nucleated Red Blood Cells % 0 %; Platelet Count 376 10^3/cmm (157-399); Red Blood Count 3.64 10^6/uL (3.85-5.65); Red Cell Distribution Width 14.9 % (12.1-15.1); White Blood Count 7.95 10^3/uL (3.29-11.43)
[2024-04-03 00:28] LABS: Acetaminophen < 5.0 ug/mL (10-30); Alanine Aminotransferase 24 U/L (0-33); Albumin Level 4.2 g/dL (3.5-5.2); Alcohol Level 273 mg/dL (0-10); Alkaline Phosphatase 82 U/L (35-105); Anion Gap 19.5 (5-19); Aspartate Amino Transferase 30 U/L (0-32); Blood Urea Nitrogen 9 mg/dL (6-20); Calcium 8.6 mg/dL (8.5-10.5); Carbon Dioxide 20 mmol/L (22-29); Chloride 104 mmol/L (98-107); Creatinine Clr Calc Pharmacy 96.2672; Globulin 3.2 g/dL (1.3-4.6); Glomerular Filtration Rate 89.7 mL/min (90-130); Glucose 115 mg/dL (65-115); Osmolality Calculated 290 mOsm/kg (285-295); Potassium 3.5 mmol/L (3.5-5.1); Salicylate < 0.3 mg/dL (3-10); Sodium 140 mmol/L (136-145); Thyroid Stimulating Hormone 2.37 uIU/mL (0.27-4.20); Total Bilirubin 0.2 mg/dL (0.15-1.2); Total Protein 7.4 g/dL (6.6-8.7)
[2024-04-03 00:37] LABS: HCG Qualitative Urine. Negative (Negative)
[2024-04-03 00:44] LABS: Bacteria Urine TRACE /hpf; Bilirubin Urine Neg (Negative); Blood Urine Neg (Negative); Glucose Urine UA Norm (Normal); Ketones Urine Negative (Negative); Leukocyte Esterase Urine Negative (Negative); Nitrate Urine Negative (Negative); Protein Urine Neg (Negative); Specific Gravity, Urine 1.005 (1.005-1.030); Squamous Epithelial Cell Urine 0-4 /hpf (0-5); Urine Appearance Clear (CLEAR); Urine Color Yellow (Yellow); Urobilinogen Urine Norm (Negative); WBC Urine 0-4 /hpf (0-5); pH Urine 5 (5-7)
[2024-04-03 00:45] LABS: Add Urine Culture? No
[2024-04-03 00:55] LABS: Amphetamines Screen Urine Negative (Negative); Barbiturates Screen Urine Negative (Negative); Benzodiazepines Screen Urine Negative (Negative); Cocaine Screen Urine Negative (Negative); Opiate Screen Urine Negative (Negative); PCP Screen Urine Negative (Negative); THC Screen Urine Negative (Negative)
[2024-04-03] MEDS: sodium chloride 0.9% 1,000 ML 999 ML IV (01:49)
[2024-04-03 02:34] VITALS: BP 124/68; PULSE 98; RESP 14; O2SAT 96
== END 2024-04-03 02:36 | disposition home or self-care (01) ==
PROVIDERS: Emergency Provider Emergency Medicine; PCP Family Medicine
DX: F10.920 Alcohol use, unspecified with intoxication, uncomplicated (principal); Y90.8 Blood alcohol level of 240 mg/100 ml or more
CPT/HCPCS: 36415; 80053; 80306; 80307; 81001; 81025; 84443; 85025; 93005; 96360; 99284; J7030

== ENCOUNTER 2024-10-31 09:45 | Outpatient (CLI) | payer MEDICAID, SELFPAY ==
--- NOTE | 2024-10-31 10:00 | XR_ITS ---
WS: [id number] XR chest 2V* [id number] REASON FOR EXAM: ACUTE BRONCHITIS FINDINGS: The chest is unchanged compared to 01/02/2024. The heart and the mediastinum are within normal limits. Calcified granulomatous disease in both hemithoraces. No acute pulmonary parenchymal or pleural abnormality is noted. No significant abnormality of the bony thorax. XR/XR chest 2V* [id number] IMPRESSION: Stable chest without acute abnormality.
== END 2024-10-31 09:46 | disposition home or self-care (01) ==
LOC: RAD 09:52
PROVIDERS: PCP Family Medicine; Visit Provider Family Medicine
DX: J20.9 Acute bronchitis, unspecified (principal); D71 Functional disorders of polymorphonuclear neutrophils
CPT/HCPCS: 71046

== ENCOUNTER 2025-02-19 15:08 | Emergency (ER) | payer MEDICAID, SELFPAY ==
[2025-02-19 15:12] VITALS: BP 136/78; PULSE 92; RESP 17; TEMP 36.7; O2SAT 98; BMI 30.9
--- NOTE | 2025-02-19 16:09 | ED_ITS ---
HPI - Back Pain/Injury General: Chief Complaint: Back Pain/Injury Stated Complaint: tailbone/back pain from fall Time Seen by Provider: 02/19/25 15:35 Source: patient Mode of arrival: ambulatory Limitations: no limitations History of Present Illness: Patient is a 49-year-old female presenting to the ED with lower back/sacral pain and right ankle pain due to a fall down 5 steps about 4 days ago. The back pain is the primary reason why she came to the emergency room today. She states it is extremely painful with movement. 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 She has taken Tylenol with little relief. MD elicited complaint: back pain and fall Pertinent past history: recent trauma Onset (ago): day(s) Timing: constant Severity: severe Quality: sharp Location: lumbar spine and sacrum Exacerbating factors: movement and walking Context: fall Associated symptoms: Reports difficulty walking Treatments prior to arrival: acetaminophen Related Data Previous Rx's ?Medication ?Instructions ?Recorded ergocalciferol (vitamin D2) 1,250 50,000 unit PO Q7D # 10 caps 01/06/24 mcg (50,000 unit) capsule (Vitamin D2) hydrocodone 5 mg-acetaminophen 325 1 tab PO Q8H PRN Mo derate Pain #15 01/06/24 mg tablet tabs multivitamin (Multiple Vitamins 1 tab PO DAILY #30 tab s 01/06/24 tablet) ondansetron HCl 4 mg tablet 4 mg PO Q6H PRN Nausea #30 tabs 01/06/24 pantoprazole 40 mg tablet,delayed 40 mg PO BIDWM #60 t abs 01/06/24 release (Protonix) scopolamine base 1 mg over 3 days 1 patch transdermal Q3D #4 ea 01/06/24 transdermal patch (Transderm-Scop) sucralfate 100 mg/mL oral 10 ml PO QID gastritis #1,00 0 mL 01/06/24 suspension Allergies Allergy/AdvReac Type Severity Reaction Status Date / Time cephalexin (From Keflex) Allergy ADR-Itching Verified 04/02/24 23:14 Review of Systems 2 Neuro: Reports: difficulty walking [facility] ED PFSH: Medical History Hiatal hernia Hyperparathyroidism , secondary, non-renal Nonvisualization of gallbladder Acalculous cholecystitis section wound seroma, Surgical History Hx laparoscopic cholecystectomy 12/27/23 Dr Carrasco S/P right knee arthroscopy Family History Other CAD (coronary artery disease) Diabetes Social History Smoking and tobacco/nicotine status: never used tobacco/nicotine Alcohol intake: former Physical Exam Const: COMMON NORMALS: patient oriented x3 GENERAL APPEARANCE: in distress (moderate, due to pain) HENMT: HEAD & SCALP: contusion (Right forehead) FACE & SINUS: abrasion on the right Eye: COMMON NORMALS: Equal, round and reactive pupils present, EOMs intact bilaterally and conjunctivae normal CONJUNCTIVA: Yes conjunctivae normal PUPIL: Yes Equal, round and reactive pupils present Neck/C-Spine: COMMON NORMALS: full ROM, no lymphadenopathy, supple, no meningeal signs and no JVD GENERAL: Yes normal visual inspection and Yes trachea midline CERVICAL SPINE: Yes cervical ROM normal Chest: COMMONS NORMALS: normal inspection of the chest and normal palpation of entire chest wall Resp: COMMON NORMALS: normal respiratory effort, No retractions, No use of accessory muscles and clear to auscultation bilaterally AUSCULTATION: clear to auscultation bilaterally Cardio: COMMON NORMALS: no JVD, regular rate, regular rhythm, S1 normal heart sound present and S2 normal heart sound present RATE: regular rate RHYTHM: regular rhythm HEART SOUNDS: S1 normal heart sound present and S2 normal heart sound present Back/Pelvis: LUMBAR SPINE/LOWER BACK: Yes pain with ROM, Yes lumbar spinal tenderness and Yes paraspinal muscle tenderness Extremity: RIGHT LOWER EXTREMITY: Yes foot & digits Right ankle: Yes inspection (Edematous), Yes ROM (normal) and Yes neurovascular exam (Normal) Neuro: [place] COMA SCALE: document GCS findings [place] coma scale eye opening: Spontaneous [place] coma scale verbal response: Orientated [place] coma scale motor response: Obey commands [place] coma scale total score: 15 COMMON NORMALS: patient oriented x3, CN's II-XII intact bilaterally, moves all extremities, no focal motor deficits and no sensory deficits noted MENINGEAL SIGNS: Yes no meningeal signs Course Vital Signs: Vital signs: Vital Signs Temperature 98.0 F 02/19/25 15:12 Pulse Rate 92 02/19/25 15:12 Respiratory Rate 17 02/19/25 15:12 Blood Pressure 136/78 02/19/25 15:12 Pulse Oximetry 98 02/19/25 15:12 Oxygen Delivery Me thod Room Air 02/19/25 15:12 Discharge Plan Discharge Condition: Stable Prescriptions: No Action hydrocodone-acetaminophen 5-325 mg Tablet 1 tab PO Q8H PRN (Reason: Moderate Pain) Qty: 15 0RF Transderm-Scop 1 mg over 3 days Patch 3 Day 1 patch transdermal Q3D Qty: 4 0RF Multiple Vitamins Tablet 1 tab PO DAILY Qty: 30 0RF Vitamin D2 1,250 mcg (50,000 unit) Capsule 50,000 unit PO Q7D Qty: 10 0RF sucralfate 100 mg/mL suspension 10 ml PO QID Qty: 1000 0RF ondansetron HCl 4 mg tablet 4 mg PO Q6H PRN (Reason: Nausea) Qty: 30 0RF Protonix 40 mg tablet,delayed release (DR/EC) 40 mg PO BIDWM Qty: 60 0RF Referrals: Haseeb Casiano MD [Primary Care Provider, Family Practice] Print Language: Croatian Coding Level of Care Code ED Dietitian Teacher for Andrey Haas
--- NOTE | 2025-02-19 16:19 | CTR_ITS ---
PROCEDURE INFORMATION: Exam: CT Head Without Contrast Exam date and time: 02/19/2025 4:22 PM Age: 49 years old Clinical indication: Injury or trauma; Fall; Work related; Blunt trauma (contusions or hematomas); Without loss of consciousness TECHNIQUE: Imaging protocol: Computed tomography of the head without contrast. Radiation optimization: All CT scans at this facility use at least one of these dose optimization techniques: automated exposure control; mA and/or kV adjustment per patient size (includes targeted exams where dose is matched to clinical indication); or iterative reconstruction. COMPARISON: CT head wo con* [id number] 01/02/2024 12:02 PM RADIATION DOSE METRICS: Total DLP (mGy-cm): 1044.8 FINDINGS: Brain: Normal. No hemorrhage. Unremarkable white matter. No mass effect. Cerebral ventricles: No ventriculomegaly. Paranasal sinuses: Visualized sinuses are unremarkable. No fluid levels. Mastoid air cells: Visualized mastoid air cells are well aerated. Bones: Unremarkable. No acute fracture. Soft tissues: Unremarkable. CT/CT head wo con* [id number] IMPRESSION: No acute intracranial abnormality.
--- NOTE | 2025-02-19 16:19 | XRR_ITS ---
PROCEDURE INFORMATION: Exam: XR Sacrum and Coccyx, 2 or More Views Exam date and time: 02/19/2025 4:32 PM Age: 49 years old Clinical indication: Injury or trauma; Fall; Blunt trauma (contusions or hematomas) TECHNIQUE: Imaging protocol: XR of the sacrum and coccyx, 2 or more views. COMPARISON: CR XR lumbar spine 2-3V* [id number] 02/19/2025 4:32 PM FINDINGS: Bones/joints: Normal. No acute fracture. Soft tissues: Phleboliths in the pelvis. Otherwise, no significant soft tissue abnormalities. XR/XR sacrum coccyx min 2V [id number] IMPRESSION: No acute fractures or malalignment.
--- NOTE | 2025-02-19 16:19 | XRR_ITS ---
PROCEDURE INFORMATION: Exam: XR Right Ankle Exam date and time: 02/19/2025 4:38 PM Age: 49 years old Clinical indication: Injury or trauma; Fall; Blunt trauma; Ankle; Right TECHNIQUE: Imaging protocol: Radiologic exam of the right ankle. Views: 3 or more views. COMPARISON: No relevant prior studies available. FINDINGS: Bones/joints: No fractures. No bony destructive lesions. Soft tissues: Mild soft tissue swelling anterior to the malleolus. XR/XR ankle RT min 3V* [id number] IMPRESSION: 1. No acute fractures or malalignment. 2. Mild soft tissue swelling anterior to the ankle and about the lateral malleolus.
--- NOTE | 2025-02-19 16:19 | CTR_ITS ---
PROCEDURE INFORMATION: Exam: CT Maxillofacial Without Contrast Exam date and time: 02/19/2025 4:22 PM Age: 49 years old Clinical indication: Injury or trauma; Fall; Blunt trauma (contusions or hematomas); Orbit/periorbital; Right TECHNIQUE: Imaging protocol: Computed tomography of the face without contrast. Radiation optimization: All CT scans at this facility use at least one of these dose optimization techniques: automated exposure control; mA and/or kV adjustment per patient size (includes targeted exams where dose is matched to clinical indication); or iterative reconstruction. COMPARISON: CT head wo con* [id number] 01/02/2024 12:02 PM RADIATION DOSE METRICS: Total DLP (mGy-cm): 542.8 FINDINGS: Paranasal sinuses: No air-fluid levels. Orbital cavities: Orbits are normal. Globes are unremarkable. Teeth: Poor dentition for age with numerous missing teeth and multiple caries. Bones: No acute fracture. Soft tissues: Unremarkable. CT/CT facial bones wo con* [id number] IMPRESSION: 1. No acute facial or mandibular fractures. 2. Poor dentition.
--- NOTE | 2025-02-19 16:19 | XRR_ITS ---
PROCEDURE INFORMATION: Exam: XR Lumbosacral Spine Exam date and time: 02/19/2025 4:32 PM Age: 49 years old Clinical indication: Injury or trauma; Fall; Blunt trauma (contusions or hematomas) TECHNIQUE: Imaging protocol: Radiologic exam of the lumbosacral spine. Views: 2 views. COMPARISON: CT lumbar spine wo con* [id number] 01/04/2024 9:55 AM FINDINGS: Bones/joints: No acute fractures. No bony destructive lesions. Moderate to advanced degenerative disc changes and facet joint arthropathy at L4-L5 and L5-S1. Moderate degenerative disc changes L3-L4. Grade 1 retrolisthesis of L3 on L4 measuring 3 mm. Grade 1 retrolisthesis of L4 on L5 measuring 3 mm. Decreased osseous mineralization subjectively. Soft tissues: Unremarkable. XR/XR lumbar spine 2-3V* [id number] IMPRESSION: 1. No acute fractures or malalignment. 2. Multilevel degenerative changes as above.
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
[2025-02-19] MEDS: ketorolac 60 mg/2 mL INJ IM (17:20)
[2025-02-19 17:26] VITALS: BP 107/75; PULSE 95; O2SAT 95
== END 2025-02-19 17:27 | disposition home or self-care (01) ==
PROVIDERS: Emergency Provider Physician Assistant; PCP Family Medicine
DX: S00.11XA Contusion of right eyelid and periocular area, initial encounter (principal); S30.0XXA Contusion of lower back and pelvis, initial encounter; S93.401A Sprain of unspecified ligament of right ankle, initial encounter; Y04.2XXA Assault by strike against or bumped into by another person, initial encounter
CPT/HCPCS: 70450; 70486; 72100; 72220; 73610; 96372; 99284; J1885

== ENCOUNTER → 2025-03-25 10:23 | Outpatient (BNVA) | payer MEDICAID, SELFPAY | PROVIDERS: PCP Family Medicine; Visit Provider Nurse Practitioner Women's Health | DX: N92.0 Excessive and frequent menstruation with regular cycle (principal) | CPT/HCPCS: 76830 ==

== ENCOUNTER → 2025-05-11 10:57 | Outpatient (BNVA) | payer MEDICAID, SELFPAY | PROVIDERS: PCP Family Medicine; Visit Provider Obstetrics & Gynecology | DX: Z12.4 Encounter for screening for malignant neoplasm of cervix (principal) | CPT/HCPCS: 87624 ==

== ENCOUNTER 2025-05-12 11:20 | Outpatient (CLI) | payer MEDICAID, SELFPAY ==
--- NOTE | 2025-05-12 11:40 | XRR_ITS ---
NOTE: Report was unsigned for reason: Ordering provider was edited. Original Signature date and time was: 05/12/25 @ 1424 PROCEDURE INFORMATION: Exam: XR Left Knee Exam date and time: 05/12/2025 11:52 AM Age: 49 years old Clinical indication: Pain; Swelling, leg or foot; Entire left leg swollen x5 days, increased popping in knee joint; Additional info: Knee pain, left TECHNIQUE: Imaging protocol: Radiologic exam of the left knee. Views: 4 or more views. COMPARISON: No relevant prior studies available. FINDINGS: Bones/joints: Normal. Soft tissues: Normal. [facility] XR/XR knee LT 4V [id number] IMPRESSION: No acute findings.
== END 2025-05-12 11:21 | disposition home or self-care (01) ==
PROVIDERS: PCP Family Medicine; Visit Provider Nurse Practitioner Family
DX: M25.562 Pain in left knee (principal)
CPT/HCPCS: 73564

== ENCOUNTER 2025-05-14 09:45 | Outpatient (CLI) | payer MEDICAID, SELFPAY ==
--- NOTE | 2025-05-14 09:50 | USCV_ITS ---
Krupa Sparks Age: 49 Gender: F : 1975 Exam Date: 05/14/2025 10:01 Ordering Phys: Haseeb Casiano MD Technologist: BRYANT [place] [facility] [place]: LE Edema HISTORY: Lower extremity edema. PROCEDURES: Venous duplex imaging was performed in bilateral lower extremities. The following venous structures were evaluated: common femoral vein, profunda vein, proximal portion of the greater saphenous vein, superficial femoral vein, and the popliteal vein. In addition, the posterior tibial and peroneal trunk were evaluated. Serial compression, augmentation maneuvers, and spectral Doppler flow evaluation were performed. FINDINGS: No evidence of DVT seen in any vessel visualized at this time. CONCLUSIONS No evidence of right lower extremity DVT. No evidence of left lower extremity DVT. 2.1 x 1.8cm RIGHT popliteal cyst with some internal debris Jose Quintanilla MD (Electronically Signed) Final Date: 14 May 2025 12:53 S
== END 2025-05-14 09:46 | disposition home or self-care (01) ==
LOC: RAD 09:46
PROVIDERS: PCP Family Medicine; Visit Provider Family Medicine
DX: R60.0 Localized edema (principal); M71.21 Synovial cyst of popliteal space [Baker], right knee
CPT/HCPCS: 93970

== ENCOUNTER 2025-07-14 07:25 | Outpatient (CLI) | payer MEDICAID, SELFPAY ==
--- NOTE | 2025-07-14 07:29 | US_ITS ---
WS: [id number] RIGHT UPPER QUADRANT ULTRASOUND HISTORY: ABNORMAL LIVER FUNCTION TESTS COMPARISON: 12/25/2023 Liver: 19.9 cm in length. Moderately enlarged liver with moderate hepatic steatosis. Deep liver is not well visualized due to attenuation. No mass or intrahepatic duct dilatation. Portal Vein: Normal hepatopetal flow with monophasic waveform. Gallbladder: Prior cholecystectomy. CBD: 0.5 cm Pancreas: Echogenic pancreas. Right kidney: 11.0 cm in length. Normal size and echogenicity. No hydronephrosis or mass. Aorta and IVC: Unremarkable abdominal aorta and IVC. No ascites. US/US abdomen limited [id number] IMPRESSION: 1. Status post cholecystectomy. 2. Moderately enlarged liver with moderate hepatic steatosis.
--- NOTE | 2025-07-14 07:48 | USCV_ITS ---
Krupa Sparks Age: 49 Gender: F : 1975 Exam Date: 07/14/2025 08:02 Ordering Phys: Haseeb Casiano MD Technologist: Exam Location: [facility] [place] Indication: cp sob BP: 120 / 70 HR: 90 Rhythm: Sinus Technical Quality: MEASUREMENTS (Male / Female) Normal Values 2D ECHO LV Diastolic Diameter PLAX 3.9 cm 4.2 - 5.9 / 3.9 - 5.3 cm IVS Diastolic Thickness 1.1 cm 0.6 - 1.0 / 0.6 - 0.9 cm IVS Systolic Thickness 1.7 cm LVPW Diastolic Thickness 1.1 cm 0.6 - 1.0 / 0.6 - 0.9 cm LVPW Systolic Thickness 1.7 cm LVOT Diameter 2.0 cm LV Ejection Fraction 2D Teich 65.4 % LV Ejection Fraction MOD 4C 61.5 % LV Ejection Fraction MOD 2C 67.1 % LV Ejection Fraction 2C AL 67.2 % LA Diameter 3.2 cm RA Systolic Volume 4C AL 33.4 ml RA Systolic Volume 4C MOD 31.7 ml Aorta at Sinotubular Diameter 3.3 cm IVC Diameter 2.8 cm M-MODE LA Ao Ratio MM 1.2 AV Cusp Separation MM 2.8 cm DOPPLER AV Peak Velocity 115.0 cm/s LVOT Peak Velocity 103.0 cm/s AV Area Cont Eq vti 3.4 cm squared AV Area Cont Eq pk 2.8 cm squared MV Peak Velocity 103.0 cm/s MV Area PHT 4.4 cm squared Mitral E to A Ratio 0.7 TV Peak Velocity 156.5 cm/s TR Peak Velocity 163.0 cm/s TR Peak Gradient 10.6 mmHg TV Peak E Velocity 77.0 cm/s PV Peak Velocity 117.0 cm/s FINDINGS Left Ventricle Normal left ventricular size and systolic function, EF 60-65%. No regional wall motion abnormalities. Grade 1 diastolic dysfunction Right Ventricle Normal right ventricular size and systolic function. Right Atrium Normal right atrial size. Left Atrium Normal left atrial size. IA Septum Grossly normal Mitral Valve Structurally normal mitral valve. Mild mitral regurgitation. Aortic Valve Structurally normal aortic valve. No significant stenosis or regurgitation. Tricuspid Valve Insufficient TR jet to calculate RVSP Pulmonic Valve Not well visualized Pericardium Normal Aorta IVC Not well visualized CONCLUSIONS LV systolic function is normal with EF of 60-65% Grade 1 diastolic dysfunction Mild mitral regurgitation. Michael Oneill MD (Electronically Signed) Final Date: 19 July 2025 13:06 S
== END 2025-07-14 07:26 | disposition home or self-care (01) ==
LOC: RAD 07:25
PROVIDERS: PCP Family Medicine; Visit Provider Family Medicine
DX: R00.2 Palpitations (principal); R06.02 Shortness of breath; R60.0 Localized edema
CPT/HCPCS: 76705; 93306

== ENCOUNTER 2025-07-21 09:49 | Day surgery (SDC) | payer MEDICAID, SELFPAY ==
--- NOTE | 2025-07-21 02:45 | W.PM.OPSFHP ---
Same Day Surgery H&P Indication for Procedure/HPI DATE OF PROCEDURE: July 21, 2025 CHIEF COMPLAINT/INDICATIONFOR SURGICAL PROCEDURE: abnormal uterine bleeding PREOP DIAGNOSIS: menometrorrhagia PLANNED PROCEDURE: Operation Date: 07/21/25 13:15 Proposed Procedures p Hysteroscopy w/ Endometrial Sampling [id number] N94.6 N93.9 Z86.69(Not Applicable) - Gustavo Mohr MD s POSSIBLE Endometrial Poylpectomy(Not Applicable) - Gustavo Mohr MD s Placement of Intrauterine Device(Not Applicable) - Gustavo Mohr MD Medications/Allergies* Home Medications ?Medication ?Instructions ?Recorded ?Confirmed ?Type amitriptyline 25 mg tablet 25 mg PO DAILY 03/17/25 07/20/25 History colestipol 1 gram tablet 1 g PO BID 03/17/25 07/20/25 History duloxetine 60 mg capsule,delayed 60 mg PO DAILY 03/17/25 07/20/25 History release fludrocortisone 0.1 mg tablet 0.05 mg PO DAILY 03/17/25 07/20/25 History hydroxyzine HCl 10 mg tablet 10 mg PO TID PRN lupus 03/17/25 07/20/25 History levothyroxine 75 mcg capsule 75 mcg PO DAILY 03/17/25 07/20/25 History midodrine 10 mg tablet 5 mg PO TID 03/17/25 07/20/25 History pregabalin 100 mg capsule 100 mg PO TID 03/17/25 07/20/25 History ergocalciferol (vitamin D2) 1,250 50,000 unit PO Q30D 07/20/25 07/20/25 History mcg (50,000 unit) capsule (Vitamin D2) Allergies/Adverse Reactions Allergy/AdvReac Type Severity Reaction Status Date / Time Alpha-Gal Allergy Unknown ALGY-Rash Verified 05/11/25 08:38 (Jyrtiqpue-Avlpn-8,3-Gala cephalexin (From Keflex) Allergy ADR-Itching Verified 05/11/25 08:38 Pertinent History/Comorbid Conditions* Medical History (Updated 03/23/25 @ 09:34 by Lester Razo MD) Dental abscess Hx of Guillain-Lamar syndrome Hiatal hernia Hyperparathyroidism , secondary, non-renal Nonvisualization of gallbladder Acalculous cholecystitis section wound seroma, Surgical History (Updated 01/28/24 @ 06:20 by Luke Carrasco DO) Hx laparoscopic cholecystectomy 12/27/23 Dr Carrasco S/P right knee arthroscopy Family History (Updated 03/17/25 @ 11:12 by Irma Light CMA) Diabetes Father Grandmother CAD (coronary artery disease) Heart disease Father Mother Grandmother Grandfather Hypertension Father Grandmother Grandfather Thyroid disease Father Brother Stroke Father Grandfather Social History Smoking and tobacco/nicotine status: never used tobacco/nicotine Alcohol intake: former Pertinent Exam Findings alert, oriented x 3, clear to auscultation bilaterally and regular rate & rhythm Recommendations Surgery/Procedure today Coding Level of Care Code Acute Code for Chg Fwd
[2025-07-21 10:10] VITALS: BP 133/109; PULSE 97; RESP 18; TEMP 36.2; O2SAT 97
[2025-07-21 10:20] VITALS: BMI 32.4
== END 2025-07-21 10:25 | disposition home or self-care (01) ==
LOC: OR 09:50
PROVIDERS: PCP Family Medicine; Visit Provider Obstetrics & Gynecology
PROC: 0UJD8ZZ Inspection of Uterus and Cervix, Via Natural or Artificial Opening Endoscopic (ICD-10-PCS; CPT 58555; principal; 2025-07-21 13:15)
PROC: (CPT 58300; 2025-07-21 13:15)
DX: Z53.9 Procedure and treatment not carried out, unspecified reason (principal)
CPT/HCPCS: J2250; J3010

== ENCOUNTER 2025-09-18 03:52 | Emergency (ER) | payer MEDICAID, SELFPAY ==
[2025-09-18] VITALS (22 sets, daily range): BP systolic 120–140; BP diastolic 82–96; PULSE 98–118; RESP 14–24; TEMP 37.3; O2SAT 90–98; BMI 32.4
--- OUTSIDE RECORDS SUMMARY | 2025-09-18 03:55 | XMS_ITS | Encounter Summary ---
Author Organization [facility] Address [address] [place] [address] Care Team Providers Care Sport Internship Name Role Phone Unavailable Primary Care Provider Unavailabl e Reason for Visit * Reason Onset Date Comments Appointment Notification 09/11/2025 Encounter Details Date Type Department Care Team ([facility] st Contact Info) Description 09/11/2025 Telephone allyve Cancer and Hematology [place] [address] [facility] [address] [place] [address] Giovanni Knox MD [address] [address] Appointment Notification Social History Tobacco Use Types Packs/Day Years Used Date Smoking Tobacco: Never Smokeless Tobacco: Never Alcohol Use Standard Drinks/Week Comments Not Currently 0 (1 standard drink = 0.6 oz pur e alcohol) occasionally beer or vodka [facility] Utilities Answer Date Recorded In the past 12 months has [facility] [employer], gas, oil, or water [facility] threatened to shut off services in your home? No 01/28/2024 Financial Resource Strain Answer Date R ecorded How hard is it for you to pa y for the very basics like food, housing, medical care, and heating? Hard 01/28/2024 Food Insecurity Answer Date Recorded In the past 12 months, have you worried that your food would run out before you had money to buy more? Never true 01/28/2024 In the past 12 months, did y ou run out of food and didn't have money to buy more? Never true 01/28/2024 Transportation Needs Answer Date Record ed In the past 12 months, has l ack of transportation kept you from medical appointments or from getting medications? No 01/13 In the past 12 months, has l ack of transportation kept you from meetings, work, or from getting things needed for daily living? No 01/28/2024 Housing Stability Answer Date Recorded In the last 12 months, was t here a time when you were not able to pay the mortgage or rent on time? No 01/28/2024 Number of Times Moved in the Last Year Not on fi le 01/28/2024 Unstable Housing in the Last Year Not on file 01/28/2024 Feeling Safe Answer Date Recorded Are you in a relationship wi th someone who hurts you emotionally and/or physically? No 06/19/2024 Food Insecurity Answer Date Recorded Social/Environmental Concerns No concerns Transportation Needs Answer Date Record ed Social/Environmental Concerns No concerns Housing Stability Answer Date Recorded Social/Environmental Concerns No concerns Utility Needs Answer Date Recorded Social/Environmental Concerns No concerns Comments No Sex and Gender Information Value Date Recorded Sex Assigned at Not on file Legal Sex Female 11:08 AM CDT Gender Identity Not on file Sexual Orientation Not on file documented as of this encounter Miscellaneous Notes * Telephone Encounter - Shilpa Morgan CNA - 09/11/2025 12:17 PM ASSESSMENT DIRECTOR Called patient to confirm follow up appointment. Patient did not answer. Left a voicemail and [facility] message with appointment details. SSMENT DIRECTOR documented in this encounter Plan of Treatment Upcoming Encounters Date Type Department Care Team (Late st Contact Info) Description 09/18/2025 3:20 PM ASSESSMENT DIRECTOR Office Visit [facility] Cancer and Hematology [place] [address] [facility] [[email or web address] [address] [place] [address] Giovanni Knox MD [address] [place] [phone] 10/01/2025 8:00 AM ASSESSMENT DIRECTOR Video Visit [facility] Neurology - [place] [address] [place] [address] Warren Barnes, SHERIFF DEPUTY [address] [place] [address] 12/18/2025 3:00 PM ASSESSMENT DIRECTOR Video Visit [facility] Gastroenterology- [place] [address] [place] [address] Madina Smith, ADVANCED PRACTICE REGISTERED NURSE [address] [place] [address] 03/01/2026 3:15 PM CDT Office Visit [facility] Neurology - [place] [address] [place] [address] Simona Arredondo MD [address] [place] [address] documented as of this encounter Visit Diagnoses Not on filedocumented in this encounter
--- OUTSIDE RECORDS SUMMARY | 2025-09-18 03:55 | XMS_ITS | Clinical Summary ---
Author Organization [facility] de Address [address] [place] [address] Phone Care Team Providers Care Quality Control Inspector Name Role Phone Unavailable Primary Care Provider Unavailabl e Allergies Active Allergy Reactions Criticality Noted Date Comments Alpha-Gal (Wctskwcsh-Srltv-4,3-G alactose) Nausea and Vomiting Low 01/28/2024 Cephalexin Rash Low 01/28/2024 Gluten Unknown 01/29/2024 Pt with self reported celiac disease Medications acetaminophen (TYLENOL) 325 mg tablet Take 2 Tablets (650 mg) by mouth every 6 hours as needed for Pain, Mild. 4 Active fludrocortison e (FLORINEF) 0.1 mg tablet Take 1 Tablet (0.1 mg) by mouth daily. 30 Tablet 4 Active midodrine (PROAMATINE) 10 mg Tablet Take 1 Tablet (10 mg) by mouth 3 times daily. 90 Tablet 4 Active hydroxychloroq uine (PLAQUENIL) 200 mg tablet Take 2 Tablets (400 mg) by mouth daily. 60 Tablet 2 4 Active levothyroxine 75 mcg tablet Take 1 Tablet (75 mcg) by mouth daily in the morning. 90 Tablet 3 5 Active cholecalcifero l 1,250 mcg (50,000 unit) Capsule Take 1 Capsule (50,000 Units) by mouth every 7 days. For 8 weeks then every 2 weeks 15 Capsule 3 5 Active DULoxetine (CYMBALTA) 60 mg Capsule, Delayed Release(E.C.)I ndications:Perfecto yneuropathy,Me dication refill Take 1 Capsule (60 mg) by mouth daily. 30 Capsule 5 5 Active sucralfate (CARAFATE) 100 mg/mL suspension SHAKE LIQUID AND TAKE 10 ML(1 GRAM) BY MOUTH EVERY 6 HOURS 1200 mL 2 5 Active furosemide (LASIX) 20 mg tablet TAKE 1 TABLET BY MOUTH EVERY MORNING FOR 5 DAYS 5 Active potassium CHLORIDE (KLOR-CON M10) 10 mEq Extended Release tablet 5 Active pregabalin (LYRICA) 100 mg Capsule TAKE 1 CAPSULE(100 MG) BY MOUTH EVERY 8 HOURS 90 Capsule 5 5 Active hydrOXYzine HCL (ATARAX) 10 mg tabletIndicati ons:Burning sensation of skin TAKE 1 TABLET(10 MG) BY MOUTH THREE TIMES DAILY NEEDED FOR ITCHING 90 Tablet 5 Active amitriptyline (ELAVIL) 50 mg tabletIndicati ons:Polyneurop athy,Medicatio n management TAKE 1 TABLET(50 MG) BY MOUTH DAILY AT BEDTIME 30 Tablet 5 5 Active colestipoL (COLESTID) 1 gram tablet TAKE 1 TABLET(1 GRAM) BY MOUTH TWICE DAILY 180 Tablet 5 Active famotidine (PEPCID) 20 mg tablet Take 1 Tablet (20 mg) by mouth 2 times daily. Please call the office to schedule a follow up appointment. Thank you 60 Tablet 2 5 Active amitriptyline (ELAVIL) 50 mg tabletIndicati ons:Polyneurop athy,Medicatio n management Take 1 Tablet (50 mg) by mouth daily at bedtime. 30 Tablet 5 5 025 Discontinued colestipoL (COLESTID) 1 gram tablet Take 1 Tablet (1 Gram) by mouth 2 times daily. 180 Tablet 5 025 Discontinued famotidine (PEPCID) 20 mg tablet Take 1 Tablet (20 mg) by mouth 2 times daily. 60 Tablet 2 5 025 Discontinued Active Problems Problem Noted Date Diagnosed Date Iron deficiency anemia 05/19/2024 Hx of secondary hyperparathyroidism 02/28/2024 Orthostasis 02/05/2024 Guillain Martin syndrome 02/04/2024 Allergy to alpha-gal 02/01/2024 Acute cystitis without hematuria 01/30/2024 Other neutropenia 01/29/2024 Hypokalemia 01/29/2024 Syncope 01/28/2024 Polyneuropathy 01/28/2024 Generalized muscle weakness 01/28/2024 Secondary hyperparathyroidism 01/28/2024 AIDP (acute inflammatory demyelinating polyneuro young) 01/28/2024 Encounters Date Type Department Care Team Description 09/11/2025 [facility] [address] [facility] [address] [place] [phone] Madina Smith FNP 09/11/2025 Telephone [facility] Cancer and Hematology [place] [address] [place] [phone] Giovanni Knox MD Appointment Notification 09/07/2025 Orders Only [facility] and Hematology [place] [address] [place] [phone] Giovanni Knox MD Iron deficiency anemia due to chronic blood loss (Primary Dx) 09/01/2025 External Device Data STL ABSTRACTION Provider, Abstract 09/01/2025 External Device Data STL ABSTRACTION Provider, Abstract 08/24/2025 [facility] [address] [place] [phone] Madina Smith FNP 08/22/2025 [facility] Neurology - [place] [address] [place] [phone] Warren Barnes, CORY Polyneuropathy; Medication management 08/18/2025 External Device Data STL ABSTRACTION Provider, Abstract 08/11/2025 [facility] Rheumatology- [facility] [address] [place] [address] Brii Booth PA Burning sensation of skin 07/28/2025 8:42 AM CDT - 07/28/2025 11:59 PM CDT Hospital Encounter [facility] [address] [place] [phone] Giovanni Knox MD Discharge Disposition: Home or Self Care 07/28/2025 External Device Data STL ABSTRACTION Provider, Abstract 07/23/2025 8:55 AM CDT - 07/23/2025 11:59 PM CDT Hospital Encounter [facility] [address] [place] [phone] Giovanni Knox MD Discharge Disposition: Home or Self Care 07/17/2025 7:57 AM CDT - 07/17/2025 11:59 PM CDT Hospital Encounter [facility] [address] [place] [phone] Giovanni Knox MD Discharge Disposition: Home or Self Care 07/17/2025 Results Follow-Up [facility] Rheumatology- [place] [address] [place] [phone] Brii Booth PA HEPATIC FUNCTION PANEL 07/14/2025 Orders Only Initial Department [address] [place] [address] Dr DYER: [place] [address] Provider, Historical 07/14/2025 Refill [facility] Rheumatology- [place] [address] [place] [phone] Brii Booth PA Burning sensation of skin 07/02/2025 7:43 AM CDT - 07/02/2025 11:59 PM CDT Hospital Encounter [facility] [address] [place] [phone] Giovanni Knox MD Discharge Disposition: Home or Self Care 06/22/2025 Telephone [facility] Cancer [facility] Hematology [place] [address] [place] [phone] Giovanni Knox MD Information 06/19/2025 3:20 PM CDT Video Visit [facility] Cancer [facility] [address] [place] [address] Giovanni Knox MD Iron deficiency anemia due to chronic blood loss (Primary Dx) from Last 3 Months Family History Medical History Relation Name Comments Colon Cancer Neg Hx Social History Tobacco Use Types Packs/Day Years Used Date Smoking Tobacco: Never Smokeless Tobacco: Never Tobacco Cessation:Counseling Given: Not Answered Alcohol Use Standard Drinks/Week Comments Not Currently 0 (1 standard drink = 0.6 oz pur e alcohol) occasionally beer or vodka [facility] Utilities Answer Date Recorded In the past 12 months has th e electric, gas, oil, or water company threatened to shut off services in your [...] on file Sexual Orientation Not on file Last Filed Vital Signs Vital Sign Reading Time Taken Comments Blood Pressure 126/75 07/28/2025 9:40 AM CDT Pulse 106 07/28/2025 9:40 AM CDT Temperature 36.1 C (97 F) 07/28/2025 9:12 AM CDT Respiratory Rate 98 07/28/2025 9:12 AM CDT Oxygen Saturation 98% 07/23/2025 9:07 AM CDT Inhaled Oxygen Concentration - - Weight 94.3 kg (208 lb) 05/14/2025 11:11 AM CDT Height 160 cm (5' 3 ) 05/07/2025 7:33 AM CDT Body Mass Index 36.85 05/07/2025 7:33 AM CDT Plan of Treatment Upcoming Encounters Date Type Department Care Team (Late st Contact Info) Description 09/18/2025 3:20 PM ASSOCIATE PROFESSOR OF EDUCATION Office Visit [facility] Cancer and Hematology [place] [address] [email or web address] [address] [place] [address] Giovanni Knox MD [address] [phone] 10/01/2025 8:00 AM ASSOCIATE PROFESSOR OF EDUCATION Video Visit [facility] Neurology [facility] [address] [place] [address] Warren Barnes, CORY [address] [facility] [address] [place] [address] 12/18/2025 3:00 PM ASSOCIATE PROFESSOR OF EDUCATION Video Visit [facility] Gastroenterology- [place] [address] [facility] [address] [place] [address] Madina Smith, HORTICULTURAL MANAGER [address] [facility] [address] [place] [address] 03/01/2026 3:15 PM CDT Office Visit [facility] Neurology - [place] [address] [place] [address] Simona Arredondo MD [address] [place] [address] Health Maintenance Due Date Last Done Comments Pre-Diabetes and Diabetes Screening 1975 DTAP/TDAP/TD VACCINES (1 - Tdap) 1995 HEPATITIS B VACCINES (1 of 3 - 19+ 3-dose series) 1995 HPV/Cotest (21-29) 1997 CERVICAL CANCER SCREENING 2006 HPV/Cotest (30-65) 2006 PAP SMEAR 2006 BREAST CANCER SCREENING 2016 FIT-DNA Q 3 years 2021 FIT/FOBT Q 1 year 2021 Flex Sig/CT Colonography Q 5 years 2021 INFLUENZA VACCINE (#1) 2025 COVID-19 Vaccine ( season) 2025, 03/25/2021 COLORECTAL SCREENING 06/19/2034 06/19/2024, 06/19/20 24 Colorectal Cancer Screening 06/19/2034 Procedures Procedure Name Priority Date/Time Associated Diagnosis Comments FERRITIN Routine 09/11/2025 2:09 PM ASSOCIATE PROFESSOR OF EDUCATION Iron deficiency anemia due to chronic blood loss IRON, TIBC, AND PERCENT SATURATION Routine 09/11/2025 2:09 PM ASSOCIATE PROFESSOR OF EDUCATION Iron deficiency anemia due to chronic blood loss COMPREHENSIVE METABOLIC PANEL Routine 09/11/2025 2:09 PM ASSOCIATE PROFESSOR OF EDUCATION Iron deficiency anemia due to chronic blood loss CBC WITH DIFFERENTIAL Routine 09/11/2025 2:09 PM ASSOCIATE PROFESSOR OF EDUCATION Iron deficiency anemia due to chronic blood loss HEPATIC FUNCTION PANEL Routine 8:30 AM CDT RETICULOCYTES Routine 07/14/2025 8:26 AM CDT Iron deficiency anemia due to chronic blood loss IRON, TIBC, AND PERCENT SATURATION Routine 07/14/2025 8:26 AM CDT Iron deficiency anemia due to chronic blood loss COLONOSCOPY REPORT 06/19/2024 2: 36 PM CDT from Last 3 Months or Most Recently Relevant to Health Maintenance Results * (ABNORMAL) IRON, TIBC, AND PERCENT SATURATION (09/11/2025 2:09 PM ASSOCIATE PROFESSOR OF EDUCATION) Only the most recent of2 resultswithin the time period is included. Pathologist [facility] IRON 45 40 - 190 mcg/dL [facility] TIBC 238(L) 250 - 450 mcg/dL (calc) [facility] IRON % SATURATION 19 16 - 45 % (calc) [facility] Comment: Test Performed at: [facility] [address] [place] [address] Otilia Rodrigues MD Blood 09/11/2025 2:09 PM ASSOCIATE PROFESSOR OF EDUCATION 09/11/2025 2:09 PM ASSOCIATE PROFESSOR OF EDUCATION us Annum Abilio OSBORNE CHEMISTRY ORDERABLES Final Resul t [facility] [phone] [facility] [address] [place] [address] * (ABNORMAL) CBC WITH DIFFERENTIAL (09/11/2025 2:09 PM ASSOCIATE PROFESSOR OF EDUCATION) Pathologist [facility] WBC 8.7 3.8 - 10.8 Thousand/u L [facility] RBC 3.78(L) 3.80 - 5.10 Million/uL [facility] HEMOGLOBIN 12.7 11.7 - 15.5 g/dL [facility] HEMATOCRIT 37.7 35.9 - 46.0 % [facility] MCV 99.7 81.4 - 101.7 fL [facility] MCH 33.6(H) 27.0 - 33.0 pg [facility] MCHC 33.7 31.6 - 35.4 g/dL [facility] Comment: For adults, a slight decrease in the calculated MCHC value (in the range of 30 to 32 g/dL) is most likely not clinically significant; however, it should be interpreted with caution in correlation with other red cell parameters and the patient's clinical condition. RDW 15.7(H) 11.0 - 15.0 % [facility] PLATELETS 291 140 - 400 Thousand/u L [facility] MPV 11.3 7.5 - 12.5 fL [facility] NEUTROPHIL ABSOLUTE 6,099 1,500 - 7,800 cells/uL [facility] LYMPHOCYTE ABSOLUTE 1,383 850 - 3,900 cells/uL [facility] MONOCYTE ABSOLUTE 626 200 - 950 cells/uL [facility] EOSINOPHIL ABSOLUTE 522(H) 15 - 500 cells/uL [facility] BASOPHILS ABSOLUTE 70 0 - 200 cells/uL [facility] NEUTROPHIL 70.1 % [facility] LYMPHOCYTES 15.9 % [facility] MONOCYTE 7.2 % [facility] EOSINOPHILS 6.0 % [facility] BASOPHILS 0.8 % [facility] Comment: Test Performed at: [facility] [address] [facility] [place] [address] Otilia Rodrigues MD Blood 09/11/2025 2:09 PM ASSOCIATE PROFESSOR OF EDUCATION 09/11/2025 2:09 PM ASSOCIATE PROFESSOR OF EDUCATION us Annum Abilio OSBORNE HEMATOLOGY ORDERABLES Final Resu lt [facility] [phone] [facility] [address] [facility] [place] [address] * FERRITIN (09/11/2025 2:09 PM ASSOCIATE PROFESSOR OF EDUCATION) FERRITIN 195 16 - 232 ng/mL [facility] Comment: Test Performed at: [facility] [address] [facility] [address] Otilia Rodrigues MD Blood 09/11/2025 2:09 PM ASSOCIATE PROFESSOR OF EDUCATION 09/11/2025 2:09 PM ASSOCIATE PROFESSOR OF EDUCATION us Giovanni Knox MD CHEMISTRY ORDERABLES Final Resul t [facility] [phone] [facility] [address] [place] [address] * (ABNORMAL) COMPREHENSIVE METABOLIC PANEL (09/11/2025 2:09 PM ASSOCIATE PROFESSOR OF EDUCATION) GLUCOSE 128(H) 65 - 99 mg/dL [facility] Comment: Fasting reference interval For someone without known diabetes, a glucose value >125 mg/dL indicates that they may have diabetes and this should be confirmed with a follow-up test. BUN 3(L) 7 - 25 mg/dL [facility] Comment: Verified by repeat analysis. CREATININE 0.72 0.50 - 0.99 mg/dL [facility] Comment: Verified by repeat analysis. GFR 102 > OR = 60 mL/min/1.7 3m2 [facility] BUN/CREAT RATIO 4(L) 6 - 22 (calc) [facility] SODIUM 138 135 - 146 mmol/L [facility] POTASSIUM 3.2(L) 3.5 - 5.3 mmol/L [facility] CHLORIDE 100 98 - 110 mmol/L [facility] CO2 25 20 - 32 mmol/L [facility] CALCIUM 8.3(L) 8.6 - 10.2 mg/dL [facility] TOTAL PROTEIN 6.3 6.1 - 8.1 g/dL [facility] ALBUMIN 3.3(L) 3.6 - 5.1 g/dL [facility] GLOBULIN 3.0 1.9 - 3.7 g/dL (calc) [facility] ALBUMIN/GLOBULIN RATIO 1.1 1.0 - 2.5 (calc) [facility] BILIRUBIN TOTAL 0.5 0.2 - 1.2 mg/dL [facility] ALKALINE PHOSPHATASE 214(H) 31 - 125 U/L [facility] AST 64(H) 10 - 35 U/L [facility] ALT 28 6 - 29 U/L [facility] Comment: Test Performed at: [facility] [address] Otilia Rodrigues MD Blood 09/11/2025 2:09 PM ASSOCIATE PROFESSOR OF EDUCATION 09/11/2025 2:09 PM ASSOCIATE PROFESSOR OF EDUCATION Aislinn Abilio OSBORNE CHEMISTRY ORDERABLES Final Resul t [facility] [phone] [facility] [address] * (ABNORMAL) HEPATIC FUNCTION PANEL (07/14/2025 8:30 AM CDT) TOTAL PROTEIN 6.9 6.1 - 8.1 g/dL [facility] ALBUMIN 4.0 3.6 - 5.1 g/dL [facility] GLOBULIN 2.9 1.9 - 3.7 g/dL (calc) [facility] ALBUMIN/GLOBULIN RATIO 1.4 1.0 - 2.5 (calc) [facility] BILIRUBIN TOTAL 0.5 0.2 - 1.2 mg/dL [facility] BILIRUBIN DIRECT 0.2 < OR = 0.2 mg/dL [facility] BILIRUBIN INDIRECT 0.3 0.2 - 1.2 mg/dL (calc) [facility] ALKALINE PHOSPHATASE 233(H) 31 - 125 U/L [facility] AST 119(H) 10 - 35 U/L [facility] ALT 46(H) 6 - 29 U/L [facility] Comment: Test Performed at: [facility] [address] Otilia Rodrigues MD 07/14/2025 8:30 AM CDT 07/14/2025 8:30 AM CDT us Brii CIFUENTES CHEMISTRY ORDERABLES Final Resul t Performing Organization Address [facility] de Phone Number [facility] [phone] [facility] [address] * RETICULOCYTES (07/14/2025 8:26 AM CDT) RETICULOCYTES 1.2 % [facility] RETICULOCYTE, ABSOLUTE 46,560 20,000 - 80,000 cells/uL [facility] Comment: Test Performed at: [facility] [address] [place] [address] Otilia Rodrigues MD Blood 07/14/2025 8:26 AM CDT 07/14/2025 8:27 AM CDT us Giovanni Knox MD HEMATOLOGY ORDERABLES Final Resu lt Performing Organization Address [facility] Co de Phone Number [facility] [phone] [facility] [address] * COLONOSCOPY REPORT (06/19/2024 2:36 PM CDT) Narrative Procedure Note Enoc Perez MD - 06/19/2024 2:36 PM CDT [facility] GI Patient Name: Krupa Sparks Procedure Date: 06/19/2024 Date of : 1975 Admit Type: Outpatient Age: 48 Attending MD: Enoc Perez MD, Procedure: Colonoscopy Indications: Diarrhea, Iron deficiency anemia Providers: Enoc Perez MD Referring MD: Quinten Casiano MD Medicines: Fentanyl 200 micrograms IV, Midazolam 10 mg IV, Diphenhydramine 50 mg IV Complications: No immediate complications. Procedure: Pre-Anesthesia Assessment: - Prior to the procedure, a History and Physical was performed, and patient medications and allergies were reviewed. The patient's tolerance of previous anesthesia was also reviewed. The risks and benefits of the procedure and the sedation options and risks were discussed with the patient. All questions were answered, and informed consent was obtained. Prior Anticoagulants: The patient has taken no anticoagulant or antiplatelet agents. ASA Grade Assessment: II - A patient with mild systemic disease. After reviewing the risks and benefits, the patient was deemed in satisfactory condition to undergo the procedure. After I obtained informed consent, the scope was passed under direct vision. Throughout the procedure, the patient's blood pressure, pulse, and oxygen saturations were monitored continuously. The Colonoscope was introduced through the anus and advanced to the terminal ileum, with identification of the appendiceal orifice and IC valve. The colonoscopy was performed without difficulty. The patient tolerated the procedure well. The quality of the bowel preparation was good. The terminal ileum, ileocecal valve, appendiceal orifice, and rectum were photographed. Estimated Blood Loss: Estimated blood loss was minimal. Findings: The terminal ileum appeared normal. Normal mucosa was found in the entire colon. Biopsies for histology were taken with a cold forceps for evaluation of microscopic colitis. External hemorrhoids were found during retroflexion. The hemorrhoids were small. Moderate Sedation: Moderate (conscious) sedation was administered by the nurse and supervised by the endoscopist. The patient's oxygen saturation, heart rate, blood pressure and response to care were monitored. [Sedation Duration Time]. Impression: - The examined portion of the ileum was normal. - Normal mucosa in the entire examined colon. Biopsied. - External hemorrhoids. Recommendation: - Patient has a contact number available for emergencies. The signs and symptoms of potential delayed complications were discussed with the patient. Return to normal activities tomorrow. Written discharge instructions were provided to the patient. - Resume previous diet. - Continue present medications. - Repeat colonoscopy in 10 years for screening purposes. - Await pathology results. Enoc Perez MD 06/19/2024 2:36:47 PM Number of Addenda: 0 Note Initiated On: 06/19/2024 2:01 PM Scope Withdrawal Time 0 hours 8 minutes 59 seconds Scope In: 2:22:43 PM Scope Out: 2:34:31 PM [address] [place], [place] Enoc Perez MD GI PROCEDURE ORDERA BLES Final Result from Last 3 Months or Most Recently Relevant to Health Maintenance [place] [address] [place] [address] PLAN [facility] [id number] RX INFOCROSSING Medicaid Advance Directives For more information, please contact: [phone] Documents on File Type Date Recorded Patient Coding Coordinator Expl anation Advance Directive POA 02/05/2024 3:16 PM A dvance Directive POA * Full Code (Latest Code Status on File) Date Activated Date Inactivated Comments 06/19/2024 12:37 PM 06/19/2024 5:09 PM * Full Code Date Activated Date Inactivated Comments 02/01/2024 4:30 PM 02/12/2024 4:18 PM * Full Code Date Activated Date Inactivated Comments 01/28/2024 2:05 PM 02/01/2024 3:03 PM
--- OUTSIDE RECORDS SUMMARY | 2025-09-18 03:55 | XMS_ITS | Encounter Summary ---
Author Organization [facility] Address [address] [place] [address] Care Team Providers Care Flight Superintendent Name Role Phone Unavailable Primary Care Provider Unavailabl e Reason for Visit * Reason Comments Med Refill Encounter Details Date Type Department Care Team ([facility] st Contact Info) Description 09/11/2025 Refill [facility] Gastroenterology- [place] [address] [facility] [address] [place] [address] Madina Smith, [facility] [address] [facility] [address] [place] [address] Social History Tobacco Use Types Packs/Day Years Used Date Smoking Tobacco: Never Smokeless Tobacco: Never Alcohol Use Standard Drinks/Week Comments Not Currently 0 (1 standard drink = 0.6 oz pur e alcohol) occasionally beer or vodka [facility] Utilities Answer Date Recorded In the past 12 months has e [employer], gas, oil, or water yeppt threatened to shut off services in your [...] on file documented as of this encounter Plan of Treatment Upcoming Encounters Date Type Department Care Team (Late st Contact Info) Description 09/18/2025 3:20 PM PHARMACY INTERN Office Visit [facility] Cancer and Hematology [place] [address] [facility] [address] [place] [address] Giovanni Knox MD [address] [place] [address] 10/01/2025 8:00 AM PHARMACY INTERN Video Visit [facility] Neurology - [place] [address] [place] [address] Warren Barnes NP [address] [place] [address] 12/18/2025 3:00 PM PHARMACY INTERN Video Visit [facility] Gastroenterology- [place] [address] [place] [address] Madina Smith, RESEARCH TEST ENGINE OPERATOR [address] [facility] [address] [place] [address] 03/01/2026 3:15 PM CDT Office Visit [facility] Neurology - [place] [address] [facility] [address] [place] [address] Simona Arredondo MD [address] [place] [address] documented as of this encounter Visit Diagnoses Not on filedocumented in this encounter
--- OUTSIDE RECORDS SUMMARY | 2025-09-18 03:55 | XMS_ITS | Encounter Summary ---
Author Organization [facility] Address [address] [place] [address] Care Team Providers Care Padder Cushion Name Role Phone Unavailable Primary Care Provider Unavailabl e Encounter Details Date Type Department Care Team ([facility] st Contact Info) Description 07/17/2025 Results Follow-Up [facility] Rheumatology- Severino Crawley [place] [address] [place] [address] Brii Booth PA [address] [place] [address] HEPATIC FUNCTION PANEL Social History Tobacco Use Types Packs/Day Years Used Date Smoking Tobacco: Never Smokeless Tobacco: Never Alcohol Use Standard Drinks/Week Comments Not Currently 0 (1 standard drink = 0.6 oz pur e alcohol) occasionally beer or vodka [facility] Utilities Answer Date Recorded In the past 12 months has [employer] electric, gas, oil, or water company threatened [...] st Contact Info) Description 09/18/2025 3:20 PM PARTS CASTING MACHINE OPERATOR Office Visit [facility] Cancer and Hematology [place] [address] [facility] [address] [place] [address] Giovanni Knox MD [address] [place] [address] 10/01/2025 8:00 AM PARTS CASTING MACHINE OPERATOR Video Visit [facility] Neurology - [place] [address] [place] [address] Warren Barnes NP [address] [place] [address] 12/18/2025 3:00 PM PARTS CASTING MACHINE OPERATOR Video Visit [facility] Gastroenterology- [place] [address] [place] [address] Madina Smith, CLINICAL TEAM LEAD [address] [facility] [address] [place] [address] 03/01/2026 3:15 PM CDT Office Visit [facility] Neurology - [place] [address] [facility] [address] [place] [address] Simona Arredondo MD [address] [facility] [address] [place] [address] documented as of this encounter Visit Diagnoses Not on filedocumented in this encounter
--- NOTE | 2025-09-18 04:23 | CTR_ITS ---
PROCEDURE INFORMATION: Exam: CT Abdomen And Pelvis With Contrast Exam date and time: 09/18/2025 4:54 AM Age: 50 years old Clinical indication: Abdominal pain; Additional info: HX sle, p/w hematochezia, abd pain, vomiting TECHNIQUE: Imaging protocol: Computed tomography of the abdomen and pelvis with contrast. Radiation optimization: All CT scans at this facility use at least one of these dose optimization techniques: automated exposure control; mA and/or kV adjustment per patient size (includes targeted exams where dose is matched to clinical indication); or iterative reconstruction. Contrast material: OMNI 350; Contrast volume: 100 ml; Contrast route: INTRAVENOUS (IV); COMPARISON: MR MRCP [id number] 01/04/2024 6:38 PM RADIATION DOSE METRICS: Total DLP (mGy-cm): 1266.66 FINDINGS: Liver: 23 cm hepatomegaly. Gallbladder and biliary ducts: Cholecystectomy. Pancreas: Normal. No ductal dilation. Spleen: Normal. No splenomegaly. Adrenal glands: Normal. No mass. Kidneys and ureters: Normal. No hydronephrosis. Stomach and bowel: The upper stomach is abnormal. Pneumatosis is present in the wall of the upper stomach. There is thickening of the wall of the distal esophagus. There is a small amount of fluid and stranding of the adjacent fat adjacent to the upper stomach, a perforation near the EG junction is postulated. Appendix: No evidence of appendicitis. Intraperitoneal space: Unremarkable. No free air. No significant fluid collection. Vasculature: Unremarkable. No abdominal aortic aneurysm. Lymph nodes: Unremarkable. No enlarged lymph nodes. Urinary bladder: Unremarkable as visualized. Reproductive: Unremarkable as visualized. Bones/joints: Unremarkable. No acute fracture. Soft tissues: See Stomach and bowel finding. CT/CT abdomen pelvis w con* [id number] IMPRESSION: Likely Ana-Melvin tear with gas within the wall of the upper stomach, a small volume of perigastric fluid, and inflammatory changes in the upper abdominal fat.
[2025-09-18] MEDS: ondansetron 2 mg/ML SDV 2 mL 4 MG IVP ×2 (04:31→10:01)
[2025-09-18 04:32] LABS: Hematocrit 35.9 % (36-47); Hemoglobin 12.40 g/dL (11.27-16.99); Mean Corpuscular HGB Conc 34.5 g/dL (30-55); Mean Corpuscular Hemoglobin 33.2 pg (27-33); Mean Corpuscular Volume 96.0 fl (85-98); Nucleated Red Blood Cells % 0 %; Platelet Count 252 10^3/cmm (157-399); Red Blood Count 3.74 10^6/uL (3.85-5.65); White Blood Count 13.19 10^3/uL (3.29-11.43)
[2025-09-18] MEDS: morphine 4 mg/mL SDV 1 mL IVP (04:32)
[2025-09-18] MEDS: pantoprazole 40 mg SDV IVP (04:32)
[2025-09-18 04:37] LABS: INR 0.97 (0.8-1.2); Prothrombin Time 13.50 SECONDS (12.1-14.9)
[2025-09-18 04:38] LABS: Partial Thromboplastin Time 33.9 SECONDS (23.9-36.7)
[2025-09-18 04:42] LABS: Alanine Aminotransferase 18 U/L (0-33); Albumin Level 3.3 g/dL (3.5-5.2); Alkaline Phosphatase 194 U/L (35-105); Anion Gap 16.6 (5-19); Aspartate Amino Transferase 38 U/L (0-32); Blood Urea Nitrogen 6 mg/dL (6-20); Calcium 8.8 mg/dL (8.5-10.5); Carbon Dioxide 27 mmol/L (22-29); Chloride 92 mmol/L (98-107); Globulin 3.7 g/dL (1.3-4.6); Glucose 156 mg/dL (65-115); Lipase 134 U/L (13-60); Osmolality Calculated 277 mOsm/kg (285-295); Sodium 133 mmol/L (136-145); Total Protein 7.0 g/dL (6.6-8.7)
[2025-09-18 04:43] LABS: HCG, Serum Qual Negative (Negative)
[2025-09-18 04:45] LABS: Potassium 2.6 mmol/L (3.5-5.1)
--- NOTE | 2025-09-18 05:06 | W.ED.GIBLEED ---
Documented by User: Guy Shah MD 09/18/25 05:46 HPI - GI Bleed General: Chief complaint: GI Bleed Stated complaint: N/v CP diajayme blood dizzy Time Seen by Provider: 09/18/25 03:58 History of Present Illness: 50-year-old female with a past medical history significant for lupus, chronic GI issues for which she follows up with a type proof reproducer in [facility] but is unable to tell me a specific diagnosis, presenting to the emergency department with approximately 1 week to 2-week history of chronic abdominal pain, recurrent nonbloody vomiting, bright red blood per rectum with associated diarrhea, no fevers, poor p.o. tolerance, generalized weakness. Related Data Home Medications ?Medication ?Instructions ?Recorded ?Confirmed amitriptyline 25 mg tablet 25 mg PO DAILY 03/17/25 07/20/25 colestipol 1 gram tablet 1 g PO BID 03/17/25 07/20/25 duloxetine 60 mg capsule,delayed 60 mg PO DAILY 03/17/25 07/20/25 release fludrocortisone 0.1 mg tablet 0.05 mg PO DAILY 03/17/25 07/20/25 hydroxyzine HCl 10 mg tablet 10 mg PO TID PRN lupus 03/17/25 07/20/25 levothyroxine 75 mcg capsule 75 mcg PO DAILY 03/17/25 07/20/25 midodrine 10 mg tablet 5 mg PO TID 03/17/25 07/20/25 pregabalin 100 mg capsule 100 mg PO TID 03/17/25 07/20/25 ergocalciferol (vitamin D2) 1,250 50,000 unit PO Q30D 07/20/25 07/20/25 mcg (50,000 unit) capsule (Vitamin D2) Previous Rx's ?Medication ?Instructions ?Recorded multivitamin (Multiple Vitamins 1 tab PO DAILY #30 tabs 01/06/24 tablet) sucralfate 100 mg/mL oral 10 ml PO QID gastritis #1,000 mL 01/06/24 suspension Allergies Allergy/AdvReac Type Severity Reaction Status Date / Time Alpha-Gal Allergy Unknown ALGY-Rash Verified 05/11/25 08:38 ([id number]-Ckhkg-7,3-Gala cephalexin (From Keflex) Allergy ADR-Itching Verified 05/11/25 08:38 PFSH ED PFSH: Medical History Dental abscess Hx of Guillain-Austin syndrome Hiatal hernia Hyperparathyroidism , secondary, non-renal Nonvisualization of gallbladder Acalculous cholecystitis section wound seroma, Surgical History Hx laparoscopic cholecystectomy 12/27/23 Dr Carrasco S/P right knee arthroscopy Family History Father Heart disease Hypertension Thyroid disease Stroke Diabetes Mother Heart disease Brother Thyroid disease Grandmother Heart disease Hypertension Diabetes Grandfather Heart disease Hypertension Stroke Other CAD (coronary artery disease) Social History Smoking and tobacco/nicotine status: never used tobacco/nicotine Alcohol intake: former Physical Exam Narrative: EXAM NARRATIVE: Gen: A&Ox4, no acute distress, nontoxic appearing HEENT: Normocephalic, atraumatic, no scleral icterus, external ears normal, dry mucous membranes Neck: Supple, full range of motion, no observable masses Lungs: No Respiratory distress, Lungs clear to auscultation bilaterally no rales, rhonchi, wheezing CV: Regular rate and rhythm, no murmur, no pitting edema to lower extremities bilaterally Abdomen: Soft, nondistended, tender to palpation diffusely, no rebound no guarding or rigidity or distention MSK: No joint swelling, FROM all 4 extremities Neuro: Alert and oriented, no slurred speech, sensation and strength grossly intact all 4 extremities Psych: Appropriate for situation. Course Vital Signs: Vital signs: Vital Signs Temperature 99.1 F 09/18/25 04:00 Pulse Rate 104 H 09/18/25 07:40 Respiratory Rate 24 H 09/18/25 07:40 Blood Pressure 120/82 09/18/25 07:40 Pulse Oximetry 92 09/18/25 07:40 Oxygen Delivery Me thod Room Air 09/18/25 06:57 MDM - GI Bleed Medical Decision Making 50-year-old female history of lupus, presenting to the emergency department with 1 to 2-week history of nausea vomiting abdominal pain and bright red blood per rectum, no blood in the vomiting per patient, follows with a GI doctor in [place] but is unable to tell me a specific diagnosis that is yet been obtained, patient appears hypovolemic and mildly tachycardic but is otherwise not hypotensive or febrile, nontoxic-appearing, plan for IV hydration, check electrolytes, CT abdomen rule out acute intra-abdominal surgical or infectious pathology, reassess for disposition Lab Data 09/18/25 04:17 09/18/25 04:17 Radiology Impressions Abdomen/Pelvis CT 09/18/25 04:23 IMPRESSION: Likely Ana-Melvin tear with gas within the wall of the upper stomach, a small volume of perigastric fluid, and inflammatory changes in the upper abdominal fat. ADDENDUM: 09/18/25 0611 THIS REPORT CONTAINS FINDINGS THAT MAY BE CRITICAL TO PATIENT CARE. The findings were verbally communicated via telephone conference with at 6:09 AM TESTING SHAKING SHIPPING on 09/18/2025. The findings were acknowledged and understood. Laboratory Results WBC 13.19 10^3/uL (3.29-11.43) H 09/18/25 04:17 RBC 3.74 10^6/uL (3.85-5.65) L 09/18/25 04:17 Hgb 12.40 g/dL (11.27-16.99) 09/18/25 04:17 Hct 35.9 % (36-47) L 09/18/25 04:17 MCV 96.0 fl (85-98) 09/18/25 04:17 MCH 33.2 pg (27-33) H 09/18/25 04:17 MCHC 34.5 g/dL (30-55) 09/18/25 04:17 RDW 15.6 % (12.1-15.1) H 09/18/25 04:17 Plt Count 252 10^3/cmm (157-399) 09/18/25 04:17 MPV 10.2 fL (7.4-10.4) 09/18/25 04:17 Neut % (Auto) 80.9 % 09/18/25 04:17 Lymph % (Auto) 9.2 % 09/18/25 04:17 [place] % (Auto) 8.0 % 09/18/25 04:17 Eos % (Auto) 0.9 % 09/18/25 04:17 Baso % (Auto) 0.5 % 09/18/25 04:17 Neut # (Auto) 10.67 10^3/uL (1.8-7.7) H 09/18/25 04:17 Lymph # (Auto) 1.2 10^3/uL (0.8-4.8) 09/18/25 04:17 [place] # (Auto) 1.1 10^3/uL (0.2-0.9) H 09/18/25 04:17 Eos # (Auto) 0.1 10^3/uL (0.0-0.8) 09/18/25 04:17 Baso # (Auto) 0.1 10^3/uL (0.0-0.1) 09/18/25 04:17 Nucleated RBC % (auto) 0 % 09/18/25 04:17 Nucleated RBCs # 0.0 /100WBC 09/18/25 04:17 PT 13.50 SECONDS (12.1-14.9) 09/18/25 04:17 INR 0.97 (0.8-1.2) 09/18/25 04:17 APTT 33.9 SECONDS (23.9-36.7) 09/18/25 04:17 Sodium 133 mmol/L (136-145) L 09/18/25 04:17 Potassium 2.6 mmol/L (3.5-5.1) L* 09/18/25 04:17 Chloride 92 mmol/L (98-107) L 09/18/25 04:17 Carbon Dioxide 27 mmol/L (22-29) 09/18/25 04:17 Anion Gap 16.6 (5-19) 09/18/25 04:17 BUN 6 mg/dL (6-20) 09/18/25 04:17 Creatinine 0.5 mg/dL (0.5-0.9) 09/18/25 04:17 GFR Calculation 131.1 mL/min (90-130) H 09/18/25 04:17 Glucose 156 mg/dL (65-115) H 09/18/25 04:17 Calculated Osmolality 277 mOsm/kg (285-295) L 09/18/25 04:17 Calcium 8.8 mg/dL (8.5-10.5) 09/18/25 04:17 Magnesium 1.7 mg/dL (1.7-2.3) 09/18/25 04:17 Total Bilirubin 1.1 mg/dL (0.15-1.2) 09/18/25 04:17 AST 38 U/L (0-32) H 09/18/25 04:17 ALT 18 U/L (0-33) 09/18/25 04:17 Alkaline Phosphatase 194 U/L (35-105) H 09/18/25 04:17 Total Protein 7.0 g/dL (6.6-8.7) 09/18/25 04:17 Albumin 3.3 g/dL (3.5-5.2) L 09/18/25 04:17 Globulin 3.7 g/dL (1.3-4.6) 09/18/25 04:17 Lipase 134 U/L (13-60) H 09/18/25 04:17 HCG, Qual Negative (Negative) 09/18/25 04:17 Amorphous Sediment Not Reportable 09/18/25 07:10 XR interpretation done by ED provider, pending radiology final review Discharge Plan Discharge Patient Disposition: Xfer Short-Term Hosp Clinical Impression: Nausea & vomiting, Acute hypokalemia, Ana-Melvin tear Condition: Stable Referrals: Haseeb Casiano MD [Primary Care Provider, [facility]] Print Language: Ghanaian Coding Level of Care Code ED Pr Internship for Chg Fwd Documented by User: Meggan Palm MD 09/18/25 07:52 HPI - GI Bleed General: Chief complaint: GI Bleed Stated complaint: N/v CP diareah blood dizzy Time Seen by Provider: 09/18/25 03:58 Related Data Home Medications ?Medication ?Instructions ?Recorded ?Confirmed amitriptyline 25 mg tablet 25 mg PO DAILY 03/17/25 07/20/25 colestipol 1 gram tablet 1 g PO BID 03/17/25 07/20/25 duloxetine 60 mg capsule,delayed 60 mg PO DAILY 03/17/25 07/20/25 release fludrocortisone 0.1 mg tablet 0.05 mg PO DAILY 03/17/25 07/20/25 hydroxyzine HCl 10 mg tablet 10 mg PO TID PRN lupus 03/17/25 07/20/25 levothyroxine 75 mcg capsule 75 mcg PO DAILY 03/17/25 07/20/25 midodrine 10 mg tablet 5 mg PO TID 03/17/25 07/20/25 pregabalin 100 mg capsule 100 mg PO TID 03/17/25 07/20/25 ergocalciferol (vitamin D2) 1,250 50,000 unit PO Q30D 07/20/25 07/20/25 mcg (50,000 unit) capsule (Vitamin D2) Previous Rx's ?Medication ?Instructions ?Recorded multivitamin (Multiple Vitamins 1 tab PO DAILY #30 tabs 01/06/24 tablet) sucralfate 100 mg/mL oral 10 ml PO QID gastritis #1,000 mL 01/06/24 suspension Allergies Allergy/AdvReac Type Severity Reaction Status Date / Time Alpha-Gal Allergy Unknown ALGY-Rash Verified 05/11/25 08:38 (Zqqbqfvio-Neaqp-9,3-Gala cephalexin (From Keflex) Allergy ADR-Itching Verified 05/11/25 08:38 [facility] ED PFSH: Medical History Dental abscess Hx of Guillain-Austin syndrome Hiatal hernia Hyperparathyroidism , secondary, non-renal Nonvisualization of gallbladder Acalculous cholecystitis section wound seroma, Surgical History Hx laparoscopic cholecystectomy 12/27/23 Dr Carrasco S/P right knee arthroscopy Family History Father Heart disease Hypertension Thyroid disease Stroke Diabetes Mother Heart disease Brother Thyroid disease Grandmother Heart disease Hypertension Diabetes Grandfather Heart disease Hypertension Stroke Other CAD (coronary artery disease) Social History Smoking and tobacco/nicotine status: never used tobacco/nicotine Alcohol intake: former Course Vital Signs: Vital signs: Vital Signs Temperature 99.1 F 09/18/25 04:00 Pulse Rate 104 H 09/18/25 07:40 Respiratory Rate 24 H 12/05/25 07:40 Blood Pressure 120/82 09/18/25 07:40 Pulse Oximetry 92 09/18/25 07:40 Oxygen Delivery Me thod Room Air 09/18/25 06:57 MDM - GI Bleed Medical Decision Making 50-year-old female history of lupus, presenting to the emergency department with 1 to 2-week history of nausea vomiting abdominal pain and bright red blood per rectum, no blood in the vomiting per patient, follows with a GI doctor in [place] but is unable to tell me a specific diagnosis that is yet been obtained, patient appears hypovolemic and mildly tachycardic but is otherwise not hypotensive or febrile, nontoxic-appearing, plan for IV hydration, check electrolytes, CT abdomen rule out acute intra-abdominal surgical or infectious pathology, reassess for disposition I took patient over from Dr. Shah. Did well CT scan it did show likely Ana-Melvin tear did reassess patient her pain has improved she has had no vomiting here. I did speak to surgeon Dr. Bella who recommended transfer for GI capabilities did speak to [facility] spoke to hospitalist Dr. Kurtz will transfer there for higher level care of GI her vitals here have been stable while here critical care time 35 minutes The high probability of a clinically significant, sudden or life threatening deterioration of the patient's gi system(s) required my full and direct attention, intervention and personal management. The critical care time is as shown. This time is in addition to time spent performing any reported procedures but includes the following: [x] Data and vital sign review and interpretation [x] Patient assessment, examination and intervention [x] Documentation [x] Medication orders and management Medical Records I reviewed the patient's medical records. Lab Data I reviewed the patient's lab results. 09/18/25 04:17 09/18/25 04:17 Radiology Impressions Abdomen/Pelvis CT 09/18/25 04:23 IMPRESSION: Likely Ana-Melvin tear with gas within the wall of the upper stomach, a small volume of perigastric fluid, and inflammatory changes in the upper abdominal fat. ADDENDUM: 09/18/25 0611 THIS REPORT CONTAINS FINDINGS THAT MAY BE CRITICAL TO PATIENT CARE. The findings were verbally communicated via telephone conference with at 6:09 AM TESTING SHAKING SHIPPING on 09/18/2025. The findings were acknowledged and understood. Laboratory Results WBC 13.19 10^3/uL (3.29-11.43) H 09/18/25 04:17 RBC 3.74 10^6/uL (3.85-5.65) L 09/18/25 04:17 Hgb 12.40 g/dL (11.27-16.99) 09/18/25 04:17 Hct 35.9 % (36-47) L 09/18/25 04:17 MCV 96.0 fl (85-98) 09/18/25 04:17 MCH 33.2 pg (27-33) H 09/18/25 04:17 MCHC 34.5 g/dL (30-55) 09/18/25 04:17 RDW 15.6 % (12.1-15.1) H 09/18/25 04:17 Plt Count 252 10^3/cmm (157-399) 09/18/25 04:17 MPV 10.2 fL (7.4-10.4) 09/18/25 04:17 Neut % (Auto) 80.9 % 09/18/25 04:17 Lymph % (Auto) 9.2 % 09/18/25 04:17 [place] % (Auto) 8.0 % 09/18/25 04:17 Eos % (Auto) 0.9 % 09/18/25 04:17 Baso % (Auto) 0.5 % 09/18/25 04:17 Neut # (Auto) 10.67 10^3/uL (1.8-7.7) H 09/18/25 04:17 Lymph # (Auto) 1.2 10^3/uL (0.8-4.8) 09/18/25 04:17 [place] # (Auto) 1.1 10^3/uL (0.2-0.9) H 09/18/25 04:17 Eos # (Auto) 0.1 10^3/uL (0.0-0.8) 09/18/25 04:17 Baso # (Auto) 0.1 10^3/uL (0.0-0.1) 09/18/25 04:17 Nucleated RBC % (auto) 0 % 09/18/25 04:17 Nucleated RBCs # 0.0 /100WBC 09/18/25 04:17 PT 13.50 SECONDS (12.1-14.9) 09/18/25 04:17 INR 0.97 (0.8-1.2) 09/18/25 04:17 APTT 33.9 SECONDS (23.9-36.7) 09/18/25 04:17 Sodium 133 mmol/L (136-145) L 09/18/25 04:17 Potassium 2.6 mmol/L (3.5-5.1) L* 09/18/25 04:17 Chloride 92 mmol/L (98-107) L 09/18/25 04:17 Carbon Dioxide 27 mmol/L (22-29) 09/18/25 04:17 Anion Gap 16.6 (5-19) 09/18/25 04:17 BUN 6 mg/dL (6-20) 09/18/25 04:17 Creatinine 0.5 mg/dL (0.5-0.9) 09/18/25 04:17 GFR Calculation 131.1 mL/min (90-130) H 09/18/25 04:17 Glucose 156 mg/dL (65-115) H 09/18/25 04:17 Calculated Osmolality 277 mOsm/kg (285-295) L 09/18/25 04:17 Calcium 8.8 mg/dL (8.5-10.5) 09/18/25 04:17 Magnesium 1.7 mg/dL (1.7-2.3) 09/18/25 04:17 Total Bilirubin 1.1 mg/dL (0.15-1.2) 09/18/25 04:17 AST 38 U/L (0-32) H 09/18/25 04:17 ALT 18 U/L (0-33) 09/18/25 04:17 Alkaline Phosphatase 194 U/L (35-105) H 09/18/25 04:17 Total Protein 7.0 g/dL (6.6-8.7) 09/18/25 04:17 Albumin 3.3 g/dL (3.5-5.2) L 09/18/25 04:17 Globulin 3.7 g/dL (1.3-4.6) 09/18/25 04:17 Lipase 134 U/L (13-60) H 09/18/25 04:17 HCG, Qual Negative (Negative) 09/18/25 04:17 Amorphous Sediment Not Reportable 09/18/25 07:10 Critical Care Time Critical Care Time: Critical Care Time: Yes Total Critical Care Time: 35 Attestation: The high probability of a clinically significant, sudden or life threatening deterioration of the patient's gi system(s) required my full and direct attention, intervention and personal management. The critical care time is as shown. This time is in addition to time spent performing any reported procedures but includes the following: [x] Data and vital sign review and interpretation [x] Patient assessment, examination and intervention [x] Documentation [x] Medication orders and management Discharge Plan Discharge Patient Disposition: Xfer Short-Term Hosp Clinical Impression: Nausea & vomiting, Acute hypokalemia, Ana-Melvin tear Condition: Stable Referrals: Haseeb Casiano MD [Primary Care Provider, [facility]] Print Language: Ghanaian Coding Level of Care Code ED Pr Internship for Andrey Haas
[2025-09-18 05:14] LABS: Magnesium 1.7 mg/dL (1.7-2.3)
[2025-09-18] MEDS: magnesium sulfate premix 2 GM/50 ML PIGGYBACK IV (05:40)
[2025-09-18] MEDS: lidocaine 1% 5 ML in potassium chloride premix 100 ML 52.5 ML IV (05:40)
[2025-09-18] MEDS: piperacillin-tazobactam 3.375 GM in sodium chloride 0.9% (plus) 50 ML IV (06:36)
[2025-09-18] MEDS: HYDROmorphone 0.5 MG/0.5 ML INJ 1 MG IVP (06:43)
--- NOTE | 2025-09-18 06:56 | PC.NURSE ---
pt placed on cardiac monitoring d/t K+ infusion.
[2025-09-18 07:27] LABS: Glucose Urine UA Negative (Normal); Nitrate Urine Negative (Negative); Specific Gravity, Urine 1.017 (1.005-1.030)
[2025-09-18 08:04] LABS: UA Slide Review UA Slide Review Perf
--- NOTE | 2025-09-18 08:31 | PC.PHAR ---
pt verified medications with me on her [employer] portal. Pt states she has not been able to keep any medications down in the last 4 days.
--- NOTE | 2025-09-18 09:31 | PC.NURSE ---
pt report called to [facility] to Carlos Lucero RN. no further questions. Report #: ER to ER.
--- NOTE | 2025-09-18 09:51 | PC.NURSE ---
report given to [facility] @[id number], no further concerns.
== END 2025-09-18 10:03 | disposition short-term general hospital (02) ==
PROVIDERS: Emergency Provider Student in an Organized Health Care Education/Training Program; PCP Family Medicine
DX: R11.2 Nausea with vomiting, unspecified (principal); E87.6 Hypokalemia; K22.6 Gastro-esophageal laceration-hemorrhage syndrome
CPT/HCPCS: 74177; 80053; 81001; 83690; 83735; 84703; 85025; 85610; 85730; 96365; 96366; 96367; 96375; 96376; 99285; J1171; J2270; J2405; J2470; J2543; J3373; J3475; J3480; J7050; J7120; J9999